=== PATIENT | female | born 1960 | race African-American/Black ===

== ENCOUNTER 2023-09-27 10:35 | Emergency (ER) | payer OTHER, SELFPAY ==
[2023-09-27 10:43] VITALS: BP 131/89; PULSE 108; RESP 18; TEMP 36.9; O2SAT 100; BMI 34.2
--- NOTE | 2023-09-27 11:32 | ECG_ITS ---
[facility] Test Date: 2023-09-27 Pat Name: WENDI LUCERO Department: Room: - Gender: Female Children'S Attendant: : 1960 Requested By: OLYA SOOD Order Number: [id number] Reading MD: ARLENE JOHNSON Measurements Intervals [place] Rate: 102 P: 72 PA: 154 QRS: -11 QRSD: 70 T: 100 QT: 318 QTc: 377 Interpretive Statements 1120 Sinus tachycardia 4068 Nonspecific [place] abnormality 9140 abnormal rhythm ECG No previous ECG available for comparison Electronically Signed On 09-28-2023 19:58:11 EST by ARLENE JOHNSON
--- NOTE | 2023-09-27 11:45 | ED_ITS ---
HPI - Psych General Chief Complaint: Psychiatric Symptoms Stated Complaint: MENTAL HEALTH CHECK Time Seen by Provider: 09/27/23 11:00 Source: Reports patient Mode of arrival: walk-in Limitations: Reports no limitations History of Present Illness HPI Narrative: Patient said that she is depressed and wants to end her life. She also said that she has been seeing things. She told me that she was admitted to [facility] psych this summer and then I was doing so good that they stopped my medications . She said that her counselor told her that she no longer needed to be seen by psych. No self injury. She did not tell me a particular plan for suicide. Related Data Home Medications Medication Instructions Recorded Confirmed cholecalciferol (vitamin D3) 50 2,000 unit PO DAILY 09/27/23 09/27/23 mcg (2,000 unit) tablet dulaglutide 3 mg/0.5 mL 3 mg subcut .weekly 09/27/23 09/27/23 subcutaneous pen injector (Trulicity) metformin 500 mg tablet,extended 500 mg PO BID 09/27/23 09/27/23 release 24 hr semaglutide 2 mg/dose (8 mg/3 mL) 2 mg subcut .weekly 09/27/23 09/27/23 subcutaneous pen injector (Ozempic) Allergies Allergy/AdvReac Type Severity Reaction Status Date / Time No Known Drug Allergies Allergy Verified 09/27/23 10:47 [facility] Social History Smoking status: Former smoker Exam Narrative Exam Narrative: Nurses notes and vital signs reviewed and patient is not hypoxic. afebrile General: Well-appearing and in no apparent distress. Skin: Warm, dry, no pallor noted. Head: Normocephalic, atraumatic. Neck: Supple, non-tender. Eye: Pupils are equal, round and EOMI. No scleral icterus. Ears, Nose, Mouth, and Throat: Oral mucosa is moist Cardiovascular: Regular Rate and Rhythm without murmur, gallop or rub. Respiratory: No accessory muscle use or respiratory distress. Lungs are clear to auscultation, no wheezing, rales or rhonchi Musculoskeletal: normal ROM, no calf or popliteal tenderness, no lower extremity edema/swelling GI: Abdomen is soft, non-distended. Normal bowel sounds. No tenderness to palpation. No rebound, guarding, or rigidity noted. Neurological: A&O x4. No cranial nerve dysfunction observed. No truncal ataxia. Moves all extremities. Sensation intact. Psychiatric: Cooperative and interactive. Flat affect. Constitutional Vital Signs, click to edit/add: Last Vital Signs Temp 98.4 F 09/27/23 10:43 Pulse 85 09/27/23 14:49 Resp 18 09/27/23 14:49 BP 137/72 09/27/23 14:49 Pulse Ox 99 09/27/23 14:49 O2 Del Method Room Air 09/27/23 10:43 Course Vital Signs Vital signs: Vital Signs Temperature 98.4 F 09/27/23 10:43 Pulse Rate 108 H 09/27/23 10:43 Respiratory Rate 18 09/27/23 10:43 Blood Pressure 131/89 09/27/23 10:43 Pulse Oximetry 100 09/27/23 10:43 Oxygen Delivery Method Room Air 09/27/23 10:43 Temperature 98.4 F 09/27/23 10:43 Pulse Rate 85 09/27/23 14:49 Respiratory Rate 18 09/27/23 14:49 Blood Pressure 137/72 09/27/23 14:49 Pulse Oximetry 99 09/27/23 14:49 Oxygen Delivery Method Room Air 09/27/23 10:43 MDM - Psych MDM Narrative Medical decision making narrative: suicide precautions initiated. Blood and urine obtained and sent for testing. EKG obtained. patient was medically cleared. [facility] and [facility] was called to arrange psychiatric follow-up. It was decided the patient would be admitted to [address] Quezada Lab Data Attestation: I reviewed the patient's lab results. Labs: Lab Results 09/27/23 09/27/23 Range/Units 11:49 11:50 WBC 14.2 H (4.0-11.0) 10^3/uL RBC 5.17 (4.20-5.40) 10^6/uL Hgb 14.4 (12.0-16.0) g/dL Hct 44.8 (36.0-48.0) % MCV 86.7 (81.0-99.0) fL MCH 27.9 (26.7-34.0) pg MCHC 32.1 (29.9-35.2) g/dL RDW 14.5 (11.0-15.0) % Plt Count 197 (150-450) 10^3/uL MPV 11.9 (9.5-13.5) fL Neut % (Auto) 77.4 H (43.0-75.0) % Lymph % (Auto) 13.3 L (20.5-60.0) % Edwards % (Auto) 8.1 (1.7-12.0) % Eos % (Auto) 0.5 L (0.9-7.0) % Baso % (Auto) 0.4 (0.2-2.0) % Neut # (Auto) 11.0 H (1.4-6.5) 10^3/uL Lymph # (Auto) 1.9 (1.2-3.8) 10^3/uL Edwards # (Auto) 1.2 H (0.3-0.8) 10^3/uL Eos # (Auto) 0.1 (0.0-0.7) 10^3/uL Baso # (Auto) 0.1 (0.0-0.1) 10^3/uL Abs Immat Gran (auto) 0.04 H (0.00-0.03) 10^3/uL Imm/Tot Granulo (auto) 0.3 (0.0-0.5) % Sodium 145 (136-145) mmol/L Potassium 3.3 L (3.5-5.1) mmol/L Chloride 103 (98-107) mmol/L Carbon Dioxide 24.6 (21.0-32.0) mmol/L Anion Gap 20.7 BUN 36.0 H (7.0-18.0) mg/dL Creatinine 1.22 H (0.55-1.02) mg/dL Est GFR ( Amer) 54 L (>=60) Est GFR (Non-Af Amer) 44 L (>=60) BUN/Creatinine Ratio 29.5 Glucose 204 H (74-106) mg/dL Calcium 9.8 (8.5-10.1) mg/dL Urine Color Yellow (YELLOW) Urine Clarity Clear (CLEAR) Urine pH 6.0 (5.0-9.0) Ur Specific [place] 1.025 (1.005-1.025) Urine Protein 100 A (NEG/TRACE) mg/dL Urine Glucose (UA) Negative (NEGATIVE) mg/dL Urine Ketones >=80 A (NEGATIVE) mg/dL Urine Occult Blood Trace-l (NEGATIVE) Urine Nitrite Negative (NEGATIVE) Urine Bilirubin Large A (NEGATIVE) Urine Urobilinogen 1.0 (0.2-1.0) EU/dL Ur Leukocyte Esterase Negative (NEGATIVE) Urine RBC 0-2 (0-2) #/HPF Urine WBC None seen (NONE SEEN) #/HPF Ur Squamous Epith Cells Few A (NONE/RARE) #/LPF Urine Crystals None seen (None Seen) #/HPF Urine Bacteria Trace A (NONE SEEN) #/HPF Urine Casts None seen (NONE SEEN) #/LPF Urine Mucus None seen (NONE SEEN) Ur Culture Indicated? No Salicylates 3.4 (<=19.9) mg/dL Urine Opiates Screen Negative (NEGATIVE) Ur Buprenorphine Scrn Negative (NEGATIVE) Ur Oxycodone Screen Negative (NEGATIVE) Urine Methadone Screen Negative (NEGATIVE) Acetaminophen <2.0 L (10.0-30.0) ug/mL Ur Barbiturates Screen Negative (NEGATIVE) U Tricyclic Antidepress Negative (NEGATIVE) Ur Phencyclidine Scrn Negative (NEGATIVE) Ur Amphetamines Screen Negative (NEGATIVE) U Methamphetamines Scrn Negative (NEGATIVE) U Benzodiazepines Scrn Negative (NEGATIVE) Urine Cocaine Screen Negative (NEGATIVE) U Cannabinoids Screen Negative (NEGATIVE) Ethanol Quant <3 mg/dL ECG Data Attestation: I personally reviewed and interpreted this ECG as follows: Interpretation: EKG interpretation: Emergency Department physician interpretation. Sinus tachycardia at 102bpm. Normal axis, normal intervals and non-specific T wave changes. No ST segment elevation or depression. Discharge Plan Discharge Chief Complaint: Psychiatric Symptoms Clinical Impression: Acute psychosis, Suicidal ideation, Depression Patient Disposition: [facility] Time of Disposition Decision: 15:00 Discharge Location: [facility]
[2023-09-27] MEDS: ACETAMINOPHEN 500 MG TABLET 1000 MG PO (11:49)
[2023-09-27 12:29] LABS: Basophils Absolute Auto 0.1 10^3/uL (0.0-0.1); Basophils Percent Auto 0.4 % (0.2-2.0); Eosinophils Absolute Auto 0.1 10^3/uL (0.0-0.7); Eosinophils Percent Auto 0.5 % (0.9-7.0); Hematocrit 44.8 % (36.0-48.0); Hemoglobin 14.4 g/dL (12.0-16.0); Immature Granulocytes Abs Auto 0.04 10^3/uL (0.00-0.03); Immature Granulocytes Pct Auto 0.3 % (0.0-0.5); Lymphocytes Absolute Auto 1.9 10^3/uL (1.2-3.8); Lymphocytes Percent Auto 13.3 % (20.5-60.0); Mean Corpuscular HGB Conc 32.1 g/dL (29.9-35.2); Mean Corpuscular Hemoglobin 27.9 pg (26.7-34.0); Mean Corpuscular Volume 86.7 fL (81.0-99.0); Mean Platelet Volume 11.9 fL (9.5-13.5); Monocytes Absolute Auto 1.2 10^3/uL (0.3-0.8); Monocytes Percent Auto 8.1 % (1.7-12.0); Neutrophils Percent Auto 77.4 % (43.0-75.0); Platelet Count 197 10^3/uL (150-450); Red Blood Count 5.17 10^6/uL (4.20-5.40); Red Cell Distribution Width 14.5 % (11.0-15.0); White Blood Count 14.2 10^3/uL (4.0-11.0)
[2023-09-27 12:31] LABS: Bilirubin Urine LARGE (NEGATIVE); Blood Urine TRACE-L (NEGATIVE); Clarity Urine CLEAR (CLEAR); Color Urine YELLOW (YELLOW); Glucose Urine UA NEGATIVE (NEGATIVE); Ketones Urine >=80 mg/dL (NEGATIVE); Leukocyte Esterase Urine NEGATIVE (NEGATIVE); Nitrite Urine NEGATIVE (NEGATIVE); Protein Urine 100 mg/dL (NEG/TRACE); Specific Gravity Urine 1.025 (1.005-1.025)
[2023-09-27 12:39] LABS: Anion Gap 20.7; BUN Creatinine Ratio 29.5; Calcium 9.8 mg/dL (8.5-10.1); Carbon Dioxide 24.6 mmol/L (21.0-32.0); Chloride 103 mmol/L (98-107); Estimated GFR (African America 54 (>=60); Estimated GFR (Non-African Ame 44 (>=60); Ethanol <3 mg/dL; Glucose 204 mg/dL (74-106); Potassium 3.3 mmol/L (3.5-5.1); Salicylate 3.4 mg/dL (<=19.9); Sodium 145 mmol/L (136-145)
[2023-09-27 12:40] LABS: Amphetamine Screen Urine NEGATIVE (NEGATIVE); Barbiturates Screen Urine NEGATIVE (NEGATIVE); Benzodiazepines Screen Urine NEGATIVE (NEGATIVE); Buprenorphine Screen Urine NEGATIVE (NEGATIVE); Cannabinoid Screen Urine NEGATIVE (NEGATIVE); Cocaine Screen Urine NEGATIVE (NEGATIVE); Methadone Screen Urine NEGATIVE (NEGATIVE); Methamphetamines Screen Urine NEGATIVE (NEGATIVE); Opiate Screen Urine NEGATIVE (NEGATIVE); Oxycodone Screen Urine NEGATIVE (NEGATIVE); Phencyclidine Screen Urine NEGATIVE (NEGATIVE); Tricyclic Antidepressant Urine NEGATIVE (NEGATIVE); Urine Microscopic Indicated YES
[2023-09-27 12:41] LABS: Acetaminophen <2.0 ug/mL (10.0-30.0)
[2023-09-27 12:51] LABS: Bacteria Urine TRACE #/HPF (NONE SEEN); Crystals Seen? None Seen #/HPF (None Seen); Mucus Urine NONE SEEN (NONE SEEN); RBC Urine 0-2 #/HPF (0-2); Squamous Epithelial Cell Urine FEW #/LPF (NONE/RARE); WBC Urine NONE SEEN #/HPF (NONE SEEN)
[2023-09-27 12:52] LABS: Cast Seen? NONE SEEN #/LPF (NONE SEEN); Urine Culture Indicated NO
[2023-09-27 13:14] VITALS: BP 138/94; PULSE 84; RESP 18; O2SAT 99
[2023-09-27 14:49] VITALS: BP 137/72; PULSE 85; RESP 18; O2SAT 99
[2023-09-27 16:06] VITALS: BP 153/82; PULSE 85; RESP 18; O2SAT 98
== END 2023-09-27 16:52 ==
PROVIDERS: Emergency Provider Emergency Medicine; PCP Family Medicine
DX: R45.851 Suicidal ideations (principal); F32.A Depression, unspecified; F23 Brief psychotic disorder; Z79.899 Other long term (current) drug therapy; Z87.891 Personal history of nicotine dependence; Z79.84 Long term (current) use of oral hypoglycemic drugs
CPT/HCPCS: 36415; 80048; 80179; 80307; 80320; 80329; 81001; 85025; 93005; 99285

== ENCOUNTER 2024-11-26 23:14 | Emergency (ER) | payer MEDICARE, MEDICAID, SELFPAY ==
[2024-11-26 23:17] VITALS: BP 165/90; PULSE 102; TEMP 37.1; O2SAT 99; BMI 29.3
--- OUTSIDE RECORDS SUMMARY | 2024-11-26 23:19 | XMS_ITS | CCD ---
Author Organization [facility] Informat ion Partnership [facility] Care Team Providers Care Inspector And Tester Name Role Phone DR ISAC SOOD Primary Care Unavailable YVONNE PETIT Admitting Unavailable YVONNE PETIT Attending Unavailable YVONNE PETIT Consulting Unavailable INDIGO, DR ISAC Rosario Admitting Unavailable INDIGO, DR ISAC Rosario Attending Unavailable INDIGO, DR ISAC Rosario Primary Care Unavailable INDIGO, DR ISAC Rosario Consulting Unavailable MD Isac Sood Primary Care Provider MD Avinash Quezada Admit Provider [phone] MD Avinash Quezada Attending Provider [phone] MD Isac Sood Primary Care Provider MD Avinash Quezada Admit Provider MD Avinash Quezada Attending Provider MARIAM Walsh Other Provider Unavailable MARIAM Mccray Other Provider Unavailable MARIAM Paetl Other Provider Unavailable MARIAM Zheng Other Provider Unavailable MARIAM Rosado Other Provider Unavailable MARIAM Crane Other Provider Unavailable Dials, PET HANDLERNathaly Chamorro Other Provider [phone] DO Farideh Silva Other Provider [phone] MD Adolfo Phelps Other Provider DO Guero Beckett Other Provider MD Jay Duran Other Provider MD Jacqueline Benson Other Provider DARSHAN Anton Other Provider MD Blaire Brown Other Provider MD Simba Robins Other Provider MD Dusty Hsu Other Provider MD Dina Rodriguez Other Provider DO Kyle Mancia Other Provider MD Jovan Bill Other Provider MD Jorge Guzman Other Provider AMISH Petersen-C Patti Mckee Other Provider MD Zeferino Ruth Other Provider MD Junior Rosa Other Provider MD Baljit Varela Other Provider MD Boy Garay Other Provider DO Alma Delia Curiel Other Provider DO Stef Armijo Other Provider DO Anthony Walker Other Provider DARSHAN Serrano Other Provider DO Alex Lynch Other Provider MD Panfilo Casillasayemir Chamorro Other Provider DARSHAN Noguera Other Provider DARSHAN Buenrostro Other Provider MD Leon Campo Other Provider MD Prosper Baer Other Provider DO Joni Krishnamurthy Other Provider [phone] DARSHAN Christianson Other Provider DO J Luis Yabrett Other Provider MARIAM Beltran Other Provider Unavailable Kayla Blas Unavailable Rosa Quezadayemi Admitting Unavailable Tsering Walsh Consulting Unavailable Isac Sood Primary Care Unavailable Theo Lott Attending Unavailab Bhavya Kessler Consulting Unavailable Carlota Patel Consulting Unavailable Nancy Zheng Consulting Unavailable Renee Rosado Consulting Unavailable Irene Crane Consulting Unavailable Adalgisa Graves Consulting Unavailable Farideh Silva Consulting Unavailable Adolfo Phelps Consulting Unavailable Guero Beckett Consulting UnavailJay Serrano Consulting Unavailable Jacqueline Benson Consulting Unavailable Filomena Anton Consulting UnavailBlaire Bass Consulting Unavailable Simba Robins Consulting Unavailable Dusty Hsu Consulting Unavailable Dina Rodriguez Consulting Unavailable Kyle Mancia Consulting Unavailable Jovan Bill Consulting Unavailable Jorge Guzman Consulting Unavailable Patti Petersen Consulting Unavailable Zeferino Ruth Consulting Unavailab Junior Irvin Consulting Unavailable Baljit Varela Consulting Unavailable Boy Garay Consulting Unavailable Alma Delia Curiel Consulting Unavailable Stef Armijo Consulting Unavailable MiniAnthony richmond Consulting Unavailable ObCamille thayer Consulting Unavailable Alex Lynch Consulting Unavailable DaromaLeanna clark Consulting Unavailable Ashleigh Noguera Consulting Unavailable Edyta Buenrostro Consulting Unavailable Alahmad Alanancy Consulting Unavailable Prosper Baer Consulting Unavailable Joni Krishnamurthy Consulting Unavailable Alfreda Christianson Consulting Unavailable Raj Dietz Consulting Unavailable Quita Beltran Consulting Unavailable Isac Sood Primary Care Unavailable Theo Lott Admitting Unavailab Theo Maxwell Attending UnavailIsac Lea MD Primary Care Provider Isac Sood MD Unavailable ISAC SOOD Attending Unavailable INDIGO, ISAC Attending Unavailable ISAC SOOD Attending Unavailable ISAC SOOD Attending Unavailable INDIGO, ISAC Attending Unavailable Isac Sood MD Unavailable ISAC SOOD Referring Unavailable ISAC SOOD Primary Care Unavailable ISAC SOOD Referring Unavailable NADSHIREEN, ISAC Primary Care Unavailable NADERER, ISAC Referring Unavailable NADDEJANR, ISAC Primary Care Unavailable NADDEJANR, ISAC Referring Unavailable NADSHIREEN, ISAC Primary Care Unavailable NADSHIREEN, ISAC Referring Unavailable NADDEJANR, ISAC Primary Care Unavailable NADERER, ISAC Referring Unavailable NADERER, ISAC Primary Care Unavailable NADDEJANR, ISAC Referring Unavailable NADDEJANR, ISAC Primary Care Unavailable Angi Louis MA Unavailable Unavailable Isac Sood MD Primary Care Provider ISAC SOOD Referring Unavailable NADDEJANR, ISAC Primary Care Unavailable NADDEJANR, ISAC Referring Unavailable NADERER, ISAC Primary Care Unavailable Medications Current Medications Medication Drug Class(es) Dates Sig (Normalized) Sig (Original) albuterol 0.21 mg/ml inhalation solution (2 sources) beta2-Adrenergic Agonist Start: 04-26-2021 take 3 mL by inhalation every six hours as needed for wheezing albuterol (ACCUNEB) 0.63 mg/3 mL nebulizer solution Indications: [place] Inhale 3 mL (0.63 mg total) by nebulization every 6 (six) hours as needed for wheezing. 75 mL 04/26/2021 Active take 2 puff(s) by in halation every six hours as needed for wheezing albuterol (PROVENTIL HFA;VENTOLIN HFA) 9 0 mcg/actuation inhaler Inhale 2 puffs every 6 (six) hours as needed for wheezing. Active ALPRAZolam 0.5 mg oral tablet (14 sources) Benzodiazepine Start: 03-24-2024 End: 11-24-2024 take 1 tablet by mouth three times daily as needed for anxiety ALPRAZolam (Xanax) 0.5 MG tablet Indications: GEORGIE (generalized anxiety disorder) ([facility]) Take 1 tablet (0.5 mg) by mouth 3 (three) times a day as needed for anxiety for up to 20 days 60 tablet 11/04/2024 11/24/2024 Active Start: 02-15-2023 End: 09-27-2023 take 1 mg by mouth twice daily Alprazolam Discontinued 1 MG PO Twice daily 0 February 14, 2023 11:00pm September 27, 2023 6:15pm Start: 02-10-2023 End: 02-15-2023 take 1 mg by mouth three times daily Alprazolam Discontinued 1 MG PO Three times daily February 09, 2023 11:00pm February 15, 2023 10:37am amLODIPine 10 mg oral tablet (1 source) Dihydropyridine Calcium Channel Edilson Start: 04-27-2021 take 1 tablet by mouth once daily amLODIPine (NORVASC) 10 mg tablet Take 1 tablet (10 mg total) by mouth daily. 30 tablet 04/27/2021 Active Budesonide / formoterol (1 source) Corticosteroid, beta2-Adrenergic Agonist Start: 07-06-2021 take 2 puff(s) by inhalation twice daily budesonide-formoter oL (SYMBICORT) 160-4.5 mcg/actuation inhaler Indications: Chronic bronchitis, unspecified chronic bronchitis type ([facility]) Inhale 2 puffs 2 (two) times a day. 10.2 g 11 07/06/2021 Active cholecalciferol 0.05 mg oral tablet (9 sources) Vitamin D Start: 02-09-2024 take 1 tablet by mouth once daily cholecalciferol (Vitamin D-3) 50 MCG (2000 UT) tablet Indications: Vitamin D deficiency Take 1 tablet (50 mcg) by mouth Daily 90 tablet 3 08/17/2024 Active Start: 02-15-2023 End: 09-27-2023 take 50 ug by mouth once daily Cholecalciferol (Vitamin D3) Discontinued 50 MCG PO Daily 30 February 14, 2023 11:00pm September 27, 2023 6:15pm docusate sodium 100 mg oral capsule (1 source) Start: 10-02-2023 take 100 mg by mouth twice daily Docusate Sodium Active 100 MG PO Twice daily October 02, 2023 12:00am ergocalciferol 1.25 mg oral capsule (8 sources) Provitamin D2 Compound Start: 10-02-2023 take 1 capsule by mouth every week ergocalciferol (Vitamin D2) 1.25 MG (87288 UT) capsule Take 1 capsule by mouth 1 (one) time per week 10/03/2023 Active escitalopram 5 mg oral tablet (10 sources) Serotonin Reuptake Inhibitor Start: 10-02-2023 End: 08-16-2024 take 1 tablet by mouth once daily escitalopram (Lexapro) 5 MG tablet Indications: Mild recurrent major depression (HCC) ([facility]) Take 1 tablet (5 mg) by mouth Daily 30 tablet 5 08/16/2024 Active fluticasone propionate 0.05 mg/actuat metered dose nasal spray (7 sources) Corticosteroid Start: 02-20-2024 take 2 spray(s) nasal route once daily fluticasone (Flonase) 50 MCG/ACT nasal spray Indications: Seasonal allergic rhinitis due to pollen Administer 2 sprays into each nostril Daily Shake gently. Before first use, prime pump. After use, clean tip and replace cap. 16 g 3 02/20/2024 Active 30 actuat fluticasone furoate 0.1 mg/actuat / umeclidinium 0.0625 mg/actuat / vilanterol 0.025 mg/actuat dry powder inhaler (1 source) Anticholinergic, Corticosteroid, beta2-Adrenergic Agonist Start: 06-27-2021 take 1 puff(s) by inhalation once daily fluticasone-umecli din-vilanter (TRELEGY ELLIPTA) 100-62.5-25 mcg blister with device Indications: Chronic bronchitis, unspecified chronic bronchitis type ([facility]) Inhale 1 puff daily. 1 each 11 06/27/2021 Active furosemide 40 mg oral tablet (7 sources) Loop Diuretic Start: 10-13-2023 take 1 tablet by mouth in the morning furosemide (Lasix) 40 MG tablet Indications: Edema of both legs Take 1 tablet (40 mg) by mouth in the morning. 30 tablet 3 10/13/2023 Active 3 ml insulin glargine 100 unt/ml pen injector (18 sources) Insulin Analog Start: 03-19-2024 End: 08-16-2024 insulin glargine (Lantus SoloStar) 100 UNIT/ML pen Indications: Type 2 diabetes mellitus with hyperglycemia, without long-term current use of insulin ([facility]) Inject 60 Units under the skin in the morning. 15 mL 5 08/16/2024 Active Start: 10-02-2023 Insulin Glargi ne (Lantus Solostar U-100 Insulin) 100 unit/mL (3 mL) Insulin Pen Active 20 UNIT SUBCUT Daily October 02, 2023 12:00am Start: 02-10-2023 End: 09-27-2023 Insulin Glargine (Lantus Magalie ostar U-100 Insulin) 100 unit/mL (3 mL) insulin pen Discontinued 50 UNIT SUBCUT Bedtime February 09, 2023 11:00pm September 27, 2023 6:15pm Start: 04-26-2021 End: 10-02-2023 Insulin Glargine (Lantus Magalie ostar U-100 Insulin) 100 unit/mL (3 mL) insulin pen Discontinued 40 UNIT SUBCUT 1 time daily September 30, 2023 12:00am October 02, 2023 12:12pm 40 units every evening 24 hr metFORMIN hydrochloride 500 mg extended release oral tablet (18 sources) Biguanide Start: 10-18-2024 take 2 tablets by mouth every twenty-four hours in the morning metFORMIN XR (Glucophage-XR) 500 MG 24 hr tablet Indications: Type 2 diabetes mellitus with hyperglycemia, with long-term current use of insulin (CMS/HCC) Take 2 tablets (1,000 mg) by mouth in the morning and 2 tablets (1,000 mg) before bedtime. 120 tablet 5 10/18/2024 Active Start: 10-03-2023 End: 10-18-2024 take 2 tablets by mouth in the morning metFORMIN (Glucophage) 500 MG tablet Indications: Type 2 diabetes mellitus with hyperglycemia, without long-term current use of insulin (CMS/HCC) Take 2 tablets (1,000 mg) by mouth in the morning and 2 tablets (1,000 mg) in the evening. Take with meals. 30 tablet 5 08/16/2024 10/18/2024 Discontinued Start: 10-02-2023 take 1000 mg by mout h at breakfast Metformin Active 1000 MG PO With breakfast and supper 60 October 02, 2023 12:00am Start: 09-29-2023 End: 10-02-2023 take 100 mg by mouth at breakfast Metformin Discontinued 100 MG PO With breakfast and supper September 29, 2023 12:00am October 02, 2023 12:12pm Start: 02-10-2023 End: 09-27-2023 take 1000 mg by mouth twice daily at mealtime Metformin Discontinued 1000 MG PO TWICE DAILY WITH MEALS February 09, 2023 11:00pm September 27, 2023 6:15pm take 1 tablet by peggy th every twelve hours metFORMIN HCl 1000 MG 1 tablet with a meal Orally BID Active OLANZapine 2.5 mg oral tablet (8 sources) Atypical Antipsychotic Start: 11-04-2024 take 1 tablet by mouth at bedtime OLANZapine (ZyPREXA) 2.5 MG tablet Indications: Mild recurrent major depression (HCC) (CMS/HCC) Take 1 tablet (2.5 mg) by mouth at bedtime 30 tablet 3 11/04/2024 Active Start: 02-08-2024 End: 11-04-2024 take 1 tablet by mouth at bedtime OLANZapine (ZyPREXA) 2.5 MG tablet Take 1 tablet by mouth at bedtime 02/08/2024 11/04/2024 Discontinued (Reorder) ondansetron 4 mg disintegrating oral tablet (8 sources) Serotonin-3 Receptor Antagonist Start: 10-03-2023 End: 11-04-2024 take 1 tablet by mouth every eight hours as needed ondansetron ODT (Zofran-ODT) 4 MG disintegrating tablet Take 4 mg by mouth every 8 (eight) hours if needed 10/03/2023 11/04/2024 Discontinued (Therapy completed) Start: 10-02-2023 take 4 mg by mouth e very six hours Ondansetron Active 4 MG PO Every 6 hours 30 October 02, 2023 12:00am phentermine hydrochloride 37.5 mg oral tablet (6 sources) Sympathomimetic Amine Anorectic Start: 08-16-2024 End: 11-04-2024 take 35-35.9 tablets by mouth before mealtime phentermine (Adipex-P) 37.5 MG tablet Indications: Class 2 severe obesity due to excess calories with serious comorbidity and body mass index (BMI) of 35.0 to 35.9 in adult (CMS/HCC) Take 1 tablet (37.5 mg) by mouth in the morning. Take before meals. 30 tablet 08/16/2024 11/04/2024 Discontinued (Therapy completed) pregabalin 100 mg oral capsule (1 source) Start: 06-07-2021 pregabalin (LYRICA) 100 mg capsule Indications: Fibromyalgia , Bilateral carpal tunnel syndrome One capsule at 8 PM each night 30 capsule 2 06/07/2021 Active Semaglutide (Ozempic) 2 mg/dose (8 mg/3 mL) pen injector (1 source) Start: 09-30-2023 Semaglutide (Ozempic) 2 mg/dose (8 mg/3 mL) pen injector Active MG SUBCUT September 30, 2023 12:00am Semaglutide, 2 MG/DOSE, (Ozempic, 2 MG/DOSE,) 8 MG/3ML solution pen-injector (7 sources) Start: 08-10-2024 Semaglutide, 2 MG/DOSE, (Ozempic, 2 MG/DOSE,) 8 MG/3ML solution pen-injector Indications: Type 2 diabetes mellitus with diabetic microalbuminuria, without long-term current use of insulin ([facility]) Inject 3 mL under the skin every 7 (seven) days 3 mL 5 08/10/2024 Active 10 actuat tiotropium 0.0025 mg/actuat inhalation spray (1 source) Anticholinergic Start: 07-06-2021 take 2 puff(s) by inhalation once daily tiotropium bromide (SPIRIVA RESPIMAT) 2.5 mcg/actuation mist Inhale 2 puffs daily. 4 g 11 07/06/2021 Active traZODone hydrochloride 100 mg oral tablet (4 sources) Serotonin Reuptake Inhibitor Start: 10-16-2023 take 1 tablet by mouth every twenty-four hours traZODone HCl 100 MG 1 tablet at bedtime Orally Once a day for 30 days Sep, Active Start: 10-02-2023 take 50 mg by mouth once daily at bedtime Trazodone Active 50 MG PO Daily at bedtime October 02, 2023 12:00am Completed/Discontinued Medications Medication Drug Class(es) Dates Sig (Normalized) Sig (Original) Dulaglutide (Trulicity) 3 mg/0.5 mL pen injector (1 source) Start: 09-29-2023 End: 09-30-2023 Dulaglutide (Trulicity) 3 mg/0.5 mL pen injector Discontinued 3 MG SUBCUT every week September 29, 2023 12:00am September 30, 2023 4:30pm 24 hr paliperidone 6 mg extended release oral tablet (4 sources) Atypical Antipsychotic Start: 02-14-2024 End: 08-16-2024 paliperidone (Invega) 6 MG 24 hr tablet 02/14/2024 08/16/2024 Discontinued Start: 12-07-2023 take 6 mg by mouth o nce daily at bedtime Paliperidone Active 6 MG PO Daily at bedtime October 02, 2023 12:00am 24 hr QUEtiapine 50 mg extended release oral tablet (6 sources) Atypical Antipsychotic Start: 10-16-2023 End: 08-16-2024 QUEtiapine XR (SEROquel XR) 50 MG 24 hr tablet 10/16/2023 08/16/2024 Discontinued Start: 10-16-2023 take 1 tablet by peggy th every twenty-four hours QUEtiapine Fumarate ER 50 MG 1 tablet in the evening Orally Once a day for 30 days Sep, Active risperiDONE 2 mg oral tablet (2 sources) Atypical Antipsychotic Start: 02-15-2023 End: 09-27-2023 take 2 mg by mouth at bedtime Risperidone Discontinued 2 MG PO Bedtime February 14, 2023 11:00pm September 27, 2023 6:15pm Semaglutide (2 sources) Start: 02-10-2023 End: 09-27-2023 Semaglutide (Ozempic) 1 mg/dose (4 mg/3 mL) pen injector Discontinued MG SUBCUT February 09, 2023 11:00pm September 27, 2023 6:15pm Start: 02-10-2023 Semaglutide (O zempic) 1 mg/dose (4 mg/3 mL) pen injector Active MG SUBCUT February 10, 2023 12:00am 24 hr venlafaxine 150 mg extended release oral capsule (6 sources) Serotonin and Norepinephrine Reuptake Inhibitor Start: 02-15-2023 End: 09-27-2023 take 75 mg by mouth once daily Venlafaxine Discontinued 75 MG PO Daily February 14, 2023 11:00pm September 27, 2023 6:15pm Start: 02-10-2023 End: 09-27-2023 take 150 mg by mouth once daily Venlafaxine Discontinued 150 MG PO Daily February 15, 2023 10:36am September 27, 2023 6:15pm Problems Active Problems Problem Classification Problem Date Documented Date Episodic/Chronic Anxiety disorders (10 sources) Generalized anxiety disorder; Translations: [Generalized anxiety disorder] Onset: 10-08-2023 10-08-2023 Chronic Cardiac dysrhythmias (1 source) Paroxysmal supraventricular tachycardia; Translations: [Paroxysmal supraventricular tachycardia] Onset: 01-19-2015 05-11-2018 Chronic Chronic obstructive pulmonary disease and bronchiectasis (1 source) Acute exacerbation of chronic obstructive airways disease; Translations: [Chronic obstructive pulmonary disease with (acute) exacerbation] Onset: 04-23-2021 04-23-2021 Chronic Diabetes mellitus with complications (19 sources) Type 2 diabetes mellitus; Translations: [Type 2 diabetes mellitus with other diabetic kidney complication] Onset: 10-08-2023 03-03-2024 Chronic Diabetes mellitus without complication (7 sources) Diabetes mellitus; Translations: [Type 2 diabetes mellitus without complications] Onset: 09-27-2023 09-30-2023 Chronic Disorders of lipid metabolism (1 source) Hyperlipidemia; Translations: [Other hyperlipidemia] Onset: 09-07-2015 05-11-2018 Chronic Essential hypertension (11 sources) Benign essential hypertension; Translations: [Essential (primary) hypertension] Onset: 10-08-2023 10-08-2023 Chronic Gout and other crystal arthropathies (7 sources) Gouty arthropathy; Translations: [Gout, unspecified] Onset: 10-08-2023 10-08-2023 Chronic Miscellaneous mental health disorders (9 sources) Primary insomnia; Translations: [Primary insomnia] Onset: 10-08-2023 10-08-2023 Chronic Mood disorders (10 sources) Recurrent major depressive episodes, mild ; Translations: [Major depressive disorder, recurrent, mild] Onset: 10-08-2023 02-20-2024 Chronic Nutritional deficiencies (12 sources) Vitamin D deficiency; Translations: [Vitamin D deficiency, unspecified] Onset: 08-16-2020 09-30-2023 Chronic Osteoarthritis (1 source) Osteoarthritis of joint of bilateral hands; Translations: [Primary osteoarthritis, right hand] Onset: 01-04-2021 01-04-2021 Chronic Other aftercare (1 source) half-way (current) use of oral hypoglycemic drugs; Translations: [[facility] USE ORAL HYPOGLYCEMIC DX] Onset: 02-11-2023 Episodic Other nervous system disorders (1 source) Other chronic pain; Translations: [Other chronic pain] Onset: 12-01-2023 Chronic Other nutritional; endocrine; and metabolic disorders (1 source) Body mass index 30+ - obesity; Translations: [Obesity, unspecified] Onset: 10-08-2023 10-08-2023 Chronic Other nutritional; endocrine; and metabolic disorders (8 sources) Severe obesity; Translations: [Class 2 severe obesity due to excess calories with serious comorbidity and body mass index (BMI) of 35.0 to 35.9 in adult ([facility])] Onset: 10-08-2023 08-16-2024 Chronic Other nutritional; endocrine; and metabolic disorders (1 source) Obesity, unspecified; Translations: [Obesity, unspecified] Onset: 03-02-2024 Chronic Other screening for suspected conditions (not mental disorders or infectious disease) (13 sources) Patient encounter status; Translations: [Encounter for screening mammogram for malignant neoplasm of breast] Onset: 08-27-2024 08-16-2024 Episodic Other upper respiratory disease (7 sources) Allergic rhinitis due to pollen; Translations: [Allergic rhinitis due to pollen] Onset: 02-20-2024 02-20-2024 Chronic Residual codes; unclassified (3 sources) Insomnia; Translations: [Insomnia, unspecified] Episodic Residual codes; unclassified (1 source) Insomnia, unspecified Episodic Rheumatoid arthritis and related disease (10 sources) Rheumatoid arthritis; Translations: [Rheumatoid arthritis, unspecified] Onset: 10-08-2023 10-08-2023 Chronic Schizophrenia and other psychotic disorders (13 sources) Delusional disorders; Translations: [Psychotic disorder] Onset: 02-10-2023 Chronic Unclassified (1 source) Schizoaffective disorder, unspecified; Translations: [Schizoaffective disorder, unspecified] Onset: 09-27-2023 Past or Other Problems Problem Classification Problem Date Documented Date Episodic/Chronic Immunizations and screening for infectious disease (1 source) Rheumatoid factor positive; Translations: [Other specified abnormal immunological findings in serum] Onset: 08-16-2020 08-16-2020 Episodic Nonspecific chest pain (1 source) Chest pain; Translations: [Chest pain, unspecified] Onset: 09-07-2015 05-11-2018 Episodic Other aftercare (2 sources) 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; Translations: [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 THERAPY] Onset: 02-11-2023 Episodic Other aftercare (7 sources) Long-term current use of drug therapy; Translations: [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] Onset: 02-20-2024 02-20-2024 Episodic Other aftercare (1 source) wallpaper hanger helper (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) 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 of insulin; Translations: [wallpaper hanger helper (current) use of insulin] Onset: 03-02-2024 Episodic Other connective tissue disease (1 source) Fibromyalgia; Translations: [Fibromyalgia] Onset: 01-04-2021 01-04-2021 Episodic Other lower respiratory disease (7 sources) Nodule of lung; Translations: [Solitary pulmonary nodule] Onset: 10-08-2023 10-08-2023 Episodic Other non-traumatic joint disorders (7 sources) Hip pain; Translations: [Pain in right hip] Onset: 11-25-2023 11-25-2023 Episodic Other non-traumatic joint disorders (1 source) Pain in right hip; Translations: [Pain in right hip] Onset: 12-01-2023 Episodic Other non-traumatic joint disorders (1 source) Pain in left hip; Translations: [Pain in left hip] Onset: 12-01-2023 Episodic Other non-traumatic joint disorders (1 source) Pain of left wrist; Translations: [Pain in left wrist] Onset: 08-16-2020 08-16-2020 Episodic Other non-traumatic joint disorders (1 source) 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; Translations: [Pain in unspecified joint] Onset: 08-16-2020 01-04-2021 Episodic Other skin disorders (1 source) Subcutaneous nodule; Translations: [Localized swelling, mass and lump, unspecified] Onset: 01-04-2021 01-04-2021 Episodic Other upper respiratory infections (7 sources) Acute pansinusitis; Translations: [Acute pansinusitis, unspecified] Onset: 11-25-2023 Resolved: 02-20-2024 02-20-2024 Episodic Residual codes; unclassified (10 sources) Bilateral lower limb edema; Translations: [Localized edema] Onset: 10-13-2023 09-30-2023 Episodic Residual codes; unclassified (2 sources) Localized edema; Translations: [Edema] Onset: 09-27-2023 10-02-2023 Episodic Spondylosis; intervertebral disc disorders; other back problems (8 sources) Low back pain co-occurrent with neuralgia of left sciatic nerve; Translations: [Lumbago with sciatica, left side] Onset: 10-08-2023 10-08-2023 Episodic Results Test Name Value Interpretation Reference Range Facility MAMM BX BREAST STEREO GUID I NITIAL LTon 11-10-2024 MAMM BX BREAST STEREO GUID INITIAL LT MAMM BX BREAST STEREO GUID INITIAL LT *ADDENDUM*Addendum issued for newly received pathology results, 11/10/2024 9:57 AM: For the left breast biopsy site there are pathology results of benign breast tissue with fibroadenomatoid fibrosis and stromal calcifications.. See dedicated pathology report for further detail. Results are benign and concordant with imaging findings. Patient may return to annual screening mammography. Procedure performed by Dr. Phan, addendum issued by Dr. Phan. Finalized by Debi Phan MD on 11/10/2024 9:58 AM 100 Normal [facility] MAMM POST BX DIAG UNI LTon 0 11-10-2024 MAMM POST BX DIAG UNI LT MAMM POST BX DIAG UNI LT *ADDENDUM*Addendum issued for newly received pathology results, 11/10/2024 9:57 AM: For the left breast biopsy site there are pathology results of benign breast tissue with fibroadenomatoid fibrosis and stromal calcifications.. See dedicated pathology report for further detail. Results are benign and concordant with imaging findings. Patient may return to annual screening mammography. Procedure performed by Dr. Phan, addendum issued by Dr. Phan. Finalized by Debi Phan MD on 11/10/2024 9:58 AM 100 Normal [facility] Surgical Pathologyon 025 Surgical Pathology Normal [facility] Comment on above: Result Comment: [facility] [address] [place] [address] Surgical Pathology Consultation Patient Name:MARIZOL LUCERO:1960 (Age: 64)Gender:FTaken:11/05/2024Reported:11/09/2024Physician(s):Isac Sood MD ([phone])Copy To:Debi Phan MDAession #:[id number]. Rec. #:[id number]: #[id number] Final Pathologic Diagnosis Left breast, needle biopsy @2:00: Benign breast tissue with focal usual duct hyperplasia, cystic change and fibroadenomatoid periductal fibrosis with stromal calcifications. Negative for atypia and carcinoma. Report Electronically Signed Out gr11/09/2024Anatoly Correia MD Interpretation performed at [employer], [address] [place] [address], License number: [id number]. Clinical History Biopsy procedure: Stereotactic; Target: Calcifications; Laterality: Left breast; Location: 2:00; BI-RAD: 4b; Suspect: R/O DCIS Gross Description Received in formalin labeled NIC, left breast are 8 fibroadipose tissue cores ranging from 1.7-3.4 cm, and a 1.8 x 1.2 x 0.2 cm aggregate of yellow, lobulated soft tissue bits. The cores are submitted entirely in cassette A- B and the aggregated soft tissue is submitted in cassette C. Radiographic images are taken to demonstrate microcalcifications in cassette A and C Time incised: 1438 Time in formalin: 1439 Cold ischemic time: 1 minute Time in formalin before processin hours (3,ns,D18-4695, m6) mxw/11/05/2024GR Specimen(s) Received Left breast Fee Codes(s): 1; 14962 MAMM DIAGNOSTIC UNILAT LT W CADon 09-28-2024 MAMM DIAGNOSTIC UNILAT LT W CAD MAMM DIAGNOSTIC UNILAT LT W CAD MARIZOL LUCERO 1960 [id number] EXAM: MAMM DIAGNOSTIC UNILAT LT W CAD, 09/28/2024 1:43 PM CLINICAL INDICATIONS: Abnormal mammogram, Patient returns for additional imaging of an abnormality visualized on screening mammography. COMPARISON: 08/27/2024 TECHNIQUE: Supplemental views of the left breast were obtained for diagnostic workup. Digital tomosynthesis images were obtained, with creation of synthetic 2D views. Computer aided detection was utilized. FINDINGS: There are scattered areas of fibroglandular density. Magnification views confirm the presence of a cluster of small calcifications in the mid outer aspect of the left breast. These are not well visualized on the lateral view on the current study, however, these are suspicious for malignancy and stereotactic biopsy is recommended for further evaluation. IMPRESSION: A cluster small calcifications in the mid outer aspect of the left breast, suspicious for malignancy. Stereotactic biopsy is recommended for further evaluation. BI-RADS: BI-RADS 4 - Suspicious RECOMMENDATION: Biopsy is recommended. These findings were discussed with the patient at the time of the examination. 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 Most recent mammogram more than 10 years ago, not available. TECHNIQUE: Bilateral digital tomosynthesis MLO and CC views of the breasts were obtained, with creation of synthetic 2D views. Computer aided detection was utilized. FINDINGS: There are scattered areas of fibroglandular density. There are no suspicious masses, no areas of architectural distortion. Small group of calcifications in the left breast at 3:00 at posterior depth. Recommend diagnostic mammographic views. IMPRESSION: Left breast: Small group of calcifications. Recommend diagnostic mammographic views. Right breast: Negative. BI-RADS: BI-RADS 0 - Incomplete. Needs additional imaging evaluation. RECOMMENDATION: Additional imaging required. RISK ASSESSMENT: TC Lifetime risk: 4.4%. The patient's reported personal and family medical history was used calculate their Tyrer-Cuzick lifetime risk of malignancy. Scores less than 20% are not considered high risk per ACR guidelines and patient should continue with the above recommendation. Finalized by Janet Pickering MD on 08/30/2024 1:06 PM 0A b ADDITIONAL I Normal [facility] HGB A1C (GLYCO-HGB)on 2023 Glucose [Mass/Vol] 243 mg/dL Normal [facility] Comment on above: Performed By: #### H A1C ####[facility] ([id number])[address], [address] [place] [address] HbA1c (Bld) [Mass fraction] 10.1 % High 4.4-5.6 [facility] Comment on above: Result Comment: NOTE ADA Guidelines Result HgbA1c Normal : less than 5.7 % Prediabetes : 5.7 % to 6.4 % Diabetes : > 6.4 % Use with caution in patients with abnormal hemoglobin variants as the half-life of red blood cells and in vivo glycation rates are affected. Performed By: #### H A1C ####[facility] ([id number])[address], [address], [place] [address] BASIC METABOLIC PANLon 03-02 Anion gap [Moles/Vol] 10 mmol/L Normal 5-15 [facility] Comment on above: Performed By: #### C BCA, BMP, LIVR, 22246-3, 3016-3, 71187-4, HA1C #### [facility] ([id number]) [address], [address] [place] [address] Calcium [Mass/Vol] 8.9 mg/dL Normal 8.5-10.5 [facility] Comment on above: Performed By: #### C BCA, BMP, LIVR, 18997-3, 3016-3, 84624-8, HA1C #### [facility] ([id number]) [address], [address] [place] [address] Chloride [Moles/Vol] 103 mmol/L Normal 98-109 [facility] Comment on above: Performed By: #### C BCA, BMP, LIVR, 03042-1, 3016-3, 69796-0, HA1C #### [facility] ([id number]) [address], [address] [place] [address] CO2 [Moles/Vol] 28 mmol/L Normal 22-32 [facility] Comment on above: Performed By: #### C BCA, BMP, LIVR, 89855-9, 3016-3, 55384-2, HA1C #### [facility] ([id number]) [address], [address] [place] [address] Creatinine [Mass/Vol] 0.76 mg/dL Normal 0.40-1.00 [facility] Comment on above: Result Comment: METH OD TRACEABLE TO IDMS STANDARD Performed By: #### C BCA, BMP, LIVR, 48893-8, 3016-3, 43360-4, HA1C #### [facility] ([id number]) [address], [address] [place] [address] GFR/1.73 sq M.predicted among non-blacks MDRD (S/P/Bld) [Vol rate/Area] 87 mL/min/{1.73_m2} Normal >59 [facility] Comment on above: Result Comment: Reported eGFR is based on the CKD-EPI 2020 equation that does not use a race coefficient. Performed By: #### C BCA, BMP, LIVR, 31026-0, 3016-3, 13300-3, HA1C #### [facility] ([id number]) [address], [address] [place] [address] Glucose [Mass/Vol] 131 mg/dL High 65-99 [facility] Comment on above: Performed By: #### C BCA, BMP, LIVR, 41476-0, 3016-3, 63954-9, HA1C #### [facility] ([id number]) [address], [address] [place] [address] Potassium [Moles/Vol] 3.8 mmol/L Normal 3.5-5.0 [facility] Comment on above: Performed By: #### C BCA, BMP, LIVR, 67951-4, 3016-3, 03542-3, HA1C #### [facility] ([id number]) [address], [address] [place] [address] Sodium [Moles/Vol] 141 mmol/L Normal 134-146 [facility] Comment on above: Performed By: #### C BCA, BMP, LIVR, 81930-5, 3016-3, 35059-0, HA1C #### [facility] ([id number]) [address], [address] [place] [address] Urea nitrogen [Mass/Vol] 13 mg/dL Normal 5-27 [facility] Comment on above: Performed By: #### C BCA, BMP, LIVR, 96728-4, 3016-3, 32570-2, HA1C #### [facility] ([id number]) [address], [address] [place] [address] CBC AND AUTO DIFFon 03-02-20 24 ABSOLUTE BASOPHIL 0.1 X10E9/L Normal 0.0-0.2 [facility] Comment on above: Performed By: #### C BCA, BMP, LIVR, 78084-6, 3016-3, 16740-1, HA1C #### [facility] ([id number]) [address], [address] [place] [address] ABSOLUTE NEUTROPHIL 4.5 X10E9/L Normal 1.5-6.6 [facility] Comment on above: Performed By: #### C BCA, BMP, LIVR, 47054-4, 3016-3, 48995-7, HA1C #### [facility] ([id number]) [address], [facility] [address] [place] [address] Basophils/100 WBC (Bld) 0.7 % Normal [facility] Comment on above: Performed By: #### C BCA, BMP, LIVR, 66502-1, 3016-3, 23437-7, HA1C #### [facility] ([id number]) [address], [facility] [address] [place] [address] Eosinophils (Bld) [#/Vol] 0.4 10*3/uL Normal 0.0-0.4 [facility] Comment on above: Performed By: #### C BCA, BMP, LIVR, 18064-9, 3016-3, 01455-7, HA1C #### [facility] ([id number]) [address] [address] [place] [address] Eosinophils/100 WBC (Bld) 4.6 % Normal [facility] Comment on above: Performed By: #### C BCA, BMP, LIVR, 61439-9, 3016-3, 44778-7, HA1C #### [facility] ([id number]) [address], [facility] [address] [place] [address] Erythrocyte distribution width (RBC) [Ratio] 14.8 % Normal 11.5-15.0 [facility] Comment on above: Performed By: #### C BCA, BMP, LIVR, 53248-9, 3016-3, 16493-4, HA1C #### [facility] ([id number]) [address], [facility] [address] [place] [address] Hematocrit (Bld) [Volume fraction] 39.4 % Normal 35-47 [facility] Comment on above: Performed By: #### C BCA, BMP, LIVR, 67946-0, 3016-3, 33323-5, HA1C #### [facility] ([id number]) [address], [facility] [address] [place] [address] Hemoglobin (Bld) [Mass/Vol] 13.1 g/dL Normal 11.7-15.5 [facility] Comment on above: Performed By: #### C BCA, BMP, LIVR, 18283-7, 3016-3, 95837-8, HA1C #### [facility] ([id number]) [address] [address] Lymphocytes (Bld) [#/Vol] 2.6 10*3/uL Normal 1.0-3.5 [facility] Comment on above: Performed By: #### C BCA, BMP, LIVR, 78429-2, 3016-3, 83123-7, HA1C #### [facility] ([id number]) [address], [address] [place] [address] Lymphocytes/100 WBC (Bld) 32.8 % Normal [facility] Comment on above: Performed By: #### C BCA, BMP, LIVR, 89328-2, 3016-3, 62150-7, HA1C #### [facility] ([id number]) [address], [facility] [address] [place] [address] MCH (RBC) [Entitic mass] 28.1 pg Normal 27-34 [facility] Comment on above: Performed By: #### C BCA, BMP, LIVR, 25313-5, 3016-3, 23798-1, HA1C #### [facility] ([id number]) [address] [address] [place] [address] MCHC (RBC) [Mass/Vol] 33.2 g/dL Normal 32-36 [facility] Comment on above: Performed By: #### C BCA, BMP, LIVR, 82610-9, 3016-3, 03718-0, HA1C #### [facility] ([id number]) [address] [address] MCV (RBC) [Entitic vol] 85 fL Normal 80-100 [facility] Comment on above: Performed By: #### C BCA, BMP, LIVR, 03407-5, 3016-3, 43227-0, HA1C #### [facility] ([id number]) [address] [address] [place] [address] Monocytes (Bld) [#/Vol] 0.5 10*3/uL Normal 0-0.9 [facility] Comment on above: Performed By: #### C BCA, BMP, LIVR, 99273-0, 3016-3, 58215-5, HA1C #### [facility] ([id number]) [address], [address] [place] [address] Monocytes/100 WBC (Bld) 5.8 % Normal [facility] Comment on above: Performed By: #### C BCA, BMP, LIVR, 97343-7, 3016-3, 50907-4, HA1C #### [facility] ([id number]) [address], [address] [place] [address] Neutrophils/100 WBC (Bld) 56.1 % Normal [facility] Comment on above: Performed By: #### C BCA, BMP, LIVR, 05868-0, 3016-3, 18637-7, HA1C #### [facility] ([id number]) [address], [address] [place] [address] Platelet mean volume (Bld) [Entitic vol] 9.4 fL Normal 7-12 [facility] Comment on above: Performed By: #### C BCA, BMP, LIVR, 62223-4, 3016-3, 68103-3, HA1C #### [facility] ([id number]) [address], [address] [place] [address] Platelets (Bld) [#/Vol] 246 10*3/uL Normal 150-450 [facility] Comment on above: Performed By: #### C BCA, BMP, LIVR, 75646-3, 3016-3, 83395-2, HA1C #### [facility] ([id number]) [address], [address] [place] [address] RBC COUNT 4.66 X10E12/L Normal 3.80-5.20 [facility] Comment on above: Performed By: #### C BCA, BMP, LIVR, 98562-8, 3016-3, 17275-8, HA1C #### [facility] ([id number]) [address], [address] [place] [address] WBC (Bld) [#/Vol] 8.0 10*3/uL Normal 4.0-11.0 [facility] Comment on above: Performed By: #### C BCA, BMP, LIVR, 47254-3, 3016-3, 74157-5, HA1C #### [facility] ([id number]) [address] [facility] [address] [place] [address] HGB A1C (GLYCO-HGB)on 2023 Glucose [Mass/Vol] 146 mg/dL Normal [facility] Comment on above: Performed By: #### C BCA, BMP, LIVR, 42650-3, 3016-3, 29212-2, HA1C #### [facility] ([id number]) [address] [facility] [address] [place] [address] HbA1c (Bld) [Mass fraction] 6.7 % High 4.4-5.6 [facility] Comment on above: Result Comment: NOTE ADA Guidelines Result HgbA1c Normal : less than 5.7 % Prediabetes : 5.7 % to 6.4 % Diabetes : > 6.4 % Use with caution in patients with abnormal hemoglobin variants as the half-life of red blood cells and in vivo glycation rates are affected. Performed By: #### C BCA, BMP, LIVR, 97590-1, 3016-3, 02327-8, HA1C #### [facility] ([id number]) [address] [facility] [place] [address] LIVER PANELon 03-02-2024 Albumin [Mass/Vol] 4.1 g/dL Normal 3.2-5.3 [facility] Comment on above: Performed By: #### C BCA, BMP, LIVR, 61478-0, 3016-3, 16962-0, HA1C #### [facility] ([id number]) [address] [facility] [address] [place] [address] ALP [Catalytic activity/Vol] 75 U/L Normal 39-130 [facility] Comment on above: Performed By: #### C BCA, BMP, LIVR, 78055-2, 3016-3, 37803-9, HA1C #### [facility] ([id number]) [address], [address] [place] [address] ALT [Catalytic activity/Vol] 10 U/L Normal 0-31 [facility] Comment on above: Performed By: #### C BCA, BMP, LIVR, 19986-5, 3016-3, 05777-6, HA1C #### [facility] ([id number]) [address], [address] [place] [address] AST [Catalytic activity/Vol] 13 U/L Normal 0-41 [facility] Comment on above: Performed By: #### C BCA, BMP, LIVR, 85669-7, 3016-3, 57000-9, HA1C #### [facility] ([id number]) [address], [address] [place] [address] Bilirubin [Mass/Vol] 0.3 mg/dL Normal 0.3-1.2 [facility] Comment on above: Performed By: #### C BCA, BMP, LIVR, 14042-9, 3016-3, 70916-7, HA1C #### [facility] ([id number]) [address], [address] [place] [address] Bilirubin.direct [Mass/Vol] 0.1 mg/dL Normal 0.0-0.4 [facility] Comment on above: Performed By: #### C BCA, BMP, LIVR, 35133-8, 3016-3, 69666-9, HA1C #### [facility] ([id number]) [address], [address] [place] [address] Protein [Mass/Vol] 7.5 g/dL Normal 6.0-8.0 [facility] Comment on above: Performed By: #### C BCA, BMP, LIVR, 49007-4, 3016-3, 66027-5, HA1C #### [facility] ([id number]) [address], [address] [place] [address] Lipid 1996 panelon 4 Cholesterol [Mass/Vol] 192 mg/dL Normal 150-200 [facility] Comment on above: Performed By: #### Clarissa BCA, BMP, LIVR, 79146-8, 3016-3, 88042-5, HA1C #### [facility] ([id number]) [address], [address] [place] [address] Cholesterol in HDL [Mass/Vol] 56 mg/dL Normal >39 [facility] Comment on above: Result Comment: HDL <40 mg/dL - High Risk HDL > or = 40mg/dL- Desirable HDL >60 mg/dL - Negative Risk Performed By: #### C BCA, BMP, LIVR, 76032-1, 3016-3, 46478-8, HA1C #### [facility] ([id number]) [address] [place] [address] Cholesterol in LDL [Mass/Vol] 114 mg/dL Normal <130 [facility] Comment on above: Result Comment: LDL <100 mg/dL - Desirable LDL >160 mg/dL - High Risk Performed By: #### C BCA, BMP, LIVR, 35260-3, 3016-3, 93539-4, HA1C #### [facility] ([id number]) [address], [address] [place] [address] Cholesterol in VLDL [Mass/Vol] 22 mg/dL Normal 0-30 [facility] Comment on above: Performed By: #### C BCA, BMP, LIVR, 70184-8, 3016-3, 58765-3, HA1C #### [facility] ([id number]) [address], [address] [place] [address] CHOLESTEROL:HDL 3.4 Normal 1.0-5.0 [facility] Comment on above: Performed By: #### C BCA, BMP, LIVR, 43336-7, 3016-3, 82649-7, HA1C #### [facility] ([id number]) [address], [facility] [address] [place] [address] Triglyceride [Mass/Vol] 109 mg/dL Normal 27-150 [facility] Comment on above: Performed By: #### C BCA, BMP, LIVR, 17138-8, 3016-3, 02952-4, HA1C #### [facility] ([id number]) [address], [address] [place] [address] MICROALBUMIN - ALBUMIN:CREAT ININE URINE RATIOon 03-02-2024 ALB/CREAT RATIO 22.5 mg/g creat Normal 0.0-30.0 [facility] Comment on above: Performed By: #### M ALBU #### [facility] ([id number]) [address] [place] [address] Albumin DL <= 20 mg/L (U) [Mass/Vol] 3.7 mg/dL High 0.0-1.9 [facility] Comment on above: Performed By: #### M ALBU #### [facility] ([id number]) [address], [address] [place] [address] URINE CREAT 164.51 mg/dL Normal [facility] Comment on above: Performed By: #### M ALBU #### [facility] ([id number]) [address], [address] [place] [address] TSH Qnon 03-02-2024 TSH 2.56 uIU/mL Normal 0.49-4.67 [facility] Comment on above: Performed By: #### C SIOBHAN, EFREM, LIVR, 16759-2, 3016-3, 04097-3, HA1C #### [facility] ([id number]) [address], [address] [place] [address] Vitamin D+Metabolites [Mass/ Vol]on 03-02-2024 VITAMIN D 25 HYD TOT 29.1 ng/mL Low 30-100 [facility] Comment on above: Result Comment: Vitamin D status 25 [place] Vitamin D Deficiency <20 ng/mL Insufficiency 20-29 ng/mL Sufficiency 30-100 ng/mL Toxicity >100 ng/mL NOTE: A pediatric reference range has not been established by the rehabilitation therapy aide of this kit. The [employer] recommends a Vitamin D level of = or >20ng/mL in infants and children. Performed By: #### C SIOBHAN, BMP, LIVR, 71722-8, 3016-3, 80869-6, HA #### [facility] ([id number]) [address], [facility] [address] [place] [address] XR HIPS BILAT W OR WO PELVIS 5+ VWSon 12-02-2023 XR HIPS BILAT W OR WO PELVIS 5+ VWS XR HIPS BILAT W OR WO PELVIS 5+ VWS XR HIPS BILAT W OR WO PELVIS 5+ VWS Clinical history:Bilateral hip pain Comparison: None. Findings: Degenerative changes of the lumbar spine. Degenerative changes of the bilateral hips with joint space loss and narrowing osteophyte formation. There is no acute process fracture or dislocation. Degenerative changes of the bilateral sacroiliac joints. Impression: Degenerative changes of both hips without evidence of acute ossific abnormality. Finalized by Kyle Mosqueda MD on 12/02/2023 5:58 AM Normal [facility] XR SPINE LUMBAR 2 OR 3 VWSon 12-02-2023 XR SPINE LUMBAR 2 OR 3 VWS XR SPINE LUMBAR 2 OR 3 VWS XR SPINE LUMBAR 2 OR 3 VWS Clinical history:Chronic bilateral low back pain with left-sided sciatica Comparison: 06/07/2020 Findings: Multilevel degenerative disc disease with disco loss and endplate degenerative changes. There is atherosclerotic changes of the abdominal aorta. There is lower lumbar facet hypertrophy. Impression: Multilevel degenerative disc disease without evidence of acute osseous abnormality. Finalized by Kyle Mosqueda MD on 12/02/2023 5:59 AM Normal [facility] Capillary blood glucose cruz urement by glucometer (mass/volume)Ordered By: Avinash Quezada on 10-02-2023 Glucose [Mass/Vol] 162 mg/dL Normal [facility] Comment on above: Random Glucose Refer ence Range is dependent on time and content of last meal. Glucose of more than 200 mg/dL in a nonstressed, ambulatory subject supports the diagnosis of Diabetes Mellitus. Result Comment: [facility] Glucose Reference Range is dependent on time and content of last meal. Glucose of more than 200 mg/dL in a nonstressed, ambulatory subject supports the diagnosis of Diabetes Mellitus. PERFORMED BY: [place] [address] PATHOLOGIST SOFTWARE ENGINEERING ANALYST FAUSTO CARLISLE M.D. Performed By: #### C MP, CBC #### [address] Glucose Poct Glucometerson 1 12-03-2022 Glucose [Mass/Vol] 86 mg/dL Normal [facility] Comment on above: Result Comment: [place] Glucose Reference Range is dependent on time and content of last meal. Glucose of more than 200 mg/dL in a nonstressed, ambulatory subject supports the diagnosis of Diabetes Mellitus. PERFORMED BY: [place] [address] PATHOLOGIST SOFTWARE ENGINEERING ANALYST FAUSTO CARLISLE M.D. Performed By: #### G LULS #### Point of Care testing , ECG 12 lead ECGon 10-01-2023 ECG 12 lead ECG [facility] [place] [address] [place] [address] Electrocardiograph Report Signed Patient: Marizol Lucero MR#: [id number] : 1960 Acct:[id number] Age/Sex: 63 / F ADM Date: 09/27/23 Loc: Room: [address] [place] [address] Type: ADM IN Attending Dr: Avinash Quezada MD Ordering Provider: Theo Lott MD Date of Service: 10/01/2304/18/840 ECG/ECG 12 lead ECG: qtc monitoring Copies to: Test Reason : Blood Pressure : / mmHG Vent. Rate : 082 BPM Atrial Rate : 082 BPM P-R Int : 162 ms QRS Dur : 066 ms QT Int : 360 ms P-R-T Axes : 070 010 072 degrees QTc Int : 420 ms Sinus rhythm with premature atrial complexes Cannot rule out Anterior infarct , age undetermined Abnormal ECG No previous ECGs available Confirmed by YUNIER CAMARA [facility], JESSE ([id number]) on 10/01/2023 3:34:41 PM Referred By: Electronically Signed By:JESSE FAYE MD [facility] Transcribed By: MUS Signed By Jesse Faye MD, [facility] 10/01/23 1534 Normal [facility] Glucose Poct Glucometerson 1 12-02-2022 Commemt1 Glu2: Cleaned Meter Normal [facility] Comment on above: Result Comment: PERF ORMED BY: [place] [address] PATHOLOGIST SOFTWARE ENGINEERING ANALYST FAUSTO CARLISLE M.D. Performed By: #### C MP, CBC #### [facility] [address] [place] [address] Glucose [Mass/Vol] 156 mg/dL Normal [facility] Comment on above: Result Comment: [facility] [place] Glucose Reference Range is dependent on time and content of last meal. Glucose of more than 200 mg/dL in a nonstressed, ambulatory subject supports the diagnosis of Diabetes Mellitus. Performed By: #### C MP, CBC #### [facility] [address] [place] [address] Glucose [Mass/Vol] 304 mg/dL Normal [facility] Comment on above: Result Comment: [place] om Glucose Reference Range is dependent on time and content of last meal. Glucose of more than 200 mg/dL in a nonstressed, ambulatory subject supports the diagnosis of Diabetes Mellitus. PERFORMED BY: [place] [phone] PATHOLOGIST SOFTWARE ENGINEERING ANALYST FAUSTO CARLISLE M.D. Performed By: #### C MP, CBC #### [address] Glucose [Mass/Vol] 251 mg/dL Normal [facility] Comment on above: Result Comment: [place] Glucose Reference Range is dependent on time and content of last meal. Glucose of more than 200 mg/dL in a nonstressed, ambulatory subject supports the diagnosis of Diabetes Mellitus. PERFORMED BY: [place] [address] PATHOLOGIST SOFTWARE ENGINEERING ANALYST FAUSTO CARLISLE M.D. Performed By: #### C MP, CBC #### [address] Glucose [Mass/Vol] 128 mg/dL Normal [facility] Comment on above: Result Comment: [place] Glucose Reference Range is dependent on time and content of last meal. Glucose of more than 200 mg/dL in a nonstressed, ambulatory subject supports the diagnosis of Diabetes Mellitus. PERFORMED BY: [place] [address] PATHOLOGIST SOFTWARE ENGINEERING ANALYST FAUSTO CARLISLE M.D. Performed By: #### G LULS #### Point of Care testing , No Panel InformationOrdered By: Avinash Quezada on 10-01-2023 Bedside Glucose Comment Glu2: cleaned meter US venous duplex LE BIon US venous duplex LE BI [facility] [place] [address] [place] [address] Ultrasound Report Signed Patient: Marizol Lucero MR#: [id number] : 1960 Acct:[id number] Age/Sex: 63 / F ADM Date: 09/27/23 Loc: Room: [address] [place] [address] Type: ADM IN Attending Dr: Avinash Quezada MD Ordering Provider: Filomena Anton APRN Date of Service: 10/01/23 US/US venous duplex LE BI: edema, pain Copies to: MD Filomena Duarte APRN BILATERAL LOWER EXTREMITY VENOUS DUPLEX INDICATION: Bilateral lower extremity edema, pain and tenderness. PROCEDURE: Color-flow duplex scanning is used to interrogate the deep venous system of the right and left lower extremities. The common femoral vein, femoral vein and popliteal vein show good compressibility with normal proximal and distal augmentation. The calf veins are compressible. US/US venous duplex LE BI IMPRESSION: NO EVIDENCE FOR DEEP VEIN THROMBOSIS OR PROXIMAL SUPERFICIAL THROMBOPHLEBITIS IN THE RIGHT OR LEFT LOWER EXTREMITY. Impression dictated by: Roc Silvestre MD10/01/2023 1:06 PM Dictation Location: [place] [address] Tech: Brigid Plascencia Transcribed By: ADRIAN 10/01/23 1306 Dictated By: Roc Silvestre MD 10/01/23 1306 Signed By: 10/01/23 1306 Normal [facility] Alanine aminotransferase [En zymatic activity/volume] in Serum or PlasmaOrdered By: Theo Lott on 09-30-2023 ALT [Catalytic activity/Vol] 23 U/L Normal 7-52 Comment on above: Performed By: #### C ISELA, CBC #### [address] Albumin [Mass/volume] in Ser um or Plasma by Bromocresol green (BCG) dye binding methoOrdered By: Theo Lott on 09-30-2023 Albumin BCG dye [Mass/Vol] 3.8 g/dL 3.5-5.7 Alkaline phosphatase [Enzyma tic activity/volume] in Serum or PlasmaOrdered By: Theo Lott on 09-30-2023 ALP [Catalytic activity/Vol] 79 U/L Normal 34-104 Comment on above: Performed By: #### C MP, CBC #### [address] Aspartate aminotransferase [ Enzymatic activity/volume] in Serum or PlasmaOrdered By: Theo Lott on 09-30-2023 AST [Catalytic activity/Vol] 16 U/L Normal 13-39 Comment on above: Performed By: #### C MP, CBC #### [address] Automated basophil %Ordered By: Theo Lott on 09-30-2023 Basophils/100 WBC (Bld) 0.5 % Normal . [facility] Comment on above: Performed By: #### C MP, CBC #### [address] Automated basophil countOrde red By: Theo Lott on 09-30-2023 Basophils (Bld) [#/Vol] 0.0 10*3/uL Normal 0.0-0.2 Comment on above: Result Comment: PERF ORMED BY: [place] [address] PATHOLOGIST SOFTWARE ENGINEERING ANALYST FAUSTO CARLISLE M.D. Performed By: #### C MP, CBC #### [address] Automated blood monocyte cou ntOrdered By: Theo Lott on 09-30-2023 Monocytes (Bld) [#/Vol] 0.8 10*3/uL Normal 0.0-0.8 Comment on above: Performed By: #### C MP, CBC #### [address] Automated eosinophil %Ordere d By: Theo Lott on 09-30-2023 Eosinophils/100 WBC (Bld) 3.0 % Normal . Comment on above: Performed By: #### C MP, CBC #### [address] Automated eosinophil countOr dered By: Theo Lott on 09-30-2023 Eosinophils (Bld) [#/Vol] 0.3 10*3/uL Normal 0.0-0.45 Comment on above: Performed By: #### C MP, CBC #### [address] Automated monocyte %Ordered By: Theo Lott on 09-30-2023 Monocytes/100 WBC (Bld) 9.6 % Normal . [facility] Comment on above: Performed By: #### C MP, CBC #### [address] Automated neutrophil %Ordere d By: Theo Lott on 09-30-2023 Neutrophils/100 WBC (Bld) 52.3 % Normal . Comment on above: Performed By: #### C MP, CBC #### [address] Bilirubin.total [Mass/volume ] in Serum or PlasmaOrdered By: Theo Lott on 09-30-2023 Bilirubin [Mass/Vol] 0.3 mg/dL Normal 0.3-1.0 [facility] Comment on above: Performed By: #### C MP, CBC #### [address] Calcium [Mass/volume] in Ser um or PlasmaOrdered By: Theo Lott on 09-30-2023 Calcium [Mass/Vol] 9.2 mg/dL Normal 8.6-10.3 [facility] Comment on above: Performed By: #### C MP, CBC #### [address] Carbon dioxide, total [Moles /volume] in Serum or PlasmaOrdered By: Theo Lott on 09-30-2023 CO2 [Moles/Vol] 33.3 mmol/L High 21.0-31.0 [facility] Comment on above: Performed By: #### C MP, CBC #### [address] Chloride [Moles/volume] in S amish or PlasmaOrdered By: Theo Lott on 09-30-2023 Chloride [Moles/Vol] 97 mmol/L Low 98-107 [facility] Comment on above: Performed By: #### C MP, CBC #### [address] Complete Blood Count Auto Di ffon 09-30-2023 Mean Corpuscular HGB Conc 33.0 g/dL Normal 32.0-35.0 [facility] Comment on above: Performed By: #### C MP, CBC #### [address] NRBC% 0.2 /100{WBC} Normal 0-0.5 [facility] Comment on above: Performed By: #### C MP, CBC #### [address] Comprehensive Metabolic Pane ishaan 09-30-2023 Albumin [Mass/Vol] 3.8 g/dL Normal 3.5-5.7 [facility] Comment on above: Performed By: #### C MP, CBC #### [address] Creatinine Clr Calc Pharmacy 41.27 Normal [facility] Comment on above: Result Comment: PERF ORMED BY: [place] [address] PATHOLOGIST SOFTWARE ENGINEERING ANALYST FAUSTO CARLISLE M.D. Performed By: #### C MP, CBC #### [address] GFR/1.73 sq M.predicted MDRD (S/P/Bld) [Vol rate/Area] mL/min/{1.73_m2} Normal [facility] Comment on above: Performed By: #### C MP, CBC #### [address] Creatinine [Mass/volume] in Serum or PlasmaOrdered By: Theo Lott on 09-30-2023 Creatinine [Mass/Vol] 0.85 mg/dL Normal 0.60-1.20 [facility] Comment on above: Performed By: #### C MP, CBC #### [facility] [address] Erythrocyte distribution wid th [Ratio] by Automated countOrdered By: Theo Lott on 09-30-2023 Erythrocyte distribution width (RBC) [Ratio] 14.3 % Normal 11.9-15.3 Comment on above: Performed By: #### C MP, CBC #### [address] Erythrocytes [#/volume] in B lood by Automated countOrdered By: Theo Lott on 09-30-2023 RBC (Bld) [#/Vol] 4.53 10*6/uL Normal 3.60-5.00 [facility] Comment on above: Performed By: #### C MP, CBC #### [address] Glucose Poct Glucometerson 1 12-01-2022 Commemt1 Glu2: Cleaned Meter Normal [facility] Comment on above: Result Comment: PERF ORMED BY: [place] [address] PATHOLOGIST SOFTWARE ENGINEERING ANALYST FAUSTO CARLISLE M.D. Performed By: #### G LULS #### Point of Care testing , Glucose [Mass/Vol] 275 mg/dL Normal [facility] Comment on above: Result Comment: [place] Glucose Reference Range is dependent on time and content of last meal. Glucose of more than 200 mg/dL in a nonstressed, ambulatory subject supports the diagnosis of Diabetes Mellitus. Performed By: #### G LULS #### Point of Care testing , Glucose [Mass/Vol] 366 mg/dL Normal [facility] Comment on above: Result Comment: [place] Glucose Reference Range is dependent on time and content of last meal. Glucose of more than 200 mg/dL in a nonstressed, ambulatory subject supports the diagnosis of Diabetes Mellitus. PERFORMED BY: [address] [place] [id number] PATHOLOGIST SOFTWARE ENGINEERING ANALYST FAUSTO CARLISLE M.D. Performed By: #### G LULS #### Point of Care testing , Commemt1 Glu2: Cleaned Meter Normal [facility] Comment on above: Result Comment: PERF ORMED BY: [address] [place] [id number] PATHOLOGIST SOFTWARE ENGINEERING ANALYST FAUSTO CARLISLE M.D. Performed By: #### G LULS #### Point of Care testing , Glucose [Mass/Vol] 159 mg/dL Normal [facility] Comment on above: Result Comment: [place] Glucose Reference Range is dependent on time and content of last meal. Glucose of more than 200 mg/dL in a nonstressed, ambulatory subject supports the diagnosis of Diabetes Mellitus. Performed By: #### G LULS #### Point of Care testing , Glucose [Mass/Vol] 233 mg/dL Normal [facility] Comment on above: Result Comment: [place] Glucose Reference Range is dependent on time and content of last meal. Glucose of more than 200 mg/dL in a nonstressed, ambulatory subject supports the diagnosis of Diabetes Mellitus. PERFORMED BY: [address] [place] [id number] PATHOLOGIST SOFTWARE ENGINEERING ANALYST FAUSTO CARLISLE M.D. Performed By: #### G LULS #### Point of Care testing , Glucose [Mass/volume] in Ser um or PlasmaOrdered By: Theo Lott on 09-30-2023 Glucose [Mass/Vol] 199 mg/dL High 70-100 [facility] Comment on above: ADA recommended refe rence rangeRandom Glucose Reference Range is dependent on time and content of last meal. Glucose of more than 200 mg/dL in a nonstressed, ambulatory subject supports the diagnosis of Diabetes Mellitus. Result Comment: [place] Glucose Reference Range is dependent on time and content of last meal. Glucose of more than 200 mg/dL in a nonstressed, ambulatory subject supports the diagnosis of Diabetes Mellitus. ADA recommended reference range Performed By: #### C MP, CBC #### [address] Hematocrit [Volume Fraction] of Blood by Automated countOrdered By: Theo Lott on 09-30-2023 Hematocrit (Bld) [Volume fraction] 38.4 % Normal 34.0-46.4 Comment on above: Performed By: #### C MP, CBC #### [address] Hemoglobin [Mass/volume] in BloodOrdered By: Theo Lott on 09-30-2023 Hemoglobin (Bld) [Mass/Vol] 12.7 g/dL Normal 11.8-15.4 Comment on above: Performed By: #### C MP, CBC #### [address] Leukocytes [#/volume] correc danial for nucleated erythrocytes in Blood by Automated counOrdered By: Theo Lott on 09-30-2023 WBC corrected for nucl RBC Auto (Bld) [#/Vol] 8.6 10*3/uL 3.8-11.6 Leukocytes [#/volume] in Blo od by Automated countOrdered By: Theo Lott on 09-30-2023 WBC (Bld) [#/Vol] 8.6 10*3/uL Normal 3.8-11.6 [facility] Comment on above: Performed By: #### C MP, CBC #### [place] [address] [place] Lymphocytes [#/volume] in Bl ood by Automated countOrdered By: Theo Lott on 09-30-2023 Lymphocytes (Bld) [#/Vol] 3.0 10*3/uL Normal 1.00-4.8 Comment on above: Performed By: #### C MP, CBC #### [place] [address] [place] Lymphocytes/100 leukocytes i n Blood by Automated countOrdered By: Theo Lott on 09-30-2023 Lymphocytes/100 WBC (Bld) 34.6 % Normal . Comment on above: Performed By: #### C MP, CBC #### [address] MCH [Entitic mass] by Automa danial countOrdered By: Theo Lott on 09-30-2023 MCH (RBC) [Entitic mass] 28.0 pg Normal 24.7-34.3 Comment on above: Performed By: #### C MP, CBC #### [facility] [address] [place] [address] MCHC Auto (RBC) [Mass/Vol]Or dered By: Theo Lott on 09-30-2023 MCHC (RBC) [Mass/Vol] 33.0 g/dL 32.0-35.0 [facility] MCV [Entitic volume] by Auto mated countOrdered By: Theo Lott on 09-30-2023 MCV (RBC) [Entitic vol] 84.8 fL Normal 80-100 [facility] Comment on above: Performed By: #### C MP, CBC #### [address] Neutrophils [#/volume] in Bl ood by Automated countOrdered By: Theo Lott on 09-30-2023 Neutrophils (Bld) [#/Vol] 4.5 10*3/uL Normal 1.8-7.7 Comment on above: Performed By: #### C MP, CBC #### [facility] [address] [place] [address] No Panel InformationOrdered By: Theo Lott on 09-30-2023 Estimated GFR (CKD-EPI) > 60.0 mL/Min Pharmacy Creatinine Clearance (Chem 41.27 Nucleated erythrocytes [Pres ence] in Blood by Automated countOrdered By: Theo Lott on 09-30-2023 Nucleated RBC Auto Ql (Bld) 0.2 /100{WBC} 0-0.5 Platelet mean volume [Entiti c volume] in Blood by Automated countOrdered By: Theo Lott on 09-30-2023 Platelet mean volume (Bld) [Entitic vol] 10.0 fL Normal 6.3-10.7 Comment on above: Performed By: #### C MP, CBC #### [address] Platelets [#/volume] in Bloo d by Automated countOrdered By: Theo Lott on 09-30-2023 Platelets (Bld) [#/Vol] 136 10*3/uL Low 150-450 Comment on above: Performed By: #### C MP, CBC #### [address] Potassium [Moles/volume] in Serum or PlasmaOrdered By: Theo Lott on 09-30-2023 Potassium [Moles/Vol] 4.2 mmol/L Normal 3.5-5.1 [facility] Comment on above: Performed By: #### C MP, CBC #### [address] Protein [Mass/volume] in Ser um or PlasmaOrdered By: Theo Lott on 09-30-2023 Protein [Mass/Vol] 6.7 g/dL Normal 6.4-8.9 [facility] Comment on above: Performed By: #### C MP, CBC #### [address] Serum globulin measurement b y calculation (mass/volume)Ordered By: Theo Lott on 09-30-2023 Globulin (S) [Mass/Vol] 2.9 g/dL Normal [facility] Comment on above: Performed By: #### C MP, CBC #### [address] Serum or plasma albumin/glob ulin mass ratioOrdered By: Theo Lott on 09-30-2023 Albumin/Globulin [Mass ratio] 1.3 {ratio} Normal Comment on above: Performed By: #### C MP, CBC #### [facility] [address] [place] [address] Serum or plasma anion gap de terminationOrdered By: Theo Lott on 09-30-2023 Anion gap [Moles/Vol] 10.9 mmol/L Normal 6.0-15.0 [facility] Comment on above: Performed By: #### C MP, CBC #### [address] Sodium [Moles/volume] in Ser um or PlasmaOrdered By: Theo Lott on 09-30-2023 Sodium [Moles/Vol] 137 mmol/L Normal 136-145 [facility] Comment on above: Performed By: #### C MP, CBC #### [address] Urea nitrogen [Mass/volume] in Serum or PlasmaOrdered By: Theo Lott on 09-30-2023 Urea nitrogen [Mass/Vol] 7 mg/dL Normal 7-25 Comment on above: Performed By: #### C MP, CBC #### [facility] [address] [place] [address] Glucose Poct Glucometerson 1 11-30-2022 Glucose [Mass/Vol] 381 mg/dL Normal [facility] Comment on above: Result Comment: [facility] [place] Glucose Reference Range is dependent on time and content of last meal. Glucose of more than 200 mg/dL in a nonstressed, ambulatory subject supports the diagnosis of Diabetes Mellitus. PERFORMED BY: [place] [address] PATHOLOGIST SOFTWARE ENGINEERING ANALYST FAUSTO CARLISLE M.D. Performed By: #### G FCO #### Point of Care testing , A1C with Estimated Average G oanh 09-28-2023 Glucose [Mass/Vol] 166 mg/dL Normal [facility] Comment on above: Result Comment: PERF ORMED BY: [place] [address] PATHOLOGIST SOFTWARE ENGINEERING ANALYST FAUSTO CARLISLE M.D. Performed By: #### A 1C WT eA #### [facility] [address] [place] [address] [place] Cholesterol [Mass/volume] in Serum or PlasmaOrdered By: Avinash Quezada on 09-28-2023 Cholesterol [Mass/Vol] 164 mg/dL Normal 140-200 [facility] Comment on above: Chol less than 200 m g/dl low riskChol 201-239 mg/dl borderline riskChol 240 mg/dl and greater high risk Result Comment: Chol less than 200 mg/dl low risk Chol 201-239 mg/dl borderline risk Chol 240 mg/dl and greater high risk Performed By: #### C MP, CBC #### [facility] [address] Cholesterol in LDL Calc [Mas s/Vol]Ordered By: Avinash Quezada on 09-28-2023 Cholesterol in LDL [Mass/Vol] 108 mg/dL 0-100 Comment on above: LDL ATP III CLASSIFI CATIONLDL less than 100 mg/dL OptimalLDL 100-129 mg/dL Near or above optimalLDL 130-159 mg/dL Borderline highLDL 160-189 mg/dL HighLDL greater than 189 mg/dL Very high Cholesterol in VLDL Calc [Ma ss/Vol]Ordered By: Avinash Quezada on 09-28-2023 Cholesterol in VLDL [Mass/Vol] 20 mg/dL Glucose mean value [Mass/vol ume] in Blood Estimated from glycated hemoglobinOrdered By: Avinash Quezada on 09-28-2023 Average glucose Estimated from glycated hemoglobin (Bld) [Mass/Vol] 166 mg/dL Hemoglobin A1c percentageOrd ered By: Avinash Quezada on 09-28-2023 HbA1c (Bld) [Mass fraction] 7.4 % High 4.3-5.6 Comment on above: Increased risk for d iabetes: 5.7 - 6.4diabetes: >6.4glycemic control for adults with diabetes: <7.0 Result Comment: Incr eased risk for diabetes: 5.7 - 6.4 diabetes: >6.4 glycemic control for adults with diabetes: <7.0 Performed By: #### A 1C [facility] Ronan #### [address] Lipid Panelon 09-28-2023 LDL Cholesterol,Calculated 108 mg/dL High 0-100 [facility] Comment on above: Result Comment: LDL ATP III CLASSIFICATION LDL less than 100 mg/dL Optimal LDL 100-129 mg/dL Near or above optimal LDL 130-159 mg/dL Borderline high LDL 160-189 mg/dL High LDL greater than 189 mg/dL Very high Performed By: #### C MP, CBC #### [address] Triglyceride w/Reflex 103 mg/dL Normal 0-149 [facility] Comment on above: Result Comment: TRIG ATP III CLASSIFICATION TRIG less than 150 mg/dL Normal TRIG 150-199 mg/dL Borderline high TRIG 200-500 mg/dL High TRIG greater than 500 mg/dL Very high Standard traceable to the Center for Disease Conrtrol and Prevention (CDC) test method. Performed By: #### C MP, CBC #### [address] VLDL CHOLESTEROL 20 mg/dL Normal [facility] Comment on above: Performed By: #### C MP, CBC #### [address] Serum or plasma high density lipoprotein (HDL) cholesterol measurementOrdered By: Avinash Quezada on 09-28-2023 Cholesterol in HDL [Mass/Vol] 35 mg/dL Normal 23-92 Comment on above: HDL CHOL ATP-III CLA SSIFICATION Cardiovascular RiskHDL > or equal to 60 mg/dL LOWHDL < 40 mg/dL HIGH Result Comment: HDL CHOL ATP-III CLASSIFICATION Cardiovascular Risk HDL > or equal to 60 mg/dL LOW HDL < 40 mg/dL HIGH Performed By: #### C MP, CBC #### [address] Serum or plasma total choles terol/high density lipoprotein (HDL) cholesterol mass ratOrdered By: Avinash Quezada on 09-28-2023 Cholesterol.total/Tosin sterol in HDL [Mass ratio] 4.7 {ratio} Normal <5.0 Comment on above: Performed By: #### C MP, CBC #### [address] Thyroid Stim Hormone w/Rflxo n 09-28-2023 Thyroid Stim Hormone w/Rflx 4.16 u[iU]/mL Normal 0.45-5.33 [facility] Comment on above: Performed By: #### C MP, CBC #### [address] Thyrotropin [Units/volume] i n Serum or PlasmaOrdered By: Avinash Quezada on 09-28-2023 TSH Qn 4.16 m[IU]/L 0.45-5.33 Triglyceride [Mass/volume] i n Serum or PlasmaOrdered By: Avinash Quezada on 09-28-2023 Triglyceride [Mass/Vol] 103 mg/dL 0-149 [facility] Comment on above: TRIG ATP III CLASSIF ICATIONTRIG less than 150 mg/dL NormalTRIG 150-199 mg/dL Borderline highTRIG 200-500 mg/dL High TRIG greater than 500 mg/dL Very highStandard traceable to the Center for Disease Conrtrol and Prevention (CDC) test method. Vitamin D 25 Hydroxy Totalon 09-28-2023 Vitamin D 25 Hydroxy Total 27.3 ng/mL Low 30-100 [facility] Comment on above: Result Comment: CEM MIN D STATUS 25(OH)VITAMIN D RANGE (ng/mL) Deficient <20 Insufficient 20 to <30 Sufficient 30 to 100 Reference: Dwight MF,Neelam FIORE, Danny WHITEHEAD, et al. Evaluation,treatment, and prevention of vitamin D deficiency; an Endocrine Society clinical practice guideline. JCEM. 2010; 96(7):1911-30. PERFORMED BY: [place] [address] PATHOLOGIST SOFTWARE ENGINEERING ANALYST FAUSTO CARLISLE M.D. Performed By: #### C MP, CBC #### [facility] [address] Vitamin D+Metabolites [Mass/ volume] in Serum or PlasmaOrdered By: Avinash Quezada on 09-28-2023 Vitamin D+Metabolites [Mass/Vol] 27.3 ng/mL 30-100 Comment on above: VITAMIN D STATUS 25( [place])VITAMIN D RANGE (ng/mL) Deficient <20 Insufficient 20 to <30Sufficient 30 to 100Reference: Dwight MF,Neelam NC, Danny WHITEHEAD, et al. Evaluation,treatment, and prevention of vitamin D deficiency; an Endocrine Society clinical practice guideline. JCEM. 2010; 96(7):1911-30. Glucose Glucometer (BldC) [M ass/Vol]Ordered By: Avinash Quezada on 02-14-2023 Glucose [Mass/Vol] 143 mg/dL [facility] Comment on above: Random Glucose Refer ence Range is dependent on time and content of last meal. Glucose of more than 200 mg/dL in a nonstressed, ambulatory subject supports the diagnosis of Diabetes Mellitus. No Panel InformationOrdered By: Avinash Quezada on 02-13-2023 Bedside Glucose Comment Glu2: cleaned meter Calcium [Mass/volume] in Ser um or PlasmaOrdered By: Avinash Quezada on 02-11-2023 Calcium [Mass/Vol] 9.0 mg/dL 8.6-10.3 [facility] Carbon dioxide, total [Moles /volume] in Serum or PlasmaOrdered By: Avinash Quezada on 02-11-2023 CO2 [Moles/Vol] 24.4 mmol/L 21.0-31.0 [facility] Chloride [Moles/volume] in S amish or PlasmaOrdered By: Avinash Quezada on 02-11-2023 Chloride [Moles/Vol] 106 mmol/L 98-107 [facility] Cholesterol [Mass/volume] in Serum or PlasmaOrdered By: Avinash Quezada on 02-11-2023 Cholesterol [Mass/Vol] 220 mg/dL 140-200 [facility] Comment on above: Chol less than 200 m g/dl low riskChol 201-239 mg/dl borderline riskChol 240 mg/dl and greater high risk Cholesterol in LDL Calc [Mas s/Vol]Ordered By: Avinash Quezada on 02-11-2023 Cholesterol in LDL [Mass/Vol] 162 mg/dL 0-100 Comment on above: LDL ATP III CLASSIFI CATIONLDL less than 100 mg/dL OptimalLDL 100-129 mg/dL Near or above optimalLDL 130-159 mg/dL Borderline highLDL 160-189 mg/dL HighLDL greater than 189 mg/dL Very high Cholesterol in VLDL Calc [Ma ss/Vol]Ordered By: Avinash Quezada on 02-11-2023 Cholesterol in VLDL [Mass/Vol] 15 mg/dL Creatinine [Mass/volume] in Serum or PlasmaOrdered By: Avinash Quezada on 02-11-2023 Creatinine [Mass/Vol] 1.02 mg/dL 0.60-1.20 [facility] Glucose [Mass/volume] in Ser um or PlasmaOrdered By: Avinash Quezada on 02-11-2023 Glucose [Mass/Vol] 136 mg/dL 70-100 [facility] Comment on above: ADA recommended refe rence rangeRandom Glucose Reference Range is dependent on time and content of last meal. Glucose of more than 200 mg/dL in a nonstressed, ambulatory subject supports the diagnosis of Diabetes Mellitus. No Panel InformationOrdered By: Avinash Quezada on 02-11-2023 Estimated GFR (CKD-EPI) > 60.0 mL/Min Pharmacy Creatinine Clearance (Chem 53.27 Potassium [Moles/volume] in Serum or PlasmaOrdered By: Avinash Quezada on 02-11-2023 Potassium [Moles/Vol] 3.5 mmol/L 3.5-5.1 [facility] Serum or plasma anion gap de terminationOrdered By: Avinash Quezada on 02-11-2023 Anion gap [Moles/Vol] 14.1 mmol/L 6.0-15.0 [facility] Serum or plasma high density lipoprotein (HDL) cholesterol measurementOrdered By: Avinash Quezada on 02-11-2023 Cholesterol in HDL [Mass/Vol] 43 mg/dL 35-85 Comment on above: HDL CHOL ATP-III CLA SSIFICATION Cardiovascular RiskHDL > or equal to 60 mg/dL LOWHDL < 40 mg/dL HIGH Serum or plasma total choles terol/high density lipoprotein (HDL) cholesterol mass ratOrdered By: Avinash Quezada on 02-11-2023 Cholesterol.total/Tosin sterol in HDL [Mass ratio] 5.1 {ratio} <5.0 Sodium [Moles/volume] in Ser um or PlasmaOrdered By: Avinash Quezada on 02-11-2023 Sodium [Moles/Vol] 141 mmol/L 136-145 [facility] Thyrotropin [Units/volume] i n Serum or PlasmaOrdered By: Avinash Quezada on 02-11-2023 TSH Qn 1.40 m[IU]/L 0.45-5.33 Triglyceride [Mass/volume] i n Serum or PlasmaOrdered By: Avinash Quezada on 02-11-2023 Triglyceride [Mass/Vol] 76 mg/dL 0-149 [facility] Comment on above: TRIG ATP III CLASSIF ICATIONTRIG less than 150 mg/dL NormalTRIG 150-199 mg/dL Borderline highTRIG 200-500 mg/dL High TRIG greater than 500 mg/dL Very highStandard traceable to the Center for Disease Conrtrol and Prevention (CDC) test method. Urea nitrogen [Mass/volume] in Serum or PlasmaOrdered By: Avinash Quezada on 02-11-2023 Urea nitrogen [Mass/Vol] 12 mg/dL 7-25 Vitamin D+Metabolites [Mass/ volume] in Serum or PlasmaOrdered By: Avinash Quezada on 02-11-2023 Vitamin D+Metabolites [Mass/Vol] 24.0 ng/mL 30-100 Comment on above: VITAMIN D STATUS 25( OH)VITAMIN D RANGE (ng/mL) Deficient <20 Insufficient 20 to <30Sufficient 30 to 100Reference: Dwight CAMPOS,Neelam FIORE, Danny WHITEHEAD, et al. Evaluation,treatment, and prevention of vitamin D deficiency; an Endocrine Society clinical practice guideline. JCEM. 2010; 96(7):1911-30. CBC AUTO DIFFon 09-04-2022 BASO # 0.1 103/ul Normal 0.0-0.1 [facility] Comment on above: Performed By: #### C BC #### [facility] [address] [address] [address] Ricky Flores Basophils/100 WBC (Bld) 0.7 % Normal 0.2-2.0 [facility] Comment on above: Performed By: #### C BC #### [facility] [address] [address] [address] Ricky Flores EO # 0.3 103/ul Normal 0.0-0.7 [facility] Comment on above: Performed By: #### C BC #### [facility] [address] [address] [address] Ricky Flores Eosinophils/100 WBC (Bld) 3.7 % Normal 0.9-7.0 [facility] Comment on above: Performed By: #### C BC #### [facility] [address] [address] [address] Ricky Flores Erythrocyte distribution width (RBC) [Ratio] 15.1 % Critically high 11.0-15.0 [facility] Comment on above: Performed By: #### C BC #### [facility] [address] [address] [address] Ricky Flores Hematocrit (Bld) [Volume fraction] 41.5 % Normal 36.0-48.0 [facility] Comment on above: Performed By: #### C BC #### [facility] [address] [address] [address] Ricky Flores Hemoglobin (Bld) [Mass/Vol] 13.1 g/dL Normal 12.0-16.0 [facility] Comment on above: Performed By: #### C BC #### [facility] [address] [address] [address] Ricky Flores IG # 0.03 10e3/ul Normal 0.00-0.03 [facility] Comment on above: Performed By: #### C BC #### [facility] [address] [place] [address] Dr. Ricky Flores IG % 0.3 % Normal 0.0-0.5 [facility] Comment on above: Performed By: #### C BC #### [facility] [address] [place] [address] Dr. Ricky Flores LYMPH # 3.1 103/ul Normal 1.2-3.8 [facility] Comment on above: Performed By: #### C BC #### [facility] [address] [place] [address] Dr. Ricky Flores Lymphocytes/100 WBC (Bld) 34.3 % Normal 20.5-60.0 [facility] Comment on above: Performed By: #### C BC #### [facility] [address] [place] [address] Dr. Ricky Flores MANUAL DIFF REQ NO Normal [facility] Comment on above: Performed By: #### C BC #### [facility] [address] [place] [address] Dr. Ricky Flores MCH (RBC) [Entitic mass] 27.2 pg Normal 26.7-34.0 [facility] Comment on above: Performed By: #### C BC #### [facility] [address] [place] [address] Dr. Ricky Flores MCHC (RBC) [Mass/Vol] 31.6 g/dL Normal 29.9-35.2 [facility] Comment on above: Performed By: #### C BC #### [facility] [address] [place] [address] Dr. Ricky Flores MCV (RBC) [Entitic vol] 86.3 fL Normal 81.0-99.0 [facility] Comment on above: Performed By: #### C BC #### [facility] [address] [place] [address] Dr. Ricky Flores MONO # 0.5 103/ul Normal 0.3-0.8 [facility] Comment on above: Performed By: #### C BC #### [facility] [address] [address] [address] Ricky Flores Monocytes/100 WBC (Bld) 5.9 % Normal 1.7-12.0 [facility] Comment on above: Performed By: #### C BC #### [facility] [address] [address] [address] Ricky Flores NEUT # 5.0 103/ul Normal 1.4-6.5 [facility] Comment on above: Performed By: #### C BC #### [facility] [address] [place] [address] Dr. Ricky Flores Neutrophils/100 WBC (Bld) 55.1 % Normal 43.0-75.0 [facility] Comment on above: Performed By: #### C BC #### [facility] [address] [place] [address] Dr. Ricky Flores Platelet mean volume (Bld) [Entitic vol] 11.2 fL Normal 9.5-13.5 [facility] Comment on above: Performed By: #### C BC #### [facility] [address] [place] [address] Dr. Ricky Flores PLT 298 103/ul Normal 150-450 [facility] Comment on above: Performed By: #### C BC #### [facility] [address] [place] [address] Dr. Ricky Flores RBC 4.81 106/ul Normal 4.20-5.40 [facility] Comment on above: Performed By: #### C BC #### [facility] [address] [place] [address] Dr. Ricky Flores WBC 9.1 103/ul Normal 4.0-11.0 [facility] Comment on above: Performed By: #### C BC #### [facility] [address] [place] [address] Dr. Ricky Flores GLYCOHEMOGLOBIN A1Con 2021 ADA RECOMMENDATION SEE BELOW Normal [facility] Comment on above: Result Comment: ADA RECOMMENDED LIMIT 4.0 - 6.0 ADA THERAPEUTIC TARGET < 7.0 ACTION SUGGESTED > 7.0 Performed By: #### A 1C #### [facility] [address] [address] [address] Ricky Flores Glucose [Mass/Vol] 177 mg/dL Normal [facility] Comment on above: Performed By: #### A 1C #### [facility] [address] [address] [address] Ricky Flores HbA1c (Bld) [Mass fraction] 7.8 % Critically high 4.5-6.2 [facility] Comment on above: Performed By: #### A 1C #### [facility] [address] [place] [address] Dr. Ricky Florse LIPID PROFILEon 09-04-2022 CHOL-HDL RATIO NORM SEE BELOW Normal [facility] Comment on above: Result Comment: 3.3 - 4.4 LOW RISK 4.4 - 7.1 AVERAGE RISK 7.1 - 11.0 MODERATE RISK >11.0 HIGH RISK Performed By: #### B MP, LIPID, TSH, LIVER #### [facility] [address] [place] [address] Dr. Ricky Flores Cholesterol [Mass/Vol] 219 mg/dL Critically high <=200 [facility] Comment on above: Performed By: #### B MP, LIPID, TSH, LIVER #### [facility] [address] [place] [address] Dr. Ricky Flores Cholesterol in HDL [Mass/Vol] 69 mg/dL Critically high 40-60 [facility] Comment on above: Performed By: #### B MP, LIPID, TSH, LIVER #### [facility] [address] [place] [address] Dr. Ricky Flores Cholesterol in LDL [Mass/Vol] 125.2 mg/dL Normal [facility] Comment on above: Performed By: #### B MP, LIPID, TSH, LIVER #### [facility] [address] [place] [address] Dr. Ricky Flores Cholesterol.total/Tosin sterol in HDL [Mass ratio] 3.2 {ratio} Normal [facility] Comment on above: Performed By: #### B MP, LIPID, TSH, LIVER #### [facility] [address] [address] [address] Ricky Flores HDL NORMAL > or = 60 mg/dl - LO W CARDIOVASCULAR RISK <40 mg/dl - HIGH CARDIOVASCULAR RISK Normal [facility] Comment on above: Performed By: #### B MP, LIPID, TSH, LIVER #### [facility] [address] [address] [address] Ricky Flores LDL CALC NORMAL SEE BELOW Normal [facility] Comment on above: Result Comment: <100 mg/dl OPTIMAL 100 - 129 mg/dl NEAR OR ABOVE OPTIMAL 130 - 159 mg/dl BORDERLINE HIGH 160 - 189 mg/dl HIGH >190 mg/dl VERY HIGH Performed By: #### B MP, LIPID, TSH, LIVER #### [facility] [address] [address] [address] Ricky Flores Triglyceride [Mass/Vol] 124 mg/dL Normal <=150 [facility] Comment on above: Performed By: #### B MP, LIPID, TSH, LIVER #### [facility] [address] [address] [address] Ricky Flores VLDL CALC 24.8 mg/dL Normal [facility] Comment on above: Performed By: #### B MP, LIPID, TSH, LIVER #### [facility] [address] [address] [address] Ricky Flores LIVER PROFILEon 09-04-2022 Albumin [Mass/Vol] 3.8 g/dL Normal 3.4-5.0 [facility] Comment on above: Performed By: #### B MP, LIPID, TSH, LIVER #### [facility] [address] [address] [address] Ricky Flores Albumin/Globulin [Mass ratio] 0.8 {ratio} Normal [facility] Comment on above: Performed By: #### B MP, LIPID, TSH, LIVER #### [facility] [address] [place] [address] Dr. Ricky Flores ALP [Catalytic activity/Vol] 99 U/L Normal 46-116 [facility] Comment on above: Performed By: #### B MP, LIPID, TSH, LIVER #### [facility] [address] [address] [address] Ricky Flores ALT [Catalytic activity/Vol] 27 U/L Normal 14-59 [facility] Comment on above: Performed By: #### B MP, LIPID, TSH, LIVER #### [facility] [address] [address] [address] Ricky Flores AST [Catalytic activity/Vol] 15 U/L Normal 15-37 [facility] Comment on above: Performed By: #### B MP, LIPID, TSH, LIVER #### [facility] [address] [place] [address] Dr. Ricky Flores BILI, CONJUGATED 0.1 mg/dL Normal 0.0-0.2 [facility] Comment on above: Performed By: #### B MP, LIPID, TSH, LIVER #### [facility] [address] [place] [address] Dr. Ricky Flores Bilirubin [Mass/Vol] 0.3 mg/dL Normal 0.2-1.0 [facility] Comment on above: Performed By: #### B MP, LIPID, TSH, LIVER #### [facility] [address] [place] [address] Dr. Ricky Flores Globulin (S) [Mass/Vol] 4.5 g/dL Normal [facility] Comment on above: Performed By: #### B MP, LIPID, TSH, LIVER #### [facility] [address] [place] [address] Dr. Ricky Flores Protein [Mass/Vol] 8.3 g/dL Critically high 6.4-8.2 [facility] Comment on above: Performed By: #### B MP, LIPID, TSH, LIVER #### [facility] [address] [place] [address] Dr. Ricky Flores PROF CHEM 8 (BAS METB)on Anion gap [Moles/Vol] 8.2 mmol/L Normal [facility] Comment on above: Performed By: #### B MP, LIPID, TSH, LIVER #### [facility] [address] [place] [address] Dr. Ricky Flores Calcium [Mass/Vol] 9.2 mg/dL Normal 8.5-10.1 [facility] Comment on above: Performed By: #### B MP, LIPID, TSH, LIVER #### [facility] [address] [place] [address] Dr. Ricky Flores Chloride [Moles/Vol] 101 mmol/L Normal 98-107 [facility] Comment on above: Performed By: #### B MP, LIPID, TSH, LIVER #### [facility] [address] [place] [address] Dr. Ricky Flores CO2 [Moles/Vol] 32.7 mmol/L Critically high 21.0-32.0 [facility] Comment on above: Performed By: #### B MP, LIPID, TSH, LIVER #### [facility] [address] [place] [address] Dr. Ricky Flores Creatinine [Mass/Vol] 0.68 mg/dL Normal 0.55-1.02 [facility] Comment on above: Performed By: #### B MP, LIPID, TSH, LIVER #### [facility] [address] [place] [address] Dr. Ricky Flores EGFR-AF SALVADOREAN >60 Normal >=60 [facility] Comment on above: Performed By: #### B MP, LIPID, TSH, LIVER #### [facility] [address] [place] [address] Dr. Ricky Flores EGFR-NON AF SALVADOREAN >60 Normal >=60 [facility] Comment on above: Performed By: #### B MP, LIPID, TSH, LIVER #### [facility] [address] [place] [address] Dr. Ricky Flores Glucose [Mass/Vol] 147 mg/dL Critically high 74-106 [facility] Comment on above: Performed By: #### B MP, LIPID, TSH, LIVER #### [facility] [address] [place] [address] Dr. Ricky Flores Potassium [Moles/Vol] 3.9 mmol/L Normal 3.5-5.1 [facility] Comment on above: Performed By: #### B MP, LIPID, TSH, LIVER #### [facility] [address] [place] [address] Dr. Ricky Flores Sodium [Moles/Vol] 138 mmol/L Normal 136-145 [facility] Comment on above: Performed By: #### B MP, LIPID, TSH, LIVER #### [facility] [address] [place] [address] Dr. Ricky Flores Urea nitrogen [Mass/Vol] 20.0 mg/dL Critically high 7.0-18.0 [facility] Comment on above: Performed By: #### B MP, LIPID, TSH, LIVER #### [facility] [address] [place] [address] Dr. Ricky Flores Urea nitrogen/Creatinine [Mass ratio] 29.4 mg/mg Normal [facility] Comment on above: Performed By: #### B MP, LIPID, TSH, LIVER #### [facility] [address] [place] [address] Dr. Ricky Flores TSHon 09-04-2022 TSH 1.437 uIU/mL Normal 0.358-3.740 [facility] Comment on above: Performed By: #### B MP, LIPID, TSH, LIVER #### [facility] [address] [place] [address] Dr. Ricky Flores VITAMIN D 25 OHon 09-04-2022 VIT D 25-OH 29.7 ng/mL Normal [facility] Comment on above: Performed By: #### V ITAD #### [facility] [address] [place] [address] Dr. Ricky Flores VIT D RANGES SEE BELOW Normal [facility] Comment on above: Result Comment: <20 ng/mL Vit D deficient 20 - <30 ng/mL Vit D insufficient 30 - 100 ng/mL Vit D sufficient >100 ng/mL Potential Toxicity Performed By: #### V ITAD #### [facility] [address] [place] [address] Dr. Ricky Flores Vital Signs Date Time Vital Sign Value Performing Clinician Facility 08-16-2024 14:07-0400 Body height 152.4 cm Isac Sood MD Work Phone: [facility] 08-16-2024 14:07-0400 Body mass index (BMI) [Ratio] 35.94 kg/m2 Isac Sood MD Work Phone: [facility] 08-16-2024 14:07-0400 Body temperature 97.11 [degF] Isac Sood MD Work Phone: [facility] 08-16-2024 14:07-0400 Body weight 83.46 kg Isac Sood MD Work Phone: [facility] 08-16-2024 14:07-0400 Diastolic blood pressure 58 mm[Hg] Isac Sood MD Work Phone: [facility] 08-16-2024 14:07-0400 Heart rate 96 /min Isac Sood MD Work Phone: [facility] 08-16-2024 14:07-0400 Respiratory rate 20 /min Isac Sood MD Work Phone: [facility] 08-16-2024 14:07-0400 SaO2% (BldA) [Mass fraction] 98 % Isac Sood MD Work Phone: [facility] 08-16-2024 14:07-0400 Systolic blood pressure 122 mm[Hg] Isac Sood MD Work Phone: [facility] 10-16-2023 10:00-0500 Body height 152.4 cm Kayla Blas Other [employer] Other 10-16-2023 10:00-0500 Body mass index (BMI) [Ratio] 37.1 kg/m2 Kayla Blas Other [employer] Other 10-16-2023 10:00-0500 Body weight 86.18 kg Kayla Blas Other [employer] Other 10-16-2023 10:00-0500 Diastolic blood pressure 86 mm[Hg] Kaylanancy Blas Other [employer] Other 10-16-2023 10:00-0500 Respiratory rate 18 /min Kayla Blas Other [employer] Other 10-16-2023 10:00-0500 SaO2% (BldA) [Mass fraction] 97 % Kaylanancy Blas Other [employer] Other 10-16-2023 10:00-0500 Systolic blood pressure 148 mm[Hg] Kaylanancy Blas Other [employer] Other 10-02-2023 07:30-0500 Body temperature 97.8 [degF] MD Isac Sood Work Phone: 10-02-2023 07:30-0500 Diastolic blood pressure 69 mm[Hg] MD Isac Sood Work Phone: 10-02-2023 07:30-0500 Heart rate 97 /min MD Isac Sood Work Phone: 10-02-2023 07:30-0500 Respiratory rate 18 /min MD Isac Sood Work Phone: 10-02-2023 07:30-0500 SaO2% (BldA) [Mass fraction] 100 % MD Isac Sood Work Phone: 10-02-2023 07:30-0500 Systolic blood pressure 144 mm[Hg] MD Isac Sood Work Phone: 09-29-2023 14:35-0500 Body height 152.4 cm MD Isac Sood Work Phone: 09-29-2023 09:00-0500 Body weight 39.1 kg MD Isac Sood Work Phone: 02-15-2023 07:30-0400 Body temperature 98.2 [degF] MD Isac Sood Work Phone: 02-15-2023 07:30-0400 Diastolic blood pressure 72 mm[Hg] MD Isac Sood Work Phone: 02-15-2023 07:30-0400 Heart rate 76 /min MD Isac Sood Work Phone: 02-15-2023 07:30-0400 Respiratory rate 16 /min MD Isac Sood Work Phone: 02-15-2023 07:30-0400 SaO2% (BldA) [Mass fraction] 100 % MD Isac Sood Work Phone: 02-15-2023 07:30-0400 Systolic blood pressure 140 mm[Hg] MD Isac Sood Work Phone: 02-13-2023 15:08-0400 Body height 152.4 cm MD Isac Sood Work Phone: 02-10-2023 22:00-0400 Body weight 81.19 kg MD Isac Sood Work Phone: Encounters Encounter Date Encounter Type Care Provider Facility Start: 11-08-2024 End: 11-08-2024 Telephone encounter Chika Morganer - Mammography Start: 11-05-2024 End: 11-05-2024 [facility] Start: 11-04-2024 End: 11-04-2024 ambulatory Angi Louis [facility][NOTE 3] Start: 10-18-2024 End: 10-18-2024 Refill Isac Sood MD Work Phone: [facility] Comment on above: Type 2 diabetes shruthi itus with hyperglycemia, without long-term current use of insulin (CMS/HCC); Type 2 diabetes mellitus with hyperglycemia, with long-term current use of insulin (CMS/HCC) Start: 09-28-2024 End: 09-28-2024 Orders Only Isac Sood MD Work Phone: [facility] Comment on above: Abnormal mammogram o f left breast (Primary Dx) Start: 08-30-2024 End: 08-30-2024 Orders Only Isac Sood MD Work Phone: [facility] Comment on above: Abnormal mammogram o f left breast (Primary Dx) Start: 08-27-2024 End: 08-27-2024 ambulatory [facility] Start: 08-23-2024 End: 08-23-2024 ambulatory [facility] Start: 08-16-2024 End: 08-16-2024 Bamboo flowsheet Isac Sood MD Work Phone: [facility] Start: 08-16-2024 End: 08-16-2024 Bamboo flowsheet Isac Sood MD Work Phone: [facility] Start: 08-16-2024 End: 08-16-2024 Office outpatient visit 25 minutes Isac Sood MD Work Phone: [facility] Comment on above: Type 2 diabetes shruthi itus with hyperglycemia, without long-term current use of insulin (CMS/HCC) (Primary Dx); Essential hypertension, benign (CMS/HCC); Mild recurrent major depression (HCC) (CMS/HCC); GEORGIE (generalized anxiety disorder) (CMS/HCC); Primary insomnia; Breast cancer screening by mammogram; Colon cancer screening; Class 2 severe obesity due to excess calories with serious comorbidity and body mass index (BMI) of 35.0 to 35.9 in adult (CMS/HCC); Edema of both legs; Rheumatoid arthritis, involving unspecified site, unspecified whether rheumatoid factor present (CMS/HCC) Start: 08-16-2024 End: 08-16-2024 ambulatory ISAC KEATINGERER Not Available Start: 03-24-2024 ambulatory Isac Keatingerer Facility:[facility] Start: 03-02-2024 End: 03-02-2024 ambulatory ISAC KEATINGERER [facility] Start: 02-20-2024 End: 02-20-2024 ambulatory ISAC KEATINGERER Not Available Start: 12-01-2023 End: 12-01-2023 ambulatory ISAC KEATINGERER [facility] Start: 12-01-2023 End: 12-02-2023 ambulatory ISAC KEATINGERER [facility] Start: 11-25-2023 End: 11-25-2023 ambulatory ISAC KEATINGERER Not Available Start: 11-12-2023 End: 11-12-2023 ambulatory Kayla Blas Other [employer] Other Start: 11-12-2023 Telephone encounter Kayla Blas [facility] Audit Intern Start: 10-30-2023 End: 10-30-2023 ambulatory ISAC KEATINGERER Not Available Start: 10-16-2023 End: 10-16-2023 ambulatory Kayla Blas Other [employer] Other Start: 10-16-2023 Office outpatient ne w 45 minutes Kayla Blas [facility] Start: 10-16-2023 Telephone encounter Kayla Blas [facility] Start: 10-08-2023 End: 10-08-2023 ambulatory ISAC AUGUSTINER Not Available Start: 09-27-2023 End: 10-02-2023 Evaluation and management of inpatient MD Isac Sood Work Phone: [facility] Work Phone: Start: 02-10-2023 End: 02-15-2023 Evaluation and management of inpatient MD Isac Sood Work Phone: [facility] Work Phone: Start: 02-10-2023 End: 02-10-[address] ISAC SOOD Facility:[facility] Start: 09-09-2022 Encounter for genera l adult medical examination without abnormal findings DR ISAC SOOD [facility] Start: 09-04-2022 End: 09-05-[address] ISAC SOOD Facility:[facility]1 Start: 09-04-2022 End: 09-05-2022 Encounter for general adult medical examination without abnormal findings DR ISAC SOOD Facility:[facility]1 Procedures Date Procedure Procedure Detail Performing Clinician Start: 09-28-2024 Mammography Isac jones MD Work Phone: Start: 08-30-2024 Mammography Isac jones MD Work Phone: Start: 03-02-2024 Microalbumin [Mass/v olume] in Urine by Test strip Chika Palomino RN Start: 10-01-2023 Duplex scan of lower limb veins MD Isac Sood Work Phone: Start: 02-11-2023 CT of head without contrast MD Isac Sood Work Phone: Plan of Treatment Date Care Activity Detail Author Start: 08-30-2027 Screening for malign ant neoplasm of colon [facility] Start: 11-05-2025 Adult BMI Screening Adult BMI Screen [facility] Start: 09-28-2025 Screening for malign ant neoplasm of breast Mammogram [facility] Start: 08-30-2025 Screening for malign ant neoplasm of breast Mammogram [facility] Start: 08-16-2025 Medicare Annual Well ness (AWV) Medicare Annual Wellness (AWV) [facility] Start: 03-02-2025 Urine screening for protein [facility] Start: 02-21-2025 Hemoglobin A1c measurement Diabetes: Hemoglobin A1C [facility] Start: 11-02-2024 End: 11-02-2024 Patient encounter procedure 11/02/2024 2:15 PM EST Office Visit [facility] [address] [place] [id number] Isac Sood MD [address] [place] [id number] [facility] Start: 09-30-2024 End: 09-30-2024 Patient encounter procedure 09/30/2024 1:45 PM EST Office Visit [facility] [address] [place] [address] Isac Sood MD [address] [place] [id number] [facility] Start: 09-28-2024 End: 11-29-2025 US Guidance for localization of Breast - left Left US-guided breast localization and biopsy Imaging Routine Abnormal mammogram of left breast Expected: 09/28/2024, Expires: 11/29/2025 [facility] Work Phone: Comment on above: Expected: 09/28/2024 , Expires: 11/29/2025 Start: 09-02-2024 Hemoglobin A1c measurement Diabetes: Hemoglobin A1C [facility] Start: 08-30-2024 End: 10-30-2025 DBT Breast - left diagnostic Left diagnostic mammogram with tomosynthesis Imaging Routine Abnormal mammogram of left breast Expected: 08/30/2024, Expires: 10/30/2025 [facility] Work Phone: Comment on above: Expected: 08/30/2024 , Expires: 10/30/2025 Start: 08-30-2024 End: 10-30-2025 US Breast - left limited Left breast US limited Imaging Routine Abnormal mammogram of left breast Expected: 08/30/2024, Expires: 10/30/2025 [facility] Comment on above: Expected: 08/30/2024 , Expires: 10/30/2025 Start: 08-16-2024 End: 08-16-2025 Hemoglobin A1c/Hemoglobin.total in Blood Hemoglobin A1c Lab Routine Type 2 diabetes mellitus with hyperglycemia, without long-term current use of insulin ([facility]) Expected: 08/16/2024 (Approximate), Expires: 08/16/2025 [employer] Work Phone: Comment on above: Expected: 08/16/2024 (Approximate), Expires: 08/16/2025 Start: 08-16-2024 End: 10-16-2025 MG Breast - bilateral Screening Bilateral screening mammogram Imaging Routine Breast cancer screening by mammogram Expected: 08/16/2024, Expires: 10/16/2025 [facility] Comment on above: Expected: 08/16/2024 , Expires: 10/16/2025 Start: 08-16-2024 End: 08-16-2025 Noninvasive colorectal cancer DNA and occult blood screening [Presence] in Stool Cologuard colon cancer screening Lab Routine Colon cancer screening Expected: 08/16/2024 (Approximate), Expires: 08/16/2025 [facility] Comment on above: Expected: 08/16/2024 (Approximate), Expires: 08/16/2025 Start: 08-16-2024 End: 08-16-2024 Patient encounter procedure 08/16/2024 2:00 PM EDT Office Visit [facility] [address] [place] [address] Isac Sood MD [address] [place] [address] Arrived [facility] Comment on above: Arrived Start: 06-27-2024 COVID-19 Vaccine ( season) COVID-19 Vaccine ( season) [facility] Start: 06-27-2024 Influenza vaccination N [facility] Start: 06-02-2024 Hemoglobin A1c measurement Diabetes: Hemoglobin A1C [facility] Start: 2024 Fall Risk Screening Fall Risk Screen ing [facility] Start: 10-02-2023 Start: 09-30-2023 Referral to clinical meat counter clerk Start: 09-27-2023 Hospital admission [facility] Start: 02-15-2023 Start: 02-10-2023 Hospital admission [facility] Start: 2009 Administration of varicella zoster vaccine Zoster (Shingles) Vaccine (1 of 2) [facility] Start: 1999 Screening for malign ant neoplasm of breast Mammogram [facility] Start: 1989 Screening for malign ant neoplasm of cervix [facility] Start: 1980 Screening for malign ant neoplasm of cervix Pap Smear [facility] Start: 1978 DTaP,Tdap and Td Vaccines (1 - Tdap) DTaP,Tdap and Td Vaccines (1 - Tdap) [facility] Start: 1977 Adult BMI Follow Up Plan Adult BMI Follow Up Plan [facility] Start: 1977 Diabetic foot examination Diabetic Foot Exam [facility] Start: 1971 Depression Screening Depression Scre ening [facility] Start: 1971 Tobacco Screening Tobacco Screening [facility] Start: 1969 Glaucoma screening Diabetes: R etinopathy Screening [facility] Start: 1965 Pneumococcal Vaccine : 65+ Years (1 of 2 - PCV) Pneumococcal Vaccine: 65+ Years (1 of 2 - PCV) [facility] Start: 1959 Glaucoma screening Diabetic Op hthalmology Exam [facility] Start: 1959 Medicare Annual Well ness (AWV) Medicare Annual Wellness (AWV) [facility] Start: 1959 Screening for malign ant neoplasm of colon [facility] Patient Education [facility] Work Phone: Patient referral [facility] Work Phone: Immunizations Immunization Date Immunization Notes Care Provider Neftali espinal 03-06-2021 COVID-19 Vaccine Pfizer - Documentation Purposes Only Kayla Blas Other [employer] Other 02-09-2021 COVID-19 Vaccine Pfizer - Documentation Purposes Only Kayla Blas Other [employer] Other NEGATED: Highlighted row has not occurred!10-16-2023 Flu Shot - Documentation Purposes Only Kayla Blas Other [employer] Other Payers Date Payer Category Payer Medicare HMO [employer] MEDICARE [id number] 2024 Medicare [id number] 2024 Medicare (Managed Care) [facility] [id number] 2024 Unknown [id number] 2024 Medicaid [id number] 2024 Medicare MEDICARE [id number] 2023 Private Health Insurance [employer] [id number] 2023 Self-pay 1960 Unknown [id number] 1959 Unknown [id number] 1959 Unknown [id number] 2.16.840.1.027247.3.579.2. 593 1959 Unknown [id number] 2.16.840.1.167073.3.579.2. 593 1959 Unknown [id number] 2.16.840.1.605510.3.579.2. 1259 1959 Unknown [id number] 2.16.840.1.651612.3.579.2. 1259 1959 Unknown [id number] 2.16.840.1.741743.3.579.2. 125 1959 Unknown [id number] 2.16.840.1.229605.3.579.2. 9 1959 Unknown [id number] 2.16.840.1.440390.3.579.2. 1259 1959 Unknown [id number] 2.16.840.1.126256.3.579.2. 1286 1959 Unknown [id number] 2.16.840.1.399121.3.579.2. 128 1959 Unknown [id number] 2.16.840.1.429105.3.579.2. 128 1959 Unknown [id number] 2.16.840.1.618590.3.579.2. 1286 1959 Unknown [id number] 2.16.840.1.341681.3.579.2. 1286 1959 Unknown [id number] 2.16.840.1.933060.3.579.2. 1286 1959 Unknown [id number] 2.16.840.1.708279.3.579.2. 1286 1959 Unknown [id number] 2.16.840.1.791305.3.579.2. 1286 1959 Unknown [id number] 2.16.840.1.852038.3.579.2. 1286 Unknown [id number] 2.16.840.1.290471.3.579.2. 531 Unknown [id number] 2.16.840.1.735155.3.579.2. 531 Social History Date Type Detail Facility Start: 02-11-2023 Tobacco smoking status [facility] Never smoked tobacco (finding) Start: 1960 Sex Assigned At Female Start: 07-09-2022 End: 09-30-2023 Tobacco smoking status [facility] Ex-smoker (finding) Start: 11-08-2020 End: 02-20-2024 Sex Assigned At [employer] Other Start: 07-08-1978 End: 07-08-2022 History of tobacco use Current smoker [facility] Start: 07-08-1978 End: 07-08-2022 History of tobacco use Cigarette Smoker [facility] Start: 11-08-2020 End: 11-14-2023 Cigarettes smoked current (pack per day) - Reported 1 [facility] Start: 07-09-2022 End: 11-14-2023 Tobacco use and exposure Smokeless tobacco non-user [facility] Start: 02-20-2024 End: 08-16-2024 Alcoholic beverage intake Lifetime non-drinker (finding) [facility] Start: 1960 Sex assigned at Not on file [facility] How often do you nee d to have someone help you when you read instructions, pamphlets, or other written material from your doctor or pharmacy [SILS] Never [facility] Within the last year , have you been afraid of your partner or ex-partner? No [facility] Are you now , , , , never or living with a partner? [facility] How often to you hav e a drink containing alcohol? Never [facility] Do you feel stress - tense, restless, nervous, or anxious, or unable to sleep at night because your mind is troubled all the time - these days [OSQ] Rather much [facility] (I/We) worried wheth er (my/our) food would run out before (I/we) got money to buy more. Never true [facility] At any time in the past 12 months, were you homeless or living in half-way [including now]? Yes [facility] Start: 11-05-2024 Alcoholic beverage intake Ex-drinker (finding) [employer] Start: 04-23-2020 Alcohol Comment [facility]CCASS[employer] [employer] Start: 06-01-2015 Sex Female (finding) [employer] [facility] Medical Equipment Procedure Code Equipment Code Equipment Origin al Text Equipment Identifier Dates Inject 1 each un millie the skin if needed Start: 06-09-2023 Goals Date Patient Goal Desired Activity /State Personal health goal Comment on above: Formatting of this n ote might be different from the original. Evaluation of progress towards goal: breathing much better since admission Functional Status Date Assessment Result Facility 10-02-2023 Functional status Patient at Baseline [facility] Work Phone: 09-27-2023 Functional status Disability Sta tus Patient Not at Baseline [facility] Work Phone: 02-15-2023 Functional status Patient at Baseline [facility] Work Phone: Mental Status Date Assessment Result Facility 10-02-2023 Cognitive function Cognitive Sta tus Patient at Baseline [facility] Work Phone: 02-15-2023 Cognitive function Cognitive Sta tus Patient at Baseline [facility] Work Phone: Clinical Notes 02-11-2023 to 11-08-2024 Telephone Encounter - Chika Palomino RN - 11/08/2024 1:44 PM ESTTelephone Encounter - Chika Palomino RN - 11/08/2024 1:44 PM ESTSlacie Louis MA - 11/04/2024 10:44 AM EST Note Date & Type Note Facility 11-08-2024 Miscellaneous Notes Formattin g of this note might be different from the original. Call placed to patient to check status following recent breast biopsy. Patient reports no problems. She was encouraged to contact the Breast Center if she develops any new problems at biopsy site. Voices understanding. [facility] this [facility]-08-2024 Telephone encount er Note Call placed to patient to check status following recent breast biopsy. Patient reports no problems. She was encouraged to contact the Breast Center if she develops any new problems at biopsy site. [facility] understanding. [facility] History of Presen t illness Narrative Internal Sales Engineer contacted pt for possible CCM enrollment. Pt agrees to enroll. Social Drivers update for pt. She is living with her daughter until she is able to get a place of her own. Pt has been homeless in the past twelve months, she was staying at a half-way in [place]. She said she is thinking about going to stay at the one in [place] as there is more assistance available there ti help place her in housing. But right now her car is broke down so she isn't able to. Internal Sales Engineer informed pt to call [employer] as they have a program available to help with car repairs and to see if she would qualify. She was appreciative of that as she wasn't aware that was available. She is shceduled for a breast biopsy tmro in [place]. Her las Mammogram came back abnormal. Pt asked about the biopsy process as she is understandably nervous about th procedure tmro. Education and reassurance given to pt and she was appreciative of that. She did ask for a refill of her Xanax. Request sent to PCP. She does have issues with sleep. She recently ran out of her Olanzapine so I will send in a request to Dr Sood for a refill for her. She has a lot of stressors in her life right now and her brain won't shut off at night. Will mail patient education to her to possibly help with sleeping habits. Pt also has DMII she is back on insulin. She takes multiple meds to control BS. Recently put back on these as her last A!C was 10.1 Encouraged pt to check BS's daily and to call should she need any medication refills. Will mail out nutrition information to patient. Ccm enrollment complete and meds reconciled with patient. Bere could you review care plan and sign off please?TIA documented in this encounter [facility] 08-16-2024 History of Presen t illness Narrative Associated Problem(s): Rheumatoid arthritis (CMS/HCC) Follow with specialists. Associated Problem(s): Type 2 diabetes mellitus with hyperglycemia, without long-term current use of insulin (CMS/HCC) BS elevated and need to resume lantus and metformin. Continue ozempic. Check A1C. Stick to ADA diet and limit carbs. Associated Problem(s): Primary insomnia Sleeping well with medication and continue. Associated Problem(s): Mild recurrent major depression (HCC) (CMS/HCC) Symptoms controlled with medication and continue. Associated Problem(s): GEORGIE (generalized anxiety disorder) ([facility]) Symptoms controlled with medication and continue. Use xanax PRN. Associated Problem(s): Essential hypertension, benign ([facility]) BP normal and monitor PRN. Discussed DASH diet. Associated Problem(s): Edema of both legs Mild swelling and use lasix PRN. Elevate legs PRN. Associated Problem(s): Class 2 severe obesity due to excess calories with serious comorbidity and body mass index (BMI) of 35.0 to 35.9 in adult ([facility]) Patient overweight and difficult time losing weight. Discussed proper diet and regular aerobic exercise. Recommend Weight Watchers and need to limit calories and smaller portions. Need to increase activity and regular aerobic exercise several days a week for 30 minutes at a time. Interested in adipex and warned of potential cardiac side effects. Script written for first month and will need to recheck weight in 1 month. OARRS reviewed. Continue medications as prescribed. Images from the original note were not included. Subjective Patient ID: Marizol Lucero is a 64 y.o. female who presents for Follow-up (6 m) and Arthritis. Follow up DM, HTN, edema, depression, anxiety, and insomnia. BS elevated over past few weeks and 300-400. Out of lantus and metformin for several weeks. Tries to eat well and stick to ADA diet. Denies signs of elevated BS such as polyuria, polyphagia or polydipsia. Due for A1C. Taking ozempic. Not checking BP away from the office and BP normal today. No longer on medication but took in the past. Edema controlled with medication. Mild swelling at end of day and if on feet a lot. Edema improved in am and with elevation. Mood stable with medication and no longer following with psychiatry. Not as down or sad and feels happier. Able to interact better with others. Anxiety stable. Not as stressed out or overwhelmed. Not as nervous or worry as much. Not as leavitt or irritable. Out of xanax but helped. Sleeping well with medication. Able to fall asleep and stay asleep. Wakes up rested in am. Wants to get back on adipex for weight loss. Arthritis Pertinent negatives include no diarrhea or dysuria. Review of Systems Respiratory: Negative for cough, shortness of breath and wheezing. Cardiovascular: Negative for chest pain and palpitations. Gastrointestinal: Negative for abdominal pain, diarrhea, nausea and vomiting. Genitourinary: Negative for dysuria. Musculoskeletal: Positive for arthritis. Objective Physical Exam Constitutional: General: She is not in acute distress. Appearance: Normal appearance. HENT: Head: Normocephalic. Right Ear: Tympanic membrane normal. Left Ear: Tympanic membrane normal. Eyes: Extraocular Movements: Extraocular movements intact. Pupils: Pupils are equal, round, and reactive to light. Cardiovascular: Rate and Rhythm: Normal rate and regular rhythm. Heart sounds: No murmur heard. No friction rub. No gallop. Pulmonary: Effort: Pulmonary effort is normal. Breath sounds: Normal breath sounds. No wheezing, rhonchi or rales. Abdominal: General: Bowel sounds are normal. There is no distension. Palpations: Abdomen is soft. Tenderness: There is no abdominal tenderness. There is no guarding or rebound. Musculoskeletal: Cervical back: Neck supple. Right lower leg: No edema. Left lower leg: No edema. Neurological: Mental Status: She is alert. Assessment/Plan Problem List Items Addressed This Visit Essential hypertension, benign (CMS/HCC) BP normal and monitor PRN. Discussed DASH diet. GEORGIE (generalized anxiety disorder) (CMS/HCC) Symptoms controlled with medication and continue. Use xanax PRN. Relevant Medications ALPRAZolam (Xanax) 0.5 MG tablet Mild recurrent major depression (HCC) (CMS/HCC) Symptoms controlled with medication and continue. Relevant Medications escitalopram (Lexapro) 5 MG tablet Class 2 severe obesity due to excess calories with serious comorbidity and body mass index (BMI) of 35.0 to 35.9 in adult ([facility]) Patient overweight and difficult time losing weight. Discussed proper diet and regular aerobic exercise. Recommend Weight Watchers and need to limit calories and smaller portions. Need to increase activity and regular aerobic exercise several days a week for 30 minutes at a time. Interested in adipex and warned of potential cardiac side effects. Script written for first month and will need to recheck weight in 1 month. OARRS reviewed. Continue medications as prescribed. Relevant Medications phentermine (Adipex-P) 37.5 MG tablet Primary insomnia Sleeping well with medication and continue. Edema of both legs Mild swelling and use lasix PRN. Elevate legs PRN. Type 2 diabetes mellitus with hyperglycemia, without long-term current use of insulin ([facility]) - Primary BS elevated and need to resume lantus and metformin. Continue ozempic. Check A1C. Stick to ADA diet and limit carbs. Relevant Medications metFORMIN (Glucophage) 500 MG tablet insulin glargine (Lantus SoloStar) 100 UNIT/ML pen Other Relevant Orders Hemoglobin A1c Other Visit Diagnoses Breast cancer screening by mammogram Relevant Orders Bilateral screening mammogram Colon cancer screening Relevant Orders Cologuard colon cancer screening documented in this encounter [facility] 10-16-2023 Evaluation note Encounter Date Diagnosis Assessment Notes Sep, Type 2 diabetes mellitus (ICD-10 - E11.9) Recent sugars well controlled on current dose of metformin and lantus, patient did not bring meds with her today but is recommended to bring at next visit Sep, Insomnia (ICD-10 - G47.00) Discussed can continue trazodone and can trial seroquel at bedtime. Sep, Schizoaffective disorder (ICD-10 - F25.9) Referral to psychiatry locally. She denies any self harming thoughts or active hallucinations at this point. She is very focused on fear of bed bugs in her apartment buidling affecting her comfort and sleep at this point. We will f/u in 6 weeks for recheck [employer] Other 12-07-2023 Hospital Discharge instructions Additional Instructions Important Contact Information You can call Inpatient Behavioral Health at [phone] any time day or night if you have emergent questions or question regarding discharge instructions. If at any time you are feeling an increase in your psychiatric symptoms, call your physician or behavioral healthcare provider. If any time you have thoughts of harming yourself or others contact one of the following: Call 8 (available 19/05) Crisis Text Line (available 19/05) text 4HOPE to [phone] [facility] Hope Line (available 8 a.m. Midnight) call [phone] ([phone]) [facility] Work Phone: 1(191) 352-331412-06-2023 Progress note Author Theo shaw October 01, 2023 12:04pm Note Date/Time October 01, 2023 1 2:04pm [facility] [address] [place] [address] Psychiatry Progress Note Signed Patient: Marizol Lucero MR#: [id number] : 1960 Acct:[id number] Age/Sex: 63 / F Adm Date: 3 Loc: Room: [address] [place] [address] Type : ADM IN Attending Dr: Avinash Quezada MD Copies to: ~ Date of Service: 10/01/2023 Subjective Subjective Narrative: Patient states she is feeling fine today. She reports poor sleep due to noise outside of her room. She also sleeps with the lights on and staff kept turning the lights off. She states her mood is neutral and denies auditory or visual hallucinations along with suicidal or homicidal ideation. Patient was personally seen by me on the day of the encounter. I reviewed the history and performed the montes de oca elements of the assessment. I formulated the planof care and confirmed this with the medical student as noted below Patient said her hallucinations are decreasing. She feels she is eating okay. She reports her mind races at night and would like to start an antidepressant. She also feels the medication is working effectively but is causing her dry mouth. Yesterday, hospital team came in for leg swelling consult. Patient attempted to have ultrasound performed but was unable to due to leg pain. This has been rescheduled for today. Mental Status Exam: Appearance: grossly normal Mental Status: mental status grossly normal Mood: dysthymic mood Affect: dysphoric affect Speech and Movement: speech and movement normal and speech clear Attitude: cooperative Thought Process: normal Thought Content: Denies auditory and visual hallucinations, paranoid thoughts, no homicidality, no suicidality Insight: fair Judgment: fair Exam Physical Exam Vital Signs: Temp Pulse Resp BP Pulse Ox O2 Del Method 98.4 F 89 18 105/58 L 94 L Room Air 10/01/23 07:30 10/01/23 07:30 10/01/23 07:30 10/01/23 07:30 10/01/23 07:30 10/01/23 07:30 Objective Labs Labs: Abnormal Labs 09/28/23 09/30/23 09/30/23 05:30 10:19 10:19 Plt Count 136 L Chloride 97 L Carbon Dioxide 33.3 H Glucose 199 H Hemoglobin A1c 7.4 H Assessment/Plan Assessment/Plan (1) Schizoaffective disorder: Code(s): F25.9 - Schizoaffective disorder, unspecified Status: Acute Plan Presenting due to sabianism preoccupation, delusions and paranoid thoughts Continue Invega to 3 mg PO BID Supplement with Vitamin D due to low vitamin D Start Lexapro 5 mg nightly for anxiety and trazodone 50 mg nightly Obtain EKG to monitor for QTc prolongation Hospitalist consult for bilateral lower limb heaviness and warm feeling Continue to monitor mental status Encourage group participation and medication compliance Risk benefits alternatives explained Documented By: Theo Lott MD 3 [id number] Signed By: <Electronically signed by Theo Lott MD> 10/01/23 5367 [facility] Work Phone: 1([phone]) 280-758212-06-2023 Consult note Author Dusty Hsu October 01, 2023 8:25am Note Date/Time September 30, 2023 1 :57pm [facility] [address] [place] [address] Hospitalist Consult Note Signed Patient: Marizol Lucero MR#: [id number] : 1960 Acct:[id number] Age/Sex: 63 / F Adm Date: 3 Loc: Room: [address] [place] [address] Type: ADM IN Attending Dr: Avinash Quezada MD Copies to: MD Filomena Duarte APRN Marc Naderer, MD Mazhar Rahman, MD~ HPI DATE OF CONSULTATION: 09/30/23 REQUESTING PROVIDER: Avinash Quezada Consult Narrative Reason for Consult: Lower extremity edema and warmth bilaterally HPI: This is a 63-year-old male past medical history significant for diabetes and schizoaffective disorder. She initially presented to outside emergency department with mental health complaints. She was transferred to the inpatient psychiatric unit here at [facility] for further management and care. Hospitalistteam has now been consulted for management of lower extremity edema and warmth. Patient seen and examined. She is ambulatory on unit. She becomes tearful and reports grief with recent loss of her grandson. She complains about her legs feeling warm being swollen but only has trace to 1+ edema and no warmth noted onexam but does have left posterior calf tenderness with palpation. She reports edema since fasting for 3 weeks. Denies chest pain or palpitations. No cough, dyspnea, or pain with inspiration. No abdominal pain or indigestion, constipation or diarrhea, nausea or vomiting. No dysuria or retention. No headache or dizziness. No fevers or chills. Review of Systems Review of Systems All other systems reviewed & are negative unless noted below or in HPI [facility] Medical History (Updated 09/30/23 @ 21:39 by Filomena Anton APRN) COPD (chronic obstructive pulmonary disease) Diabetes Poor historian Surgical History H/O cardiac radiofrequency ablation Family History Other Poor historian Social History Smoking Status: Former smoker Substance Use Type: None Meds Medications and Allergies Allergies No Known Allergies Allergy (Verified 02/10/23 21:59) Home Medications metformin 500 mg tablet,extended release 24 hr 100 mg PO BID.WITH.BFAST.SUPPE 09/29/23 [History Confirmed 09/29/23] insulin glargine 100 unit/mL (3 mL) subcutaneous pen (Lantus Solostar U-100 Insulin) 40 unit subcut 1XD 09/30/23 [History Confirmed 09/30/23] semaglutide 2 mg/dose (8 mg/3 mL) subcutaneous pen injector (Ozempic) mg subcut 09/30/23 [History] Active Medications: Active Medications Generic Name Dose Route Start Last Admin Trade Name Freq PRN Reason Stop Dose Admin Acetaminophen 500 mg 09/27/23 17:48 09/30/23 08:10 Acetaminophen 500 Mg Tablet PO 09/26/24 17:47 500 mg Q6H PRN Administration Fever or Pain Al Hydrox/Mg Hydrox/Simethicone 30 ml 09/27/23 17:48 Mag Hydrox/Al Hydrox/Simeth 30 Ml Udc PO 09/26/24 17:47 Q6H PRN Indigestion Benztropine Mesylate 0.5 mg 09/27/23 17:48 Benztropine 2 Mg/2 Ml Ampul IM 09/26/24 17:47 Q6H PRN Dystonia Benztropine Mesylate 0.5 mg 09/27/23 17:48 Benztropine 0.5 Mg Tablet PO 09/26/24 17:47 Q6H PRN Dystonia Docusate Sodium 100 mg 09/30/23 06:56 Docusate 100 Mg Capsule PO 09/29/24 06:55 BID PRN Constipation Ergocalciferol 1,250 mcg 09/29/23 07:00 09/29/23 08:06 Ergocalciferol 1,250 Mcg (50,000 Units) Capsule PO 09/28/24 06:59 1,250 mcg Q7D BRIANA Administration Hydroxyzine Pamoate 50 mg 09/27/23 17:48 09/28/23 20:17 Hydroxyzine Pamoate 50 Mg Capsule PO 09/26/24 17:47 50 mg Q6H PRN Administration Anxiety Ibuprofen 400 mg 09/27/23 17:48 09/30/23 03:01 Ibuprofen 400 Mg Tablet PO 09/26/24 17:47 400 mg Q6H PRN Administration Pain Magnesium Hydroxide 30 ml 09/27/23 17:48 09/29/23 08:06 Magnesium Hydroxide Susp 30 Ml Udc PO 09/26/24 17:47 30 ml Q6H PRN Administration Constipation Metformin HCl 1,000 mg 09/29/23 17:00 09/30/23 08:08 Metformin 500 Mg Tablet PO 09/28/24 16:59 1,000 mg BID.WITH.BFAST.SUPPE BRIANA Administration Non-Formulary Medication 3 mg 10/04/23 09:00 Dulaglutide [Trulicity] SUBCUT 10/03/24 08:59 QWEEK BRIANA Olanzapine 5 mg 09/27/23 17:48 Olanzapine 10 Mg Vial *Nf* IM 09/26/24 17:47 Q6H PRN Agitation Olanzapine 5 mg 09/27/23 17:48 09/29/23 22:07 Olanzapine 5 Mg Tablet PO 09/26/24 17:47 5 mg Q6H PRN Administration Agitation Ondansetron HCl 4 mg 09/28/23 13:10 09/28/23 13:26 Ondansetron Odt 4 Mg Tab.Rapdis PO 09/27/24 13:09 4 mg Q6HR PRN Administration Nausea And Vomiting Paliperidone 3 mg 09/29/23 09:00 09/30/23 08:08 Paliperidone 24hr Er 3 Mg Tab.Er.24 PO 09/28/24 08:59 3 mg BID BRIANA Administration Sterile Water 2.1 ml 09/27/23 17:48 Water For Injection,Sterile 10 Ml Vial INJECTION 09/26/24 17:47 PRN PRN To dilute OLANZapine (ZyPREXA) Trazodone HCl 50 mg 09/27/23 17:48 09/29/23 21:09 Trazodone 50 Mg Tablet PO 09/26/24 17:47 50 mg QHS PRN Administration Insomnia Exam Physical Exam Vital Signs: Temp Pulse Resp BP Pulse Ox O2 Del Method 97.7 F 99 H 18 113/74 99 Room Air 09/30/23 07:30 09/30/23 07:30 09/30/23 07:30 09/30/23 07:30 09/30/23 07:30 09/30/23 09:00 Narrative: CONST- alert, ambulatory, no acute distress HEAD- normocephalic and atraumatic EENT- sclera nonicteric and conjunctiva nonerythemic, moist oral mucosa, pharynx clear NECK- supple, no cervical lymphadenopathy CARDIAC- RRR no abnormal heart tones PULM- diminished without wheeze or rhonchi, RA, no accessory muscle use or cough noted ABD- S/NT, NABS EXTREM-trace?1+ edema BLE, calves left posterior mildly tender with palpation SKIN- W/D, good turgor brown, no erythema MS- MAEx4 spontaneously with equal strength NEURO- A&Ox3, speech clear and tongue midline, equal facial symmetry PSYCH-mood and behavior appropriate Results Lab Results Labs: Laboratory Results - last 72 hr 09/30/23 10:19: PHA Creatinine Clear 41.27, Sodium 137, Potassium 4.2, Chloride 97 L, Carbon Dioxide 33.3 H, Anion Gap 10.9, BUN 7, Creatinine 0.85, Est GFR (CKD-EPI) > 60.0, Glucose 199 H, Calcium 9.2, Total Bilirubin 0.3, AST 16, ALT 23, Alkaline Phosphatase 79, Total Protein 6.7, Albumin 3.8, Globulin 2.9, Albumin/Globulin Ratio 1.3 09/30/23 10:19: Corrected WBC 8.6, Uncorrected WBC Count 8.6, RBC 4.53, Hgb 12.7, Hct 38.4, MCV 84.8, MCH 28.0, MCHC 33.0, RDW 14.3, Plt Count 136 L, MPV 10.0, Neut % (Auto) 52.3, Lymph % (Auto) 34.6, Hanson % (Auto) 9.6, Eos % (Auto) 3.0, Baso % (Auto) 0.5, Nucleat RBC Rel Count 0.2, Neut # (Auto) 4.5, Lymph # (Auto) 3.0, Hanson # (Auto) 0.8, Eos # (Auto) 0.3, Baso # (Auto) 0.0 09/30/23 05:47: POC Glucose 159, POC Glucose Comment Glu2: cleaned meter 09/30/23 03:00: POC Glucose 233 09/29/23 15:30: POC Glucose 381 09/28/23 05:30: Triglycerides 103, Cholesterol 164, LDL Cholesterol, Calc 108 H, VLDL Cholesterol 20, HDL Cholesterol 35, Cholesterol/HDL Ratio 4.7, 25-OH Vitamin D Total 27.3 L, TSH 3rd Generation 4.16 Assessment & Plan Assessment/Plan (1) Bilateral lower extremity edema: (2) Diabetes: (3) Vitamin D deficiency: Plan Lower extremity edema -Venous Doppler bilateral lower extremities pending -Could be nutritional with recent fasting -1x dose dose furosemide Vitamin D deficiency -ergocalciferol Chronic conditions 1. Diabetes-A1c pending, glargine, SSI coverage and fingerstick, hold Ozempic Schizoaffective disorder -Further POC per inpatient psychiatric team for psychoactive medication management/adjustment and psychotherapy Documented By: Filomena Anton APRN 03/18 1600 Signed By: <Electronically signed by DARSHAN Anton> 09/30/23 2140 <Electronically signed by Dusty Hsu MD> 10/01/23 0825 [facility] Work Phone: [phone] 218-108912-05-2023 Progress note Author Theo shaw September 30, 2023 6:57am Note Date/Time September 30, 2023 6 :56am [facility] [address] [place] [address] Psychiatry Progress Note Signed Patient: Marizol Lucero MR#: [id number] : 1960 Acct:[id number] Age/Sex: 63 / F Adm Date: 3 Loc: Room: [address] [place] [address] Type : ADM IN Attending Dr: Avinash Quezada MD Copies to: ~ Date of Service: 09/30/2023 Subjective Subjective Narrative: Patient states that her hallucinations are decreasing. She reports bilateral lower limb swelling and warm feeling. She requested to see the medical team. Shenoted that Invega is heloing with hallucinations. She tolerated increasing Invega with no side effects. Mental Status Exam: Appearance: grossly normal Mental Status: mental status grossly normal Mood: dysthymic mood Affect: dysphoric affect Speech and Movement: speech and movement normal and speech clear Attitude: cooperative Thought Process: normal Thought Content: Reported reduction of auditory and visual hallucinations, paranoid thoughts, no homicidality, no suicidality Insight: fair Judgment: fair Exam Physical Exam Vital Signs: Temp Pulse Resp BP Pulse Ox O2 Del Method 97.6 F 91 H 18 130/81 99 Room Air 09/29/23 22:00 09/29/23 22:00 09/29/23 22:00 09/29/23 22:00 09/29/23 22:00 09/29/23 22:00 Assessment/Plan Assessment/Plan (1) Schizoaffective disorder: Code(s): F25.9 - Schizoaffective disorder, unspecified Status: Acute Plan Presenting due to sabianism preoccupation, delusions and paranoid thoughts Continue Invega to 3 mg PO BID Supplement with Vitamin D due to low vitamin D Hospitalist consult for bilateral lower limb heaviness and warm feeling Continue to monitor mental status Encourage group participation and medication compliance Risk benefits alternatives explained Documented By: Theo Lott MD 3 [id number] Signed By: <Electronically signed by Theo Lott MD> 09/30/23 0657 [facility] Work Phone: 1([phone]) 455-868612-04-2023 Progress note Author Theo shaw September 29, 2023 8:40am Note Date/Time September 29, 2023 8 :20am [facility] [address] [place] [address] Psychiatry Progress Note Signed Patient: Marizol Lucero MR#: [id number] : 1960 Acct:[id number] Age/Sex: 63 / F Adm Date: 3 Loc: Room: [address] [place] [address] Type : ADM IN Attending Dr: Avinash Quezada MD Copies to: ~ Date of Service: 09/29/2023 Subjective Subjective Narrative: Patient states she is doing better since yesterday. She continues to have auditory and visual hallucinations, but these are improving. She denies suicidal or homicidal ideation. Patient was personally seen by me on the day of the encounter. I reviewed the history and performed the [place] elements of the assessment. I formulated the planof care and confirmed this with the resident as noted below Patient said her racing thoughts are improving. She said her grandson recently . She tolerated oral Invega 3 mg PO HS and we discussed titrating it up. She was able to sleep 3 to 4 hours last night. She states her legs feel sore from being in bed. She is also anxious and preoccupied with her niece who is into muslim and put a spell on the patient. She denied any side effects with current medication. Mental Status Exam: Appearance: grossly normal Mental Status: mental status grossly normal Mood: dysthymic mood Affect: dysphoric affect Speech and Movement: speech and movement normal and speech clear Attitude: cooperative Thought Process: normal Thought Content: Reported auditory and visual hallucinations, paranoid thoughts,no homicidality, no suicidality Insight: fair Judgment: fair Exam Physical Exam Vital Signs: Temp Pulse Resp BP Pulse Ox O2 Del Method 97.4 F L 85 16 114/73 98 Room Air 09/29/23 07:58 09/29/23 07:58 09/29/23 07:58 09/29/23 07:58 09/29/23 07:58 09/29/23 07:58 Assessment/Plan Assessment/Plan (1) Schizoaffective disorder: Code(s): F25.9 - Schizoaffective disorder, unspecified Status: Acute Plan Presenting due to sabianism preoccupation, delusions and paranoid thoughts Increase Invega to 3 mg PO BID Supplement with Vitamin D due to low vitamin D Continue to monitor mental status Encourage group participation and medication compliance Risk benefits alternatives explained Documented By: Camilo Pinto MD, RES 09/29/23 0816 Signed By: <Electronically signed by RES Camilo Pinto> 09/29/23 0820 <Electronically signed by Theo Lott MD> 09/29/23 0840 [facility] Work Phone: [phone] 128-149912-03-2023 History and physical note Author Avinash Quezada September 28, 2023 10:54am Note Date/Time September 28, 2023 1 0:54am [facility] [address] [place] [address] Psychiatry H&P Signed Patient: Marizol Lucero MR#: [id number] : 1960 Acct:[id number] Age/Sex: 63 / F Adm Date: 3 Loc: Room: [address] [place] [address] Type: ADM IN Attending Dr: Avinash Quezada MD Copies to: MD Isac Duarte MD~ Date of Service: 09/28/2023 HPI History of Present Illness History of present illness: Ms. Lucero is a 63 year old female who presented due to concern for sabianism preoccupation. She also had some paranoid thoughts. Upon assessment, patient reported that she stopped taking her medications over the summer. She reported that the doctors told her that she did not need it anymore and she did not like how it made her feel. She stated that it made her drool. She reported that her grandson and things have been worsening. She stated that she has been fasting and praying. She has been laying in bed naked with the air conditioner. She reported that her niece gave her a funny look. She reported that she felt that also triggered her. Shecould not spend time around the knees and at 1 point avoided her sister because she saw the niece's truck at her sister's house. She reported that she occasionally hears auditory hallucinations of whispers. She also reported visual loose [place] of spirits and demons. Past psych history: Depression and psychosis Past hospitalizations: Past psychiatric hospitalization in January 2023 Past suicide attempts: Denies Family psych history: Unknown Previous medications: Risperdal and Effexor Alcohol and drug use: Denied any significant issues Living: Alone Employment: Retired Review of symptoms: Constitutional: Denies chills and Denies fever(s) Eyes: Denies change in vision ENT: Denies abnormal hearing Cardiovascular: Denies chest pain Respiratory: Denies chest congestion and Denies cough Gastrointestinal: Denies change in bowel habits Genitourinary: Denies dysuria Musculoskeletal: Denies atrophy and Denies myalgias Integumentary/Breasts: Denies dry skin Neurologic: Denies abnormal gait and Denies abnormal movements Psychiatric: Reports paranoid delusions and hallucinations Physical exam: Const: cooperative Nutritional Appearance: Overweight Orientation: alert, awake and oriented x3 HEENT: Head normal to inspection, hearing grossly normal bilaterally, external nose normal, face symmetric Eyes: appearance normal, both eyes and all related structures, sclerae normal Neck: normal visual inspection and full ROM Resp: normal respiratory effort, able to speak in complete sentences and symmetric chest movement Cardio: regular rate GI: normal to inspection and non-distended : deferred Skin: no rashes or lesions noted Neuro: CNI: Normal olfaction CNI: normal olfaction CNII: Visual de souza intact, CNIII,IV,: EOM intact, no nystagmus. Pupils equal, round, reactive to light and accommodation, CNV: Sensation intact to light touch, CNVII: Raises eyebrows, smile/frown, puff out cheeks symmetrically, CNVIII: Hearing intact bilaterally, CNIX,X: Voice normal, soft palate elevation normal, symmetrical, CNXI: Shoulder shrug strong, equal bilaterally, CNXII: Tongue protrusion midline, movement symmetrical. Extrem: normal to inspection and full ROM Mental Status Exam: Appearance: grossly normal Mental Status: mental status grossly normal Mood: dysthymic mood Affect: dysphoric affect Speech and Movement: speech and movement normal and speech clear Attitude: cooperative Thought Process: normal Thought Content: Reported auditory and visual hallucinations, paranoid thoughts,no homicidality, no suicidality Insight: fair Judgment: fair [facility] Medical History (Updated 09/28/23 @ 10:53 by Avinash Quezada MD) COPD (chronic obstructive pulmonary disease) Diabetes Poor historian Surgical History H/O cardiac radiofrequency ablation Family History Other Poor historian Social History Smoking Status: Former smoker Substance Use Type: None Meds Medications and Allergies Allergies No Known Allergies Allergy (Verified 02/10/23 21:59) Exam Physical Exam Vital Signs: Temp Pulse Resp BP Pulse Ox O2 Del Method 97.8 F 92 H 18 138/86 98 Room Air 09/28/23 07:30 09/28/23 07:30 09/28/23 07:30 09/28/23 07:30 09/28/23 07:30 09/28/23 07:30 Assessment/Plan (1) Schizoaffective disorder: Code(s): F25.9 - Schizoaffective disorder, unspecified Status: Acute Plan Presenting due to sabianism preoccupation, delusions and paranoid thoughts Will start Invega 3 mg at bedtime Continue to monitor mental status Encourage group participation and medication compliance Risk benefits alternatives explained Documented By: Avinash Quezada MD 09/28/23 1049 Signed By: <Electronically signed by Avinash Quezada MD> 09/28/23 1054 [facility] Work Phone: 1([phone]) 507-761004-22-2023 Discharge summary Author Avinash Quezada February 15, 2023 11:39am Note Date/Time February 15, 2023 11: 40am [facility] [address] [place] [address] Discharge Summary Signed Patient: Marizol Lucero MR#: [id number] : 1960 Acct:[id number] Age/Sex: 62 / F Adm Date: 3 Loc: 1S Room: 8Z6710-[address]: Avinash Quezada MD Copies to: MD Isac Duarte MD~ Providers Date of Discharge: 02/15/23 Discharging Provider: Avinash Quezada Primary Care Provider: Isac Sood Discharge Diagnosis (1) Unspecified psychosis: Final Diagnosis Final Discharge Diagnosis: Unspecified psychosis Summary Hospital Course Hospital course: According to admission note: Ms. Lucero is a 62 year old female who presented due to concern for hallucinations.? According to outside hospital she has been thinking about her family breaking into her house and talking to herself in the [place]. Upon assessment, patient reported that she came into the hospital because her daughter wanted her to come in.? She reported that her niece has been messing with her.? She thinks that her niece is causing her to do things to her phone.? She reported that she throughout the phone because of this.? She reported that she feels that her knees has been working on her mind in silence. ? She made statements stating that she was the chosen 1 and she is supposed to be fasting and praying and doing the work of the Lord.? Thought process was slightly disorganized and she was tangential and made statements that are difficult to follow.? She reported that the person that brought her to the hospital was the devil. ? She stated that that person was talking to staff and also contributed her to coming into the hospital.? She made statements about the numerical analysis group manager telling her that she could press charges on her niece as she had attempted to do so in the past but stopped. Past psych history: Reported prior treatment for depression at [facility] in [place] Past hospitalizations: Denies Past suicide attempts: Denies Family psych history: Unknown Previous medications: Cannot recall Alcohol and drug use: Denied any significant issues Living: Alone, but was staying with daughter who she stated that she would likely go back to Employment: Retired Patient was started on Risperdal to help manage her psychotic symptoms. Her symptoms gradually improved during her hospitalization. She did report some depression and anxiety issues so her dose of Effexor was increased as well during her hospitalization. Her dose of Xanax was slightly decreased to twice a daywhich she used intermittently during her hospitalization. As her symptoms improved she started to have decreased paranoid thoughts and was seen more oftenin the common area. Her hallucinations gradually improved but still reported having some infrequent shadows. On the day of discharge she reported that she is feeling better. She was scared that things would return when she went home but felt comfortable with following up with outpatient services. Her symptoms were overall mild and mainly only complained of some minor visual hallucinationsof shadows which she stated were not bothering her. Her daughter was contacted and discussed about medications and follow-up. Both are in agreement that patient would stay with daughter for short-term before moving back to her own apartment. Daughter was hoping that mom would eventually need to stay with her long-term. Condition Condition at Discharge: Stable Status at Discharge Cognitive/behavioral status at discharge: Mental Status Exam: Appearance: grossly normal Mental Status: mental status grossly normal Mood: Euthymic mood Affect: Normal affect Speech and Movement: speech and movement normal and speech clear Attitude: cooperative Thought Process: normal Thought Content: Denied auditory hallucinations but reported some visual hallucinations of shadows, no homicidality and no suicidality Insight: Good Judgment: Good Functional status at discharge: independent ambulation Overall status at discharge: patient is progressing back to baseline Time Spent with Patient Time spent providing/coordinating discharge services (# min): 30 Diagnostic Studies Completed and Pending Studies Labs on day of discharge: 02/14/23 21:10: POC Glucose 143 Exam Physical Exam Vital Signs: Temp Pulse Resp BP Pulse Ox O2 Del Method 98.2 F 76 16 140/72 100 Room Air 02/15/23 07:30 02/15/23 07:30 02/15/23 07:30 02/15/23 07:30 02/15/23 07:30 02/15/23 07:30 Discharge Plan Discharge Plan Patient Disposition: Home Activity: No Activity Restriction Diet: Regular Additional Instructions: right 5th toe- clean feet with theraworx protect, apply silvasorb gel, then bandaid cut in half *use antifungal on toes to prevent future openings between and under toes- ex:Tinactin antifungal spray, Lotrimin Antifungal spray, Equate antifungal powder spray Prescriptions: New venlafaxine 75 mg Capsule,Extended Release 24hr 75 mg PO DAILY 30 Days Qty: 30 0RF alprazolam 0.5 mg Tablet 1 mg PO BID PRN (Reason: Anxiety) Qty: 0 0RF cholecalciferol (vitamin D3) 50 mcg (2,000 unit) capsule 50 mcg PO DAILY 30 Days Qty: 30 0RF risperidone 2 mg Tablet 2 mg PO HS 30 Days Qty: 30 0RF Continued Ozempic 1 mg/dose (4 mg/3 mL) pen injector SUBCUT Patient Comments: INJECT 1 DOSE SUBCUTANEOUSLY ONCE A WEEK metformin 500 mg tablet extended release 24 hr 1,000 mg PO BIDWM Patient Comments: TAKE 2 TABLETS BY MOUTH TWICE DAILY insulin glargine [Lantus Solostar U-100 Insulin] 100 unit/mL (3 mL) insulin pen 50 unit SUBCUT HS Patient Comments: INJECT 50 UNITS SUBCUTANEOUSLY EVERY DAY AT BEDTIME venlafaxine 150 mg capsule,extended release 24hr 150 mg PO DAILY 30 Days Qty: 30 0RF Discontinued alprazolam 1 mg tablet 1 mg PO TID PRN (Reason: Anxiety) Patient Comments: TAKE 1 TABLET BY MOUTH THREE TIMES DAILY NEEDED Follow Up: [facility] [Outside] ( advertising project manager: (Insert date/time here) Therapy:? (insert date/time here) Intake: (Insert date/time here) Please bring a copy of your photo ID, insurance card, and proof of household income.? Psychiatry: (Insert date/time here) Group: (Insert date/time here ) ) [facility] Hotline [Outside] Isac Sood MD [Primary Care Provider] - (Please call for any medical needs.) Documented By: Avinash Quezada MD 02/15/231136 Signed By: <Electronically signed by Avinash Quezada MD> 02/15/23 1139 [facility] Work Phone: 1(796) 443-173604-21-2023 Progress note Author Avinash Quezada February 14, 2023 10:32am Note Date/Time February 14, 2023 10: 32am [facility] [address] [place] [address] [place], [place] [id number] Psychiatry Progress Note Signed Patient: Marizol Lucero MR#: [id number] : 1960 Acct:[id number] Age/Sex: 62 / F Adm Date: 3 Loc: 1S Room: [address] [place] [address] Type : ADM IN Attending Dr: Avinash Quezada MD Copies to: ~ Date of Service: 02/14/2023 Subjective Subjective Narrative: Ms. Lucero reported that she feels some muscle pain. She has taken some ibuprofen for this. She reported that her hallucinations have improved. She reported that she does feel a little bit depressed but denied any suicidal thoughts. She reported that she is unsure why she is feeling depressed. Mental Status Exam: Appearance: grossly normal Mental Status: mental status grossly normal Mood: Normal mood Affect: Improving affect Speech and Movement: speech and movement normal and speech clear Attitude: cooperative Thought Process: Improved Thought Content: Improving hallucinations, no homicidality, no suicidality. Delusional and paranoid thoughts are improving Insight: Improving Judgment: Improving Exam Physical Exam Vital Signs: Temp Pulse Resp BP Pulse Ox O2 Del Method 98.2 F 86 16 132/76 98 Room Air 02/13/23 20:15 02/13/23 20:15 02/13/23 20:15 02/13/23 20:15 02/13/23 20:15 02/13/23 20:15 Assessment/Plan Assessment/Plan (1) Unspecified psychosis: Code(s): F29 - Unspecified psychosis not due to a substance or known physiological condition Status: Acute Plan Patient's hallucinations are improving. Continues to deny any paranoia. Does report some muscle aches which may be due to Risperdal, will monitor We will need to rule out bipolar disorder and neurocognitive disorder Continue Risperdal 2 mg at bedtime Continue Xanax but decrease dose to 1 mg twice a day as needed, Increase Effexor 225 mg daily Continue to monitor mental status Encourage group participation and medication compliance Risk benefits alternatives explained Documented By: Avinash Quezada MD 02/14/23 1031 Signed By: <Electronically signed by Avinash Quezada MD> 02/14/23 1032 [facility] Work Phone: 1(506) 107-999304-20-2023 Progress note Author Avinash Quezada February 13, 2023 11:47am Note Date/Time February 13, 2023 11: 47am [facility] [address] [place] [address] Psychiatry Progress Note Signed Patient: Marizol Lucero MR#: [id number] : 1960 Acct:[id number] Age/Sex: 62 / F Adm Date: 3 Loc: Room: [address] [place] [address] Type : ADM IN Attending Dr: Avinash Quezada MD Copies to: ~ Date of Service: 02/13/2023 Subjective Subjective Narrative: Ms. Lucero reported that she is feeling better. She reported that she still experiencing some hallucinations. She reported that she slept better overnight and did not report any side effects like she did yesterday. She does not reportany other paranoid thoughts and has been socializing better with peers. Mental Status Exam: Appearance: grossly normal Mental Status: mental status grossly normal Mood: Normal mood Affect: Improving affect Speech and Movement: speech and movement normal and speech clear Attitude: cooperative Thought Process: Improved Thought Content: Reported hallucinations, no homicidality, no suicidality. Delusional and paranoid thoughts are improving Insight: Improving Judgment: Improving Exam Physical Exam Vital Signs: Temp Pulse Resp BP Pulse Ox O2 Del Method 98.1 F 99 H 18 145/75 H 97 Room Air 02/13/23 07:30 02/13/23 07:30 02/13/23 07:30 02/13/23 07:30 02/13/23 07:30 02/13/23 07:30 Assessment/Plan Assessment/Plan (1) Unspecified psychosis: Code(s): F29 - Unspecified psychosis not due to a substance or known physiological condition Status: Acute Plan Patient's paranoia has been improving. Still having some ongoing hallucinations We will need to rule out bipolar disorder and neurocognitive disorder We will try to obtain collateral from daughter Increase Risperdal 2 mg at bedtime Continue Xanax but decrease dose to 1 mg twice a day as needed, continue [id number] mg daily Continue to monitor mental status Encourage group participation and medication compliance Risk benefits alternatives explained Documented By: Avinash Quezada MD 02/13/231144 Signed By: <Electronically signed by Avinash Quezada MD> 02/13/23 4070 [facility] Work Phone: 1(277) 202-963304-19-2023 Progress note Author Avinash Quezada February 12, 2023 11:24am Note Date/Time February 12, 2023 11: 23am [facility] [address] [place] [address] Psychiatry Progress Note Signed Patient: Marizol Lucero MR#: [id number] : 1960 Acct:[id number] Age/Sex: 62 / F Adm Date: 3 Loc: Room: [address] [place] [address] Type : ADM IN Attending Dr: Avinash Quezada MD Copies to: ~ Date of Service: 02/12/2023 Subjective Subjective Narrative: Ms. Lucero reported that she does not feel comfortable here. She believes that people are talking about her. She still complains of auditory hallucinations ofpeople talking and visual hallucinations of Juan Carlos. She stated that she felt dizzy this morning which she attributed to the medication. She did report taking trazodone. Mental Status Exam: Appearance: grossly normal Mental Status: mental status grossly normal Mood: Normal mood Affect: Constricted affect Speech and Movement: speech and movement normal and speech clear Attitude: cooperative, but guarded Thought Process: Improved Thought Content: Reported hallucinations, no homicidality, no suicidality. Delusional and paranoid thoughts Insight: Poor Judgment: Poor Exam Physical Exam Vital Signs: Temp Pulse Resp BP Pulse Ox O2 Del Method 98.2 F 81 16 122/66 100 Room Air 02/11/23 19:55 02/12/23 07:30 02/12/23 07:30 02/12/23 07:30 02/12/23 07:30 02/12/23 07:30 Assessment/Plan Assessment/Plan (1) Unspecified psychosis: Code(s): F29 - Unspecified psychosis not due to a substance or known physiological condition Status: Acute Plan Patient still reporting hallucinations and paranoid thoughts. We will need to rule out bipolar disorder and neurocognitive disorder We will try to obtain collateral from daughter Continue Risperdal 1 mg at bedtime Continue Xanax but decrease dose to 1 mg twice a day as needed, continue [id number] mg daily Continue to monitor mental status Encourage group participation and medication compliance Risk benefits alternatives explained Documented By: Avinash Quezada MD 02/12/23 1122 Signed By: <Electronically signed by Avinash Quezada MD> 02/12/23 1124 [facility] Work Phone: 1(744) 707-681304-18-2023 History and physical note Author Avinash Quezada February 11, 2023 1:03pm Note Date/Time February 11, 2023 1:0 2pm [facility] [address] [place] [address] Psychiatry H&P Signed Patient: Marizol Lucero MR#: [id number] : 1960 Acct:[id number] Age/Sex: 62 / F Adm Date: 3 Loc: Room: [address] [place] [address] Type: ADM IN Attending Dr: Avinash Quezada MD Copies to: MD Isac Duarte MD~ Date of Service: 02/11/2023 HPI History of Present Illness History of present illness: Ms. Lucero is a 62 year old female who presented due to concern for hallucinations. According to outside hospital she has been thinking about her family breaking into her house and talking to herself in the ibarra. Upon assessment, patient reported that she came into the hospital because her daughter wanted her to come in. She reported that her niece has been messing with her. She thinks that her niece is causing her to do things to her phone. She reported that she throughout the phone because of this. She reported that she feels that her knees has been working on her mind in silence. She made statements stating that she was the chosen 1 and she is supposed to be fasting and praying and doing the work of the Lord. Thought process was slightly disorganized and she was tangential and made statements that are difficult to follow. She reported that the person that brought her to the hospital was the devil. She stated that that person was talking to staff and also contributed her to coming into the hospital. She made statements about the numerical analysis group manager telling her that she could press charges on her niece as she had attempted to do so in the past but stopped. Past psych history: Reported prior treatment for depression at [facility] in [place] Past hospitalizations: Denies Past suicide attempts: Denies Family psych history: Unknown Previous medications: Cannot recall Alcohol and drug use: Denied any significant issues Living: Alone, but was staying with daughter who she stated that she would likely go back to Employment: Retired Review of symptoms: Constitutional: Denies chills and Denies fever(s) Eyes: Denies change in vision ENT: Denies abnormal hearing Cardiovascular: Denies chest pain Respiratory: Denies chest congestion and Denies cough Gastrointestinal: Denies change in bowel habits Genitourinary: Denies dysuria Musculoskeletal: Denies atrophy and Denies myalgias Integumentary/Breasts: Denies dry skin Neurologic: Denies abnormal gait and Denies abnormal movements Psychiatric: Denies depression and suicidal ideation Physical exam: Const: cooperative Nutritional Appearance: average body habitus Orientation: alert, awake and oriented x3 HEENT: Head normal to inspection, hearing grossly normal bilaterally, external nose normal, face symmetric Eyes: appearance normal, both eyes and all related structures, sclerae normal Neck: normal visual inspection and full ROM Resp: normal respiratory effort, able to speak in complete sentences and symmetric chest movement Cardio: regular rate GI: normal to inspection and non-distended : deferred Skin: no rashes or lesions noted Neuro: CNI: Normal olfaction CNI: normal olfaction CNII: Visual de souza intact, CNIII,IV,: EOM intact, no nystagmus. Pupils equal, round, reactive to light and accommodation, CNV: Sensation intact to light touch, CNVII: Raises eyebrows, smile/frown, puff out cheeks symmetrically, CNVIII: Hearing intact bilaterally, CNIX,X: Voice normal, soft palate elevation normal, symmetrical, CNXI: Shoulder shrug strong, equal bilaterally, CNXII: Tongue protrusion midline, movement symmetrical. Extrem: normal to inspection and full ROM Mental Status Exam: Appearance: grossly normal Mental Status: mental status grossly normal Mood: Normal mood Affect: Constricted affect Speech and Movement: speech and movement normal and speech clear Attitude: cooperative, but guarded Thought Process: Tangential Thought Content: Denied hallucinations, no homicidality, no suicidality. Delusional and paranoid Insight: Poor Judgment: Poor PMFSH Vaccinated for COVID-19?: No Medical History (Updated 02/11/23 @ 13:01 by Avinash Quezada MD) COPD (chronic obstructive pulmonary disease) Diabetes Poor historian Surgical History (Updated 02/10/23 @ 22:07 by Wiley Arevalo RN) H/O cardiac radiofrequency ablation Family History (Updated 02/10/23 @ 22:54 by Wiley Arevalo RN) Other Poor historian Social History Smoking Status: Never smoker Substance Use Type: None Meds Medications and Allergies Allergies No Known Allergies Allergy (Verified 02/10/23 21:59) Home Medications alprazolam 1 mg tablet 1 mg PO TID PRN Anxiety 02/10/23 [History Confirmed 02/10/23] insulin glargine 100 unit/mL (3 mL) subcutaneous pen (Lantus Solostar U-100 Insulin) 50 unit subcut HS 02/10/23 [History Confirmed 02/10/23] metformin 500 mg tablet,extended release 24 hr 1,000 mg PO BIDWM 02/10/23 [History Confirmed 02/10/23] semaglutide 1 mg/dose (4 mg/3 mL) subcutaneous pen injector (Ozempic) mg subcut 02/10/23 [History] venlafaxine 150 mg capsule,extended release 24 hr 150 mg PO DAILY 02/10/23 [History Confirmed 02/10/23] Exam Physical Exam Vital Signs: Temp Pulse Resp BP Pulse Ox O2 Del Method 99.3 F H 89 17 146/63 H 98 Room Air 02/11/23 07:30 02/11/23 07:30 02/11/23 07:30 02/11/23 07:30 02/11/23 07:30 02/11/23 09:00 Results Labs 02/11/23 05:41 Psychiatry Labs: 02/11/23 05:41 Sodium 141 Potassium 3.5 Chloride 106 Carbon Dioxide 24.4 Anion Gap 14.1 BUN 12 Creatinine 1.02 Calcium 9.0 Assessment/Plan (1) Unspecified psychosis: Code(s): F29 - Unspecified psychosis not due to a substance or known physiological condition Status: Acute Plan Patient presenting due to concern for psychosis. Patient reported some paranoidand delusional thoughts We will need to rule out bipolar disorder and neurocognitive disorder We will try to obtain collateral from daughter We will start Risperdal 1 mg at bedtime Continue Xanax but decrease dose to 1 mg twice a day as needed, continue [id number] mg daily Continue to monitor mental status Encourage group participation and medication compliance Risk benefits alternatives explained Documented By: Avinash Quezada MD 02/11/23 1257 Signed By: <Electronically signed by Avinash Quezada MD> 02/11/23 1303 [facility] Work Phone: Evaluation note* Diagnosis Onset Date Resolution Status Unspecified psychosis acute [facility] Work Phone: Evaluation note* Diagnosis Onset Date Resolution Status Bilateral lower extremity edema acute Diabetes acute Schizoaffective disorder acu te Vitamin D deficiency acute [facility] Work Phone: Evaluation noteNo [email or web address] Other Evaluation note* Diagnosis Moderate recurrent major depression (CMS/HCC)- Primary Major depressive disorder, recurrent episode, moderate GEORGIE (generalized anxiety disorder) (CMS/HCC) Generalized anxiety disorder Type 2 diabetes mellitus with hyperglycemia, with long-term current use of insulin (CMS/HCC)- Primary Essential hypertension, benign (CMS/HCC) Essential hypertension, benign Edema of both legs Edema Moderate recurrent major depression (CMS/HCC) Major depressive disorder, recurrent episode, moderate GEORGIE (generalized anxiety disorder) (CMS/HCC) Generalized anxiety disorder Primary insomnia Persistent disorder of initiating or maintaining sleep Chronic bilateral low back pain with left-sided sciatica- Primary Bilateral hip pain Pain in joint, pelvic region and thigh Acute non-recurrent pansinusitis Type 2 diabetes mellitus with hyperglycemia, with long-term current use of insulin (CMS/HCC)- Primary Essential hypertension, benign (CMS/HCC) Essential hypertension, benign Edema of both legs Edema Mild recurrent major depression (HCC) (CMS/HCC) Major depressive disorder, recurrent episode, mild GEORGIE (generalized anxiety disorder) (CMS/HCC) Generalized anxiety disorder Primary insomnia Persistent disorder of initiating or maintaining sleep Seasonal allergic rhinitis due to pollen Encounter for long-term current use of medication Obesity (BMI 30-39.9) Vitamin D deficiency Type 2 diabetes mellitus with hyperglycemia, without long-term current use of insulin (CMS/HCC)- Primary Essential hypertension, benign (CMS/HCC) Essential hypertension, benign Mild recurrent major depression (HCC) (CMS/HCC) Major depressive disorder, recurrent episode, mild GEORGIE (generalized anxiety disorder) (CMS/HCC) Generalized anxiety disorder Primary insomnia Persistent disorder of initiating or maintaining sleep Breast cancer screening by mammogram Colon cancer screening Special screening for malignant neoplasms, colon Class 2 severe obesity due to excess calories with serious comorbidity and body mass index (BMI) of 35.0 to 35.9 in adult ([facility]/HCC) Edema of both legs Edema Rheumatoid arthritis, involving unspecified site, unspecified whether rheumatoid factor present ([facility]/HCC) documented in this encounter [facility] HealthcareEvaluation note* Diagnosis Moderate recurrent major depression (CMS/HCC)- Primary Major depressive disorder, recurrent episode, moderate GEORGIE (generalized anxiety disorder) ([facility]/HCC) Generalized anxiety disorder Type 2 diabetes mellitus with hyperglycemia, with long-term current use of insulin ([facility])- Primary Essential hypertension, benign (CMS/HCC) Essential hypertension, benign Edema of both legs Edema Moderate recurrent major depression (CMS/HCC) Major depressive disorder, recurrent episode, moderate GEORGIE (generalized anxiety disorder) ([facility]/HCC) Generalized anxiety disorder Primary insomnia Persistent disorder of initiating or maintaining sleep Chronic bilateral low back pain with left-sided sciatica- Primary Bilateral hip pain Pain in joint, pelvic region and thigh Acute non-recurrent pansinusitis Type 2 diabetes mellitus with hyperglycemia, with long-term current use of insulin ([facility])- Primary Essential hypertension, benign ([facility]/HCC) Essential hypertension, benign Edema of both legs Edema Mild recurrent major depression (HCC) ([facility]/HCC) Major depressive disorder, recurrent episode, mild GEORGIE (generalized anxiety disorder) ([facility]) Generalized anxiety disorder Primary insomnia Persistent disorder of initiating or maintaining sleep Seasonal allergic rhinitis due to pollen Encounter for long-term current use of medication Obesity (BMI 30-39.9) Vitamin D deficiency Type 2 diabetes mellitus with hyperglycemia, without long-term current use of insulin ([facility])- Primary Essential hypertension, benign ([facility]/HCC) Essential hypertension, benign Mild recurrent major depression (HCC) ([facility]/HCC) Major depressive disorder, recurrent episode, mild GEORGIE (generalized anxiety disorder) ([facility]) Generalized anxiety disorder Primary insomnia Persistent disorder of initiating or maintaining sleep Breast cancer screening by mammogram Colon cancer screening Special screening for malignant neoplasms, colon Class 2 severe obesity due to excess calories with serious comorbidity and body mass index (BMI) of 35.0 to 35.9 in adult ([facility]) Edema of both legs Edema Rheumatoid arthritis, involving unspecified site, unspecified whether rheumatoid factor present ([facility]) Abnormal mammogram of left breast- Primary documented in this encounter [facility] HealthcareEvaluation note* Diagnosis Moderate recurrent major depression (CMS/HCC)- Primary Major depressive disorder, recurrent episode, moderate GEORGIE (generalized anxiety disorder) (CMS/HCC) Generalized anxiety disorder Type 2 diabetes mellitus with hyperglycemia, with long-term current use of insulin ([facility]/HCC)- Primary Essential hypertension, benign (CMS/HCC) Essential hypertension, benign Edema of both legs Edema Moderate recurrent major depression (CMS/HCC) Major depressive disorder, recurrent episode, moderate GEORGIE (generalized anxiety disorder) (CMS/HCC) Generalized anxiety disorder Primary insomnia Persistent disorder of initiating or maintaining sleep Chronic bilateral low back pain with left-sided sciatica- Primary Bilateral hip pain Pain in joint, pelvic region and thigh Acute non-recurrent pansinusitis Type 2 diabetes mellitus with hyperglycemia, with long-term current use of insulin ([facility]/HCC)- Primary Essential hypertension, benign (CMS/HCC) Essential hypertension, benign Edema of both legs Edema Mild recurrent major depression (HCC) ([facility]/HCC) Major depressive disorder, recurrent episode, mild GEORGIE (generalized anxiety disorder) ([facility]/HCC) Generalized anxiety disorder Primary insomnia Persistent disorder of initiating or maintaining sleep Seasonal allergic rhinitis due to pollen Encounter for long-term current use of medication Obesity (BMI 30-39.9) Vitamin D deficiency Type 2 diabetes mellitus with hyperglycemia, without long-term current use of insulin ([facility]/HCC)- Primary Essential hypertension, benign (CMS/HCC) Essential hypertension, benign Mild recurrent major depression (HCC) ([facility]/HCC) Major depressive disorder, recurrent episode, mild GEORGIE (generalized anxiety disorder) ([facility]/HCC) Generalized anxiety disorder Primary insomnia Persistent disorder of initiating or maintaining sleep Breast cancer screening by mammogram Colon cancer screening Special screening for malignant neoplasms, colon Class 2 severe obesity due to excess calories with serious comorbidity and body mass index (BMI) of 35.0 to 35.9 in adult (CMS/HCC) Edema of both legs Edema Rheumatoid arthritis, involving unspecified site, unspecified whether rheumatoid factor present ([facility]/HCC) Abnormal mammogram of left breast- Primary documented in this encounter [facility] HealthcareEvaluation note* Diagnosis Moderate recurrent major depression (CMS/HCC)- Primary Major depressive disorder, recurrent episode, moderate GEORGIE (generalized anxiety disorder) ([facility]/HCC) Generalized anxiety disorder Type 2 diabetes mellitus with hyperglycemia, with long-term current use of insulin ([facility]/HCC)- Primary Essential hypertension, benign (CMS/HCC) Essential hypertension, benign Edema of both legs Edema Moderate recurrent major depression (CMS/HCC) Major depressive disorder, recurrent episode, moderate GEORGIE (generalized anxiety disorder) (CMS/HCC) Generalized anxiety disorder Primary insomnia Persistent disorder of initiating or maintaining sleep Chronic bilateral low back pain with left-sided sciatica- Primary Bilateral hip pain Pain in joint, pelvic region and thigh Acute non-recurrent pansinusitis Type 2 diabetes mellitus with hyperglycemia, with long-term current use of insulin (CMS/HCC)- Primary Essential hypertension, benign (CMS/HCC) Essential hypertension, benign Edema of both legs Edema Mild recurrent major depression (HCC) (CMS/HCC) Major depressive disorder, recurrent episode, mild GEORGIE (generalized anxiety disorder) (CMS/HCC) Generalized anxiety disorder Primary insomnia Persistent disorder of initiating or maintaining sleep Seasonal allergic rhinitis due to pollen Encounter for long-term current use of medication Obesity (BMI 30-39.9) Vitamin D deficiency Type 2 diabetes mellitus with hyperglycemia, without long-term current use of insulin ([facility]/HCC)- Primary Essential hypertension, benign (CMS/HCC) Essential hypertension, benign Mild recurrent major depression (HCC) ([facility]/HCC) Major depressive disorder, recurrent episode, mild GEORGIE (generalized anxiety disorder) ([facility]) Generalized anxiety disorder Primary insomnia Persistent disorder of initiating or maintaining sleep Breast cancer screening by mammogram Colon cancer screening Special screening for malignant neoplasms, colon Class 2 severe obesity due to excess calories with serious comorbidity and body mass index (BMI) of 35.0 to 35.9 in adult ([facility]) Edema of both legs Edema Rheumatoid arthritis, involving unspecified site, unspecified whether rheumatoid factor present ([facility]) Type 2 diabetes mellitus with hyperglycemia, without long-term current use of insulin ([facility]) Type 2 diabetes mellitus with hyperglycemia, with long-term current use of insulin ([facility]) documented in this encounter [facility] HealthcareEvaluation note* Diagnosis Moderate recurrent major depression (CMS/HCC)- Primary Major depressive disorder, recurrent episode, moderate GEORGIE (generalized anxiety disorder) ([facility]) Generalized anxiety disorder Type 2 diabetes mellitus with hyperglycemia, with long-term current use of insulin ([facility]/HCC)- Primary Essential hypertension, benign (CMS/HCC) Essential hypertension, benign Edema of both legs Edema Moderate recurrent major depression (CMS/HCC) Major depressive disorder, recurrent episode, moderate GEORGIE (generalized anxiety disorder) ([facility]/H[facility]) Generalized anxiety disorder Primary insomnia Persistent disorder of initiating or maintaining sleep Chronic bilateral low back pain with left-sided sciatica- Primary Bilateral hip pain Pain in joint, pelvic region and thigh Acute non-recurrent pansinusitis Type 2 diabetes mellitus with hyperglycemia, with long-term current use of insulin (CMS/HCC)- Primary Essential hypertension, benign (CMS/HCC) Essential hypertension, benign Edema of both legs Edema Mild recurrent major depression (HCC) (CMS/HCC) Major depressive disorder, recurrent episode, mild GEORGIE (generalized anxiety disorder) (CMS/HCC) Generalized anxiety disorder Primary insomnia Persistent disorder of initiating or maintaining sleep Seasonal allergic rhinitis due to pollen Encounter for long-term current use of medication Obesity (BMI 30-39.9) Vitamin D deficiency Type 2 diabetes mellitus with hyperglycemia, without long-term current use of insulin (CMS/HCC)- Primary Essential hypertension, benign (CMS/HCC) Essential hypertension, benign Mild recurrent major depression (HCC) (CMS/HCC) Major depressive disorder, recurrent episode, mild GEORGIE (generalized anxiety disorder) (CMS/HCC) Generalized anxiety disorder Primary insomnia Persistent disorder of initiating or maintaining sleep Breast cancer screening by mammogram Colon cancer screening Special screening for malignant neoplasms, colon Class 2 severe obesity due to excess calories with serious comorbidity and body mass index (BMI) of 35.0 to 35.9 in adult (CMS/HCC) Edema of both legs Edema Rheumatoid arthritis, involving unspecified site, unspecified whether rheumatoid factor present (CMS/HCC) Type 2 diabetes mellitus with diabetic microalbuminuria, without long-term current use of insulin (CMS/HCC)- Primary Essential hypertension, benign (CMS/HCC) Essential hypertension, benign GEORGIE (generalized anxiety disorder) (CMS/HCC) Generalized anxiety disorder Mild recurrent major depression (HCC) ([facility]/HCC) Major depressive disorder, recurrent episode, mild documented in this encounter [facility] HealthcareHistory general Narrative - Reported* Type Description Date Medical History type 2 diabetes Medical History anxiety Medical History depression Medical History schizophrenia Surgical History tubal ligation Surgical History cholecystectomy Surgical History appendectomy Hospitalization History see above Hospitalization History mental health multiple t [facility] Other Hospital Discharge instructions Additional Instructions right 5th toe- clean feet with theraworx protect, apply silvasorb gel, then bandaid cut in half *use antifungal on toes to prevent future openings between and under toes- ex:Tinactin antifungal spray, Lotrimin Antifungal spray, Equate antifungal powder spray Regular Diet No [facility]: InstructionsNot on filedocumented in this encounter [facility] Summary Purpose Family History No Family History Records Found Relationship Condition Age at Onset Recorded Date/T sonali Not Specified Poor historian Unknown Advance Directives No Advanced Directives Records Found Advance Directive Response Recorded Date/ Time Advance Directives No February 10, 2 023 9:23pm Advance Directive Response Recorded Date/ Time Advance Directives No February 10 023 8:23pm Date Activated Date Inactivated Comments 04/24/2021 8:51 AM 04/26/2021 3:59 PM Chief Complaint and Reason for Visit Chief Complaint Acute Psychosis Reason for Visit Unspecified psychosi s Chief Complaint Unspecified psychosi s Reason for Visit Bilateral lower extr emity edema Diabetes Schizoaffective disorder Vitamin D deficiency Reason for Referral Reason schizoaffective diso rder, anxiety, depression Diagnosis 1 Schizoaffective diso rder (F25.9) Referral Organization [facility] Family Medicin e Reinaldo Referring Provider First Name Kayla Referring Provider Last Name Roopa Referring Provider Specialty Family [facility] cine Referred Organization [facility] [place] Referred Address [address] [place],[address] Referred Provider Specialty Psychiatry Referral Priority Routine Additional Source Comments INFORMATION SOURCE (unrecogn ized section and content) DATE CREATED AUTHOR 02/11/2023 [facility] DATE CREATED AUTHOR AUTHOR'S ORGANIZ ATION 05/13/2024 [facility] DATE CREATED AUTHOR AUTHOR'S ORGANIZ ATION 08/18/2024 [facility] EPIC DATE CREATED AUTHOR AUTHOR'S ORGANIZ ATION 09/30/2024 [facility] DATE CREATED AUTHOR AUTHOR'S ORGANIZ ATION 11/10/2024 [facility] Care Teams (unrecognized sec tion and content) Team Status: Active Member Role Status Dates Isac Sood MD Primary Care Provider Active Team Status: Inactive Member Role Status Dates Isac Sood MD Primary Care Provider Active Avinash Quezada MD Admit Provider, Attending Provider Active Team Status: Inactive Member Role Status Dates Isac Sood MD Primary Care Provider Active Avinash Quezada MD Admit Provider, Attending Provider Active Tsering Walsh RN Other Provider Active Bhavya Mccray RN Other Provider Active Carlota Patel , MARIAM Other Provider Active Nancy Zheng , MARIAM Other Provider Active Renee Rosado , MARIAM Other Provider Active Irene Crane , MARIAM Other Provider Active Adalgisa Graves , PET HANDLER Other Provider Active Farideh Silva , DO Other Provider Active Adolfo Phelps MD Other Provider Active Guero Beckett , DO Other Provider Active Jay Duran MD Other Provider Active Jacqueline Benson MD Other Provider Active Filomena Anton , PET HANDLER Other Provider Active Blaire Brown MD Other Provider Active Simba Robins MD Other Provider Active Dusty Hsu MD Other Provider Active Dina Rodriguez MD Other Provider Active Kyle Mancia , DO Other Provider Active Jovan Bill MD Other Provider Active Jorge Guzman MD Other Provider Active Patti Petersen , ENTEROSTOMAL NURSE-C Other Provider Active Zeferino Ruth MD Other Provider Active Junior Rosa MD Other Provider Active Baljit Varela MD Other Provider Active Boy Garay MD Other Provider Active Alma Delia Curiel , DO Other Provider Active Stef Armijo , DO Other Provider Active Anthony Walker , DO Other Provider Active Camille Serrano , PET HANDLER Other Provider Active Alex Lynch , DO Other Provider Active Leanna Casillas MD Other Provider Active Ashleigh Nougera , PET HANDLER Other Provider Active Edyta Buenrostro , PET HANDLER Other Provider Active Leon Campo MD Other Provider Active Prosper Baer MD Other Provider Active Joni Krishnamurthy , DO Other Provider Active Alfreda Christianson , PET HANDLER Other Provider Active Raj Dietz , DO Other Provider Active Quita Beltran RN Other Provider Active Inspector And Tester Relationship Specialty Start Date End Date Isac Sood MD [address] [place] [address] PCP - General Family Medicine 11/25/23 Isac Sood MD [address] [place] [address] PCP - Devoted 06/27/24 Inspector And Tester Relationship Specialty Start Date End Date Isac Sood MD [address] [place] [id number] PCP - General Family Medicine 11/25/23 Isac Sood MD [address] [place] [phone] PCP - Devoted 06/27/24 Inspector And Tester Relationship Specialty Start Date End Date Isac Sood MD [address] [place] [phone] PCP - General Family Medicine 11/25/23 Isac Sood MD [address] [place] [address] PCP - Devoted 06/27/24 Inspector And Tester Relationship Specialty Start Date End Date Isac Sood MD [address] [place] [phone] PCP - General Family Medicine 11/25/23 Isac Sood MD [address] [place] [phone] PCP - Devoted 06/27/24 10/26/24 Inspector And Tester Relationship Specialty Start Date End Date Isac Sood MD [address] [place] [phone] PCP - General Family Medicine 11/25/23 Isac Sood MD [address] [place] [address] PCP - Devoted 06/27/24 10/26/24 Inspector And Tester Relationship Specialty Start Date End Date Isac Sood MD [address] [place] [phone] PCP - General Family Medicine 11/25/23 Angi Louis MA Family Medicine 10/26/24 Inspector And Tester Relationship Specialty Start Date End Date Isac Sood MD PCP - General Family Medicine 09/19/22 REASON FOR VISIT (unrecogniz ed section and content) Reason Comments Follow-up 6 m Arthritis Reason Onset Date Comments Med Refill 10/18/2024 FOR RECORDS PERTAINING TO PATIENTS WHO ARE OR HAVE BEEN ENROLLED IN A CHEMICAL DEPENDENCY/SUBSTANCEABUSE PROGRAM, SOME INFORMATION MAY BE OMITTED. This clinical summary was aggregated from multiple sources. Caution should be exercised in using it in the provision of clinical care. This summary normalizes information from multiple sources, and as a consequence, information in this document may materially change the coding, format and clinical context of patient data. In addition, data may be omitted in some cases. CLINICAL DECISIONS SHOULD BE BASED ON THE PRIMARY CLINICAL RECORDS. [facility]. provides no warranty or guarantee of the accuracy or completeness of information in this document.
--- NOTE | 2024-11-26 23:28 | CT_ITS ---
The [address] [address] Patient Name: WENDI LUCERO MRN: [id number] date: 1960 Sex: F Assigned Patient Location: ER Current Patient Location: ER Accession/Order Number: [id number] Exam Date: 11/26/2024 12:43 Report Date: 11/27/2024 14:34 At the request of: YVONNE PETIT Procedure: CT head/brain wo con EXAM: CT head/brain wo con HISTORY: Unusual behavior COMPARISON: None. TECHNIQUE: Axial noncontrast CT imaging of the head was performed with coronal and sagittal reformats. This CT exam was performed using one or more of the following dose reduction techniques: Automated exposure control, adjustment of the MA and/or kV according to patient size, or use of iterative reconstruction technique. FINDINGS: Calvarium/skull base: No evidence of acute fracture or destructive lesion. Paranasal sinuses: No air fluid levels. Mild paranasal sinus mucosal thickening. Brain: No acute intracranial hemorrhage. No acute large vascular territory infarct. No mass lesion or mass effect. No hydrocephalus. CT/CT head/brain wo con IMPRESSION: No acute intracranial process. Electronically authenticated by: REDDY MARSH Date: 11/27/2024 14:34
--- NOTE | 2024-11-26 23:28 | ECG_ITS ---
The [facility] Test Date: 2024-11-26 Pat Name: WENDI LUCERO Department: Room: - Gender: Female Sap Specialist: : 1960 Requested By: OLYA SOOD Order Number: [id number] Reading MD: ARLENE JOHNSON Measurements Intervals [place] Rate: 111 P: 47 RI: 150 QRS: -32 QRSD: 68 T: 99 QT: 318 QTc: 383 Interpretive Statements 1120 Sinus tachycardia 4068 Nonspecific [place] abnormality 7200 Abnormal left axis deviation 9140 abnormal rhythm ECG Compared to ECG 09/27/2023 10:59:11 Left-axis deviation now present Electronically Signed On 11-28-2024 7:37:11 EST by ARLENE JOHNSON
--- NOTE | 2024-11-26 23:28 | XR_ITS ---
The [address] [address] Patient Name: WENDI LUCERO MRN: [id number] date: 1960 Sex: F Assigned Patient Location: ER Current Patient Location: ED.MAIN Accession/Order Number: [id number] Exam Date: 11/26/2024 01:00 Report Date: 11/27/2024 03:55 At the request of: YVONNE PETIT Procedure: XR chest 1V EXAM: XR chest 1V HISTORY: Weakness COMPARISON: Chest radiograph dated 12/11/2015. TECHNIQUE: One view of the chest was obtained. FINDINGS: The cardiac silhouette is normal in size. There is interstitial prominence. There is no significant pneumothorax or pleural effusion. No acute osseous abnormality is seen. XR/XR chest 1V IMPRESSION: 1. Interstitial prominence which could represent edema and/or bronchitis. Electronically authenticated by: Andrew PEÑA Date: 11/27/2024 03:55
--- NOTE | 2024-11-26 23:29 | ED_ITS ---
HPI HPI - General Adult General Chief complaint: Recheck/Abnormal Lab/Rx Stated complaint: unknown Time Seen by Provider: 11/26/24 23:17 Source: patient Mode of arrival: ambulance History of Present Illness HPI narrative: 64-year-old female presents to the emergency department to be evaluated for mental health issues. She is not giving us much history at all. The initial history is obtained from the paramedics who report that the daughter called because the daughter was concerned about her mental health and wanted her to be evaluated. The paramedics told me that the patient had been in her room for an extended period of time and really was not getting out of bed much. She apparently was growling at them when they arrived. EHR indicates a history of acute psychosis and she was hospitalized in psychiatric facility at that time. Related Data Home Medications ?Medication ?Instructions ?Recorded ?Confirmed cholecalciferol (vitamin D3) 50 2,000 unit PO DAILY 09/27/23 11/26/24 mcg (2,000 unit) tablet dulaglutide 3 mg/0.5 mL 3 mg subcut .weekly 09/27/23 11/26/24 subcutaneous pen injector (Trulicity) metformin 500 mg tablet,extended 500 mg PO BID 09/27/23 11/26/24 release 24 hr semaglutide 2 mg/dose (8 mg/3 mL) 2 mg subcut .weekly 09/27/23 11/26/24 subcutaneous pen injector (Ozempic) alprazolam 0.5 mg tablet 0.5 mg PO TID PRN anxiety 11/26/24 11/26/24 escitalopram oxalate 5 mg tablet 5 mg PO DAILY 11/26/24 11/26/24 insulin glargine 100 unit/mL (3 unit subcut 11/26/24 mL) subcutaneous pen (Lantus Solostar U-100 Insulin) insulin glargine-yfgn 100 unit/mL 60 unit subcut QAM 11/26/24 11/26/24 (3 mL) subcutaneous pen (Semglee (insulin glargine-yfgn) Pen) olanzapine 2.5 mg tablet 2.5 mg PO QPM 11/26/24 11/26/24 Allergies Allergy/AdvReac Type Severity Reaction Status Date / Time No Known Drug Allergies Allergy Verified 11/26/24 23:16 Opioid HPI Opioid Management Most Recent Opioid Data: Ur Phencyclidine Scrn Negative (NEGATIVE) 11/27/24 00:30 02/0 11/20 Review of Systems ROS Narrative A ten point review of systems is negative except as noted above. PFSH PFSH Social History Smoking status: Former smoker Little interest or pleasure in doing things: not at all Feeling down, depressed, or hopeless: not at all Exam Narrative Exam Narrative: Nurses note and vital signs reviewed and patient is not hypoxic. General: The patient appears well and in no apparent distress. Patient moans from time to time but tells me that nothing hurts. Skin: Warm, dry, no pallor noted. There is no rash noted. Head: Normocephalic, atraumatic Eye: Normal conjunctiva, no drainage, EOMI. PERRL Ears, Nose, Mouth, and Throat: oral mucosa is moist. Nares patent. Cardiovascular: Regular Rate and Rhythm Respiratory: Patient is in no distress, no accessory muscle use, lungs are clear to auscultation, no wheezing, rales or rhonchi Back: non-tender GI: Normal bowel sounds, no tenderness to palpation, no masses appreciated. No rebound, guarding, or rigidity noted. Musculoskeletal: The patient has no evidence of calf tenderness, no pitting edema, symmetrical pulses noted bilaterally Neurological: Awake and alert and oriented x 4, moves all 4 extremities well Psychiatric: Reluctant to answer some questions Constitutional Vital Signs, click to edit/add: Last Vital Signs Temp 98.8 F 11/26/24 23:17 Pulse 102 H 11/26/24 23:17 Resp 20 11/26/24 23:17 BP 165/90 H 11/26/24 23:17 Pulse Ox 99 11/26/24 23:17 O2 Del Method Room Air 11/26/24 23:17 Course Vital Signs Vital signs: Vital Signs Temperature 98.8 F 11/26/24 23:17 Pulse Rate 102 H 11/26/24 23:17 Respiratory Rate 20 11/26/24 23:17 Blood Pressure 165/90 H 11/26/24 23:17 Pulse Oximetry 99 11/26/24 23:17 Oxygen Delivery Method Room Air 11/26/24 23:17 Temperature 98.8 F 11/26/24 23:17 Pulse Rate 102 H 11/26/24 23:17 Respiratory Rate 11/26/24 23:17 Blood Pressure 165/90 H 11/26/24 23:17 Pulse Oximetry 99 11/26/24 23:17 Oxygen Delivery Method Room Air 11/26/24 23:17 Medical Decision Making MDM Narrative Medical decision making narrative: No family is present with whom I can discuss the case. The patient happened to be positive for COVID-19. She does not seem to have any symptoms of it. Her main issue is psychiatric disorder and she has schizoaffective disorder. Mental health services are involved and they are working on placement for her. The patient is medically cleared. Differential Diagnosis Differential Diagnosis: COVID, influenza, psychiatric disorder Lab Data Lab results reviewed: Yes I reviewed the patient's lab results Labs: Lab Results 11/26/24 11/26/24 11/27/24 Range/Units 23:53 23:55 00:30 WBC 10.0 (4.0-11.0) 10^3/uL RBC 5.02 (4.20-5.40) 10^6/uL Hgb 14.0 (12.0-16.0) g/dL Hct 42.7 (36.0-48.0) % MCV 85.1 (81.0-99.0) fL MCH 27.9 (26.7-34.0) pg MCHC 32.8 (29.9-35.2) g/dL RDW 13.4 (11.0-15.0) % Plt Count 270 (150-450) 10^3/uL MPV 10.1 (9.5-13.5) fL Neut % (Auto) 74.3 (43.0-75.0) % Lymph % (Auto) 15.6 L (20.5-60.0) % [place] % (Auto) 8.6 (1.7-12.0) % Eos % (Auto) 0.9 (0.9-7.0) % Baso % (Auto) 0.4 (0.2-2.0) % Neut # (Auto) 7.5 H (1.4-6.5) 10^3/uL Lymph # (Auto) 1.6 (1.2-3.8) 10^3/uL [place] # (Auto) 0.9 H (0.3-0.8) 10^3/uL Eos # (Auto) 0.1 (0.0-0.7) 10^3/uL Baso # (Auto) 0.0 (0.0-0.1) 10^3/uL Abs Immat Gran (auto) 0.02 (0.00-0.03) 10^3/uL Imm/Tot Granulo (auto) 0.2 (0.0-0.5) % Sodium 142 (136-145) mmol/L Potassium 3.3 L (3.5-5.1) mmol/L Chloride 103 (98-107) mmol/L Carbon Dioxide 25.1 (21.0-32.0) mmol/L Anion Gap 17.2 BUN 22.0 H (7.0-18.0) mg/dL Creatinine 1.15 H (0.55-1.02) mg/dL Est GFR ( Amer) 57 L (>=60 mL/min/1.73m^2) Est GFR (Non-Af Amer) 47 L (>=60 mL/min/1.73m^2) BUN/Creatinine Ratio 19.1 Glucose 94 (74-106) mg/dL Calcium 9.5 (8.5-10.1) mg/dL Troponin I High Sens 9.3 (4.0-51.3) pg/mL Urine Color Yellow (YELLOW) Urine Clarity Cloudy A (CLEAR) Urine pH 6.0 (5.0-9.0) Ur Specific [place] >=1.030 A (1.005-1.025) Urine Protein 30 A (NEG/TRACE) mg/dL Urine Glucose (UA) Negative (NEGATIVE) mg/dL Urine Ketones >=80 A (NEGATIVE) mg/dL Urine Occult Blood Negative (NEGATIVE) Urine Nitrite Negative (NEGATIVE) Urine Bilirubin Moderate A (NEGATIVE) Urine Urobilinogen 1.0 (0.2-1.0) EU/dL Ur Leukocyte Esterase Negative (NEGATIVE) Urine RBC 0-2 (0-2) #/HPF Urine WBC 0-2 A (NONE SEEN) #/HPF Ur Squamous Epith Cells Many A (NONE/RARE) #/LPF Urine Crystals None seen (None Seen) #/HPF Urine Bacteria Trace A (NONE SEEN) #/HPF Urine Casts Seen A (NONE SEEN) #/LPF Hyaline Casts Few Urine Mucus Small A (NONE SEEN) Salicylates 6.1 (<=19.9) mg/dL Urine Opiates Screen Negative (NEGATIVE) Ur Buprenorphine Scrn Negative (NEGATIVE) Ur Oxycodone Screen Negative (NEGATIVE) Urine Methadone Screen Negative (NEGATIVE) Acetaminophen <2.0 L (10.0-30.0) ug/mL Ur Barbiturates Screen Negative (NEGATIVE) U Tricyclic Antidepress Negative (NEGATIVE) Ur Phencyclidine Scrn Negative (NEGATIVE) Ur Amphetamines Screen Negative (NEGATIVE) U Methamphetamines Scrn Negative (NEGATIVE) U Benzodiazepines Scrn Negative (NEGATIVE) Urine Cocaine Screen Negative (NEGATIVE) U Cannabinoids Screen Negative (NEGATIVE) Ethanol Quant <3 mg/dL Influenza Type A Ag Negative Influenza Type B Ag Negative SARS-CoV-2 Ag (CV2AG) Positive A (NEGATIVE) ECG Data Attestation: I personally reviewed and interpreted this ECG as follows: (EKG on my interpretation shows sinus rhythm with a rate of 111.) Discharge Plan Discharge Patient Disposition: Still a Patient
[2024-11-27 00:03] LABS: Basophils Percent Auto 0.4 % (0.2-2.0); Eosinophils Absolute Auto 0.1 10^3/uL (0.0-0.7); Eosinophils Percent Auto 0.9 % (0.9-7.0); Hematocrit 42.7 % (36.0-48.0); Immature Granulocytes Abs Auto 0.02 10^3/uL (0.00-0.03); Immature Granulocytes Pct Auto 0.2 % (0.0-0.5); Lymphocytes Absolute Auto 1.6 10^3/uL (1.2-3.8); Lymphocytes Percent Auto 15.6 % (20.5-60.0); Mean Corpuscular HGB Conc 32.8 g/dL (29.9-35.2); Mean Corpuscular Hemoglobin 27.9 pg (26.7-34.0); Mean Corpuscular Volume 85.1 fL (81.0-99.0); Mean Platelet Volume 10.1 fL (9.5-13.5); Monocytes Absolute Auto 0.9 10^3/uL (0.3-0.8); Monocytes Percent Auto 8.6 % (1.7-12.0); Neutrophils Absolute Auto 7.5 10^3/uL (1.4-6.5); Neutrophils Percent Auto 74.3 % (43.0-75.0); Platelet Count 270 10^3/uL (150-450); Red Blood Count 5.02 10^6/uL (4.20-5.40); Red Cell Distribution Width 13.4 % (11.0-15.0)
--- NOTE | 2024-11-27 00:06 | PC.NURSE ---
Patient speaks with intake at [facility], per intake Zuleyma will be assigned and will be contacting patient's family and will be following out.
[2024-11-27 00:12] LABS: Internal Control Within Normal Limits; SARS-CoV-2 Ag POSITIVE (NEGATIVE)
[2024-11-27 00:14] LABS: Influenza Virus A Antigen Negative; Influenza Virus B Antigen Negative; Internal Control Within Normal Limits
[2024-11-27 00:20] LABS: Salicylate 6.1 mg/dL (<=19.9)
[2024-11-27 00:26] LABS: Anion Gap 17.2; BUN Creatinine Ratio 19.1; Calcium 9.5 mg/dL (8.5-10.1); Carbon Dioxide 25.1 mmol/L (21.0-32.0); Chloride 103 mmol/L (98-107); Estimated GFR (African America 57 (>=60 mL/min/1.73m^2); Estimated GFR (Non-African Ame 47 (>=60 mL/min/1.73m^2); Glucose 94 mg/dL (74-106); Potassium 3.3 mmol/L (3.5-5.1); Sodium 142 mmol/L (136-145); Troponin I High Sensitivity 9.3 pg/mL (4.0-51.3)
--- NOTE | 2024-11-27 00:33 | PC.NURSE ---
Patient speaking with counselor Zuleyma via video chat at this time.
[2024-11-27 00:40] LABS: Bilirubin Urine MODERATE (NEGATIVE); Blood Urine NEGATIVE (NEGATIVE); Clarity Urine CLOUDY (CLEAR); Color Urine YELLOW (YELLOW); Glucose Urine UA NEGATIVE (NEGATIVE); Ketones Urine >=80 mg/dL (NEGATIVE); Leukocyte Esterase Urine NEGATIVE (NEGATIVE); Nitrite Urine NEGATIVE (NEGATIVE); Protein Urine 30 mg/dL (NEG/TRACE); Specific Gravity Urine >=1.030 (1.005-1.025)
[2024-11-27 00:44] LABS: Acetaminophen <2.0 ug/mL (10.0-30.0); Ethanol <3 mg/dL
[2024-11-27 00:55] LABS: Amphetamine Screen Urine NEGATIVE (NEGATIVE); Barbiturates Screen Urine NEGATIVE (NEGATIVE); Benzodiazepines Screen Urine NEGATIVE (NEGATIVE); Buprenorphine Screen Urine NEGATIVE (NEGATIVE); Cannabinoid Screen Urine NEGATIVE (NEGATIVE); Cocaine Screen Urine NEGATIVE (NEGATIVE); Methadone Screen Urine NEGATIVE (NEGATIVE); Methamphetamines Screen Urine NEGATIVE (NEGATIVE); Opiate Screen Urine NEGATIVE (NEGATIVE); Oxycodone Screen Urine NEGATIVE (NEGATIVE); Phencyclidine Screen Urine NEGATIVE (NEGATIVE); Tricyclic Antidepressant Urine NEGATIVE (NEGATIVE)
[2024-11-27 01:01] LABS: Bacteria Urine TRACE #/HPF (NONE SEEN); Crystals Seen? None Seen #/HPF (None Seen); Mucus Urine SMALL (NONE SEEN); RBC Urine 0-2 #/HPF (0-2); Squamous Epithelial Cell Urine MANY #/LPF (NONE/RARE); WBC Urine 0-2 #/HPF (NONE SEEN)
[2024-11-27 01:02] LABS: Cast Seen? SEEN #/LPF (NONE SEEN); Hyaline Casts Urine FEW
--- NOTE | 2024-11-27 21:48 | XR_ITS ---
The [address] [address] Patient Name: WENDI LUCERO MRN: [id number] date: 1960 Sex: F Assigned Patient Location: ER Current Patient Location: ER Accession/Order Number: [id number] Exam Date: 11/27/2024 22:30 Report Date: 11/28/2024 00:39 At the request of: GISSELLE ROBERSON Procedure: XR chest 1V EXAM: XR chest 1V HISTORY: covid COMPARISON: Chest radiograph dated 11/26/2024. TECHNIQUE: One view of the chest. FINDINGS: The cardiac silhouette is normal in size. There is mild suspected right basilar atelectasis. There is no significant pneumothorax or pleural effusion. No acute osseous abnormality is seen. XR/XR chest 1V IMPRESSION: 1. Mild suspected right basilar atelectasis with otherwise clear lungs. Electronically authenticated by: Andrew PEÑA Date: 11/28/2024 00:39
[2024-11-27 22:08] LABS: Basophils Absolute Auto 0.1 10^3/uL (0.0-0.1); Basophils Percent Auto 0.6 % (0.2-2.0); Eosinophils Absolute Auto 0.3 10^3/uL (0.0-0.7); Eosinophils Percent Auto 3.4 % (0.9-7.0); Hematocrit 37.1 % (36.0-48.0); Hemoglobin 12.4 g/dL (12.0-16.0); Immature Granulocytes Abs Auto 0.02 10^3/uL (0.00-0.03); Immature Granulocytes Pct Auto 0.2 % (0.0-0.5); Lymphocytes Absolute Auto 3.3 10^3/uL (1.2-3.8); Lymphocytes Percent Auto 36.7 % (20.5-60.0); Mean Corpuscular HGB Conc 33.4 g/dL (29.9-35.2); Mean Corpuscular Hemoglobin 28.5 pg (26.7-34.0); Mean Corpuscular Volume 85.3 fL (81.0-99.0); Mean Platelet Volume 10.3 fL (9.5-13.5); Monocytes Absolute Auto 1.3 10^3/uL (0.3-0.8); Monocytes Percent Auto 14.1 % (1.7-12.0); Neutrophils Absolute Auto 4.1 10^3/uL (1.4-6.5); Platelet Count 220 10^3/uL (150-450); Red Blood Count 4.35 10^6/uL (4.20-5.40); Red Cell Distribution Width 13.3 % (11.0-15.0); White Blood Count 9.1 10^3/uL (4.0-11.0)
[2024-11-27 22:20] LABS: Alanine Aminotransferase 59 U/L (14-59); Albumin Globulin Ratio 0.9; Albumin Level 3.4 g/dL (3.4-5.0); Alkaline Phosphatase 86 U/L (46-116); Anion Gap 13.2; Aspartate Amino Transferase 41 U/L (15-37); BUN Creatinine Ratio 17.6; Bilirubin Total 0.4 mg/dL (0.2-1.0); Calcium 8.8 mg/dL (8.5-10.1); Carbon Dioxide 27.8 mmol/L (21.0-32.0); Chloride 102 mmol/L (98-107); Estimated GFR (African America >60 (>=60 mL/min/1.73m^2); Estimated GFR (Non-African Ame 54 (>=60 mL/min/1.73m^2); Globulin 3.9 g/dL; Glucose 95 mg/dL (74-106); Sodium 140 mmol/L (136-145); Total Protein 7.3 g/dL (6.4-8.2)
[2024-11-27] MEDS: POTASSIUM CHLORIDE 10 MEQ ER TABLET 40 MEQ PO (22:59)
[2024-11-27] MEDS: ESCITALOPRAM 10 MG TABLET 5 MG PO (22:59)
[2024-11-27] MEDS: OLANZapine 5 MG TABLET 2.5 MG PO (22:59)
[2024-11-27] MEDS: ALPRAZOLAM 0.5 MG TABLET PO (23:00)
[2024-11-27 23:33] VITALS: BP 138/75
[2024-11-27 23:55] VITALS: PULSE 81; O2SAT 99
[2024-11-28 08:32] LABS: Glucometer 102 mg/dL (74-106)
[2024-11-28] MEDS: METFORMIN HCL 500 MG TABLET PO (08:55)
[2024-11-28] MEDS: OLANZapine 5 MG TABLET 2.5 MG PO (08:56)
[2024-11-28] MEDS: ESCITALOPRAM 10 MG TABLET 5 MG PO (08:56)
== END 2024-11-28 11:42 ==
PROVIDERS: Emergency Medicine; Emergency Provider Emergency Medicine; PCP Family Medicine
DX: F25.9 Schizoaffective disorder, unspecified (principal); U07.1 COVID-19; Z87.891 Personal history of nicotine dependence; Z79.899 Other long term (current) drug therapy
CPT/HCPCS: 36415; 70450; 71045; 80048; 80053; 80179; 80307; 80320; 80329; 81001; 82948; 84484; 85025; 87804; 87811; 93005; 99285

== ENCOUNTER 2025-09-26 07:51 | Emergency (ER) | payer MEDICARE, MEDICAID, SELFPAY ==
[2025-09-26 07:53] VITALS: BP 147/72; PULSE 74; TEMP 36.8; O2SAT 99; BMI 38.5
--- NOTE | 2025-09-26 07:59 | ECG_ITS ---
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
--- NOTE | 2025-09-26 07:59 | XR_ITS ---
The [address] [address] Patient Name: WENDI LUCERO MRN: [id number] date: 1960 Sex: F Assigned Patient Location: ER Current Patient Location: .MAIN Accession/Order Number: [id number] Exam Date: 09/26/2025 08:35 Report Date: 09/26/2025 09:14 At the request of: IDALIA CASE MD Procedure: XR knee LT 3V CLINICAL DATA: Patient tripped and fell. Pain at the left hip and knee. LEFT HIP WITH AP PELVIS - 3 views COMPARISON: None available AP view of the pelvis as well as AP and frog-lateral views of the left hip were obtained. No fracture or dislocation is identified. The hip joint spaces are maintained and there is no prominent hypertrophy. There are small enthesophytes at the iliac crests, greater trochanters and ischial tuberosities. The SI joints are intact and show mild sclerosis. There is also some degenerative change at the lower imaged lumbar spine. No soft tissue abnormalities are present. XR/XR knee LT 3V IMPRESSION: NO ACUTE BONY INJURY. LEFT KNEE - 3 views COMPARISON: None AP, lateral and internal oblique views were obtained. There is no acute fracture or dislocation. There is no disproportionate joint space narrowing or hypertrophy. There is no knee effusion or focal soft tissue swelling. IMPRESSION: NO ACUTE BONY INJURY. Impression dictated by: Lashanda Osei M.D. 09/26/2025 9:14 AM Dictation Location: [place] [address] Electronically authenticated by: [id number] Y Date: 09/26/2025 09:14
--- NOTE | 2025-09-26 07:59 | XR_ITS ---
The [address] [address] Patient Name: WENDI LUCERO MRN: [id number] date: 1960 Sex: F Assigned Patient Location: ER Current Patient Location: .MAIN Accession/Order Number: [id number] Exam Date: 09/26/2025 08:35 Report Date: 09/26/2025 09:14 At the request of: IDALIA CASE MD Procedure: XR knee LT 3V CLINICAL DATA: Patient tripped and fell. Pain at the left hip and knee. LEFT HIP WITH AP PELVIS - 3 views COMPARISON: None available AP view of the pelvis as well as AP and frog-lateral views of the left hip were obtained. No fracture or dislocation is identified. The hip joint spaces are maintained and there is no prominent hypertrophy. There are small enthesophytes at the iliac crests, greater trochanters and ischial tuberosities. The SI joints are intact and show mild sclerosis. There is also some degenerative change at the lower imaged lumbar spine. No soft tissue abnormalities are present. XR/XR hip LT 2V w/ pelvis IMPRESSION: NO ACUTE BONY INJURY. LEFT KNEE - 3 views COMPARISON: None AP, lateral and internal oblique views were obtained. There is no acute fracture or dislocation. There is no disproportionate joint space narrowing or hypertrophy. There is no knee effusion or focal soft tissue swelling. IMPRESSION: NO ACUTE BONY INJURY. Impression dictated by: Lashanda Osei M.D. 09/26/2025 9:14 AM Dictation Location: [place] [address] Electronically authenticated by: [id number] Y Date: 09/26/2025 09:14
--- NOTE | 2025-09-26 08:08 | ED.GENADUL1 ---
HPI HPI - General Adult General Chief complaint: Fall Stated complaint: FALL HEAD PAIN Time Seen by Provider: 09/26/25 07:53 Source: patient Mode of arrival: ambulance Limitations: physical limitation History of Present Illness HPI narrative: The patient is a 65-year-old female presenting to the ER after she tripped and fell because she was trying to get out of the bed and apparently the carpet was lumpy. The patient initially fell and hit her head with the floor but then stood up , and while feeling dizzy she fell again. The patient is complaining of some headache mostly the left side of the head also complaining of left thumb pain and left knee pain and left hip pain No neck pain and the patient deny numbness tingling or any other concerns The patient mentioned that she had no complaint until this happened this morning Related Data Home Medications ?Medication ?Instructions ?Recorded ?Confirmed cholecalciferol (vitamin D3) 50 2,000 unit PO DAILY 09/27/23 11/26/24 mcg (2,000 unit) tablet dulaglutide 3 mg/0.5 mL 3 mg subcut .weekly 09/27/23 11/26/24 subcutaneous pen injector (Trulicity) metformin 500 mg tablet,extended 500 mg PO BID 09/27/23 11/26/24 release 24 hr semaglutide 2 mg/dose (8 mg/3 mL) 2 mg subcut .weekly 09/27/23 11/26/24 subcutaneous pen injector (Ozempic) alprazolam 0.5 mg tablet 0.5 mg PO TID PRN anxiety 11/26/24 11/26/24 escitalopram oxalate 5 mg tablet 5 mg PO DAILY 11/26/24 11/26/24 insulin glargine 100 unit/mL (3 unit subcut 11/26/24 mL) subcutaneous pen (Lantus Solostar U-100 Insulin) insulin glargine-yfgn 100 unit/mL 60 unit subcut QAM 11/26/24 11/26/24 (3 mL) subcutaneous pen (Semglee (insulin glargine-yfgn) Pen) olanzapine 2.5 mg tablet 2.5 mg PO QPM 11/26/24 11/26/24 Previous Rx's ?Medication ?Instructions ?Recorded potassium chloride 15 mEq 15 meq PO DAILY #3 tabs 09/26/25 tablet,extended release Allergies Allergy/AdvReac Type Severity Reaction Status Date / Time No Known Drug Allergies Allergy Verified 09/26/25 07:53 Opioid HPI Opioid Management Most Recent Opioid Data: Last Pain Scale 8 Today, 08:10 Last MAR Pain Assessment Today, 08:10 Ur Phencyclidine Scrn, (NEGATIVE) Negative 11/27/24, 00:30 Review of Systems ROS Status of ROS 10 or more systems reviewed and unremarkable except as noted in history and below PFSH PFSH Social History Smoking status: Former smoker Little interest or pleasure in doing things: not at all Feeling down, depressed, or hopeless: not at all Exam Narrative Exam Narrative: Nurses notes and vital signs reviewed and patient is not hypoxic. General: Well-appearing and in no apparent distress. Skin: Warm, dry, no pallor noted. No rash. Head: Normocephalic, atraumatic. Neck: Supple, non-tender. Eye: Pupils are equal, round and EOMI. No scleral icterus. Ears, Nose, Mouth, and Throat: TM are clear, no nasal mucosal hypertrophy. Oral mucosa is moist, no posterior oropharynx erythema, uvula is mid-line Cardiovascular: Regular Rate and Rhythm without murmur, gallop or rub. Respiratory: No accessory muscle use or respiratory distress. Lungs are clear to auscultation, no wheezing, rales or rhonchi Chest wall; no tenderness Back: No midline thoracic or lumbar vertebral tenderness. No CVA tenderness Musculoskeletal: normal ROM, no calf or popliteal tenderness, patient mentioned some tenderness on the lateral aspect of the left knee but there is no ecchymosis or any significant swelling the patient have full range of movement. Patient also was complaining of left thumb pain but there is mild swelling mostly at the distal interphalangeal joint but there is still full range of movement GI: Abdomen is soft, non-distended. Normal bowel sounds. No masses appreciated. No tenderness to palpation. No rebound, guarding, or rigidity noted. Neurological: A&O x4. No cranial nerve dysfunction observed. Constitutional Vital Signs, click to edit/add: Last Vital Signs Temp 98.3 F 09/26/25 07:53 Pulse 74 09/26/25 07:53 Resp 18 09/26/25 07:53 BP 147/72 H 09/26/25 07:53 Pulse Ox 99 09/26/25 07:53 O2 Del Method Room Air 09/26/25 07:53 Course Vital Signs Vital signs: Vital Signs Temperature 98.3 F 09/26/25 07:53 Pulse Rate 74 09/26/25 07:53 Respiratory Rate 18 09/26/25 07:53 Blood Pressure 147/72 H 09/26/25 07:53 Pulse Oximetry 99 09/26/25 07:53 Oxygen Delivery Method Room Air 09/26/25 07:53 Temperature 98.3 F 09/26/25 07:53 Pulse Rate 74 09/26/25 07:53 Respiratory Rate 18 09/26/25 07:53 Blood Pressure 147/72 H 09/26/25 07:53 Pulse Oximetry 99 09/26/25 07:53 Oxygen Delivery Method Room Air 09/26/25 07:53 Medical Decision Making MDM Narrative Medical decision making narrative: The patient EKG showing sinus rhythm with a heart rate of [address] elevation some nonspecific changes was supraventricular premature complexes CBC and chemistry showed that the patient potassium was 2.8 with no hypokalemic changes on the EKG The patient was provided with p.o. potassium in the ER--- provided with 3 days of p.o. potassium to go home with CT of the head as well as CT of the cervical spine x-ray of the hip and x-ray of the knee shows no acute pathology The patient did not have any thumb pain by the time she got to the x-ray and that why it was not done The patient to continue supportive care at home and come back to the ER in case of new symptoms or any concerns including the patient was provided with head trauma instruction when discharged The patient to follow-up with the primary care within 2 to 3 days and to come back to the ER in case of any worsening of the current symptoms or any new symptoms or concerns Lab Data Labs: Lab Results 09/26/25 Range/Units 08:17 WBC 8.1 (4.0-11.0) 10^3/uL RBC 4.73 (4.20-5.40) 10^6/uL Hgb 13.3 (12.0-16.0) g/dL Hct 39.7 (36.0-48.0) % MCV 83.9 (81.0-99.0) fL MCH 28.1 (26.7-34.0) pg MCHC 33.5 (29.9-35.2) g/dL RDW 13.5 (11.0-15.0) % Plt Count 230 (150-450) 10^3/uL MPV 10.5 (9.5-13.5) fL Neut % (Auto) 69.9 (43.0-75.0) % Lymph % (Auto) 22.0 (20.5-60.0) % [place] % (Auto) 6.3 (1.7-12.0) % Eos % (Auto) 1.0 (0.9-7.0) % Baso % (Auto) 0.6 (0.2-2.0) % Neut # (Auto) 5.6 (1.4-6.5) 10^3/uL Lymph # (Auto) 1.8 (1.2-3.8) 10^3/uL [place] # (Auto) 0.5 (0.3-0.8) 10^3/uL Eos # (Auto) 0.1 (0.0-0.7) 10^3/uL Baso # (Auto) 0.1 (0.0-0.1) 10^3/uL Abs Immat Gran (auto) 0.02 (0.00-0.03) 10^3/uL Imm/Tot Granulo (auto) 0.2 (0.0-0.5) % Sodium 141 (136-145) mmol/L Potassium 2.8 L* (3.5-5.1) mmol/L Chloride 102 (98-107) mmol/L Carbon Dioxide 28.1 (21.0-32.0) mmol/L Anion Gap 13.7 BUN 18.0 (7.0-18.0) mg/dL Creatinine 0.94 (0.55-1.02) mg/dL Est GFR ( Amer) >60 (>=60 mL/min/1.73m^2) Est GFR (Non-Af Amer) 60 (>=60 mL/min/1.73m^2) BUN/Creatinine Ratio 19.1 Glucose 151 H (74-106) mg/dL Calcium 8.7 (8.5-10.1) mg/dL Total Bilirubin 0.7 (0.2-1.0) mg/dL AST 17 (15-37) U/L ALT 25 (14-59) U/L Alkaline Phosphatase 70 (46-116) U/L Troponin I High Sens 10.9 (4.0-51.3) pg/mL Total Protein 7.8 (6.4-8.2) g/dL Albumin 3.8 (3.4-5.0) g/dL Globulin 4.0 g/dL Albumin/Globulin Ratio 0.9 Discharge Plan Discharge Chief Complaint: Fall Clinical Impression: Fall, Acute head trauma, Acute hypokalemia, Contusion of hip, Contusion of knee Patient Disposition: Home, Self-Care Time of Disposition Decision: 09:22 Condition: Good Prescriptions / Home Meds: New potassium chloride 15 mEq tablet extended release 15 meq PO DAILY Qty: 3 0RF No Action metformin 500 mg tablet extended release 24 hr 500 mg PO BID Ozempic 2 mg/dose (8 mg/3 mL) pen injector 2 mg SUBCUT .weekly Trulicity 3 mg/0.5 mL pen injector 3 mg SUBCUT .weekly cholecalciferol (vitamin D3) 50 mcg (2,000 unit) tablet 2,000 unit PO DAILY alprazolam 0.5 mg tablet 0.5 mg PO TID PRN (Reason: anxiety) escitalopram oxalate 5 mg tablet 5 mg PO DAILY insulin glargine-yfgn [Semglee(insulin glarg-yfgn)Pen] 100 unit/mL (3 mL) insulin pen 60 unit SUBCUT QAM insulin glargine [Lantus Solostar U-100 Insulin] 100 unit/mL (3 mL) insulin pen SUBCUT olanzapine 2.5 mg tablet 2.5 mg PO QPM Print Language: [place] Citizen Instructions: Hypokalemia (ED), Head Injury (DC), Fall Prevention (ED) Additional Instructions: Please make sure you follow-up with your primary care for further evaluation for potassium The patient to follow-up with the primary care within 2 to 3 days and to come back to the ER in case of any worsening of the current symptoms or any new symptoms or concerns Referrals: Isac Gamble MD [Primary Care Provider, Family Practice] - 1 week
[2025-09-26] MEDS: ACETAMINOPHEN 325 MG TABLET 650 MG PO (08:10)
[2025-09-26 08:23] LABS: Hematocrit 39.7 % (36.0-48.0); Hemoglobin 13.3 g/dL (12.0-16.0); Immature Granulocytes Abs Auto 0.02 10^3/uL (0.00-0.03); Immature Granulocytes Pct Auto 0.2 % (0.0-0.5); Lymphocytes Absolute Auto 1.8 10^3/uL (1.2-3.8); Mean Corpuscular HGB Conc 33.5 g/dL (29.9-35.2); Mean Corpuscular Hemoglobin 28.1 pg (26.7-34.0); Mean Corpuscular Volume 83.9 fL (81.0-99.0); Platelet Count 230 10^3/uL (150-450); Red Blood Count 4.73 10^6/uL (4.20-5.40); White Blood Count 8.1 10^3/uL (4.0-11.0)
--- NOTE | 2025-09-26 08:35 | CT_ITS ---
The [address] [address] Patient Name: WENDI LUCERO MRN: [id number] date: 1960 Sex: F Assigned Patient Location: ER Current Patient Location: .[facility] Accession/Order Number: [id number] Exam Date: 09/26/2025 08:28 Report Date: 09/26/2025 09:09 At the request of: IDALIA CASE MD Procedure: CT cervical spine wo con CLINICAL DATA: Patient tripped and fell over rug hitting the front of the head. Dizziness and lightheadedness. CT BRAIN WITHOUT CONTRAST: COMPARISON: 11/27/2024 TECHNIQUE: Contiguous axial unenhanced images were obtained through the brain. This CT exam was performed using one or more following dose reduction techniques: Automated exposure control, adjustment of the mA and/or kV according to patient size, or use of iterative reconstruction technique. FINDINGS: The ventricles are within normal limits for size and position. There is minor white matter hypodensity that may be minimal microvascular disease given the presence of subtle carotid siphon plaque. There are no additional areas of abnormal attenuation. There is no hemorrhage, mass effect or extra-axial collections. The calvarium is intact. There is minor maxillary, ethmoid and sphenoid mucosal thickening. The mastoid air cells are clear. CT/CT cervical spine wo con IMPRESSION: NO ACUTE INTRACRANIAL TRAUMA. CT CERVICAL SPINE WITHOUT CONTRAST WITH 3D RECONSTRUCTIONS: COMPARISON: None TECHNIQUE: Spiral axial unenhanced images were obtained through the cervical spine. Sagittal, coronal and 3D volume-rendered reconstructions were also reviewed. This CT exam was performed using one or more following dose reduction techniques: Automated exposure control, adjustment of the mA and/or kV according to patient size, or use of iterative reconstruction technique. FINDINGS: Alignment is maintained in the sagittal plane. No fractures are identified. The disc spaces are uniform. Minor endplate spurring is present. The atlantoaxial relationship is maintained and there is additional degenerative change at the odontoid and adjacent anterior C1 arch. No prevertebral soft tissue swelling is seen. Carotid artery plaque is noted. The upper imaged lungs show no contributory abnormalities. IMPRESSION: NO ACUTE BONY INJURY. Impression dictated by: Lashanda Osei M.D. 09/26/2025 9:09 AM Dictation Location: [place] [address] Electronically authenticated by: [id number] Y Date: 09/26/2025 09:09
--- NOTE | 2025-09-26 08:35 | CT_ITS ---
The [address] [address] Patient Name: WENDI LUCERO MRN: [id number] date: 1960 Sex: F Assigned Patient Location: ER Current Patient Location: .[facility] Accession/Order Number: [id number] Exam Date: 09/26/2025 08:28 Report Date: 09/26/2025 09:09 At the request of: IDALIA CASE MD Procedure: CT cervical spine wo con CLINICAL DATA: Patient tripped and fell over rug hitting the front of the head. Dizziness and lightheadedness. CT BRAIN WITHOUT CONTRAST: COMPARISON: 11/27/2024 TECHNIQUE: Contiguous axial unenhanced images were obtained through the brain. This CT exam was performed using one or more following dose reduction techniques: Automated exposure control, adjustment of the mA and/or kV according to patient size, or use of iterative reconstruction technique. FINDINGS: The ventricles are within normal limits for size and position. There is minor white matter hypodensity that may be minimal microvascular disease given the presence of subtle carotid siphon plaque. There are no additional areas of abnormal attenuation. There is no hemorrhage, mass effect or extra-axial collections. The calvarium is intact. There is minor maxillary, ethmoid and sphenoid mucosal thickening. The mastoid air cells are clear. CT/CT head/brain wo con IMPRESSION: NO ACUTE INTRACRANIAL TRAUMA. CT CERVICAL SPINE WITHOUT CONTRAST WITH 3D RECONSTRUCTIONS: COMPARISON: None TECHNIQUE: Spiral axial unenhanced images were obtained through the cervical spine. Sagittal, coronal and 3D volume-rendered reconstructions were also reviewed. This CT exam was performed using one or more following dose reduction techniques: Automated exposure control, adjustment of the mA and/or kV according to patient size, or use of iterative reconstruction technique. FINDINGS: Alignment is maintained in the sagittal plane. No fractures are identified. The disc spaces are uniform. Minor endplate spurring is present. The atlantoaxial relationship is maintained and there is additional degenerative change at the odontoid and adjacent anterior C1 arch. No prevertebral soft tissue swelling is seen. Carotid artery plaque is noted. The upper imaged lungs show no contributory abnormalities. IMPRESSION: NO ACUTE BONY INJURY. Impression dictated by: Lashanda Osei M.D. 09/26/2025 9:09 AM Dictation Location: [place] [address] Electronically authenticated by: [id number] Y Date: 09/26/2025 09:09
[2025-09-26 08:40] LABS: Alanine Aminotransferase 25 U/L (14-59); Albumin Globulin Ratio 0.9; Albumin Level 3.8 g/dL (3.4-5.0); Alkaline Phosphatase 70 U/L (46-116); Anion Gap 13.7; Aspartate Amino Transferase 17 U/L (15-37); Blood Urea Nitrogen 18.0 mg/dL (7.0-18.0); Calcium 8.7 mg/dL (8.5-10.1); Carbon Dioxide 28.1 mmol/L (21.0-32.0); Chloride 102 mmol/L (98-107); Estimated GFR (African America >60 (>=60 mL/min/1.73m^2); Estimated GFR (Non-African Ame 60 (>=60 mL/min/1.73m^2); Globulin 4.0 g/dL; Glucose 151 mg/dL (74-106); Sodium 141 mmol/L (136-145); Total Protein 7.8 g/dL (6.4-8.2)
[2025-09-26 08:49] LABS: Potassium 2.8 mmol/L (3.5-5.1)
--- OUTSIDE RECORDS SUMMARY | 2025-09-26 09:07 | XMS_ITS | Clinical Summary ---
Author Organization [facility] Healthcare Address [address] [place] [address] Care Team Providers Care Community Engagement Specialist Name Role Phone Isac Gamble MD Primary Care Provider [phone] Isac Gamble MD Unavailable Allergies No known active allergies Medications MedicationSigDispense QuantityRefillsLast FilledStart DateEnd DateStatus pen needle, diabetic 31G X 8 MM misc Inject 1 each under the skin if [id number] cholecalciferol (Vitamin D-3) 50 MCG (2000 UT) tablet Indications:Vitamin D deficiencyTake 1 tablet (50 mcg) by mouth Daily 90 tablet 4Active escitalopram (Lexapro) 10 MG tablet TAKE 1 TABLET BY MOUTH ONCE DAILY AT BEDTIME FOR 30 DAYS5Active ALPRAZolam (Xanax) 0.5 MG tablet Indications:GEORGIE (generalized anxiety disorder)Take 1 tablet (0.5 mg) by mouth 3 (three) times a day as needed for anxiety for up to 20 days 60 tablet 5Active ARIPiprazole (Abilify) 10 MG tablet Indications:Schizoaffective disorder, depressive type (HCC)Take 1 tablet (10 mg) by mouth Daily 30 tablet 5Active metFORMIN XR (Glucophage-XR) 500 MG 24 hr tablet Indications:Type 2 diabetes mellitus with hyperglycemia, with long-term current use of insulin (HCC)TAKE 2 TABLETS BY MOUTH TWICE DAILY (MORNING AND BEDTIME) 120 tablet 5Active Mounjaro 5 MG/0.5ML solution auto-injector Indications:Type 2 diabetes mellitus with hyperglycemia, without long-term current use of insulin ([facility])INJECT 5 MG SUBCUTANEOUSLY ONCE A WEEK 4 mL 5Active furosemide (Lasix) 40 MG tablet Indications:Edema of both legsTake 1 tablet by mouth once daily 30 tablet 5Active Lantus SoloStar 100 UNIT/ML pen Indications:Type 2 diabetes mellitus with hyperglycemia, without long-term current use of insulin ([facility])INJECT 60 UNITS SUBCUTANEOUSLY IN THE MORNING 15 mL 505Active Active Problems ProblemNoted DateDiagnosed DateFormer fxncff6505/19/2025 Assessment & Plan (05/19/2025 9:40 AM EDT): Quit smoking in 2020 but prior 1 PPD for 30 years. Discussed screening options and interested in LDCT chest. Order faxed to hospital to schedule. Schizoaffective fwzqccog45/19/2025 Assessment & Plan (05/19/2025 9:41 AM EDT): Symptoms slightly better but still present and increase abilify. Assessment & Plan (03/14/2025 11:11 AM EDT): Side effects from zyprexa and stopped. C/o worsening depression and add abilify. Assessment & Plan (12/15/2024 11:13 AM EST): Symptoms controlled with medication and continue. Continue counseling Abnormal mammogram of left ployeu4508/30/2024Type 2 diabetes mellitus with hyperglycemia, without long-term current use of jbhwwpu2808/16/2024 Assessment & Plan (05/19/2025 9:41 AM EDT): Reports BS elevated and due for A1C. Stop ozempic and try mounjaro. Assessment & Plan (03/14/2025 11:11 AM EDT): Reports BS controlled and monitor PRN. Stick to ADA diet and limit carbs. Assessment & Plan (08/16/2024 3:34 PM EDT): BS elevated and need to resume lantus and metformin. Continue ozempic. Check A1C. Stick to ADA dietand limit carbs. Encounter for long-term current use of qrabpuvhsb84/26/2024Seasonal allergic rhinitis due to qnxzec4002/20/2024 Assessment & Plan (02/20/2024 12:12 PM EDT): Increased symptoms and evidence of allergies on exam. Start flonase. Bilateral hip pain11/25/2023 Assessment & Plan (11/25/2023 2:04 PM EST): C/o pain in hips but likely related to back. Check x-ray. Start prednisone. If no improvement will need PT. Edema of both legs10/13/2023 Assessment & Plan (05/19/2025 9:40 AM EDT): Mild swelling and use lasix PRN. Elevate legs PRN. Assessment & Plan (03/14/2025 11:10 AM EDT): Mild swelling and use lasix PRN. Elevate legs PRN. Assessment & Plan (08/16/2024 3:33 PM EDT): Mild swelling and use lasix PRN. Elevate legs PRN. Assessment & Plan (02/20/2024 12:10 PM EDT): Mild swelling and use lasix PRN. Elevate legs PRN. Assessment & Plan (10/30/2023 1:29 PM EST): Mild swelling and use lasix PRN. Elevate legs PRN. Essential hypertension, tlziqc2710/08/2023 Assessment & Plan (05/19/2025 9:40 AM EDT): BP slightly elevated but previously controlled and monitor PRN. Discussed DASH diet. Assessment & Plan (03/14/2025 11:11 AM EDT): BP controlled and monitor PRN. Discussed DASH diet. Assessment & Plan (12/15/2024 11:12 AM EST): BP controlled and monitor PRN. Discussed DASH diet. Assessment & Plan (08/16/2024 3:33 PM EDT): BP normal and monitor PRN. Discussed DASH diet. Assessment & Plan (02/20/2024 12:10 PM EDT): BP elevated and not on medication. Need to monitor PRN. Discussed DASH diet. Assessment & Plan (10/30/2023 1:29 PM EST): BP controlled and monitor PRN. Bilateral low back pain with left-sided poyvlfae18/13/2023 Assessment & Plan (11/25/2023 2:04 PM EST): C/o pain in hips but likely related to back. Check x-ray. Start prednisone. If no improvement will need PT. GEORGIE (generalized anxiety disorder)10/08/2023 Assessment & Plan (05/19/2025 9:41 AM EDT): Symptoms slightly better but still present and increase abilify. Use xanax PRN. Assessment & Plan (03/14/2025 11:12 AM EDT): Side effects from zyprexa and stopped. C/o worsening depression and add abilify. Use xanax PRN. Assessment & Plan (12/15/2024 11:12 AM EST): Symptoms controlled with medication and continue. Use xanax PRN. Assessment & Plan (08/16/2024 3:34 PM EDT): Symptoms controlled with medication and continue. Use xanax PRN. Assessment & Plan (02/20/2024 12:11 PM EDT): Symptoms controlled with medication and continue. Follow up with psychiatry as scheduled. Assessment & Plan (10/30/2023 1:30 PM EST): Continues to have severe symptoms and follow up with psychiatry to adjust medication. Use xanax PRN. Assessment & Plan (10/08/2023 12:17 PM EST): Continued symptoms and medication adjusted last week. Continue medication and monitor. Resume xanaxand use PRN. Continue counseling. Gout, cdzcdenwyxa87/13/2023Lung qggpkq9310/08/2023Mild recurrent major depression 10/08/2023 Assessment & Plan (08/16/2024 3:34 PM EDT): Symptoms controlled with medication and continue. Assessment & Plan (02/20/2024 12:11 PM EDT): Symptoms controlled with medication and continue. Follow up with psychiatry as scheduled. Assessment & Plan (10/30/2023 1:30 PM EST): Continues to have severe symptoms and follow up with psychiatry to adjust medication. Assessment & Plan (10/08/2023 12:16 PM EST): Continued symptoms and medication adjusted last week. Continue medication and monitor. Continue counseling. Class 2 severe obesity due to excess calories with serious comorbidity and body mass index (BMI) of37.0 to 37.9 in adult10/08/2023 Assessment & Plan (05/19/2025 9:40 AM EDT): Weight loss indicated. Assessment & Plan (03/14/2025 11:10 AM EDT): Weight loss indicated. Assessment & Plan (12/15/2024 11:14 AM EST): Weight loss indicated. Assessment & Plan (08/16/2024 3:33 PM EDT): Patient overweight and difficult time losing weight. [...] month. OARRS reviewed. Continue medications as prescribed. Type 2 diabetes mellitus with diabetic microalbuminuria, without long-term current use of bdlxbqs0410/08/2023 Assessment & Plan (12/15/2024 11:13 AM EST): Reports BS controlled and due for labs. Stick to ADA diet and limit carbs. Assessment & Plan (02/20/2024 12:12 PM EDT): Reports BS controlled and due for labs. Stick to ADA diet and limit carbs. Assessment & Plan (10/30/2023 1:31 PM EST): Reports BS controlled and last A1C 7.2. Stick to ADA diet and limit carbs. Vitamin D /13/2023Rheumatoid vviwuxsud03/13/2023 Assessment & Plan (12/15/2024 11:15 AM EST): Follow with specialists. Assessment & Plan (08/16/2024 3:35 PM EDT): Follow with specialists. Primary /13/2023 Assessment & Plan (08/16/2024 3:34 PM EDT): Sleeping well with medication and continue. Assessment & Plan (02/20/2024 12:11 PM EDT): Sleeping well with medication and continue. Assessment & Plan (10/30/2023 1:30 PM EST): Not sleeping well and follow up with psychiatry. Assessment & Plan (10/08/2023 12:17 PM EST): Not sleeping well and try increasing trazodone to 100 mg. Call office if not effective. Resolved Problems ProblemNoted DateDiagnosed DateResolved DateAcute non-recurrent pansinusitis Assessment & Plan (11/25/2023 2:04 PM EST): Take antibiotics BID for 10 days. Use prednisone for inflammation. Use sudafed or other decongestants as needed. Use Robitussin or Robitussin-DM for cough. Can use afrin for congestion but no longer than 3 days. Can use Mucinex to bring up phlegm. Use Motrin or Tylenol as needed for fever, aches, or pains. Increase fluid intake and rest. Should improve over next 5-7 days and if no better or worsecall for re-evaluation. Family History Medical HistoryRelationNameCommentsDiabetesMotherRelationNameStatusComments FatherDeceasedMotherDeceased Social History Tobacco UseTypesPacks/DayYears UsedDateSmoking Tobacco: [id number] - mokeless Tobacco: Never Tobacco Cessation:Counseling Given: Not Answered Alcohol UseStandard Drinks/WeekCommentsNever0 (1 standard drink = 0.6 oz pure alcohol)B1300 Health LiteracyAnswerDate RecordedHow often do you need to have someone help you when you read instructions, pamphlets, or other written material from your doctor or pharmacy?Never11/04/2024Humiliation, Afraid, Rape, and Kick questionnaireAnswerDate RecordedWithin the last year, have you been afraid of your partner or ex-partner?No11/04/2024Within the last year, have you been humiliated or emotionally abused in other ways by your partner or ex-partner?No11/04/2024Within the last year, have you been kicked, hit, slapped, or otherwise physically hurt by your partner or ex-partner?No11/04/2024Within the last year, have you been raped or forced to have any kind of sexual activity by your partner or ex-partner?No11/04/2024Social Connection and Isolation Panel AnswerDate RecordedIn a typical week, how many times do you talk on the phone with family, friends, or neighbors?More than three times a week11/04/2024How often do you get together with friends or relatives?More than three times a week 11/04/2024How often do you attend muslim or orthodox services?More than 4 times per year11/04/2024Do you belong to any clubs or organizations such as muslim groups, unions, fraternal or athletic groups, or school groups?No11/04/2024How often do you attend meetings of the clubs or organizations you belong to?Never 11/04/2024re you , , , , never , or living with a partner?Ztkpybhe86/09/2025UDIT-CAnswerDate RecordedQ1: How often do you have a drink containing alcohol?Never11/04/2024Q2: How many drinks containing alcohol do you have on a typical day when you are drinking?Patient does not drink11/04/2024Q3: How often do you have six or more drinks on one occasion?Never11/04/2024Overall Financial Resource Strain (CARDIA)AnswerDate RecordedHow hard is it for you to pay for the very basics like food, housing, medical care, and heating?Not hard at all11/04/2024[facility] [place] [facility] - Occupational Stress QuestionnaireAnswerDate RecordedDo you feel stress - tense, restless, nervous, or anxious, or unable to sleep at night because yourmind is troubled all the time - these days?Rather much11/04/2024 Exercise Vital SignAnswerDate RecordedOn average, how many days per week do you engage in moderate to strenuous exercise (like a brisk walk)?0 days11/04/2024On average, how many minutes do you engage in exercise at this level?0 min 11/04/2024Hunger Vital SignAnswerDate RecordedWithin the past 12 months, you worried that your food would run out before you got the money to buymore.Never true11/04/2024Within the past 12 months, the food you bought just didn't last and you didn't have money to get more.Never true11/04/2024PRAPARE - TransportationAnswerDate RecordedIn the past 12 months, has lack of transportation kept you from medical appointments or from getting medications? Yes11/04/2024In the past 12 months, has lack of transportation kept you from meetings, work, or from getting things needed for daily living?No11/04/2024 Housing Stability Vital SignAnswerDate RecordedIn the last 12 months, was there a time when you were not able to pay the mortgage or rent on time?No11/04/2024In the past 12 months, how many times have you moved where you were living?0 11/04/2024t any time in the past 12 months, were you homeless or living in a chcf (including now)?Yes11/04/2024CommentsUnknownSex and Gender InformationValueDate RecordedSex Assigned at BirthNot on fileLegal SexFemale 01/08/2023 11:21 PM EDTGender IdentityNot on fileSexual OrientationNot on file Last Filed Vital Signs Vital SignReadingTime TakenCommentsBlood Osyzecon799/7207 9:12 AM EDT Uxmqm743905/19/2025 9:12 AM SGKPkkwiwsvnws47.2 ??C (97.1 ??F)05/19/2025 9:12 AM EDTRespiratory Smbu176905/19/2025 9:12 AM EDTOxygen Cschqxaanx23%05/19/2025 9:12 AM EDTInhaled Oxygen Concentration--Qohgxx90.6 kg (191 lb)05/19/2025 9:12 AM EDT Dcuhzh986.4 cm (5')05/19/2025 9:12 AM EDTBody Mass Index37.307 9:12 AM EDT Plan of Treatment Health MaintenanceDue DateLast DoneCommentsCT Pmwmqlathvqt1959Colonoscopy 1960FIT1959FOBT1960 7879Jedjxpjtsxusr1959Diabetes: Retinopathy Wrrdakxqf86/04/1969Pneumococcal Vaccine: 65+ Years (1 of 2 - PCV) 1978COVID-19 Vaccine (3 - 2024- season)/08/2021, 02/09/2021 Influenza Vaccine (#1)2025Medicare Annual Wellness (AWV)08/16/2025 08/16/2024 (Patient Refused)Cyukpzyli90/07/2025, 09/28/2024, 09/28/2024, Additional history existsDiabetes: Hemoglobin A1C02/01/2026 05/30/2025, 05/30/2025, 12/24/2024, Additional history existsLung Cancer Screening Shared Decision Coeyku6705/19/2026Postponed from 1959 (Other Medical Reasons)Diabetes: Urine Protein Cezgoeijc26, 05/30/2025, 05/30/2025, Additional history existsColorectal Cancer Screening 08/30/2027FIT-DNA Procedures Procedure NamePriorityDate/TimeAssociated DiagnosisCommentsMICROALBUMIN / CREATININE URINE HIBQNHqkbhbn89/04/2025 11:07 AM EDT HEMOGLOBIN O3BEztxctn07/04/2025 11:07 AM EDT BI MAMMOGRAM DIAGNOSTIC TOMOSYNTHESIS LEFT09/28/2024 2:30 PM EST LAB COLOGUARD?? COLON CANCER VNRPHSWmmuvdm15/04/2024 9:18 AM EST Colon cancer screening from Last 3 Months or Most Recently Relevant to Health Maintenance Results * (ABNORMAL) Microalbumin / creatinine urine ratio (05/30/2025 11:07 AM EDT) ComponentValueRef RangeTest MethodAnalysis TimePerformed AtPathologist SignatureURINE CREATININE, YHQ995.99mg/dLPROMEDICAMALB/CREAT RATIO29.50.0 - 30.0 mg/gPROMEDICAMICROALBUMIN, URINE4.1(H)0.0 - 1.9 mg/dLPROMEDICAComment: ?? PERFORMED AT [facility] [address],[place] [address] Specimen (Source)Anatomical Location / LateralityCollection Method / Volume Collection TimeReceived Time05/30/2025 11:07 AM EDT05/30/2025 1:29 PM EDT Narrative Authorizing ProviderResult TypeResult StatusMarc Mavis QUIROGA URINE ORDERABLES Final ResultPerforming OrganizationAddressCity/State/ZIP CodePhone Number [place] * (ABNORMAL) Hemoglobin A1c (05/30/2025 11:07 AM EDT)ComponentValueRef RangeTest MethodAnalysis TimePerformed AtPathologist SignatureHEMOGLOBIN A1C6.6(H)4.4 - 5.6 %PROMEDICAComment: ?ADA Guidelines ?Result ?HgbA1c ? Normal : ? less than 5.7 % ? Prediabetes : ?5.7 % ??to 6.4 % Diabetes : > 6.4 % ??Use with caution in patients with abnormal hemoglobin variants as ??the half-life of red blood cells and in vivo glycation rates are ??affected. AVERAGE HGFXUOV278ty/dLPROMEDICAComment: ?? PERFORMED AT [facility] [address],[place] [address] Specimen (Source)Anatomical Location / LateralityCollection Method / Volume Collection TimeReceived Time05/30/2025 11:07 AM EDT05/30/2025 1:29 PM EDT Narrative Authorizing ProviderResult TypeResult StatusIsac QUIROGA BLOOD ORDERABLES Final ResultPerforming OrganizationAddressCity/State/ZIP CodePhone Number [facility] * Left diagnostic mammogram with tomosynthesis (09/28/2024 2:30 PM EST) Anatomical RegionLateralityModalityBreastLeftMammographySpecimen (Source) Anatomical Location / LateralityCollection Method / VolumeCollection Time Received Time09/28/2024 2:30 PM EST Narrative 09/28/2024 2:29 PM EST THIS EXAM WAS PERFORMED AT [facility] WENDI LUCERO ??1960 [id number] EXAM: MAMM DIAGNOSTIC UNILAT LT W CAD, [...] There are scattered areas of fibroglandular density. ?? Magnification views confirm the presence of a cluster of small calcifications in the mid outer aspect of the left breast. ??These are not well visualized on the lateral view on the current study, however, these are suspicious for malignancy and stereotactic biopsy is recommended for further evaluation. IMPRESSION: A cluster small calcifications in the mid outer aspect of the left breast, suspicious for malignancy. ??Stereotactic biopsy is recommended for further evaluation. BI-RADS: BI-RADS 4 - Suspicious RECOMMENDATION: ??Biopsy is recommended. These findings were discussed with the patient at the time of the examination. Finalized by Robert Bustamante MD on 09/28/2024 2:29 PM 4 b BIOPSY FDA Accredited Performing Facility: [facility] - [facility]ography[facility] [facility] [address] [facility] [address] Procedure Note Radiology, Radiologist, - 09/28/2024 THIS EXAM WAS PERFORMED AT [facility] 1960 [id number] EXAM: MAMM DIAGNOSTIC UNILAT LT W CAD, 09/28/2024 1:43 PM CLINICAL INDICATIONS: Abnormal mammogram, Patient returns for additionalimaging of an abnormality visualized on screening mammography. COMPARISON: 08/27/2024 TECHNIQUE: Supplemental views of the left breast were obtained for diagnostic workup. Digital tomosynthesis images were obtained, with creation of synthetic 2Dviews. Computer aided detection was utilized. FINDINGS: There are scattered areas of fibroglandular density. Magnification views confirm the presence of a cluster of smallcalcifications in the mid outer aspect of the left breast. These are notwell visualized on the lateral view on the current study, however, theseare suspicious for malignancy and stereotactic biopsy is recommended forfurther evaluation. IMPRESSION: A cluster small calcifications in the mid outer aspect of the left breast, suspicious for malignancy. Stereotactic biopsy is recommended for further evaluation. BI-RADS: BI-RADS 4 - Suspicious RECOMMENDATION: Biopsy is recommended. These findings were discussed with the patient at the time of theexamination. Finalized by Robert Bustamante MD on 09/28/2024 2:29 PM 4 b BIOPSY FDA Accredited Performing Facility: [facility] [address] [facility] [address] Authorizing ProviderResult TypeResult StatusMarc Nadann MDIMG BI PROCEDURES Final Result * Cologuard?? colon cancer screening (08/30/2024 9:18 AM EST)ComponentValueRef RangeTest MethodAnalysis TimePerformed AtPathologist SignatureNONINV COLON CA DNA+OCC BLD SCRN STL-JFLHybpkhxaHthshwro34/13/2024 6:26 PM [employer] (CLIA #:[id number])Comment: NEGATIVE TEST RESULT. A negative Cologuard result indicates a low likelihood that a colorectal cancer (CRC) or advanced adenoma (adenomatous polyps with more advanced pre-malignant features) ??is present. The chance that a person with a negative Cologuard test has a colorectal cancer is less than 1in 1500 (negative predictive value >99.9%) or has an advanced adenoma is less than 5.3% (negative predictive value 94.7%). These data are based on a prospective cross-sectional study of 10,000individuals at average risk for colorectal cancer who were screened with both Cologuard and colonoscopy. (Gamal Wong al, N Engl J Med 2014;370(14):8347-4046) The normal value (reference range) for this assay is negative. COLOGUARD RE-SCREENING RECOMMENDATION: Periodic colorectal cancer screening is an important part ofpreventive healthcare for asymptomatic individuals at average risk for colorectal cancer. ??Following a negative Cologuard result, the [place] [employer] and U.S. Multi-Society Task Force screening guidelines recommend a Cologuard re-screening interval of 3 years. References: [place] [employer] Guideline for Colorectal Cancer Screening: https://www.cancer.or g/cancer/nmhud-pugxiu-eelqcj/eydgxyjzr-eynsxugbd-dfdxwwa/acs-recommendations.htm carl; Shay DK, Shanti CR, Pilar MckeeK, Colorectal Cancer Screening: Recommendations for Physicians and Patients from the U.S. Multi-Society Task Force on Colorectal Cancer Screening , Am J Gastroenterology 2017; 112:9274-8075. TEST DESCRIPTION: Composite algorithmic analysis of stool DNA-biomarkers with hemoglobin immunoassay. ?? Quantitative values of individual biomarkers are not reportable and are not associated with individual biomarker result reference ranges. Cologuard is intended for colorectal cancer screening ofadults of either sex, 45 years or older, who are at average-risk for colorectal cancer (CRC). Cologuard has been approved for use by the U.S. FDA. The performance of Cologuard was established in a cross sectional study of average-risk adults aged 50-84. Cologuard performance in patients ages 45 to 49 years was estimated by sub-group analysis of near-age groups. Colonoscopies performed for a positive result may find as the most clinically significant lesion: colorectal cancer [4.0%], advanced adenoma (including sessile serrated polyps greater than or equal to 1cm diameter) [20%] or non- advanced adenoma [31%]; or no colorectal neoplasia [45%]. These estimates are derived from a prospective cross-sectional screening study of 10,000 individuals at average risk for colorectal cancer who were screened with both Cologuard and colonoscopy. (Gamal Wong al, N Engl J Med 2014;370(14):0748-4954.) Cologuard may produce a false negative or false positive result (no colorectal cancer or precancerous polyp present at colonoscopy follow up). A negative Cologuard test result does not guarantee the absence of CRC or advanced adenoma (pre-cancer). The current Cologuard screening interval is every 3 years. ([place] [employer] and U.S. Multi-Society Task Force). Cologuard performance data in a 10,000 patient pivotal study using colonoscopy as the reference method can be accessed at the following location: www.Smartdate/results. Additional description of the Cologuard test process, warnings and precautions can be found at www.Gear4music.comrd.com. Specimen (Source)Anatomical Location / LateralityCollection Method / Volume Collection TimeReceived TimeStool specimen (specimen)08/30/2024 9:18 AM EST 09/01/2024 12:14 PM EST Narrative Authorizing ProviderResult TypeResult StatusIsac QUIROGA MOLECULAR DIAGNOSTICS ORDERABLESFinal ResultPerforming OrganizationAddressCity/State/ZIP CodePhone Number .[facility] (CLIA #:[id number]) [address] [place] [address], [facility] (CLIA #:[id number]) [address] [place] [address] from Last 3 Months or Most Recently Relevant to Health Maintenance Insurance Care Teams Team MemberRelationshipSpecialtyStart DateEnd Date Isac Gamble MD PCP - [facility]11/25/23 Isac Gamble MD [address] [place] [address] PCP - [facility]04/26/25
--- OUTSIDE RECORDS SUMMARY | 2025-09-26 09:21 | XMS_ITS | CCD ---
Author Organization [facility] Care Team Providers Care [employer] Repairer Name Role Phone DR ISAC SOOD Primary Care Unavailable YVONNE PETIT Admitting Unavailable YVONNE PETIT Attending Unavailable YVONNE PETIT Consulting Unavailable INDIGO, DR ISAC Rosario Admitting Unavailable INDIGO, DR ISAC Rosario Attending Unavailable INDIGO, DR ISAC Rosario Primary Care Unavailable INDIGO, DR ISAC Rosario Consulting Unavailable MD Isac Sood Primary Care Provider MD Avinash Quezada Admit Provider MD Avinash Quezada Attending Provider MD Isac Sood Primary Care Provider MD Avinash Quezada Admit Provider MD Avinash Quezada Attending Provider [phone] MARIAM Walsh Other Provider Unavailable MARIAM Mccray Other Provider Unavailable MARIAM Patel Other Provider Unavailable MARIAM Zheng Other Provider Unavailable MARIAM Rosado Other Provider Unavailable MARIAM Crane Other Provider Unavailable Efrains, DARSHAN Chamorro Other Provider DO Farideh Silva Other Provider [phone] MD Adolfo Phelps Other Provider DO [...] Alex Lynch Other Provider MD Panfilo Casillasayemir M Other Provider DARSHAN Noguera Other Provider DARSHAN Buenrostro Other Provider MD Leon Campo Other Provider MD Prosper Baer Other Provider DO Joni Krishnamurthy Other Provider DARSHAN Christianson Other Provider DO Raj Dietz Other Provider Ruby, MARIAM Devlin Other Provider Unavailable Kayla Blas Unavailable Isac Sood MD Primary Care Provider [phone] Isac Sood MD Unavailable Isac Sood MD Unavailable Angi Louis MA Unavailable Unavailable Isac Sood MD Primary Care Provider INDIGO, ISAC Referring Unavailable NADERER, ISAC Primary Care Unavailable NADERER, ISAC Referring Unavailable NADERER, ISAC Primary Care Unavailable Isac Sood MD Primary Care Provider [phone] Theo Lott MD Attending Provider Theo Lott MD Admit Provider Angi Louis MA Unavailable INDIGO, ISAC Attending Unavailable NADERER, ISAC Attending Unavailable NADERER, ISAC Attending Unavailable NADERER, ISAC Attending Unavailable NADERER, ISAC Referring Unavailable NADERER, ISAC Primary Care Unavailable NADEREDiana, ISAC Referring Unavailable NADERER, IASC Primary Care Unavailable NADEREDiana, ISAC Referring Unavailable NADERER, ISAC Primary Care Unavailable NADERER, ISAC Referring Unavailable NADERER, ISAC Primary Care Unavailable NADERER, ISAC Referring Unavailable NADERER, ISAC Primary Care Unavailable Theo Lott Admitting Unavailab Avinash Holguin Attending Unavailable Naderer, Isac Primary Care Unavailable Naderer, Isac Primary Care Unavailable Theo Lott Attending Unavailab Theo Maxwell Admitting Unavailab Isac Gamino MD Unavailable Isac Sood MD Primary Care Provider Isac Sood MD Attending Provider [phone] Medications Current Medications MedicationDrug Class(es)DatesSig (Normalized)Sig (Original)albuterol 0.21 mg/ml inhalation solution (2 sources)beta2-Adrenergic AgonistStart: 41-36-2516nfrt 3 mL by inhalation every six hours as needed for wheezingalbuterol (ACCUNEB) 0.63 mg/3 mL nebulizer solution Indications: COPD exacerbation ([facility]) Inhale3 mL (0.63 mg total) by nebulization every 6 (six) hours as needed for wheezing. 75 mL 04/26/2021 Active take 2 puff(s) by inhalation every six hours as needed for wheezingalbuterol (PROVENTIL HFA;VENTOLIN HFA) 90 mcg/actuation inhaler Inhale 2 puffs every 6 (six) hours as needed for wheezing. ActiveALPRAZolam 0.5 mg oral tablet (20 sources)BenzodiazepineStart: 07-01-2025 End: 63-09-7626fkso 1 tablet by mouth three times daily as needed for anxiety Alprazolam (Xanax) 0.5 mg tablet Active 0.5 MG PO Three times daily as needed for anxiety 90 25 11August 25, 2025 9:14am Generalized anxiety disorder Generalized anxiety disorder Complies with drug therapyStart: 05-09-2025 End: 99-74-1188eegd 1 tablet by mouth three times daily as needed for anxiety ALPRAZolam (Xanax) 0.5 MG tablet Indications: GEORGIE (generalized anxiety disorder) Take 1 tablet (0.5mg) by mouth 3 (three) times a day as needed for anxiety for up to 20 days 60 tablet 05/09/2025 ActiveStart: 03-24-2024 End: 15-95-8372qcmc 1 tablet by mouth three times daily as needed for anxiety ALPRAZolam (Xanax) 0.5 MG tablet Indications: GEORGIE (generalized anxiety disorder) ([facility]) Take 1 tablet (0.5 mg) by mouth 3 (three) times a day as needed for anxiety for up to 20 days 60 tablet 03/31/2025 04/20/2025 ActiveStart: 02-15-2023 End: 13-50-9125ncob 2 tablets by mouth twice daily as needed for anxiety Alprazolam 0.5 mg Tablet Discontinued 1 MG PO Twice daily as needed for Anxiety 0 0 February 15, 2023 12:00am September 27, 2023 7:15pmStart: 02-15-2023 End: 71-20-1120fphc 1 mg by mouth twice dailyAlprazolam Discontinued 1 MG PO Twice daily February 14, 2023 11:00pm September 27, 2023 6:15pmStart: 02-10-2023 End: 74-66-9619ftlo 1 tablet by mouth three times daily as needed for anxiety Alprazolam 1 mg tablet Discontinued 1 MG PO Three times daily as needed for Anxiety February 10, 2023 12:00am February 15, 2023 11:37amamLODIPine 10 mg oral tablet (1 source)Dihydropyridine Calcium Channel BlockerStart: 90-34-6162eqkc 1 tablet by mouth once dailyamLODIPine (NORVASC) 10 mg tablet Take 1 tablet (10 mg total) by mouth daily. 30 tablet 04/27/2021 ActiveARIPiprazole 15 mg oral tablet (12 sources)Atypical AntipsychoticStart: 42-86-8036zwvr 1 tablet by mouth once dailyAripiprazole 15 mg tablet Active 15 MG PO Daily 30 August 25, 2025 9:07am Complies with drug therapyStart: 08-23-2025 End: 32-21-7526qcev 1 tablet by mouth once dailyAripiprazole 10 mg tablet Discontinued 10 MG PO Daily August 23, 2025 12:00am August 2559:07am Start: 67-91-5052lhdh 1 tablet by mouth once dailyARIPiprazole (Abilify) 10 MG tablet Indications: Schizoaffective disorder, depressive type (HCC) Take 1 tablet (10 mg) by mouth Daily 30 tablet 3 05/19/2025 ActiveStart: 03-14-2025 End: 72-41-7171cywf 1 tablet by mouth once dailyARIPiprazole (Abilify) 5 MG tablet Indications: Schizoaffective disorder, depressive type (HCC) Take 1 tablet (5 mg) by mouth Daily 30 tablet 2 03/14/2025 05/19/2025 Discontinued Budesonide / formoterol (1 source)Corticosteroid, beta2-Adrenergic AgonistStart: 15-14-6848ugzk 2 puff(s) by inhalation twice dailybudesonide-formoteroL (SYMBICORT) 160-4.5 mcg/actuation inhaler Indications: Chronic bronchitis, unspecified chronic bronchitis type (CMS-HCC) Inhale 2 puffs 2 (two) times a day. 10.2 g 11 07/06/2021ctivecefdinir 300 mg oral capsule (1 source)Cephalosporin AntibacterialStart: 03-22-2025 End: 19-64-1143xedb 1 capsule by mouth in the morningcefdinir (Omnicef) 300 MG capsule Indications: Acute non-recurrent pansinusitis Take 1 capsule (300mg) by mouth in the morning and 1 capsule (300 mg) before bedtime. Do all this for 10 days. 20 capsule 03/22/2025 04/01/2025 Activecholecalciferol 0.05 mg oral tablet (20 sources)Vitamin DStart: 68-74-1195yowl 1 tablet by mouth once daily Cholecalciferol (Vitamin D3) 50 mcg (2,000 unit) tablet Active 50 MCG PO Daily August 23, 2025 12:00am Complies with drug therapyStart: 43-59-6819dfmv 1 tablet by mouth once dailycholecalciferol (Vitamin D-3) 50 MCG (2000 UT) tablet Indications: Vitamin D deficiency Take 1 tablet (50 mcg) by mouth Daily 90 tablet 3 08/17/2024 ActiveStart: 02-15-2023 End: 88-67-2009sges 1 capsule by mouth once dailyCholecalciferol (Vitamin D3) 50 mcg (2,000 unit) capsule Discontinued 50 MCG PO Daily 30 30 0 2022 12:00am September 27, 2023 7:15pmescitalopram 10 mg oral tablet (20 sources)Serotonin Reuptake InhibitorStart: 72-52-5763kdvv 1 tablet by mouth once daily at bedtimeescitalopram (Lexapro) 10 MG tablet TAKE 1 TABLET BY MOUTH ONCE DAILY AT BEDTIME FOR 30 DAYS 12/04/2024 ActiveStart: 10-02-2023 End: 00-77-3306wqsq 1 tablet by mouth once daily at bedtimeEscitalopram Oxalate 5 mg Tablet Discontinued 5 MG PO Daily at bedtime 15 2 October 02, 2023 1: 00am December 03, 2024 11:18amfluticasone propionate 0.05 mg/actuat metered dose nasal spray (10 sources)CorticosteroidStart: 02-20-2024 End: 52-04-7759fete 2 spray(s) nasal route once dailyfluticasone (Flonase) 50 MCG/ACT nasal spray Indications: Seasonal allergic rhinitis due to pollen A dminister 2 sprays into each nostril Daily Shake gently. Before first use, prime pump. After use, clean tip and replace cap. 16 g 3 02/20/2024 12/15/2024 Muuhtpnzvkuq51 actuat fluticasone furoate 0.1 mg/actuat / umeclidinium 0.0625 mg/actuat / vilanterol 0.025 mg/actuat dry powder inhaler (1 source)Anticholinergic, Corticosteroid, beta2-Adrenergic AgonistStart: 58-64-6993fvyq 1 puff(s) by inhalation once mkskvzyphmcnmllh-sojvkvfyj-menvnoyf (TRELEGY ELLIPTA) 100-62.5-25 mcg blister with device Indications: Chronic bronchitis, unspecified chronic bronchitis type (CMS-HCC) Inhale 1 puff daily. 1 each 11 06/27/2021 Activefurosemide 40 mg oral tablet (20 sources)Loop DiureticStart: 17-09-4861pzui 1 tablet by mouth once daily Furosemide 40 mg tablet Active 40 MG PO Daily August 23, 2025 12:00am Complies with drug therapyStart: 84-01-4411ycmr 1 tablet by mouth once daily furosemide (Lasix) 40 MG tablet Indications: Edema of both legs Take 1 tablet by mouth once daily 30 tablet 06/21/2025 ActiveStart: 65-10-4156kkiy 1 tablet by mouth once dailyfurosemide (Lasix) 40 MG tablet Indications: Edema of both legs Take 1 tablet by mouth once daily 30 tablet 05/23/2025 ActiveStart: 04-25-2025 take 1 tablet by mouth once dailyfurosemide (Lasix) 40 MG tablet Indications: Edema of both legs Take 1 tablet by mouth once daily 30 tablet 04/25/2025 Active Start: 10-13-2023 End: 61-79-8371sjcs 1 tablet by mouth once dailyfurosemide (Lasix) 40 MG tablet Indications: Edema of both legs Take 1 tablet (40 mg) by mouth Daily 30 tablet 3 12/24/2024 Active3 ml insulin glargine 100 unt/ml pen injector (20 sources)Insulin AnalogStart: 48-03-6732Wdflpqv Glargine (Lantus Solostar U- 100 Insulin) 100 unit/mL (3 mL) insulin pen Active 60 UNIT SUBCUT Every morning August 23, 2025 12:00am Complies with drug therapyStart: 98-22-1187Gxjvem SoloStar 100 UNIT/ML pen Indications: Type 2 diabetes mellitus with hyperglycemia, without long-term current use of insulin ([facility]) INJECT 60 UNITS SUBCUTANEOUSLY IN THE MORNING 15 mL 5 06/26/2025 ActiveStart: 03-19-2024 End: 08-33-9796mezjcsl glargine (Lantus SoloStar) 100 UNIT/ML pen Indications: Type 2 diabetes mellitus with hyperglycemia, without long-term current use of insulin ([facility]) Inject 60 Units under the skin in the morning. 15 mL 5 08/16/2024 06/26/2025 DiscontinuedStart: 10-02-2023 End: 43-22-4907Xzkldrn Glargine (Lantus Solostar U-100 Insulin) 100 unit/mL (3 mL) Insulin Pen Discontinued 20 UNIT SUBCUT Daily 15 0 October 02, 2023 1:00am August 23, 2025 2:39pmStart: 02-10-2023 End: 08-34-0690Kyqckba Glargine (Lantus Solostar U-100 Insulin) 100 unit/mL (3 mL) insulin pen Discontinued 50 UNIT SUBCUT Bedtime February 10, 2023 12:00am September 27, 2023 7:15pmStart: 04-26-2021 End: 79-21-6501Nqockra Glargine (Lantus Solostar U-100 Insulin) 100 unit/mL (3 mL) insulin pen Discontinued 40 UNIT SUBCUT 1 time daily September 30, 2023 1:00am October 02, 2023 1:12pm 40 units every eveningMounjaro 5 MG/0.5ML solution auto-injector (1 source)Start: 89-63-8898eygnhi 5 mg by subcutaneous injection every week Mounjaro 5 MG/0.5ML solution auto-injector Indications: Type 2 diabetes mellitus with hyperglycemia, without long-term current use of insulin ([facility]) INJECT 5 MG SUBCUTANEOUSLY ONCE A WEEK 4 mL 06/20/2025 ActiveOLANZapine 10 mg oral tablet (20 sources)Atypical AntipsychoticStart: 12-03-2024 End: 98-09-2691kdzg 1 tablet by mouth once daily in the eveningOLANZapine (ZyPREXA) 10 MG tablet TAKE 1 TABLET BY MOUTH ONCE DAILY AT 7 PM (1900) 12/04/2024 03/14/2025 DiscontinuedStart: 11-28-2024 End: 66-61-9356dbmd 1 tablet by mouth at bedtimeOlanzapine 2.5 mg tablet Discontinued 2.5 MG PO Bedtime November 28, 2024 1:00am December 03, 2024 11:18amStart: 25-97-6136fqhq 1 tablet by mouth at bedtimeOLANZapine (ZyPREXA) 2.5 MG tablet Indications: Mild recurrent major depression (HCC) (CMS/HCC) Take 1 tablet (2.5 mg) by mouth at bedtime 30 tablet 3 11/04/2024 ActiveStart: 02-08-2024 End: 38-51-0753tfyf 1 tablet by mouth at bedtimeOLANZapine (ZyPREXA) 2.5 MG tablet Take 1 tablet by mouth at bedtime 02/08/2024 11/04/2024 Discontinued (Reorder)ondansetron 4 mg disintegrating oral tablet (10 sources)Serotonin-3 Receptor AntagonistStart: 10-03-2023 End: 24-43-5561qhxd 1 tablet by mouth every eight hours as neededondansetron ODT (Zofran-ODT) 4 MG disintegrating tablet Take 4 mg by mouth every 8 (eight) hours ifneeded 10/03/2023 11/04/2024 Discontinued (Therapy completed)Start: 10-02-2023 End: 60-83-8059vmgu 1 tablet by mouth every six hours as needed for nausea and vomitingOndansetron 4 mg Tablet,Disintegrating Discontinued 4 MG PO Every 6 hours as needed for Nausea And Vomiting 30 15 0 October 02, 2023 1:00am November 28, 2024 2:20pmphentermine hydrochloride 37.5 mg oral tablet (6 sources)Sympathomimetic Amine AnorecticStart: 08-16-2024 End: 74-39-5256cfeq 35-35.9 tablets by mouth before mealtimephentermine (Adipex- P) 37.5 MG tablet Indications: Class 2 severe obesity due to excess calories wit h serious comorbidity and body mass index (BMI) of 35.0 to 35.9 in adult (CMS/HCC) Take 1 tablet (37.5 mg) by mouth in the morning. Take before meals. 30 tablet 08/16/2024 11/04/2024 Discontinued (Therapy completed)pregabalin 100 mg oral capsule (1 source)Start: 51-91-5243qjeyekbvqq (LYRICA) 100 mg capsule Indications: Fibromyalgia , Bilateral carpal tunnel syndrome Onecapsule at 8 PM each night 30 capsule 2 06/07/2021 ActiveSemaglutide (Ozempic) 2 mg/dose (8 mg/3 mL) pen injector (2 sources)Start: 81-48-5694mysqwk 2 mg by subcutaneous injection every week Semaglutide (Ozempic) 2 mg/dose (8 mg/3 mL) pen injector Active 2 MG SUBCUT .weekly September 30, 2023 12:00amStart: 20-90-6587Wyvuhfetrod (Ozempic) 2 mg/dose (8 mg/3 mL) pen injector Active MG SUBCUT September 30, 2023 12:00am Semaglutide, 2 MG/DOSE, (Ozempic, 2 MG/DOSE,) 8 MG/3ML solution pen-injector (20 sources)Start: 08-10-2024 End: 47-30-9886Wpivodcnzbg, 2 MG/DOSE, (Ozempic, 2 MG/DOSE,) 8 MG/3ML solution pen-injector Indications: Type 2 diabetes mellitus with diabetic microalbuminuria, without long-term current use of insulin (HCC) Inject 3 mL under the skin every 7 (seven) days 3 mL 5 08/10/2024 05/19/2025 Discontinued Start: 92-66-6088Nicnxqabval, 2 MG/DOSE, (Ozempic, 2 MG/DOSE,) 8 MG/3ML solution pen-injector Indications: Type 2 diabetes mellitus with diabetic microalbuminuria, without long-term current use of insulin (HCC) Inject 3 mL under the skin every 7 (seven) days 3 mL 5 08/10/2024 ActiveStart: 08-10-2024 Semaglutide, 2 MG/DOSE, (Ozempic, 2 MG/DOSE,) 8 MG/3ML solution pen-injector Indications: Type 2 diabetes mellitus with diabetic microalbuminuria, without long-term current use of insulin (CMS/HCC) Inject 3 mL under the skin every 7 (seven) days 3 mL 5 08/10/2024 Activetelmisartan 20 mg oral tablet (1 source)Angiotensin 2 Receptor BlockerStart: 11-70-8088tdvl 1 tablet by mouth once dailyTelmisartan 20 mg tablet Active 20 MG PO Daily 30 August 25, 2025 12:00am Complies with drug ajhfdnc54 actuat tiotropium 0.0025 mg/actuat inhalation spray (1 source)AnticholinergicStart: 18-67-8808dmhn 2 puff(s) by inhalation once dailytiotropium bromide (SPIRIVA RESPIMAT) 2.5 mcg/actuation mist Inhale 2 puffs daily. 4 g 11 07/06/2021 ActiveTirzepatide (1 source)Start: 39-01-1185Fqapnjqlmov 7.5 mg/0.5 mL pen injector Active 7.5 MG SUBCUT every week 2 August 25, 2025 9:06am Complies with drug therapy Tirzepatide (Mounjaro) 5 MG/0.5ML solution auto-injector (3 sources)Start: 96-67-9953wxobus 5 mg by subcutaneous injection every week Tirzepatide (Mounjaro) 5 MG/0.5ML solution auto-injector Indications: Type 2 diabetes mellitus withhyperglycemia, without long-term current use of insulin (HCC) Inject 5 mg under the skin 1 (one) time per week 2 mL 05/19/2025 Active traZODone hydrochloride 100 mg oral tablet (6 sources)Serotonin Reuptake InhibitorStart: 83-20-0136yrnl 1 tablet by mouth every twenty-four hourstraZODone HCl 100 MG 1 tablet at bedtime Orally Once a day for 30 days Sep, ActiveStart: 10-02-2023 End: 00-91-8770siej 1 tablet by mouth once daily at bedtimeTrazodone 50 mg Tablet Discontinued 50 MG PO Daily at bedtime 15 10 11October 02, 2023 1:00am November 28, 2024 2:21pm Completed/Discontinued Medications MedicationDrug Class(es)DatesSig (Normalized)Sig (Original)docusate sodium 100 mg oral capsule (3 sources)Start: 10-02-2023 End: 02-24-8228tngx 1 capsule by mouth twice daily as needed for constipation Docusate Sodium 100 mg Capsule Discontinued 100 MG PO Twice daily as needed for Constipation 30 15 October 02, 2023 1:00am November 28, 2024 2:20pm Dulaglutide (1 source)GLP-1 Receptor AgonistStart: 09-29-2023 End: 61-52-8464Hkgjkurqcic (Trulicity) 3 mg/0.5 mL pen injector Discontinued 3 MG SUBCUT every week September 29, 2023 1:00am September 30, 2023 5:30pm Dulaglutide (Trulicity) 3 mg/0.5 mL pen injector (2 sources)Start: 09-29-2023 End: 77-74-2103Vabzvkdlzho (Trulicity) 3 mg/0.5 mL pen injector Discontinued 3 MG SUBCUT every week September 29, 2023 12:00am September 30, 2023 4:30pm ergocalciferol 1.25 mg oral capsule (13 sources)Provitamin D2 CompoundStart: 10-02-2023 End: 13-23-9355gwil 1 capsule by mouth every weekErgocalciferol (Vitamin D2) 1,250 mcg (50,000 unit) Capsule Discontinued 1250 MCG PO Q7D 5 30 0 October 02, 2023 1:00am November 28, 2024 2:20pm24 hr metFORMIN hydrochloride 500 mg extended release oral tablet (20 sources)BiguanideStart: 07-04-2025 End: 84-57-9985sgme 1 tablet by mouth twice dailyMetformin 500 mg tablet extended release 24 hr Discontinued 500 MG PO Twice daily 60 5 July 04, 2025 12:00am August 23, 2025 2:40pmStart: 85-90-7898aobk 2 tablets by mouth twice daily at bedtimemetFORMIN XR (Glucophage-XR) 500 MG 24 hr tablet Indications: Type 2 diabetes mellitus with hyperglycemia, with long-term current use of insulin (HCC) TAKE 2 TABLETS BY MOUTH TWICE DAILY (MORNING ANDBEDTIME) 120 tablet 05/23/2025 ActiveStart: 36-26-3344kooq 2 tablets by mouth every twenty-four hours in the morningmetFORMIN XR (Glucophage-XR) 500 MG 24 hr tablet Indications: Type 2 diabetes mellitus with hyperglycemia, with long-term current use of insulin (HCC) Take 2 tablets (1,000 mg) by mouth in the morning and 2 tablets (1,000 mg) before bedtime. 120 tablet 5 10/18/2024 ActiveStart: 10-02-2023 End: 21-97-0323ucar 2 tablets by mouth at breakfastMetformin 500 mg Tablet Discontinued 1000 MG PO With breakfast and supper 60 15 October 02, 2023 1:00am November 28, 2024 2:25pmStart: 31-69-1676eggt 1000 mg by mouth at breakfastMetformin Active 1000 MG PO With breakfast and supper 60 15 October 02, 2023 12:00amStart: 09-29-2023 End: 05-65-1422qhvv 5 tablets by mouth every twenty-four hours at breakfast Metformin 500 mg tablet extended release 24 hr Discontinued 100 MG PO With breakfast and supper September 29, 2023 1:00am October 02, 2023 1:12pmStart: 09-29-2023 End: 55-69-1677acgd 100 mg by mouth at breakfastMetformin Discontinued 100 MG PO With breakfast and supper September 29, 2023 12:00am September 12:12pm Start: 02-10-2023 End: 98-12-1928Ztzoprvxz 500 mg tablet extended release 24 hr Discontinued 1000 MG PO TWICE DAILY WITH MEALS 2022 12:00am September 27, 2023 7:15pm Start: 02-10-2023 End: 92-39-8261oung 1000 mg by mouth twice daily at mealtimeMetformin Discontinued 1000 MG PO TWICE DAILY WITH MEALS February 09, 2023 11:00pm September 27, 2023 6:15pmtake 1 tablet by mouth every twelve hoursmetFORMIN HCl 1000 MG 1 tablet with a meal Orally BID Activenicotine 2 mg chewing gum (2 sources)Cholinergic Nicotinic AgonistStart: 12-03-2024 End: 08-84-4311Hzlfdngv (Polacrilex) 2 mg Gum Discontinued 2 MG BUCCAL Q2H as needed for Nicotine Cravings December 03, 2024 1:00am August 23, 2025 2:39pm24 hr paliperidone 6 mg extended release oral tablet (6 sources)Atypical AntipsychoticStart: 02-14-2024 End: 16-30-3638ylmqezqqxjtn (Invega) 6 MG 24 hr tablet 02/14/2024 08/16/2024 DiscontinuedStart: 10-02-2023 End: 17-86-8084fmqc 1 tablet by mouth once daily at bedtimePaliperidone 6 mg Tablet Extended Release 24 Hr Discontinued 6 MG PO Daily at bedtime 15 15 2 October 02, 2023 1:00am November 28, 2024 2:20pm24 hr QUEtiapine 50 mg extended release oral tablet (6 sources)Atypical AntipsychoticStart: 10-16-2023 End: 37-25-8731XDNrbtwnos XR (SEROquel XR) 50 MG 24 hr tablet 10/16/2023 08/16/2024 DiscontinuedStart: 71-84-9129iwun 1 tablet by mouth every twenty-four hoursQUEtiapine Fumarate ER 50 MG 1 tablet in the evening Orally Once a day for 30 days Sep, ActiverisperiDONE 2 mg oral tablet (4 sources)Atypical AntipsychoticStart: 02-15-2023 End: 09-09-1439miiu 1 tablet by mouth at bedtimeRisperidone 2 mg Tablet Discontinued 2 MG PO Bedtime 30 30 0 February 15, 2023 12:00am September 7:15pmSemaglutide (4 sources)Start: 02-10-2023 End: 22-74-3520Jgcywrtlodr (Ozempic) 1 mg/dose (4 mg/3 mL) pen injector Discontinued MG SUBCUT February 10, 2023 12:00am September 27, 2023 7:15pmStart: 02-10-2023 End: 04-06-0840Pcipzszkwhu (Ozempic) 1 mg/dose (4 mg/3 mL) pen injector Discontinued MG SUBCUT February 09, 2023 11:00pm September 27, 2023 6:15pmStart: 54-09-4852Vmqphmawkxu (Ozempic) 1 mg/dose (4 mg/3 mL) pen injector Active MG SUBCUT February 10, 2023 12:00amSemaglutide (1 source)Start: 09-30-2023 End: 95-04-1871sxkzeo 2 mg by subcutaneous injection every weekSemaglutide (Ozempic) 2 mg/dose (8 mg/3 mL) pen injector Discontinued 2 MG SUBCUT .weekly September 30, 2023 1:00am August 23, 2025 2:40pmTirzepatide (1 source)Start: 08-23-2025 End: 35-56-9277Qtzzvbysagj (Mounjaro) 5 mg/0.5 mL pen injector Discontinued 5 MG SUBCUT every week August 23, 2025 12:00am August 25, 2025 9:06am24 hr venlafaxine 150 mg extended release oral capsule (12 sources)Serotonin and Norepinephrine Reuptake InhibitorStart: 02-15-2023 End: 95-90-9818pksy 1 capsule by mouth once dailyVenlafaxine 75 mg Capsule,Extended Release 24hr Discontinued 75 MG PO Daily 30 30 0 February 15, 2023 12:00am September 27, 2023 7:15pmStart: 02-10-2023 End: 63-66-6131gykz 1 capsule by mouth once dailyVenlafaxine 150 mg capsule,extended release 24hr Discontinued 150 MG PO Daily 30 30 0 February 15, 2023 11:36am September 27, 2023 7:15pm Problems Active Problems Problem ClassificationProblemDateDocumented DateEpisodic/ChronicAnxiety disorders (20 sources)Generalized anxiety disorder; Translations: [Generalized anxiety disorder]Onset: 241602-61-7247UchleylBtneyja dysrhythmias (1 source)Paroxysmal supraventricular tachycardia; Translations: [Paroxysmal supraventricular tachycardia]Onset: 808810-01-0850ZlwpxsfGffkkyu obstructive pulmonary disease and bronchiectasis (1 source)Acute exacerbation of chronic obstructive airways disease; Translations: [Chronic obstructive pulmonary disease with (acute) exacerbation] Onset: 598863-34-8611ZziejpaUpjnopgn mellitus with complications (20 sources)Type 2 diabetes mellitus; Translations: [Type 2 diabetes mellitus with other diabetic kidney complication]Onset: 876670-53-4400Gfhtkpk Diabetes mellitus without complication (8 sources)Diabetes mellitus; Translations: [Type 2 diabetes mellitus without complications]93-68-9563AwrtlceKblfxxwfi of lipid metabolism (1 source)Hyperlipidemia; Translations: [Other hyperlipidemia]Onset: 09-07-2015 24-01-6770BelnuajQcpkydsxo hypertension (20 sources)Benign essential hypertension; Translations: [Essential (primary) hypertension]Onset: 251625-99-7784EldqatpGobq and other crystal arthropathies (20 sources)Gouty arthropathy; Translations: [Gout, unspecified]Onset: 237084-36-3979BaqesjbNrjiebjbafbtd mental health disorders (20 sources)Primary insomnia; Translations: [Primary insomnia]Onset: 10-08-2023 79-01-0920XauqopmEesr disorders (20 sources)Recurrent major depressive episodes, mild ; Translations: [Major depressive disorder, recurrent, mild]Onset: hronic Nutritional deficiencies (20 sources)Vitamin D deficiency; Translations: [Vitamin D deficiency, unspecified]Onset: 070499-22-6480FdeorznGbgpaehotjqgof (1 source)Osteoarthritis of joint of bilateral hands; Translations: [Primary osteoarthritis, right hand]Onset: 404605-79-0618WfwellwEzkve aftercare (2 sources)Other long-term (current) drug therapy; Translations: [OTH NURSING HOME 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 THERAPY]Onset: 34-21-3156FlkphoemIguwu aftercare (1 source)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; Translations: [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 DX]Onset: 71-83-2103NglciukiWpdyk lower respiratory disease (20 sources)Nodule of lung; Translations: [Solitary pulmonary nodule]Onset: 820107-94-3741GsjwpqpvAwjzq non-traumatic joint disorders (20 sources)Hip pain; Translations: [Pain in right hip]Onset: 11-25-2023 78-92-5289EngzmtbzKgvie nutritional; endocrine; and metabolic disorders (1 source)Body mass index 30+ - obesity; Translations: [Obesity, unspecified] Onset: 053126-64-9980SksvassAndyx nutritional; endocrine; and metabolic disorders (20 sources)Severe obesity; Translations: [Class 2 severe obesity due to excess calories with serious comorbidity and body mass index (BMI) of 35.0 to 35.9 in adult ([facility])]Onset: 709176-91-5650TcnlvzrNnyow nutritional; endocrine; and metabolic disorders (1 source)Morbid (severe) obesity due to excess calories; Translations: [Morbid (severe) obesity due to excess calories]Onset: 65-88-3533ZqsklxsSjita nutritional; endocrine; and metabolic disorders (1 source)Body mass index (BMI) 37.0-37.9, adult; Translations: [Body mass index (BMI) 37.0-37.9, adult]Onset: 45-85-3115DzpzsnlNvith screening for suspected conditions (not mental disorders or infectious disease) (20 sources)Patient encounter status; Translations: [Encounter for screening mammogram for malignant neoplasm of breast]Onset: 584108-59-2048Blfinatn Other upper respiratory disease (20 sources)Allergic rhinitis due to pollen; Translations: [Allergic rhinitis due to pollen]Onset: 194901-04-1206TqpwkmeGtfuuhuq codes; unclassified (20 sources)Bilateral lower limb edema; Translations: [Localized edema]Onset: 075153-70-2433OgcirixoKduelpok codes; unclassified (1 source)Localized edema; Translations: [Edema]40-25-3398KkpolztbRqsnumwa codes; unclassified (3 sources)Insomnia; Translations: [Insomnia, unspecified]EpisodicResidual codes; unclassified (1 source)Insomnia, unspecifiedEpisodicRheumatoid arthritis and related disease (20 sources)Rheumatoid arthritis; Translations: [Rheumatoid arthritis, unspecified]Onset: 165841-35-3055WhjsohkOyolimpumfvas and other psychotic disorders (20 sources)Delusional disorders; Translations: [Psychotic disorder]Onset: 76-39-6713FsfdafhKrtblowbv and history of mental health and substance abuse codes (9 sources)Ex-smoker; Translations: [Personal history of nicotine dependence] Onset: 493295-25-8296ZrbthhqtNdvgdpubyhn; intervertebral disc disorders; other back problems (20 sources)Low back pain co-occurrent with neuralgia of left sciatic nerve; Translations: [Lumbago with sciatica, left side]Onset: EpisodicUnclassified (1 source)Obesity, class 2; Translations: [Obesity, class 2]Onset: 05-30-2025 Past or Other Problems Problem ClassificationProblemDateDocumented DateEpisodic/ChronicGenitourinary symptoms and ill-defined conditions (1 source)Proteinuria, unspecified; Translations: [Proteinuria, unspecified] Onset: 56-25-7378LbymusznIvtbipjnvrtfn and screening for infectious disease (1 source)Rheumatoid factor positive; Translations: [Other specified abnormal immunological findings in serum]Onset: 817997-52-7303WunvspasLkwmcrikffn chest pain (1 source)Chest pain; Translations: [Chest pain, unspecified]Onset: 09-07-2015 94-30-8320KyrdcdmfAkcku aftercare (20 sources)Long-term current use of drug therapy; Translations: [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]Onset: 412350-15-8716PbzocnsaVlcyd connective tissue disease (1 source)Fibromyalgia; Translations: [Fibromyalgia]Onset: 567144-79-7147 EpisodicOther non-traumatic joint disorders (1 source)Pain of left wrist; Translations: [Pain in left wrist]Onset: 173578-28-6189YjdzztnwUiqze non-traumatic joint disorders (1 source)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; Translations: [Pain in unspecified joint]Onset: 787965-21-0992Ybjefebm Other skin disorders (1 source)Subcutaneous nodule; Translations: [Localized swelling, mass and lump, unspecified]Onset: 748823-00-8922UjwantefIgqmg upper respiratory infections (20 sources)Acute pansinusitis; Translations: [Acute pansinusitis, unspecified] Onset: 11-25-2023 Resolved: 396395-73-6955Wvgnzurg Results Test NameValueInterpretationReference RangeFacilityBASIC METABOLIC PANELon 94-20-0307Acnrp gap [Moles/Vol]11 mmol/LNormal5-15[facility] Comment on above:Performed By: #### BMP #### [facility] (TT) [address] [place] [address] VIRCalcium [Mass/Vol]9.2 mg/dLNormal8.5-10.5ProMedica Miller Children'S HospitalComment on above:Performed By: #### BMP #### [facility] ([facility]) [address] [place] [address] VIRChloride [Moles/Vol]104 mmol/BWadlwh37-345DdlGcpjfqBaylor Scott & White [facility] Center Fort WorthComment on above:Performed By: #### BMP #### [facility] ([facility]) [address] [place] [address] VIRCO2 [Moles/Vol]27 mmol/RXjdfsa82-62OldGgrzpf [facility] HospitalComment on above:Performed By: #### BMP #### [facility] ([facility]) [address] [place] [address] VIRCreatinine [Mass/Vol]0.75 mg/dLNormal0.40-1.00Premier HealthComment on above:Result Comment: METHOD TRACEABLE TO IDMS STANDARDPerformed By: #### BMP #### [facility] ([facility]) [address] [place] [address] VIRGFR/1.73 sq M.predicted among non-blacks MDRD (S/P/Bld) [Vol rate/Area]88 mL/min/{1.73_m2}Normal>=60Premier HealthComment on above:Result Comment: Reported eGFR is based on the CKD-EPI 2020 equation that does not use a race coefficient.Performed By: #### BMP #### [facility] ([facility]) [address] [place] [address] VIRGlucose [Mass/Vol]193 mg/tYLnyg76-58MajMilvddBaylor Scott & White [facility] Saints [facility] Center Fort WorthComment on above:Performed By: #### BMP #### [facility] ([facility]) [address] [place] [address] VIRPotassium [Moles/Vol]4.2 mmol/LNormal3.5-5.0Premier HealthComment on above:Performed By: #### BMP #### [facility] ([facility]) [address] [place] [address] VIRSodium [Moles/Vol]142 mmol/MSzeyoa312-287IhzOryano [facility]ont HospitalComment on above:Performed By: #### BMP #### [facility] ([facility]) [address] [place] [address] VIRUrea nitrogen [Mass/Vol]13 mg/dLNormal5-27ProBaylor Scott & White All Saints Medical Center Fort WorthComment on above:Performed By: #### BMP #### [facility] ([facility]) [address] [place] [address] VIRCBC W Auto Differential panel (Bld)on [id number] BASOPHIL0.1 10*3/uL0.0 - 0.2 10*3/uLNOMS HealthcareBasophils/100 WBC (Bld)0.7 % NOM HealthcareDIFFERENTIAL TYPEAUTOMATED DIFFERENTIALNONH HealthcareComment on above: PERFORMED AT [place] [address],[place] [address] Eosinophils (Bld) [#/Vol]0.3 10*3/uL0.0 - 0.4 10*3/uLNOMS Healthcare Eosinophils/100 WBC (Bld)3.3 %NOM HealthcareErythrocyte distribution width (RBC) [Ratio]15.4 %High11.5 - 15 %NOMS HealthcareHematocrit (Bld) [Volume fraction]37.7 %35 - 47 %NOM HealthcareHemoglobin (Bld) [Mass/Vol]12.4 g/dL11.7 - 15.5 g/dLNONH HealthcareInterpretation and review of laboratory results AbnormalNOMS HealthcareLymphocytes (Bld) [#/Vol]2.3 10*3/uL1.0 - 3.5 10*3/uLNOMS HealthcareLymphocytes/100 WBC (Bld)27.3 %NOMHarry S. Truman Memorial Veterans' HospitalMCH (RBC) [Entitic mass]28.2 pg27 - 34 pgNONH HealthcareMCHC (RBC) [Mass/Vol]32.8 g/dL32 - 36 g/dL NOMHarry S. Truman Memorial Veterans' HospitalMCV (RBC) [Entitic vol]86 fL80 - 100 fLNONH HealthcareMonocytes (Bld) [#/Vol]0.4 10*3/uL0.0 - 0.9 10*3/uLNOMS HealthcareMonocytes/100 WBC (Bld) 4.6 %NOMS HealthcareNeutrophils (Bld) [#/Vol]5.5 10*3/uL1.5 - 6.6 10*3/uLNOMS HealthcareNeutrophils/100 WBC (Bld)64.1 %NOMS HealthcarePlatelet mean volume (Bld) [Entitic vol]9.5 fL7 - 12 fLNONH HealthcarePlatelets (Bld) [#/Vol]224 10*3/uLNOMS HealthcareRBC (Bld) [#/Vol]4.39 10*6/uLMOUNTAIN VIEW HOSPITAL HealthcareWBC corrected for nucl RBC Auto (Bld) [#/Vol]8.6NOJefferson Memorial Hospital HealthcareCBC WITH AUTO DIFFERENTIALon 79-54-3569MRSLIFESO ABSOLUTE COUNT (10*3/UL) BY AUTOMATED COUNT 0.1 10*3/uLNormal0.0-0.2PMercy Health St. Elizabeth Youngstown HospitalComment on above:Performed By: #### CBCA #### [facility] ([facility]) [address] [place] [address] VIRBASOPHILS RELATIVE PERCENT BY AUTOMATED COUNT0.7 %Normal Premier HealthComascension river [facility] hospital on above:Performed By: #### CBCA #### [facility] ([facility]) [address] [place] [address] VIRCELLAVISION DIFFERENTIAL TYPEAUTOMATED DIFFERENTIALNormal Premier HealthComment on above:Performed By: #### CBCA #### [facility] ([facility]) [address] [place] [address] VIREosinophils (Bld) [#/Vol]0.3 10*3/uLNormal0.0-0.4Premier HealthComascension river district hospital on above:Performed By: #### CBCA #### [facility] ([facility]) [address] [place] [address] VIREOSINOPHILS RELATIVE PERCENT BY AUTOMATED COUNT3.3 %Normal Premier HealthComment on above:Performed By: #### CBCA #### [facility] ([facility]) [address] [place] [address] VIRErythrocyte distribution width (RBC) [Ratio]15.4 %High 11.5-15Premier HealthComment on above:Performed By: #### CBCA #### [facility] ([facility]) [address] [place] [address] VIRHematocrit (Bld) [Volume fraction]37.7 %Glvlhh13-64BtvZiupnuBaylor Scott & White All Saints Medical Center Fort WorthComment on above:Performed By: #### CBCA #### [facility] ([facility]) [address] [place] [address] VIRHemoglobin (Bld) [Mass/Vol]12.4 g/zTGvieod93.7-15.5PMercy Health St. Elizabeth Young[facility] HospitalComment on above:Performed By: #### CBCA #### [facility] ([facility]) [address] [place] [address] VIRLYMPHOCYTES ABSOLUTE COUNT (10*3/UL) BY AUTOMATED COUNT2.3 10*3/uLNormal1.0-3.5PMercy Health St. Elizabeth Young[facility] HospitalComment on above:Performed By: #### CBCA #### [facility] ([facility]) [address] [place] [address] VIRLYMPHOCYTES RELATIVE PERCENT BY AUTOMATED COUNT27.3 %Normal Premier HealthComment on above:Performed By: #### CBCA #### [facility] ([facility]) [address] [place] [address] VIRMCH (RBC) [Entitic mass]28.2 bzLwthei73-16WbzMakpbjPremier HealthComment on above:Performed By: #### CBCA #### [facility] ([facility]) [address] [place] [address] VIRMCHC (RBC) [Mass/Vol]32.8 g/kMEebdht73-21BpkIakptjPremier HealthComment on above:Performed By: #### CBCA #### [facility] ([facility]) [address] [place] [address] VIRMCV (RBC) [Entitic vol]86 mWIcdisk52-794PxgRkdgfd [facility]ont HospitalComment on above:Performed By: #### CBCA #### [facility] ([facility]) [address] [place] [address] VIRMONOCYTES ABSOLUTE COUNT (10*3/UL) BY AUTOMATED COUNT0.4 10*3/uLNormal0.0-0.9Prem[facility] HealthComascension river district hospital on above:Performed By: #### CBCA #### [facility] ([facility]) [address] [place] [address] VIRMONOCYTES RELATIVE PERCENT BY AUTOMATED COUNT4.6 %Normal Premier HealthComment on above:Performed By: #### CBCA #### [facility] ([facility]) [address] [place] [address] VIRNEUTROPHILS ABSOLUTE COUNT BY AUTOMATED COUNT5.5 10*3/uL Normal1.5-6.6Premier HealthComascension river district hospital on above:Performed By: #### CBCA #### [facility] ([facility]) [address] [place] [address] VIRNEUTROPHILS RELATIVE PERCENT BY AUTOMATED COUNT64.1 %Normal Premier HealthComment on above:Performed By: #### CBCA #### [facility] ([facility]) [address] [place] [address] VIRPlatelet mean volume (Bld) [Entitic vol]9.5 fLNormal7-12 Premier HealthComment on above:Performed By: #### CBCA #### [facility] ([facility]) [address] [place] [address] VIRPlatelets (Bld) [#/Vol]224 10*3/mUGpdiyy137-139BxtNealny [facility]ont HospitalComment on above:Performed By: #### CBCA #### [facility] ([facility]) [address] [place] [address] VIRRBC COUNT4.39 X10E12/LNormal3.8-5.2ProMedica Miller Children'S HospitalComment on above:Performed By: #### CBCA #### [facility] ([facility]) [address] [place] [address] VIRWBC (Bld) [#/Vol]8.6 10*3/uLNormal4-11Premier HealthComment on above:Performed By: #### CBCA #### [facility] ([facility]) [address] [place] [address] VIRHEMOGLOBIN A1Con 64-56-2210Fcjdyrq [Mass/Vol]143 mg/dLNoal Premier HealthComment on above:Performed By: #### HA1C #### [facility] ([facility]) [address] [place] [address] RMUBzC5t (Bld) [Mass fraction]6.6 %High4.4-5.6Premier HealthComment on above:Result Comment: ADA Guidelines Result HgbA1c Normal : less than 5.7 % Prediabetes : 5.7 % to 6.4 % Diabetes : > 6.4 % Use with caution in patients with abnormal hemoglobin variants as the half-life of red blood cells and in vivo glycation rates are affected.Performed By: #### HA1C #### [facility] ([facility]) [address] [place] [address] VIRLIPID PROFILEon 86-21-2433Nkeliofwgbv [Mass/Vol]175 mg/dL Csxuho672-373WftEoeuchBaylor Scott & White All Saints [facility] Center Fort WorthComment on above:Performed By: #### LIPR #### [facility] ([facility]) [address] [place] [address] VIRCholesterol in HDL [Mass/Vol]46 mg/dLNormal>39ProBaylor Scott & White All Saints Medical Center Fort WorthComment on above:Result Comment: HDL <40 mg/dL - High Risk HDL > or = 40mg/dL- Desirable HDL >60 mg/dL - Negative RiskPerformed By: #### LIPR #### [facility] ([facility]) [address] [place] [address] VIRCholesterol in LDL [Mass/Vol]102 mg/dLNormal<130ProBaylor Scott & White All Saints Medical Center Fort WorthComment on above:Result Comment: LDL <100 mg/dL - Desirable LDL >160 mg/dL - High RiskPerformed By: #### LIPR #### [facility] ([facility]) [address] [place] [address] VIRCHOLESTEROL:HDL3.1Gsnhak3.0-5.0[facility] Comment on above:Performed By: #### LIPR #### [facility] ([facility]) [address] [place] [address] VIRTriglyceride [Mass/Vol]135 mg/jYBciofw37-689MqbLyybdm [facility]ont HospitalComment on above:Performed By: #### LIPR #### [facility] ([facility]) [address] [place] [address] VIRVERY LOW ELQBIVJVWCD61 mg/dLNormal0-30ProBaylor Scott & White All Saints [facility] Center Fort WorthComment on above:Performed By: #### LIPR #### [facility] ([facility]) [address] [place] [address] VIRLIVER PANELon 20-37-1939Etpfngo [Mass/Vol]4.1 g/dLNormal 3.2-5.3PMercy Health St. Elizabeth [facility] HospitalComment on above:Performed By: #### LIVR ####[facility] ([facility])[address], [place] [address] VIRALP [Catalytic activity/Vol]66 U/TWaabpo33-411QypIcnjbtBaylor Scott & White [facility] Fort WorthComment on above:Performed By: #### LIVR ####[facility] ([facility])[address], [place] [address] VIRALT [Catalytic activity/Vol]7 U/LNormal<=31PMercy Health St. Elizabeth Youngstown HospitalComment on above:Performed By: #### LIVR ####[facility] ([facility])[address], [place] [address] VIRAST [Catalytic activity/Vol]11 U/LNormal<=41ProBaylor Scott & White All Saints [facility] Center Fort WorthComment on above:Performed By: #### LIVR ####[facility] ([facility])[address], [place] [address] VIRBilirubin [Mass/Vol]0.3 mg/dLNormal0.3-1.2PMercy Health St. Elizabeth Young[facility] HospitalComment on above: Performed By: #### LIVR ####[facility] ([facility])[address], [place] [address] VIRBilirubin.indirect [Mass/Vol]0.1 mg/dLNormal <=0.4Premier HealthComment on above:Performed By: #### LIVR ####[facility] ([facility])[address], [place] [address] VIRProtein [Mass/Vol]7.3 g/dLNormal6.0-8.0[facility] Comment on above:Performed By: #### LIVR ####[facility] ([facility])[address], [place] [address] VIRMICROALBUMIN / CREATININE URINE RATIOon 83-40-5462Sozkjah DL <= 20 mg/L (U) [Mass/Vol]4.1 mg/dLHigh0.0-1.9 ProMSan Diego County Psychiatric HospitalComment on above:Performed By: #### MALBU #### [facility] ([facility]) [address] [place] [address] VIRMALB/CREAT RATIO29.5 mg/gNormal0.0-30.0Premier HealthComment on above:Performed By: #### SANTO #### [facility] ([facility]) [address] [place] [address] VIRURINE CREATININE,CVU516.99 mg/dLNormalProBaylor Scott & White [facility] Fort WorthComment on above:Performed By: #### SANTO #### [facility] ([facility]) [address] [place] [address] VIRTSH WITH REFLEXon 27-72-2593DTU3.09 uIU/mLNormal0.49-4.67 Premier HealthComment on above:Performed By: #### TSHR #### [facility] ([facility]) [address] [place] [address] VIRHGB A1C (GLYCO-HGB)on 77-01-9111Cmpufqe [Mass/Vol]157 mg/dL NormalPremier HealthComment on above:Performed By: #### AKOSUA #### [facility] ([id number]) [address] [place], [place] [address]WdF3u (Bld) [Mass fraction]7.1 %High4.4-5.6Premier HealthComment on above:Result Comment: NOTE ADA Guidelines Result HgbA1c Normal : less than 5.7 % Prediabetes : 5.7 % to 6.4 % Diabetes : > 6.4 % Use with caution in patients with abnormal hemoglobin variants as the half-life of red blood cells and in vivo glycation rates are affected.Performed By: #### HA1C #### [facility] ([id number]) [address] [place], [place] [address]NdO4e (Bld) [Mass fraction]on 44-66-2434Avibvrc glucose Estimated from glycated hemoglobin (Bld) [Mass/Vol]157 mg/dLSaint John's Breech Regional Medical Center Comment on above:PERFORMED AT [facility] [address],[place], [place] [address]Xtriwexfkoeybb and review of laboratory resultsAbnoMercyhealth Mercy HospitalHemoglobin A1con 50-81-5537NyU6p (Bld) [Mass fraction] 7.1 %High4.4 - 5.6 %[facility] Medical CenterComment on above:NOTE ADA Guidelines Result HgbA1c Normal : less than 5.7 % Prediabetes : 5.7 % to 6.4 % Diabetes : > 6.4 % Use with caution in patients with abnormal hemoglobin variants as the half-life of red blood cells and in vivo glycation rates are affected. Glucose Glucometer (BldC) [Mass/Vol]Ordered By: Theo Lott on 78-87-5889Dxoohkf [Mass/Vol]Capillary blood glucose measurement by glucometer (mass/volume)[facility] Memorial HospitalComment on above:Random Glucose Reference Range is dependent on time and content of last meal. Glucose of more than 200 mg/dL in a nonstressed, ambulatory subject supports the diagnosis of Diabetes Mellitus.Glucose Poct Glucometerson 73-95-6515Ntbmlgq4Zrk4: Cleaned MeterNoAmerican Healthcare Systems Physician GroupComment on above:Result Comment: PERFORMED BY: [facility] [address] [facility] [place] [address] PATHOLOGIST SECOND TIME WORKER STEVIE FONSECA M.D.Performed By: #### GLULS #### Point of Care testing ,Glucose [Mass/Vol]78 mg/dLCleveland Clinic Indian River Hospital Physician GroupComment on above: Result Comment: Random Glucose Reference Range is dependent on time and content of last meal. Glucose of more than 200 mg/dL in a nonstressed, ambulatory subject supports the diagnosis of Diabetes Mellitus.Performed By: #### GLULS #### Point of Care testing ,No Panel InformationOrdered By: Theo Lott on 74-45-4044Ztavstz Glucose CommentGlu2: cleaned [facility] Clinic FoundationGlucose Poct Glucometerson 63-38-9948Dqmkver [Mass/Vol]83 mg/dLCleveland Clinic Indian River Hospital Physician GroupComment on above:Result Comment: Random Glucose Reference Range is dependent on time and content of last meal. Glucose of more than 200 mg/dL in a nonstressed, ambulatory subject supports the diagnosis of Diabetes Mellitus. PERFORMED BY: [place] [id number] PATHOLOGIST SECOND TIME WORKER STEVIE FONSECA M.D.Performed By: #### GLULS #### Point of Care testing ,Glucose Poct Glucometerson 32-76-3391Sdckruo2Wmh3: Cleaned MeterCleveland Clinic Indian River Hospital Physician GroupComment on above:Result Comment: PERFORMED BY: [place] [id number] PATHOLOGIST SECOND TIME WORKER STEVIE FONSECA M.D.Performed By: #### GLULS #### Point of Care testing ,Glucose [Mass/Vol]78 mg/dLCleveland Clinic Indian River Hospital Physician GroupComment on above: Result Comment: Random Glucose Reference Range is dependent on time and content of last meal. Glucose of more than 200 mg/dL in a nonstressed, ambulatory subject supports the diagnosis of Diabetes Mellitus.Performed By: #### GLULS #### Point of Care testing ,Glucose Poct Glucometerson 69-53-9156Fdfqyaj7Hwx8: Cleaned MeterCleveland Clinic Indian River Hospital Physician GroupComment on above:Result Comment: PERFORMED BY: [address] [address] PATHOLOGIST SECOND TIME WORKER STEVIE FONSECA M.D.Performed By: #### GLULS #### Point of Care testing ,Glucose [Mass/Vol]104 mg/dLCleveland Clinic Indian River Hospital Physician GroupComment on above: Result Comment: Random Glucose Reference Range is dependent on time and content of last meal. Glucose of more than 200 mg/dL in a nonstressed, ambulatory subject supports the diagnosis of Diabetes Mellitus.Performed By: #### GLULS #### Point of Care testing ,Cholesterol [Mass/volume] in Serum or PlasmaOrdered By: Theo Lott on 39-47-6864Tkunwnwjeqv [Mass/Vol]Cholesterol [Mass/volume] in Serum or Plasma 140-200F[facility] HospitalComment on above:Chol less than 200 mg/dl low riskChol 201-239 mg/dl borderline riskChol 240 mg/dl and greater high riskCholesterol in HDL [Mass/volume] in Serum or PlasmaOrdered By: Theo Lott on 25-91-6976Oxgcmszsuwh in HDL [Mass/Vol]Serum or plasma high density lipoprotein (HDL) cholesterol qyuegvsgykq92-79NqmwuquljFayette County Memorial Hospital Comment on above:HDL CHOL ATP-III CLASSIFICATION Cardiovascular RiskHDL > or equal to 60 mg/dL LOWHDL < 40 mg/dL HIGHCholesterol in LDL Calc [Mass/Vol] Ordered By: Theo Lott on 20-15-8474Hvxygrpxhus in LDL [Mass/Vol] Cholesterol in LDL [Mass/volume] in Serum or Plasma by calculation0-100F[facility] HospitalComment on above:LDL ATP III CLASSIFICATIONLDL less than 100 mg/dL OptimalLDL 100-129 mg/dL Near or above igtibrkHLM263-225 mg/dL Borderline highLDL 160-189 mg/dL HighLDL greater than 189 mg/dL Very high Cholesterol in VLDL Calc [Mass/Vol]Ordered By: Theo Lott on 66-13-6489Rtbcgfauudo in VLDL [Mass/Vol]Cholesterol in VLDL [Mass/volume] in Serum or Plasma by calculationFayette County Memorial HospitalGlucose Poct Glucometerson 46-82-8999Yckjwqe [Mass/Vol]119 mg/dLNormCape Canaveral Hospital Physician GroupComment on above:Result Comment: Random Glucose Reference Range is dependent on time and content of last meal. Glucose of more than 200 mg/dL in a nonstressed, ambulatory subject supports the diagnosis of Diabetes Mellitus. PERFORMED BY: [place] [address] [place] [address] PATHOLOGIST SECOND TIME WORKER STEVIE FONSECA M.D.Performed By: #### GLULS #### Point of Care testing ,Lipid Panelon 36-31-2439Lefibbdrgrk [Mass/Vol]149 mg/tLGuemkb920-782Dda [facility] Physician GroupComment on above:Result Comment: Chol less than 200 mg/dl low risk Chol 201-239 mg/dl borderline risk Chol 240 mg/dl and greater high riskPerformed By: #### TSH3 wRFLX, LIPID, [id number] #### [facility] [address] [place] [address] USACholesterol in HDL [Mass/Vol]38 mg/mEIbaimn72-98Ewq [facility] Physician GroupComment on above:Result Comment: HDL CHOL ATP-III CLASSIFICATION Cardiovascular Risk HDL > or equal to 60 mg/dL LOW HDL < 40 mg/dL HIGHPerformed By: #### TSH3 wRFLX, LIPID, [id number] #### [facility] [address] [place] [address] USACholesterol.total/Cholesterol in HDL [Mass ratio]3.9 {ratio}Normal<5.0The [facility] Physician GroupComment on above:Performed By: #### TSH3 wRFLX, LIPID, [id number] #### [facility] [address] [place] [address] USALDL Cholesterol,Knlursmtjt65 mg/dLNormal0-100The [facility] Physician GroupComment on above:Result Comment: LDL ATP III CLASSIFICATION LDL less than 100 mg/dL Optimal LDL 100-129 mg/dL Near or above optimal LDL 130-159 mg/dL Borderline high LDL 160-189 mg/dL High LDL greater than 189 mg/dL Very highPerformed By: #### TSH3 wRFLX, LIPID, [id number] #### [facility] [address] [place] [address] USATriglyceride w/Irpcld17 mg/dLNormal0-149The [facility] Physician GroupComment on above:Result Comment: TRIG ATP III CLASSIFICATION TRIG less than 150 mg/dL Normal TRIG 150-199 mg/dL Borderline high TRIG 200-500 mg/dL High TRIG greater than 500 mg/dL Very high Standard traceable to the Center for Disease Conrtrol and Prevention (CDC) test method.Performed By: #### TSH3 wRFLX, LIPID, [id number] #### [facility] [address] [place] [address] USAVLDL AVZBLNOSNUL56 mg/dLNormalThCassia Regional Medical Center Physician [facility] CenterComment on above:Performed By: #### TSH3 wRFLX, LIPID, [id number] #### [facility] [address] [place] [address] USASerum or plasma total cholesterol/high density lipoprotein (HDL) cholesterol mass ratOrdered By: Theo Lott on 11-29-2024 Cholesterol.total/Cholesterol in HDL [Mass ratio]Serum or plasma total cholesterol/high density lipoprotein (HDL) cholesterol mass rat<5.0F[facility] HospitalThyroid Stim Hormone w/Rflxon 23-48-1525Zadecsg Stim Hormone w/Rflx2.53 u[iU]/mLNormal0.45-5.33The [facility] Physician [facility] CenterComment on above:Performed By: #### TSH3 wRFLX, LIPID, [id number] #### [facility] [address] [place] [address] USAThyrotropin [Units/volume] in Serum or PlasmaOrdered By: Theo Lott on 10-70-9269YPC QnThyrotropin [Units/volume] in Serum or Plasma0.45-5.33F[facility] HospitalTriglyceride [Mass/volume] in Serum or PlasmaOrdered By: Theo Lott on 71-55-5302Bwgopepnyuqg [Mass/Vol]Triglyceride [Mass/volume] in Serum or Plasma0-149F[facility] HospitalComment on above:TRIG ATP III CLASSIFICATIONTRIG less than 150 mg/dL NormalTRIG 150-199 mg/dL Borderline highTRIG 200-500 mg/dL High TRIG greater than 500 mg/dL Very highStandard traceable to the Center for Disease Co nrtrol and Prevention (CDC) test method.Vitamin D 25 Hydroxy Totalon 11-29-2024 Vitamin D 25 Hydroxy Total21.1 ng/kQHew89-159Ukp [facility] Physician Group Comment on above:Result Comment: VITAMIN D STATUS 25(OH)VITAMIN D RANGE (ng/mL) Deficient <20 Insufficient 20 to <30 Sufficient 30 to 100 Reference: Neelam Villagran, Danny WHITEHEAD, et al. Evaluation,treatment, and prevention of vitamin D deficiency; an Endocrine Society clinical practice guideline. JCEM. 2010; 96(7):1911-30. PERFORMED BY: [facility] [address] [place] [address] PATHOLOGIST SECOND TIME WORKER STEVIE FONSECA M.D.Performed By: #### TSH3 wRFLX, LIPID, [id number] #### [facility] [address] [place] [address] [facility] HOSPITALVitamin D+Metabolites [Mass/volume] in Serum or Plasma Ordered By: Theo Lott on 45-97-7512Qymgsqq D+Metabolites [Mass/Vol] Vitamin D+Metabolites [Mass/volume] in Serum or JrppykSlb40-123PqzqweglhFayette County Memorial HospitalComment on above:VITAMIN D STATUS 25(OH)VITAMIN D RANGE (ng/mL) Deficient <20 Insufficient 20 to <02Kkboozmdqs44 to 100Reference: Dwight CAMPOS,Neelam FIORE, aDnny WHITEHEAD, et al. Evaluation,treatment, and prevention of vitamin D deficiency; an Endocrine Society clinical practice guideline. JCEM. 2010; 96(7):1911-30.MAMM BX BREAST STEREO GUID INITIAL LTon 11-10-2024 MAMM BX BREAST STEREO GUID INITIAL LTMAMM BX BREAST STEREO GUID INITIAL LT *ADDENDUM*Addendum [...] Debi Phan MD on 11/10/2024 9:58 AM 100NormalProMedica Henry County HospitalMAMM POST BX DIAG UNI LTon 30-18-1492IZJX POST BX DIAG UNI LTMAMM POST BX DIAG UNI LT *ADDENDUM*Addendum issued [...] Debi Phan MD on 11/10/2024 9:[address] [place], [place] [address]urgical Pathologyon 18-03-5500Jxuojjgf PathologyUniversity Hospitals Geneva Medical CenterComment on above:Result Comment: [facility] [address] [place] [address] Surgical Pathology Consultation Patient Name:MARIZOL LUCERO:1960 (Age: 64)Gender:FTaken:11/05/2024Reported:11/09/2024Physician(s):Isac Sood MD ([phone])Copy To:Debi Phan [facility] Critical Care Hospitalession #:[id number]. Rec. #:[id number]: #[id number] Final Pathologic Diagnosis Left breast, needle biopsy @2:00: Benign breast tissue with focal usual duct hyperplasia, cystic change and fibroadenomatoid periductal fibrosis with stromal calcifications. Negative for atypia and carcinoma. Report Electronically Signed Out gr11/09/2024Anatoly Correia MD Interpretation performed at [facility], [address] [place] [address], License number: [id number]. Clinical History Biopsy procedure: Stereotactic; Target: Calcifications; Laterality: Left breast; Location: 2:00; BI-RAD: 4b; Suspect: R/O DCIS Gross Description Received in formalin labeled NIC left breast are 8 fibroadipose tissue cores [...] minute Time in formalin before processin hours (3,ns,Z53-6366, m6) MW mxw/11/05/2024GR Specimen(s) Received Left breast Fee Codes(s): 1; 53727FDNN DIAGNOSTIC UNILAT LT W CADon 00-64-7067QEQQ DIAGNOSTIC UNILAT LT W CADMAMM DIAGNOSTIC UNILAT LT W CAD MARIZOL LUCERO 1960 [id number] EXAM: MAMM DIAGNOSTIC UNILAT LT W CAD, [...] MD on 09/28/2024 2:29 PM 4 b BIOPSYNormalProMedica Miller Children'S HospitalMAMM SCREENING BILATERAL W CADon 05-11-4411BYHR SCREENING BILATERAL W CADMAMM SCREENING BILATERAL W CAD MARIZOL LUCERO 1960 [id number] EXAM: MAMM SCREENING BILATERAL W CAD, 08/27/2024 11:03 AM CLINICAL INDICATIONS: Screening, Encounter for screening mammogram for malignant neoplasm of breast COMPARISON: No prior studies currently available for comparison. Most recent mammogram more than 10years ago, not available. TECHNIQUE: Bilateral digital tomosynthesis [...] on 08/30/2024 1:06 PM 0A b ADDITIONAL [facility] HospitalHGB A1C (GLYCO-HGB)on 08-23-2024 Glucose [Mass/Vol]243 mg/dLNoCleveland Clinic Avon HospitalComment on above: Performed By: #### HA1C #### [facility] ([id number]) [address], [address] [place], [place] [address]VtT7o (Bld) [Mass fraction]10.1 %High4.4-5.6ProBaylor Scott & White All Saints Medical Center Fort WorthComment on above:Result Comment: NOTE ADA Guidelines Result HgbA1c Normal : less than 5.7 % Prediabetes : 5.7 % to 6.4 % Diabetes : > 6.4 % Use with caution in patients with abnormal hemoglobin variants as the half-life of red blood cells and in vivo glycation rates are affected.Performed By: #### HA1C #### [facility] ([id number]) [address], [address] [place], [place] [address]Dmjlboy Glucometer (BldC) [Mass/Vol]Ordered By: Avinash Quezada on 44-05-6798Luvdmzl [Mass/Vol]162 mg/dLFayette County Memorial HospitalComment on above:Random Glucose Reference Range is dependent on time and content of last meal. Glucose of more than 200 mg/dL in a nonstressed, ambulatory subject supports the diagnosis of Diabetes Mellitus.No Panel InformationOrdered By: Avinash Quezada on 02-38-5385Oyrtomu Glucose CommentGlu2: cleaned meterFayette County Memorial HospitalAlanine aminotransferase [Enzymatic activity/volume] in Serum or PlasmaOrdered By: Theo Lott on 78-88-7487KSV [Catalytic activity/Vol]23 U/L7-52F[facility] HospitalAlbumin [Mass/volume] in Serum or Plasma by Bromocresol green (BCG) dye binding methoOrdered By: Theo Lott on 46-08-9521Hmifsvn BCG dye [Mass/Vol]3.8 g/dL3.5-5.7 [facility] HospitalAlkaline phosphatase [Enzymatic activity/volume] in Serum or PlasmaOrdered By: Theo Lott on 01-89-5739HJN [Catalytic activity/Vol]79 U/U79-139FavftnmpkFayette County Memorial HospitalAspartate aminotransferase [Enzymatic activity/volume] in Serum or Plasma Ordered By: Theo Lott on 99-24-5487AOI [Catalytic activity/Vol]16 U/V87-57PjptoxdvzFayette County Memorial HospitalBasophils Auto (Bld) [#/Vol]Ordered By: Theo Lott on 58-52-4760Dbilkhxjb (Bld) [#/Vol]0.0 10*3/uL0.0-0.2 [facility] HospitalBasophils/100 WBC Auto (Bld)Ordered By: Theo Lott on 21-74-2562Foczhjqwx/100 WBC (Bld)0.5 %.[facility] HospitalBilirubin.total [Mass/volume] in Serum or PlasmaOrdered By: Theo Lott on 77-91-8398Febldpkih [Mass/Vol]0.3 mg/dL0.3-1.0 [facility] HospitalCalcium [Mass/volume] in Serum or PlasmaOrdered By: Theo Lott on 43-74-7969Oakmdcv [Mass/Vol]9.2 mg/dL8.6-10.3 [facility] HospitalCarbon dioxide, total [Moles/volume] in Serum or PlasmaOrdered By: Theo Lott on 68-66-8472RA8 [Moles/Vol]33.3 mmol/L21.0-31.0[facility] HospitalChloride [Moles/volume] in Serum or PlasmaOrdered By: Theo Lott on 12-11-3465Fkatmdjf [Moles/Vol]97 mmol/Q45-736CxuzxprgqFayette County Memorial HospitalCreatinine [Mass/volume] in Serum or PlasmaOrdered By: Theo Lott on 23-74-1763Ousadmqekn [Mass/Vol] 0.85 mg/dL0.60-1.20[facility] HospitalEosinophils Auto (Bld) [#/Vol]Ordered By: Theo Lott on 98-26-5325Zpahzmvrvbb (Bld) [#/Vol] 0.3 10*3/uL0.0-0.45F[facility] Memorial HospitalEosinophils/100 WBC Auto (Bld)Ordered By: Theo Lott on 47-93-3205Pzgrhjmqexx/100 WBC (Bld)3.0 %.[facility] HospitalErythrocyte distribution width Auto (RBC) [Ratio]Ordered By: Theo Lott on 01-10-1520Rfxzetuakjp distribution width (RBC) [Ratio]14.3 %11.9-15.3FRegency Hospital Cleveland EastGlobulin Calc (S) [Mass/Vol]Ordered By: Theo Lott on 63-70-2003Jzdhfpdb (S) [Mass/Vol]2.9 g/dLFayette County Memorial HospitalGlucose [Mass/volume] in Serum or PlasmaOrdered By: Theo Lott on 74-89-4252Gykdqzz [Mass/Vol] 199 mg/hZ97-872PtaauecscFayette County Memorial HospitalComment on above:ADA recommended reference rangeRandom Glucose Reference Range is dependent on time and content of last meal. Glucose of more than 200 mg/dL in a nonstressed, ambulatory subject supports the diagnosisof Diabetes Mellitus.Hematocrit Auto (Bld) [Volume fraction]Ordered By: Theo Lott on 19-65-9231Sunyxrfuvr (Bld) [Volume fraction]38.4 %34.0-46.4FRegency Hospital Cleveland EastHemoglobin [Mass/volume] in BloodOrdered By: Theo Lott on 50-30-0075Maqvhjhdrk (Bld) [Mass/Vol]12.7 g/dL11.8-15.4FRegency Hospital Cleveland EastLeukocytes [#/volume] corrected for nucleated erythrocytes in Blood by Automated coun Ordered By: Theo Lott on 38-76-5060YRD corrected for nucl RBC Auto (Bld) [#/Vol]8.6 10*3/uL3.8-11.6FRegency Hospital Cleveland EastLymphocytes Auto (Bld) [#/Vol]Ordered By: Theo Lott on 34-83-3243Rgejhlesmnf (Bld) [#/Vol]3.0 10*3/uL1.00-4.8F[facility] Memorial HospitalLymphocytes/100 WBC Auto (Bld)Ordered By: Theo Lott on 82-33-2389Nprkaiyxbpk/100 WBC (Bld)34.6 %.[facility] SystemH Auto (RBC) [Entitic mass] Ordered By: Theo Lott on 06-77-4295WIO (RBC) [Entitic mass]28.0 pg 24.7-34.3FRegency Hospital Cleveland EastMCHC Auto (RBC) [Mass/Vol]Ordered By: Theo Lott on 56-20-9351SZZN (RBC) [Mass/Vol]33.0 g/dL32.0-35.0 [facility] HospitalMCV Auto (RBC) [Entitic vol]Ordered By: Theo Lott on 76-22-6658AJA (RBC) [Entitic vol]84.8 uW47-669HjsnqgcthFayette County Memorial HospitalMonocytes Auto (Bld) [#/Vol]Ordered By: Theo Lott on 47-07-3215Rszvomdgg (Bld) [#/Vol]0.8 10*3/uL0.0-0.8[facility] HospitalMonocytes/100 WBC Auto (Bld)Ordered By: Theo Lott on 72-77-4102Hpyzegdik/100 WBC (Bld)9.6 %.[facility] Memorial HospitalNeutrophils Auto (Bld) [#/Vol]Ordered By: Theo Lott on 04-27-6037Dgyaswbmsby (Bld) [#/Vol]4.5 10*3/uL1.8-7.7FRegency Hospital Cleveland EastNeutrophils/100 WBC Auto (Bld)Ordered By: Theo Lott on 87-92-1659Sjmrcfvmdfa/100 WBC (Bld)52.3 %.[facility] HospitalNo Panel InformationOrdered By: Theo Lott on 57-97-1423Bxeekefly GFR (CKD-EPI)> 60.0 mL/MinFayette County Memorial HospitalPharmacy Creatinine Clearance (Chem41.27F[facility] Memorial HospitalNucleated erythrocytes [Presence] in Blood by Automated countOrdered By: Theo Lott on 62-77-4315Spulrtrwd RBC Auto Ql (Bld)0.2 /100{WBC}0-0.5FRegency Hospital Cleveland EastPlatelet mean volume Auto (Bld) [Entitic vol]Ordered By: Theo Lott on 78-38-9570Ctwpmqsh mean volume (Bld) [Entitic vol]10.0 fL6.3-10.7FRegency Hospital Cleveland EastPlatelets Auto (Bld) [#/Vol]Ordered By: Theo Lott on 50-98-3597Lrqpjjyds (Bld) [#/Vol]136 10*3/fY676-291 [facility] CenterPotassium [Moles/volume] in Serum or Plasma Ordered By: Theo Lott on 56-51-1152Vkcvkejtc [Moles/Vol]4.2 mmol/L 3.5-5.1FRegency Hospital Cleveland EastProtein [Mass/volume] in Serum or Plasma Ordered By: Theo Lott on 72-76-8573Bgjeluq [Mass/Vol]6.7 g/dL6.4-8.9 [facility] HospitalRBC Auto (Bld) [#/Vol]Ordered By: Theo Lott on 75-85-5288PCA (Bld) [#/Vol]4.53 10*6/uL3.60-5.00[facility] Osteopathic Hospitalerum or plasma albumin/globulin mass ratioOrdered By: Theo Lott on 32-27-1754Yqesszf/Globulin [Mass ratio]1.3 {ratio}[facility] Osteopathic Hospitalerum or plasma anion gap determinationOrdered By: Theo Lott on 44-22-4089Wgtel gap [Moles/Vol]10.9 mmol/L6.0-15.0 [facility] Hospitalodium [Moles/volume] in Serum or PlasmaOrdered By: Theo Lott on 72-44-1045Ospvtb [Moles/Vol]137 mmol/T118-109 [facility] HospitalUrea nitrogen [Mass/volume] in Serum or Plasma Ordered By: Theo Lott on 20-23-7432Ecbw nitrogen [Mass/Vol]7 mg/dL 7-25F[facility] HospitalWBC Auto (Bld) [#/Vol]Ordered By: Theo Lott on 06-05-9451XCF (Bld) [#/Vol]8.6 10*3/uL3.8-11.6FRegency Hospital Cleveland EastCholesterol [Mass/volume] in Serum or PlasmaOrdered By: Avinash Quezada on 74-53-8595Xxfekvdbvgf [Mass/Vol]164 mg/zB778-838SrwilwmhsFayette County Memorial HospitalComment on above:Chol less than 200 mg/dl low riskChol 201-239 mg/dl borderline riskChol 240 mg/dl and greater high riskCholesterol in LDL Calc [Mass/Vol]Ordered By: Avinash Quezada on 58-04-6381Gfyblslqvhc in LDL [Mass/Vol]108 mg/dL0-100[facility] HospitalComment on above:LDL ATP III CLASSIFICATIONLDL less than 100 mg/dL OptimalLDL 100-129 mg/dL Near or above gaxtpucTOL868-643 mg/dL Borderline highLDL 160-189 mg/dL HighLDL greater than 189 mg/dL Very highCholesterol in VLDL Calc [Mass/Vol]Ordered By: Avinash Quezada on 58-91-5830Fvoooauyrpg in VLDL [Mass/Vol]20 mg/dLFayette County Memorial HospitalGlucose mean value [Mass/volume] in Blood Estimated from glycated hemoglobinOrdered By: Avinash Quezada on 93-85-1943Epmvjgx glucose Estimated from glycated hemoglobin (Bld) [Mass/Vol]166 mg/dLFayette County Memorial Hospital Hemoglobin A1c percentageOrdered By: Avinash Quezada on 83-71-8085PkK3c (Bld) [Mass fraction]7.4 %4.3-5.6FRegency Hospital Cleveland EastComment on above: Increased risk for diabetes: 5.7 - 6.4diabetes: >6.4glycemic control for adults with diabetes: <7.0Serum or plasma high density lipoprotein (HDL) cholesterol measurementOrdered By: Avinash Quezada on 62-29-2428Eidtpswfiol in HDL [Mass/Vol] 35 mg/tO29-85BtizxhqfaFayette County Memorial HospitalComment on above:HDL CHOL ATP-III CLASSIFICATION Cardiovascular RiskHDL > or equal to 60 mg/dL LOWHDL < 40 mg/dL HIGHSerum or plasma total cholesterol/high density lipoprotein (HDL) cholesterol mass ratOrdered By: Avinash Quezada on 95-03-6576Gqzlimainlp.total/Cholesterol in HDL [Mass ratio]4.7 {ratio}<5.0[facility] HospitalThyrotropin [Units/volume] in Serum or PlasmaOrdered By: Avinash Quezada on 29-25-3563BPW Qn 4.16 m[IU]/L0.45-5.33[facility] HospitalTriglyceride [Mass/volume] in Serum or PlasmaOrdered By: Avinash Quezada on 8857Ogyqcjsboqtb [Mass/Vol]103 mg/dL0-149F[facility] HospitalComment on above:TRIG ATP III CLASSIFICATIONTRIG less than 150 mg/dL NormalTRIG 150-199 mg/dL Borderline highTRIG 200-500 mg/dL High TRIG greater than 500 mg/dL Very highStandard traceable to the Center for Disease Conrtrol and Prevention (CDC) test method.Vitamin D+Metabolites [Mass/volume] in Serum or PlasmaOrdered By: Avinash Quezada on 56-70-0862Ianelin D+Metabolites [Mass/Vol]27.3 ng/uY29-864 [facility] HospitalComment on above:VITAMIN D STATUS 25(OH)VITAMIN D RANGE (ng/mL) Deficient <20 Insufficient 20 to <00Cquyhfmszq15 to 100Reference: Dwight MF,Neelam FIORE, Danny WHITEHEAD, et al. Evaluation,treatment, and prevention of vitamin D deficiency; an Endocrine Society clinical practice guideline. JCEM. 2010; 96(7):1911-30.Glucose Glucometer (BldC) [Mass/Vol]Ordered By: Avinash Quezada on 23-31-4787Moceihm [Mass/Vol]143 mg/dLFayette County Memorial HospitalComment on above:Random Glucose Reference Range is dependent on time and content of last meal. Glucose of more than 200 mg/dL in a nonstressed, ambulatory subject supports the diagnosis of Diabetes Mellitus.No Panel InformationOrdered By: Avinash Quezada on 16-84-5824Mwfsbuy Glucose CommentGlu2: cleaned meterFayette County Memorial HospitalCalcium [Mass/volume] in Serum or PlasmaOrdered By: Avinash Quezada on 66-29-1849Hjmlyrx [Mass/Vol]9.0 mg/dL8.6-10.3FRegency Hospital Cleveland East Carbon dioxide, total [Moles/volume] in Serum or PlasmaOrdered By: Avinash Quezada on 55-41-3563VF2 [Moles/Vol]24.4 mmol/L21.0-31.0[facility] HospitalChloride [Moles/volume] in Serum or PlasmaOrdered By: Avinash Quezada on 17-54-5287Qdczdljh [Moles/Vol]106 mmol/C77-944GjbtamdjgFayette County Memorial HospitalCholesterol [Mass/volume] in Serum or PlasmaOrdered By: Avinash Quezada on 51-46-9533Dsqnbmljuib [Mass/Vol]220 mg/xN939-981BdohqkzacFayette County Memorial HospitalComment on above:Chol less than 200 mg/dl low riskChol 201-239 mg/dl borderline riskChol 240 mg/dl and greater high riskCholesterol in LDL Calc [Mass/Vol]Ordered By: Avinash Quezada on 09-97-8826Kxsxikbzfep in LDL [Mass/Vol] 162 mg/dL0-100[facility] HospitalComment on above:LDL ATP III CLASSIFICATIONLDL less than 100 mg/dL OptimalLDL 100-129 mg/dL Near or above wltjptyVIT119-644 mg/dL Borderline highLDL 160-189 mg/dL HighLDL greater than 189 mg/dL Very highCholesterol in VLDL Calc [Mass/Vol]Ordered By: Avinash Quezada on 82-70-0508Pivnfmkehaj in VLDL [Mass/Vol]15 mg/dLFayette County Memorial HospitalCreatinine [Mass/volume] in Serum or PlasmaOrdered By: Avinash Quezada on 47-58-1506Otkbcfkeuk [Mass/Vol]1.02 mg/dL0.60-1.20[facility] HospitalGlucose [Mass/volume] in Serum or PlasmaOrdered By: Avinash Quezada on 90-92-9931Xswsymb [Mass/Vol]136 mg/sN56-777RtclhkigdFayette County Memorial Hospital Comment on above:ADA recommended reference rangeRandom Glucose Reference Range is dependent on time and content of last meal. Glucose of more than 200 mg/dL in a nonstressed, ambulatory subject supports the diagnosisof Diabetes Mellitus.No Panel InformationOrdered By: Avinash Quezada on 00-15-8543Lxqzxxzbo GFR (CKD-EPI)> 60.0 mL/MinFayette County Memorial HospitalPharmacy Creatinine Clearance (Chem53.27[facility] HospitalPotassium [Moles/volume] in Serum or PlasmaOrdered By: Avinash Quezada on 12-95-1893Knkwythvt [Moles/Vol]3.5 mmol/L3.5-5.1FChildren's Hospital of Columbuserum or plasma anion gap determinationOrdered By: Avinash Quezada on 68-59-4449Zkfty gap [Moles/Vol]14.1 mmol/L6.0-15.0[facility]opathic Hospitalerum or plasma high density lipoprotein (HDL) cholesterol measurementOrdered By: Avinash Quezada on 27-15-5749Jigfsinueea in HDL [Mass/Vol]43 mg/eZ71-11ZycicyhsaFayette County Memorial HospitalComment on above:HDL CHOL ATP-III CLASSIFICATION Cardiovascular RiskHDL > or equal to 60 mg/dL LOWHDL < 40 mg/dL HIGHSerum or plasma total cholesterol/high density lipoprotein (HDL) cholesterol mass ratOrdered By: Avinash Quezada on 73-98-0406Hxawpzrpeaj.total/Cholesterol in HDL [Mass ratio]5.1 {ratio}<5.0[facility] Osteopathic Hospitalodium [Moles/volume] in Serum or PlasmaOrdered By: Avinash Quezada on 43-87-2159Pxxidi [Moles/Vol]141 mmol/L 136-145[facility] HospitalThyrotropin [Units/volume] in Serum or PlasmaOrdered By: Avinash Quezada on 45-55-6840OVX Qn1.40 m[IU]/L0.45-5.33 [facility] HospitalTriglyceride [Mass/volume] in Serum or Plasma Ordered By: Avinash Quezada on 21-39-6746Fwretlhieeqm [Mass/Vol]76 mg/dL0-149 [facility] HospitalComment on above:TRIG ATP III CLASSIFICATIONTRIG less than 150 mg/dL NormalTRIG 150-199 mg/dL Borderline highTRIG 200-500 mg/dL High TRIG greater than 500 mg/dL Very highStandard traceable to the Center for Disease Conrtrol and Prevention (CDC) test method. Urea nitrogen [Mass/volume] in Serum or PlasmaOrdered By: Avinash Quezada on 35-52-8005Nhbs nitrogen [Mass/Vol]12 mg/dL7-25[facility] Vitamin D+Metabolites [Mass/volume] in Serum or PlasmaOrdered By: Avinash Quezada on 82-49-9912Dlrmywr D+Metabolites [Mass/Vol]24.0 ng/fR90-366VcletnlrqFayette County Memorial HospitalComment on above:VITAMIN D STATUS 25(OH)VITAMIN D RANGE (ng/mL) Deficient <20 Insufficient 20 to <48Nhmrenddee82 to 100Reference: Dwight MF,Neelam NC, Danny WHITEHEAD, et al. Evaluation,treatment, and prevention of vitamin D deficiency; an Endocrine Society clinical practice guideline. JCEM. 2010; 96(7):1911-30.CBC AUTO DIFFon 66-44-0851EQVJ #0.1 103/ulNormal0.0-0.[address] [facility]Comment on above:Performed By: #### CBC #### [facility] [address] [address] [address] Ricky FloresBasophils/100 WBC (Bld)0.7 %Normal0.2-2.0[facility] Comment on above:Performed By: #### CBC #### [facility] [address] [address] [address] Ricky Christy #0.3 103/ulNormal0.0-0.7The [facility] HospitalComment on above: Performed By: #### CBC #### [facility] [address] [address] [address] Ricky Shineosinophils/100 WBC (Bld)3.7 %Normal0.9-7.0[facility] Comment on above:Performed By: #### CBC #### [facility] [address] [address] [address] Ricky Shinerythrocyte distribution width (RBC) [Ratio]15.1 %Critically high 11.0-15.0The [facility] HospitalComment on above:Performed By: #### CBC #### [facility] [address] [address] [address] Ricky FloresHematocrit (Bld) [Volume fraction]41.5 %Ydahlb14.0-48.0The [facility] HospitalComment on above:Performed By: #### CBC #### [facility] [address] [place] [address] Dr. Ricky FloresHemoglobin (Bld) [Mass/Vol]13.1 g/rOKibnqe09.0-16.0The [facility] Hospitalment on above:Performed By: #### CBC #### [facility] [address] [place] [address] Dr. Ricky Scott #0.03 10e3/ulNormal0.00-0.03The [facility] HospitalComment on above:Performed By: #### CBC #### [facility] [address] [place] [address] Dr. Ricky Scott %0.3 %Normal0.0-0.5The [facility] on above: Performed By: #### CBC #### [facility] [address] [place] [address] Dr. Ricky Bowman #3.1 103/ulNormal1.2-3.8The [facility] [address] HospitalComment on above:Performed By: #### CBC #### [facility] [address] [place] [address] Dr. Ricky Websterhocytes/100 WBC (Bld)34.3 %Wsmabq71.5-60.0[facility] HospitalComascension [facility] hospital on above:Performed By: #### CBC #### [facility] [address] [place] [address] Dr. Ricky PisanoUAL DIFF REQNONormalThe Wilson Street HospitalComment on above: Performed By: #### CBC #### [facility] [address] [place] [address] Dr. Ricky Warren (RBC) [Entitic mass]27.2 awHwpham04.7-34.0The [facility] [address] HospitalComment on above:Performed By: #### CBC #### [facility] [address] [place] [address] Dr. Ricky Warren (RBC) [Mass/Vol]31.6 g/mRTcudmo83.9-35.2The [facility] [address] HospitalComment on above:Performed By: #### CBC #### [facility] [address] [address] [address] Ricky WarrenV (RBC) [Entitic vol]86.3 cYSzvnhu25.0-99.0The [facility] [address] HospitalComment on above:Performed By: #### CBC #### [facility] [address] [place] [address] Dr. Ricky Lauren #0.5 103/ulNormal0.3-0.8The [facility] HospitalComment on above:Performed By: #### CBC #### [facility] [address] [place] [address] Dr. Ricky Herndonocytes/100 WBC (Bld)5.9 %Normal1.7-12.0The [facility] [place] on above:Performed By: #### CBC #### [facility] [address] [place] [address] Dr. Ricky PandaUT #5.0 103/ulNormal1.4-6.5The [facility] [address] HospitalComment on above:Performed By: #### CBC #### [facility] [address] [place] [address] Dr. Ricky Pandautrophils/100 WBC (Bld)55.1 %Pemhyb09.0-75.0The [facility] Hospitalment on above:Performed By: #### CBC #### [facility] [address] [place] [address] Dr. Ricky Perezlet mean volume (Bld) [Entitic vol]11.2 fLNormal9.5-13.5The [facility] Hospitalment on above:Performed By: #### CBC #### [facility] [address] [place] [address] Dr. Ricky FloresPLT298 103/jzPqnfgi233-086Mlu [facility] [address] HospitalComment on above: Performed By: #### CBC #### [facility] [address] [place] [address] Dr. Ricky FloresRBC4.81 106/ulNormal4.20-5.40The [facility] HospitalComment on above:Performed By: #### CBC #### [facility] [address] [address] [address] Ricky FloresWBC9.1 103/ulNormal4.0-11.0The [facility] on above: Performed By: #### CBC #### [facility] [address] [address] [address] Ricky FloresGLYCOHEMOGLOBIN A1Con 60-96-9557FLZ RECOMMENDATIONSEE BELOWOur Lady Of Mercy Hospital - AndersonComascension river district hospital on above:Result Comment: ADA RECOMMENDED LIMIT 4.0 - 6.0 ADA THERAPEUTIC TARGET < 7.0 ACTION SUGGESTED > 7.0Performed By: #### A1C #### [facility] [address] [place] [address] Dr. Ricky FloresGlucose [Mass/Vol]177 mg/dLNoMcCullough-Hyde Memorial HospitalComascension river district hospital on above:Performed By: #### A1C #### [facility] [address] [place] [address] Dr. Ricky FloresHbA1c (Bld) [Mass fraction]7.8 %Critically high4.5-6.2The [facility] on above:Performed By: #### A1C #### [facility] [address] [place] [address] Dr. Ricky FloresLIPID PROFILEon 65-76-1364DDWV-HDL RATIO NORMSEE [facility] HospitalComasc[facility] hospital on above:Result Comment: 3.3 - 4.4 LOW RISK 4.4 - 7.1 AVERAGE RISK 7.1 - 11.0 MODERATE RISK >11.0 HIGH RISKPerformed By: #### BMP, LIPID, TSH, LIVER #### [facility] [address] [place] [address] Dr. Ricky FloresCholesterol [Mass/Vol]219 mg/dLCritically high<=200[facility] on above:Performed By: #### BMP, LIPID, TSH, LIVER #### [facility] [address] [place] [address] Dr. Ricky FloresCholesterol in HDL [Mass/Vol]69 mg/dLCritically ujyc58-08Ivw [facility] HospitalComment on above:Performed By: #### BMP, LIPID, TSH, LIVER #### [facility] [address] [address] [address] Ricky Julesesterol in LDL [Mass/Vol]125.2 mg/dLNoMcCullough-Hyde Memorial HospitalComment on above:Performed By: #### BMP, LIPID, TSH, LIVER #### [facility] [address] [place] [address] Dr. Ricky Ortega.total/Cholesterol in HDL [Mass ratio]3.2 {ratio} NormalThe Wilson Street HospitalComment on above:Performed By: #### BMP, LIPID, TSH, LIVER #### [facility] [address] [place] [address] Dr. Ricky Angeles NORMAL> or = 60 mg/dl - LOW CARDIOVASCULAR RISK <40 mg/dl - HIGH CARDIOVASCULAR RISKNoMcCullough-Hyde Memorial HospitalComment on above:Performed By: #### BMP, LIPID, TSH, LIVER #### [facility] [address] [place] [address] Dr. Ricky Deal CALC NORMALSEE BELOWNoMcCullough-Hyde Memorial HospitalComment on above:Result Comment: <100 mg/dl OPTIMAL 100 - 129 mg/dl NEAR OR ABOVE OPTIMAL 130 - 159 mg/dl BORDERLINE HIGH 160 - 189 mg/dl HIGH >190 mg/dl VERY HIGH Performed By: #### BMP, LIPID, TSH, LIVER #### [facility] [address] [place] [address] Dr. Ricky FloresTriglyceride [Mass/Vol]124 mg/dLNormal<=150[facility] Comment on above:Performed By: #### BMP, LIPID, TSH, LIVER #### [facility] [address] [place] [address] Dr. Ricky YadavLDL CALC24.8 mg/dLNoMcCullough-Hyde Memorial HospitalComment on above: Performed By: #### BMP, LIPID, TSH, LIVER #### [facility] [address] [place] [address] Dr. Ricky Park PROFILEon 72-46-9333Behouto [Mass/Vol]3.8 g/dLNormal3.4-5.[address] HospitalComment on above:Performed By: #### BMP, LIPID, TSH, LIVER #### [facility] [address] [place] [address] Dr. Ricky FloresAlbumin/Globulin [Mass ratio]0.8 {ratio}NormalThe [facility] Street HospitalComment on above:Performed By: #### BMP, LIPID, TSH, LIVER #### [facility] [address] [place] [address] Dr. Ricky Rivera [Catalytic activity/Vol]99 U/QCwbhni52-067Czm [facility] HospitalComment on above:Performed By: #### BMP, LIPID, TSH, LIVER #### [facility] [address] [place] [address] Dr. Ricky Ball [Catalytic activity/Vol]27 U/KGebqvz46-23Fbu [facility] [address] HospitalComment on above:Performed By: #### BMP, LIPID, TSH, LIVER #### [facility] [address] [place] [address] Dr. Ricky FloresAST [Catalytic activity/Vol]15 U/OYbegfk11-13Tec [facility] Hospitalment on above:Performed By: #### BMP, LIPID, TSH, LIVER #### [facility] [address] [place] [address] Dr. Ricky Pritchett, CONJUGATED0.1 mg/dLNormal0.0-0.2[facility] Comment on above:Performed By: #### BMP, LIPID, TSH, LIVER #### [facility] [address] [place] [address] Dr. Ricky Brushirubin [Mass/Vol]0.3 mg/dLNormal0.2-1.0[facility] Comment on above:Performed By: #### BMP, LIPID, TSH, LIVER #### [facility] [address] [place] [address] Dr. Ricky FloresGlobulin (S) [Mass/Vol]4.5 g/dLNormalThe [facility] [address] HospitalComment on above:Performed By: #### BMP, LIPID, TSH, LIVER #### [facility] [address] [place] [address] Dr. Ricky FloresProtein [Mass/Vol]8.3 g/dLCritically high6.4-8.2The [facility] [address] HospitalComment on above:Performed By: #### BMP, LIPID, TSH, LIVER #### [facility] [address] [place] [address] Dr. Ricky FloresPROF CHEM 8 (BAS METB)on 80-73-2496Izmlk gap [Moles/Vol]8.2 mmol/LNormalThe [facility] Street HospitalComment on above:Performed By: #### BMP, LIPID, TSH, LIVER #### [facility] [address] [place] [address] Dr. Ricky FloresCalcium [Mass/Vol]9.2 mg/dLNormal8.5-10.1The [facility] Comment on above:Performed By: #### BMP, LIPID, TSH, LIVER #### [facility] [address] [place] [address] Dr. Ricky FloresChloride [Moles/Vol]101 mmol/NTjdyrs62-198Lfc [facility] Comment on above:Performed By: #### BMP, LIPID, TSH, LIVER #### [facility] [address] [place] [address] Dr. Ricky FloresCO2 [Moles/Vol]32.7 mmol/LCritically high21.0-32.0The [facility] [address] HospitalComment on above:Performed By: #### BMP, LIPID, TSH, LIVER #### [facility] [address] [place] [address] Dr. Ricky FloresCreatinine [Mass/Vol]0.68 mg/dLNormal0.55-1.02The [facility] HospitalComment on above:Performed By: #### BMP, LIPID, TSH, LIVER #### [facility] [address] [place] [address] Dr. García ChangEGFR-AF SWISS>60Normal>=60The [facility] [address] HospitalComment on above:Performed By: #### BMP, LIPID, TSH, LIVER #### [facility] [address] [address] [address] Ricky ShineGFR-NON AF SWISS>60Normal>=60The [facility] [address] HospitalComment on above:Performed By: #### BMP, LIPID, TSH, LIVER #### [facility] [address] [address] [address] Ricky FloresGlucose [Mass/Vol]147 mg/dLCritically yoth83-479Suk [facility] HospitalComment on above:Performed By: #### BMP, LIPID, TSH, LIVER #### [facility] [address] [place] [address] Dr. Ricky FloresPotassium [Moles/Vol]3.9 mmol/LNormal3.5-5.1The [facility] Comment on above:Performed By: #### BMP, LIPID, TSH, LIVER #### [facility] [address] [place] [address] Dr. Ricky FloresSodium [Moles/Vol]138 mmol/JSchdkd008-903Iga [facility] Comment on above:Performed By: #### BMP, LIPID, TSH, LIVER #### [facility] [address] [place] [address] Dr. Ricky FloresUrea nitrogen [Mass/Vol]20.0 mg/dLCritically high7.0-18.0The [facility] [address] HospitalComment on above:Performed By: #### BMP, LIPID, TSH, LIVER #### [facility] [address] [place] [address] Dr. Ricky Martinez nitrogen/Creatinine [Mass ratio]29.4 mg/mgNormalThe [facility] HospitalComment on above:Performed By: #### BMP, LIPID, TSH, LIVER #### [facility] [address] [place] [address] Dr. Ricky Epstein 96-21-5253SVO7.437 uIU/mLNormal0.358-3.740The [facility] [address] HospitalComment on above:Performed By: #### BMP, LIPID, TSH, LIVER #### [facility] [address] [place] [address] Dr. Ricky [address] OHon 91-10-7970WGP D 25-OH29.7 ng/mLNKindred Hospital DaytonComment on above:Performed By: #### VITAD #### [facility] [address] [place] [address] Dr. Ricky ForemanT D [facility] HOSPITALSEE [facility] HospitalComment on above: Result Comment: <20 ng/mL Vit D deficient 20 - <30 ng/mL Vit D insufficient 30 - 100 ng/mL Vit D sufficient >100 ng/mL Potential ToxicityPerformed By: #### VITAD #### [facility] [address] [place] [address] Dr. Ricky Flores Vital Signs Date TimeVital SignValuePerforming IzleailzgDajajuui92-74-8151 08:57-0400Body jdveqe978.4 cmIsac Sood MD Work Phone: [phone] [place], [place] [address]24[address]10-30-2025 08:57-0400 Body mass index (BMI) [Ratio]37.5 kg/m2Isac Sood MD Work Phone: 1(224)[address]10-30-2025 08:57-0400 Body ugnjdsfccgd71.4 [degF]Isac Sood MD Work Phone: 1(343)[address]10-30-2025 08:57-0400 Body .08 kgIsac Sood MD Work Phone: 1(099)[address]10-30-2025 08:57-0400 Diastolic blood nqvaknjg74 mm[Hg]Isac Sood MD Work Phone: [phone])[address]10-30-2025 08:57-0400 Heart rate85 /minIsac Sood MD Work Phone: 1(646)[address]10-30-2025 08:57-0400 Respiratory rate20 /minIsac Sood MD Work Phone: [phone])[address] [place], [place] [address]10-30-2025 08:57-0400 SaO2% (BldA) [Mass fraction]99 %Isac Sood MD Work Phone: [phone])[address]10-30-2025 08:57-0400 Systolic blood osczniyk255 mm[Hg]Isac Sood MD Work Phone: [phone])[address]07-24-2025 09:12-0400 Body cahmvv779.4 cmIsac Sood MD Work Phone: [phone] [place], [place] [address]Dffbpyltdv11-24-1958 09:12-0400Body mass index (BMI) [Ratio]37.3 kg/m2Isac Sood MD Work Phone: [phone])269-[address] [place], [place] [address]Zexbaenjtv29-04-9915 09:12-0400Body temperature 97.11 [degF]Isac Sood MD Work Phone: [facility] CenterKtbyfsqalv06-39-6531 09:12-0400Body mimhgc14.64 kgIsac Sood MD Work Phone: [facility] CenterLpcodiraon88-06-4937 09:12-0400Diastolic blood hrtjtyyz91 mm[Hg]Isac Sood MD Work Phone: [facility] CenterPbcdocticv42-45-5965 09:12-0400Heart rate97 /min Isac Sood MD Work Phone: [facility] CenterUfvfjarcka81-76-1178 09:12-0400Respiratory rate20 /minIsac Sood MD Work Phone: [facility] CenterZedxapybyg39-93-4262 09:12-3292UmP9% (BldA) [Mass fraction]96 %Isac Sood MD Work Phone: [facility] CenterYwnscauatq09-33-0466 09:12-0400Systolic blood cehafbeo785 mm[Hg]Isac Sood MD Work Phone: [facility] CenterZgevjfsjmv79-82-9217 10:47-0400Body taqrfc454.4 cmIsac Sood MD Work Phone: [facility] CenterOlegffgrxo08-66-5483 10:47-0400Body mass index (BMI) [Ratio]36.13 kg/m2Isac Sood MD Work Phone: [facility] CenterFlwqkygwee95-52-8794 10:47-0400Body temperature 97.11 [degF]Isac Sood MD Work Phone: [facility] CenterBcnmrpgvem65-87-0286 10:47-0400Body tumqso56.92 kgIsac Sood MD Work Phone: [facility] CenterMvptygykgj21-26-0532 10:47-0400Diastolic blood zrvjlqeu30 mm[Hg]Isac Sood MD Work Phone: [facility] CenterKtulddikri50-33-6723 10:47-0400Heart rate89 /min Isac Sood MD Work Phone: [facility] CenterNqtxtklvif32-51-9351 10:47-0400Respiratory rate22 /minIsac Sood MD Work Phone: [facility] CenterHokytsyzes42-52-2889 10:47-8681HrB9% (BldA) [Mass fraction]91 %Isac Sood MD Work Phone: [facility] CenterEkrmrrqtdr55-40-5359 10:47-0400Systolic blood dodyyucm384 mm[Hg]Isac Sood MD Work Phone: [facility] CenterRcxcdqhfpo76-29-3068 10:48-0500Body zyxfrp044.4 cmIsac Sood MD Work Phone: [facility] CenterKqcpkmidzb77-33-6714 10:48-0500Body mass index (BMI) [Ratio]36.91 kg/m2Isac Sood MD Work Phone: [facility] CenterLuzznphwam26-65-5231 10:48-0500Body temperature 96.6 [degF]Isac Sood MD Work Phone: [facility] CenterFdhejmaoie11-80-4355 10:48-0500Body .73 kgIsac Sood MD Work Phone: [facility] CenterRnvweejufk28-73-6232 10:48-0500Diastolic blood ljkyojnb33 mm[Hg]Isac Sood MD Work Phone: [facility] CenterFrvuhtemho86-33-0053 10:48-0500Heart rate94 /min Isac Sood MD Work Phone: [phone]-[facility] CenterFfnolslpqb92-29-5461 10:48-0500Respiratory rate18 /minIsac Sood MD Work Phone: [facility] CenterMxbylrmenp95-71-6467 10:48-6757YjU1% (BldA) [Mass fraction]98 %Isac Sood MD Work Phone: [phone]02-19-2025 10:48-0500Systolic blood zfupzgkn849 mm[Hg]Isac Sood MD Work Phone: [phone])[address]02-07-2025 07:30-0500Body temperature 97.8 [degF]Isac Sood MD Work Phone: [phone])[address]02-07-2025 07:30-0500 Diastolic blood biapzufo91 mm[Hg]Isac Sood MD Work Phone: [phone]02-07-2025 07:30-0500 Heart rate81 /minIsac Sood MD Work Phone: [phone]02-07-2025 07:30-0500 Respiratory rate18 /minIsac Sood MD Work Phone: [phone] [place], [place] [address]802-07-2025 07:30-0500 SaO2% (BldA) [Mass fraction]97 %Isac Sood MD Work Phone: [phone]02-07-2025 07:30-0500 Systolic blood ezwqmviv545 mm[Hg]Isac Sood MD Work Phone: 1(007)[address]02-03-2025 14:52-0500 Body khibqf317.4 cmIsac Sood MD Work Phone: 1(629)[address]02-03-2025 09:00-0500 Body ntgocz01.15 kgIsac Sood MD Work Phone: [facility]10-21-2024 14:07-0400 Body daunwm780.4 cmIsac Sood MD Work Phone: [facility] CenterJhdqxxwood48-93-4014 14:07-0400Body mass index (BMI) [Ratio]35.94 kg/m2Isac Sood MD Work Phone: [facility] CenterKweqfispaq14-82-3390 14:07-0400Body temperature 97.11 [degF]Isac Sood MD Work Phone: [facility] CenterUidcvsdtug93-93-4255 14:07-0400Body tffryl52.46 kgIsac Sood MD Work Phone: [facility] CenterYdlewuzvvs83-87-5748 14:07-0400Diastolic blood dzycoapa23 mm[Hg]Isac Sood MD Work Phone: [facility] CenterTdzroncxkp72-27-0685 14:07-0400Heart rate96 /min Isac Sood MD Work Phone: [facility] CenterWvgbsycywi24-60-5732 14:07-0400Respiratory rate20 /minIsac Sood MD Work Phone: [facility] CenterDzzghqzlhy36-95-4979 14:07-8071OhD7% (BldA) [Mass fraction]98 %Isac Sood MD Work Phone: [facility] CenterMxxoolfkik08-04-0403 14:07-0400Systolic blood cyasrpor692 mm[Hg]Isac Sood MD Work Phone: [facility] CenterRbmztyommx12-76-9119 10:00-0500Body lokmpt016.4 cmKayla Blas Other [employer] Other 12-21-2023 10:00-0500Body mass index (BMI) [Ratio]37.1 kg/e3OthmurKayla Blas Other [employer] Other 12-21-2023 10:00-0500Body laqvha52.18 kgGlabida Blas Other [facility] Other 12-21-2023 10:00-0500Diastolic blood msgogqca30 mm[Hg] Kaylamarlene Blas Other [employer] Other 12-21-2023 10:00-0500Respiratory rate18 /minGlabida Blas Other [employer] Other 12-21-2023 10:00-6637KzN5% (BldA) [Mass fraction]97 % Kayla Blas Other [employer] Other 12-21-2023 10:00-0500Systolic blood xtfpcvyy556 mm[Hg] Kayla Blas Other [employer] Other 12-07-2023 07:30-0500Body dyniqcnpzjg77.8 [degF]MD Isac Sood Work Phone: [facility]12-07-2023 07:30-0500 Diastolic blood mdphgafy38 mm[Hg]MD Isac Sood Work Phone: [facility]12-07-2023 07:30-0500 Heart rate97 /minMD Isac Sood Work Phone: [facility]12-07-2023 07:30-0500 Respiratory rate18 /minMD Isac Sood Work Phone: 1([phone])292-[facility]12-07-2023 07:30-0500 SaO2% (BldA) [Mass fraction]100 %MD Isac Sood Work Phone: [phone]12-07-2023 07:30-0500 Systolic blood tevnhkjm940 mm[Hg]MD Isac Sood Work Phone: 1(376)[address]12-04-2023 14:35-0500 Body .4 cmMD Isac Sood Work Phone: 1(590)[address] [place], [place] [address]12-04-2023 09:00-0500 Body .1 kgMD Isac Sood Work Phone: 1(352)[address]04-22-2023 07:30-0400 Body ejzjfidbpcg13.2 [degF]MD Isac Sood Work Phone: 1(480)[address]04-22-2023 07:30-0400 Diastolic blood xsfksiur91 mm[Hg]MD Isac Sood Work Phone: 1(034)[address] [place], [place] [address]204-22-2023 07:30-0400 Heart rate76 /minMD Isac Sood Work Phone: 1(116)[address]04-22-2023 07:30-0400 Respiratory rate16 /minMD Isac Sood Work Phone: [phone])[address]04-22-2023 07:30-0400 SaO2% (BldA) [Mass fraction]100 %MD Isac Sood Work Phone: [phone]04-22-2023 07:30-0400 Systolic blood lrtlckud229 mm[Hg]MD Isac Sood Work Phone: [phone]04-20-2023 15:08-0400 Body tilxty452.4 cmMD Isac Sood Work Phone: 1(635)[address]04-17-2023 22:00-0400 Body biltzc74.19 kgMD Isac Sood Work Phone: [phone] [place] [address] Encounters Encounter DateEncounter TypeCare ProviderFacilityStart: 08-25-2025 End: 52-80-2638uyacwtopwzNxzf Naderer MD Work Phone: -[facility] ClydeStart: 08-25-2025 End: 54-17-7946Wzvctwf encounter procedureIsac Sood MD-[facility] Work Phone: Start: 06-25-2025 End: 61-15-0109WzbeycOlrn Naderer MD Work Phone: noms CWM FMComment on above:Type 2 diabetes mellitus with hyperglycemia, without long-term current use of insulin (HCC)Start: 05-30-2025 End: 64-94-3147Tpjsxntt Result EncounterIsac Sood MD Work Phone: noms External Department UnsolicitedStart: 05-30-2025 End: 04-85-8443Tushhuhe Result EncounterIsac Sood MD Work Phone: noms External Department UnsolicitedStart: 05-30-2025 ambulatoryISAC AUGUSTINEOhioHealth Van Wert Hospitaltart: 05-19-2025 End: 28-67-8627Xsxvtz flowsAlicia Sood MD Work Phone: noms CWM FMStart: 05-19-2025 End: 35-41-6101Uzgpre flowsAlicia Sood MD Work Phone: n[facility] CWM FMStart: 05-19-2025 End: 24-24-6965Yxjeyl outpatient visit 25 minutesIsac Sood MD Work Phone: n[facility] CWM FMComment on above:Type 2 diabetes mellitus with hyperglycemia, without long-term current use of insulin (HCC) (Primary Dx); Essential hypertension, benign ; Schizoaffective disorder, depressive type (HCC); GEORGIE (generalized anxiety disorder) ; Edema of both legs; Class 2 severe obesity due to excess calories with serious comorbidity and body mass index (BMI) of37.0 to 37.9 in adult ([facility]-HCC); Encounter for long-term current use of medication; Former smokerStart: 05-19-2025 End: 41-13-9799kmkayjzbudAAAW NADERERNot AvailableStart: 03-31-2025 End: 23-25-1765RiynwkFlsi Naderer MD Work Phone: NOMS CWM FMComment on above:GEORGIE (generalized anxiety disorder) (CMS/HCC)Start: 03-14-2025 End: 84-60-5692Qciyso Leonard Sood MD Work Phone: [facility] CWM FMStart: 03-14-2025 End: 38-29-7663Hpyjmz Leonard Sood MD Work Phone: [facility] CWM FMStart: 03-14-2025 End: 77-02-0156geeidavwfpOVXC NADERERNot AvailableStart: 03-14-2025 End: 02-51-6135Ahyhli outpatient visit 25 minutesIsac Sood MD Work Phone: NOXW CWM FMComment on above:Type 2 diabetes mellitus with hyperglycemia, without long-term current use of insulin (CMS/HCC) (Primary Dx); Essential hypertension, benign (CMS/HCC); Schizoaffective disorder, depressive type (CMS/HCC); GEORGIE (generalized anxiety disorder) (CMS/HCC); Edema of both legs; Class 2 severe obesity due to excess calories with serious comorbidity and body mass index (BMI) of36.0 to 36.9 in adult (CMS/HCC)Start: 02-22-2025 End: 34-54-5939YcfzjeFbdf Naderer MD Work Phone: N[facility] CWM FMComment on above:GEORGIE (generalized anxiety disorder) (CMS/HCC)Start: 12-24-2024 End: 68-50-6583Bqiucxeq Result EncounterIsac Sood MD Work Phone: noms External Department UnsolicitedStart: 12-24-2024 End: 27-38-9521Wbiunnzh Result EncounterIsac Sood MD Work Phone: noms External Department UnsolicitedStart: 12-24-2024 End: 19-62-7859AbqackArjk Naderer MD Work Phone: noms CWM FMComment on above:GEORGIE (generalized anxiety disorder) (CMS/HCC); Edema of both legsStart: 97-12-5770qwimuywvduWesr NadererFacility:[facility] Hospitaltart: 12-15-2024 End: 54-07-0040Tkmgeg flowsAlicia Sood MD Work Phone: NONY CWM FMStart: 12-15-2024 End: 66-80-3201Ynycln flowsAlicia Sood MD Work Phone: noms CWM FMStart: 12-15-2024 End: 16-51-3596Cyoxmt outpatient visit 25 minutesIsac Sood MD Work Phone: noms CWM FMComment on above:Schizoaffective disorder, depressive type ([facility]/HCC) (Primary Dx); Type 2 diabetes mellitus with diabetic microalbuminuria, without long-term current use of insulin ([facility]); Essential hypertension, benign ([facility]); GEORGIE (generalized anxiety disorder) ([facility]); Class 2 severe obesity due to excess calories with serious comorbidity and body mass index (BMI) of36.0 to 36.9 in adult ([facility]); Rheumatoid arthritis, involving unspecified site, unspecified whether rheumatoid factor present ([facility])Start: 12-15-2024 End: 88-82-2602iklbatlzzwJPNE NADERERNot AvailableStart: 08-05-9675Bpe-patient / Non-visitIsac Sood MD Work Phone: [facility] Work Phone: Start: 11-28-2024 End: 12-91-2645Jgqrdsback and management of inpatientIsac Sood MD Work Phone: [phone] Work Phone: Start: 24-06-6345Pzlqqdsnhw RecurringIsac Sood MD Work Phone: [facility]- CredibleStart: 11-08-2024 End: 87-27-7131Emkvxupqn encounterEliriley Gomez Brodie Irizarry [place] - MammographyStart: 11-05-2024 End: 13-27-2852ekouqlimhzKDKF NADERERProMedica Bernville HospitalStart: 11-04-2024 End: 08-03-9301hmsbnbtytjZievbs Heriberto [facility] HEALTHStart: 10-18-2024 End: 00-04-8525DmusrgJlkg Naderer MD Work Phone: NOM[facility] CWM FMComment on above:Type 2 diabetes mellitus with hyperglycemia, without long-term current use of insulin (CMS/HCC); Type 2 diabetes mellitus with hyperglycemia, with long-term current use of insulin (CMS/HCC)Start: 09-28-2024 End: 88-05-7701Vchtah Aníbal Sood MD Work Phone: NOMS CWM FMComment on above:Abnormal mammogram of left breast (Primary Dx)Start: 08-30-2024 End: 75-69-1136Tuuctw Aníbal Sood MD Work Phone: [facility] CWM FMComment on above:Abnormal mammogram of left breast (Primary Dx)Start: 08-27-2024 End: 72-80-4925rjoqxppuxfQWHX NADERERProMedica St. Mary Medical Centertart: 08-23-2024 End: 33-68-7060lstazhtgflADKL NADERERProMedKaiser Foundation Hospitaltart: 08-16-2024 End: 07-28-9306Zddlqv flowsAlicia Sood MD Work Phone: [facility] CWM FMStart: 08-16-2024 End: 49-60-3715Xrsoch Leonard Sood MD Work Phone: NOM[facility] CWM FMStart: 08-16-2024 End: 60-53-3511Aitikg outpatient visit 25 minutesIsac Sood MD Work Phone: NOMS CWM FMComment on above:Type 2 diabetes mellitus with hyperglycemia, without long-term current use of insulin (CMS/HCC) (Primary Dx); Essential hypertension, benign (CMS/HCC); Mild recurrent major depression (HCC) (CMS/HCC); GEORGIE (generalized anxiety disorder) (CMS/HCC); Primary insomnia; Breast cancer screening by mammogram; Colon cancer screening; Class 2 severe obesity due to excess calories with serious comorbidity and body mass index (BMI) of35.0 to 35.9 in adult (CMS/HCC); Edema of both legs; Rheumatoid arthritis, involving unspecified site, unspecified whether rheumatoid factor present (CMS/HCC)Start: 08-16-2024 End: 68-23-6457sknydagpqyTDUB DAVIDERNot AvailableStart: 11-12-2023 End: 22-60-2385dejgegkvzvWxdech [facility] Other [employer] Other Start: 78-15-4284Wzchibedc encounterGlRegency Hospital Company Referral CoordinatorStart: 10-16-2023 End: 02-18-0908lyikqkxkstRqrcgf [facility] Other [employer] Other Start: 04-16-7289Srvxym outpatient new 45 minutes Kayla BlasDavid Grant USA[facility] Medical CenteruskyStart: 47-86-9243Cnonkwdpp encounter [facility] CenteryStart: 09-27-2023 End: 91-94-0847Odqfiqodwe and management of inpatientMD Isac Sood Work Phone: [facility] Work Phone: Start: 02-10-2023 End: 35-95-2222Wbsctmdypd and management of inpatientMD Isac Sood Work Phone: [facility] Phone: Start: 02-10-2023 End: 26-00-9434wubdlexkdlRR ISAC AUGUSTINERFacility:Q5Axzjh: 73-30-2407Qdvoelfhr for general adult medical examination without abnormal findingsDR ISAC Marlene INDIGO [facility] HospitalStart: 09-04-2022 End: 78-79-0883sdsdpbthmmGB ISAC Marlene DAVIDERFacility:D1Jwijm: 09-04-2022 End: 04-42-6902Rikycoqjk for general adult medical examination without abnormal findingsDR ISAC Rosario NADDEJANRFacility:H1 Procedures DateProcedureProcedure DetailPerforming ClinicianStart: 83-33-0421Xjmrdfsl blood count with white cell differential, automatedIsac Sood MD Work Phone: Start: 55-21-8374Lorfotddbo glycosylated m3vGthqIsac Sood MD Work Phone: Start: 54-88-6832YqkmhlfazxoQurf Naderer MD Work Phone: Start: 89-54-0867JlkxqowhymsKsjs Naderer MD Work Phone: Start: 21-91-3384CqfjbxhijtlAthx Naderer MD Work Phone: Start: 32-53-8009Jyekpznotgth [Mass/volume] in Urine by Test Cy Palomino RNStart: 86-09-2905Lhmxsf scan of lower limb veinsMD Isac Sood Work Phone: Start: 56-27-0965XZ of head without contrastMD Isac Sood Work Phone: Plan of Treatment DateCare ActivityDetailAuthorStart: 99-04-1124Fsmkoqoyt for malignant neoplasm of colonNONH HealthcareStart: 64-86-3800Cojdx screening for proteinDiabetes: Urine Protein ScreeningNONH HealthcareStart: 28-65-3450Udztzlzzl for malignant neoplasm of lungLung Cancer Screening Shared Decision MakingSaint John's B[facility] Comment on above:Postponed from 1959 (Other Medical Reasons)Start: 64-56-1920Swxrfxsvkn A1c measurementDiabetes: Hemoglobin Z5PVFZUSaint John's Breech Regional Medical Center Start: 64-87-1976Iehku BMI ScreeningAdult BMI ScreeningKindred Hospital Lima Start: 99-74-2215Wwteotzey for malignant neoplasm of breastMammogramNONH HealthcareStart: 13-39-0193Qrzzmbivr for malignant neoplasm of breastMammogram [facility] HealthcareStart: 01-70-9819Xtmueehkq for malignant neoplasm of breast MammogramNONH HealthcareStart: 08-25-2025 End: 49-46-0405Ukessfn encounter owlytyuje21/30/2025 9:00 AM EDT Office Visit [facility] [address] [place] [address] Isac Sood MD [address] [place] [address] [facility]OM[facility] CRAFT FMStart: 10-21-2025Medicare Annual Wellness (AWV)Medicare Annual Wellness (AWV)[facility] HealthcareStart: 61-08-0482Vormqectd vaccinationMOUNTAIN VIEW HOSPITAL HealthcareStart: 86-10-5458Unortrvbpg A1c measurementDiabetes: Hemoglobin A1C [facility] HealthcareStart: 05-19-2025 End: 31-98-4419Clild metabolic 1998 panel - Serum or PlasmaBasic metabolic panel Lab Routine Essential hypertension, benign Expected: 05/19/2025 (Approximate), Expires: 05/19/2026[facility] HealthcareComment on above:Expected: 05/19/2025 (Approximate), Expires: 05/19/2026Start: 05-19-2025 End: 39-54-5218SFS W Auto Differential panel - BloodCBC and differential Lab Routine Encounter for long-term current use of medication Expected: 05/19/2025 (Approximate), Expires: 05/19/2026NONH HealthcareComment on above:Expected: 05/19/2025 (Approximate), Expires: 05/19/2026Start: 05-19-2025 End: 37-60-9451XG Chest for screening WO contrastCT lung screening low dose Imaging Routine Former smoker Expected: 05/19/2025, Expires: 05/19/2026NONH HealthcareComment on above:Expected: 05/19/2025, Expires: 05/19/2026Start: 05-19-2025 End: 25-41-5322Jrdweqhboy A1c/Hemoglobin.total in BloodHemoglobin A1c Lab Routine Type 2 diabetes mellitus with hyperglycemia, without long-term current use of insulin (HCC) Expected: 05/19/2025 (Approximate), Expires: 05/19/2026[facility] HealthcareComment on above:Expected: 05/19/2025 (Approximate), Expires: 05/19/2026Start: 05-19-2025 End: 43-28-1047Pkkhitt function 2000 panel - Serum or PlasmaHepatic function panel Lab Routine Encounter for long-term current use of medication Expected: 05/19/2025 (Approximate), Expires: 05/19/2026[facility] HealthcareComment on above: Expected: 05/19/2025 (Approximate), Expires: 05/19/2026Start: 05-19-2025 End: 99-93-0715Ooqil 1996 panel - Serum or PlasmaLipid panel Lab Routine Type 2 diabetes mellitus with hyperglycemia, without long-term current use of insulin (HCC) Expected: 05/19/2025 (Approximate), Expires: 05/19/2026[facility] Healthcare Comment on above:Expected: 05/19/2025 (Approximate), Expires: 05/19/2026Start: 05-19-2025 End: 11-27-1367Jzxyuzjkczzf/Creatinine panel in random UrineMicroalbumin / creatinine, urine ratio Lab Routine Type 2 diabetes mellitus with hyperglycemia, without long-term current use of insulin ([facility]) Expected: 05/19/2025 (Approximate), Expires: 05/19/2026[facility] Work Phone: Comment on above:Expected: 05/19/2025 (Approximate), Expires: 05/19/2026Start: 05-19-2025 End: 05-88-3000GBK W/REFLEX TO FT4TSH W/REFLEX TO FT4 Lab Routine Class 2 severe obesity due to excess calories with serious comorbidity and body mass index (BMI) of 37.0 to 37.9 in adult ([facility]-HCC) Expected: 05/19/2025 (Approximate), Expires: 05/19/2026[facility] HealthcareComment on above:Expected: 05/19/2025 (Approximate), Expires: 05/19/2026Start: 05-19-2025 End: 64-01-0349Hdxtwza encounter procedureNOMS CWM FMComment on above:Arrived Start: 03-14-2025 End: 95-15-7683Uqdfird encounter gswazdhvr09/19/2025 10:30 AM EDT Office Visit [facility] [address] [place] [address] Isac Sood MD [address] [place] [address] [facility] CWM FMStart: 48-35-8540Shviv screening for proteinNOMS Healthcare Start: 18-82-4484Glnxdgpany A1c measurementDiabetes: Hemoglobin Z7FHWVE HealthcareStart: 12-15-2024 End: 79-15-3853Vvgewomasj A1c/Hemoglobin.total in BloodHemoglobin A1c Lab Routine Type 2 diabetes mellitus with diabetic microalbuminuria, without long-term current use of insulin ([facility]) Expected: 12/15/2024 (Approximate), Expires: 12/15/2025[facility] Work Phone: Comment on above:Expected: 12/15/2024 (Approximate), Expires: 12/15/2025Start: 12-15-2024 End: 25-14-8213Mhvwyig encounter enofhlmbo51/19/2025 10:45 AM EST Office Visit [facility] [address] [place] [phone] Isac Sood MD [address] [place] [address] ArrivedNO CWM FMComment on above:ArrivedStart: 03-21-6096TigqsjohzDayton Osteopathic Hospitaltart: 09-16-7133Wbbkjyzk to Social ServicesDayton Osteopathic Hospitaltart: 49-62-2815Zdwqtfgv admissionDayton Osteopathic Hospitaltart: 09-23-0514WqlxiptqxDayton Osteopathic Hospitaltart: 11-02-2024 End: 25-01-0555Mkvlmwd encounter hpkklbjos13/07/2025 2:15 PM EST Office Visit [facility] [address] [place] [address] Isac oSod MD [address] [place] [address] [facility] FMStart: 09-30-2024 End: 33-66-0430Gufjuvq encounter pznexffss58/05/2024 1:45 PM EST Office Visit [facility] [address] [place] [address] Isac Sood MD [address] [place] [address] [facility] FMStart: 09-28-2024 End: 03-72-5948KP Guidance for localization of Breast - leftLeft US-guided breast localization and biopsy Imaging Routine Abnormal mammogram of left breast Expected: 09/28/2024, Expires: 11/29/2025NONH [facility] Work Phone: Comment on above:Expected: 09/28/2024, Expires: 11/29/2025Start: 85-96-6236Kidtmnunzl A1c measurementDiabetes: Hemoglobin A1C [facility] CenterStart: 08-30-2024 End: 69-55-2960SLK Breast - left diagnosticLeft diagnostic mammogram with tomosynthesis Imaging Routine Abnormal mammogram of left breast Expected: 08/30/2024, Expires: 10/30/2025NONH [facility] Work Phone: Comment on above:Expected: 08/30/2024, Expires: 10/30/2025Start: 08-30-2024 End: 93-70-8435KV Breast - left limitedLeft breast US limited Imaging Routine Abnormal mammogram of left breast Expected: 08/30/2024, Expires: 10/30/2025[facility] HealthcareComment on above:Expected: 08/30/2024, Expires: 10/30/2025Start: 08-16-2024 End: 82-77-4542Wiyiqfduzg A1c/Hemoglobin.total in BloodHemoglobin A1c Lab Routine Type 2 diabetes mellitus with hyperglycemia, without long-term current use of insulin ([facility]/HCC) Expected: 08/16/2024 (Approximate), Expires: 08/16/2025 [facility] Work Phone: Comment on above:Expected: 08/16/2024 (Approximate), Expires: 08/16/2025Start: 08-16-2024 End: 18-82-7167GK Breast - bilateral ScreeningBilateral screening mammogram Imaging Routine Breast cancer screening by mammogram Expected: 08/16/2024, Expires: 10/16/2025NONH HealthcareComment on above:Expected: 08/16/2024, Expires: 10/16/2025Start: 08-16-2024 End: 76-09-4193Fhywysasixq colorectal cancer DNA and occult blood screening [Presence] in StoolCologuard colon cancer screening Lab Routine Colon cancer screening Expected: 08/16/2024 (Approximate), Expires: 08/16/2025[facility] Healthcare Comment on above:Expected: 08/16/2024 (Approximate), Expires: 08/16/2025Start: 08-16-2024 End: 84-98-6455Iwpjqtm encounter ylibahzye19/21/2024 2:00 PM EDT Office Visit [facility] CW FM [address] [place] [address] Isac Sood MD [address] [place] [address] [facility]CUR[facility] [place] FMComment on above:ArrivedStart: 97-38-8249YPBLC-19 Vaccine ()COVID-19 Vaccine ( season)[facility] HospitalMedical Device Innovations [employer] SystemStart: 72-30-9205Lvavssmnh vaccinationNONH HealthcareStart: 06-02-2024 Hemoglobin A1c measurementDiabetes: Hemoglobin Z3IUTIL HealthcareStart: 71-66-3271Ftnd Risk ScreeningFall Risk ScreeningFirstHealth Moore Regional Hospitaltart: 74-82-4212JaxruzcuqDayton Osteopathic Hospitaltart: 04-89-3287Xscdvdxp to clinical allergistDayton Osteopathic Hospitaltart: 42-89-6694Lixecynq admission [facility] Hospitaltart: 89-76-1389GmqfeftgtDayton Osteopathic Hospitaltart: 04-65-5019Rjknefqa admissionDayton Osteopathic Hospitaltart: 20-99-5933Lntjdiqrufrzik of varicella zoster vaccineZoster (Shingles) Vaccine (1 of 2)[facility] Hospitaltart: 73-99-9060Erkaixsoc for malignant neoplasm of breastMammogramNONH HealthcareStart: 38-75-2373Ztjvknsze for malignant neoplasm of cervixNOMS HealthcareStart: 31-77-3928Eoqecylgb for malignant neoplasm of cervixPap SmearNOMS HealthcareStart: 66-40-9656NTiG,Tdap and Td Vaccines (1 - Tdap)DTaP,Tdap and Td Vaccines (1 - Tdap)[facility] Start: 77-32-2311Sghviohqhklj Vaccine: 65+ Years (1 of 2 - PCV)Pneumococcal Vaccine: 65+ Years (1 of 2 - PCV)[facility] CenterStart: 01-40-0542Mcnyj BMI Follow Up PlanAdult BMI Follow Up PlanFirstHealth Moore Regional Hospitaltart: 1978 Diabetic foot examinationDiabetic Foot ExamFirstHealth Moore Regional Hospitaltart: 46-96-8086Azapnjovtb ScreeningDepression ScreeningFirstHealth Moore Regional Hospitaltart: 99-55-9011Dhdcrbl ScreeningTobacco ScreeningFirstHealth Moore Regional Hospitaltart: 24-19-4668Jmtttbir screeningDiabetes: Retinopathy ScreeningNOMS HealthcareStart: 15-00-5502Dnhcdiqvdknd Vaccine: 65+ Years (1 of 2 - PCV)Pneumococcal Vaccine: 65+ Years (1 of 2 - PCV)[facility] CenterStart: 66-12-4183Hwsyatvx screening Diabetic Ophthalmology ExamFirstHealth Moore Regional Hospitaltart: 1959Medicare Annual Wellness (AWV)Medicare Annual Wellness (AWV)[facility] HealthcareStart: 04-49-9247Lpszycbup for malignant neoplasm of colonNOMS HealthcareStart: 62-02-9114Wwpounucf for malignant neoplasm of lungLung Cancer Screening Shared Decision MakingMOUNTAIN VIEW HOSPITAL HealthcarePatient EducationFairfield Medical Center Ctr Work Phone: Patient referralFairfield Medical Center Ctr Work Phone: Immunizations Immunization DateImmunizationNotesCare RjtxwtsqOllfeffw04-02-0423OAZCO-73 Vaccine Pfizer - Documentation Purposes OnlyGlabida [facility] Other [facility]04-16-2021COVID-19 Vaccine Pfizer - Documentation Purposes OnlyGlAshtabula County Medical Center Other [facility] HospitalNEGATED: Highlighted row has not occurred!41-12-1308Sio Shot - Documentation Purposes OnlyGlabida [facility] Other [place] [employer] Other Payers DatePayer CategoryPayerPolicy [id number] 2025Medicare HMOANTHEM MEDICARE Member Subscriber Plan / Payer (Effective 2024-Present) Name: Marizol Lucero Relation to Subscriber: Self Name: Marizol Lucero SubscriberID: [id number] Payer ID: [id number] (NAIC) Group ID: [id number] Type: Not on file Address: [facility] [id number] [place] [id number] 2025Medicare [id number] 2024Medicare (Managed Care) [id number] [id number] 2024[place] [address] [id number]dhk Health InsuranceCARESOAMERICAN HOSPITAL ASSOCIATIONE [id number]-flu19-49-8921 [id number]6[id number] 2..1.924840.3.57[id number] 2..1.115855.3.579.[id number] 2..1.140778.3.579.2.563[id number] 2.0.1.431586.3.57[id number] 2..1.721467.3.579.2.237324-33-0960Oyxkseh1228754 2.16.840.1.569792.3.579.[id number] 2.16.840.1.236102.3.579.2.149128-67-6405Jkvbdtp2551812 2.16.840.1.337805.3.579.2.1954[id number] 2.16.840.1.929050.3.579.2.00[id number] 2.16.840.1.746798.3.579.[id number] 2.16.840.1.600889.3.579.2.728952-83-8721Mpqnmfe07878314 2..840.1.587497.3.579.2.783363-29-7297Qtlyiwv36851669 2.16.840.1.124426.3.579.2.8852Oxosmgj88162037 2.16.840.1.754102.3.579.2.531 [id number] 2..840.1.479810.3.579.2.531 Social History DateTypeDetailFacilityStart: 02-11-2023 End: 22-43-3740Otterqs smoking status NHISNever smoked tobacco (finding) [facility] CenterStart: 38-14-0452Xki Assigned At [facility] Centertart: 09-30-2023 End: 64-10-8318Rqirump smoking status NHISEx-smoker (finding)[facility] CenterStart: 02-20-2024 End: 59-38-7346Fio Assigned At [facility] [employer] Other Start: 07-08-1978 End: 15-32-1479Cgrhsjh of tobacco useCurrent smokerNOMS HealthcareStart: 07-08-1978 End: 36-82-2109Wznlixk of tobacco useCigarette SmokerNOMS HealthcareStart: 11-14-2023 End: 82-98-0592Ndxeqpodbm smoked current (pack per day) - Vknixaxm8GUYC HealthcareStart: 07-09-2022 End: 91-62-6604Ieofgzs use and exposureSmokeless tobacco non-userNOMS Healthcare Start: 02-20-2024 End: 69-78-8540Butmcyudy beverage intakeLifetime non-drinker (finding)[facility] HealthcareStart: 04-50-7901Din assigned at birthNot on fileNOMS HealthcareHow often do you need to have someone help you when you read instructions, pamphlets, or other written material from your doctor or pharmacy [SILS]Never N[facility] HealthcareWithin the last year, have you been afraid of your partner or ex-partner?NoNOMS HealthcareAre you now , , , , never or living with a partner?DivorcedNOMS HealthcareHow often to you have a drink containing alcohol?NeverNOMS HealthcareDo you feel stress - tense, restless, nervous, or anxious, or unable to sleep at night because yourmind is troubled all the time - these days [OSQ]Rather muchNOMS Healthcare(I/We) worried whether (my/our) food would run out before (I/we) got money to buy more.Never trueNOMS HealthcareAt any time in the past 12 months, were you homeless or living in fci [including now]?YesNOMS HealthcareStart: 66-79-9776Kywijdhcb beverage intakeEx-drinker (finding)[facility] SystemStart: 04-23-2020 Alcohol CommentOCCASSIONALMarietta Memorial Hospital SystemStart: 06-01-2015 End: 36-59-1289XlxXtonnu (finding)[facility] SystemStart: 08-25-2025 Tobacco smoking status NHISSmokes tobacco daily (finding)[facility] Medical Equipment Procedure CodeEquipment CodeEquipment Original TextEquipment IdentifierDates Inject 1 each under the skin if neededStart: 99-79-2988Qgt Needle, Diabetic 31 gauge x 03/11 needleStart: 08-23-2025 Goals DatePatient GoalDesired Activity/StatePersonal health goalComment on above: Evaluation of progress towards goal: breathing much better since admission Functional Status DjbcOunffkbnjpXtigsxOyianwct02-04-8675Fwwzevtbus statusPatient at Baseline [facility] Work Phone: [phone]wg statusPatient at Baseline [facility] Work Phone: [phone]smxuplb statusDisability Status Patient Not at BaselineAcmc Healthcare System Work Phone: [phone]) [phone]Nndschsmct statusPatient at Baseline [facility] Work Phone: Mental Status KeqkQnmsdensklUdkflnVfnwmzlg64-16-5883Zoihhvitt functionCognitive Status Patient at BaselineAcmc Healthcare System Work Phone: [phone]ltdald functionCognitive Status Patient at BaselineAcmc Healthcare System Work Phone: 1([phone]) [phone]Izrgalata functionCognitive Status Patient at BaselineAcmc Healthcare System Work Phone: Clinical Notes 02-11-2023 to 05-19-2025 Note Date & MkzxEdjtEpioopko81-94-1856 History of Present illness Narrative* Isac Sood MD - 05/19/2025 9:41 AM EDTAssociated Problem(s): Type 2 diabetes mellitus with hyperglycemia, without long-term current use of insulin (HCC) Reports BS elevated and due for A1C. Stop ozempic and try mounjaro. * Isac Sood MD - 05/19/2025 9:41 AM EDTAssociated Problem(s): Schizoaffective disorder (HCC) Symptoms slightly better but still present and increase abilify. * Isac Sood MD - 05/19/2025 9:41 AM EDTAssociated Problem(s): GEORGIE (generalized anxiety disorder) Symptoms slightly better but still present and increase abilify. Use xanax PRN. * Isac Sood MD - 05/19/2025 9:40 AM EDTAssociated Problem(s): Former smoker Quit smoking in 2020 but prior 1 PPD for 30 years. Discussed screening options and interested in LDCT chest. Order faxed to hospital to schedule. * Isac Sood MD - 05/19/2025 9:40 AM EDTAssociated Problem(s): Essential hypertension, benign BP slightly elevated but previously controlled and monitor PRN. Discussed DASH diet. * Isac Sood MD - 05/19/2025 9:40 AM EDTAssociated Problem(s): Edema of both legs Mild swelling and use lasix PRN. Elevate legs PRN. * Isac Sood MD - 05/19/2025 9:40 AM EDTAssociated Problem(s): Class 2 severe obesity due to excess calories with serious comorbidity and body mass index (BMI) of 37.0 to 37.9 in adult ([facility]) Weight loss indicated. * Isac Sood MD - 05/19/2025 9:00 AM EDT Images from the original note were not included. Subjective Patient ID: Marizol Lucero is a 65 y.o. female who presents for Follow-up (2 m/) and Shoulder Pain (Left shoulder). Follow up DM, HTN, schizoaffective disorder, anxiety, and edema. Reports BS recently elevated around 150-200. Tries to eat well and stick to ADA diet. Denies signs of elevated BS such as polyuria, polyphagia or polydipsia. Checking BP PRN and typically controlled. BP normal today. Taking medicationdaily and tolerating without side effects. Mood slightly better with abilify. Still depression symptoms and often down, sad, and no motivation. Not want to be around others. Denies hallucinations. Anxiety stable. Not as stressed out or overwhelmed. Not as nervous or worry as much. Not as leavitt or irritable. Using xanax PRN and helps. Edema controlled with medication. Mild swelling at end of day and if on feet a lot. Edema improved in am and with elevation. Shoulder Pain Review of Systems Respiratory: Negative for cough, shortness of breath and wheezing. Cardiovascular: Negative for chest pain and palpitations. Gastrointestinal: Negative for abdominal pain, diarrhea, nausea and vomiting. Genitourinary: Negative for dysuria. Objective Physical Exam Constitutional: General: She is [...] Items Addressed This Visit Essential hypertension, benign BP slightly elevated but previously controlled and monitor PRN. Discussed DASH diet. Relevant Orders Basic metabolic panel GEORGIE (generalized anxiety disorder) Symptoms slightly better but still present and increase abilify. Use xanax PRN. Class 2 severe obesity due to excess calories with serious comorbidity and body mass index (BMI) of37.0 to 37.9 in adult ([facility]) Weight loss indicated. Relevant Orders TSH W/REFLEX TO FT4 Edema of both legs Mild swelling and use lasix PRN. Elevate legs PRN. Encounter for long-term current use of medication Relevant Orders CBC and differential Hepatic function panel Type 2 diabetes mellitus with hyperglycemia, without long-term current use of insulin ([facility]) - Primary Reports BS elevated and due for A1C. Stop ozempic and try mounjaro. Relevant Medications Tirzepatide (Mounjaro) 5 MG/0.5ML solution auto-injector Other Relevant Orders Microalbumin / creatinine, urine ratio Lipid panel Hemoglobin A1c Schizoaffective disorder ([facility]) Symptoms slightly better but still present and increase abilify. Relevant Medications ARIPiprazole (Abilify) 10 MG tablet Former smoker Quit smoking in 2020 but prior 1 PPD for 30 years. Discussed screening options and interested in LDCT chest. Order faxed to hospital to schedule. Relevant Orders CT lung screening low dose documented in this encounterSaint [facility] [id number] History of Present illness Narrative* Isac Sood MD - 03/14/2025 11:11 AM EDTAssociated Problem(s): Type 2 diabetes mellitus with hyperglycemia, without long-term current use of insulin ([facility]) Reports BS controlled and monitor PRN. Stick to ADA diet and limit carbs. * Isac Sood MD - 03/14/2025 11:11 AM EDTAssociated Problem(s): Schizoaffective disorder ([facility]) Side effects from zyprexa and stopped. C/o worsening depression and add abilify. * Isac Sood MD - 03/14/2025 11:11 AM EDTAssociated Problem(s): GEORGIE (generalized anxiety disorder) ([facility]/HCC) Side effects from zyprexa and stopped. C/o worsening depression and add abilify. Use xanax PRN. * Isac Sood MD - 03/14/2025 11:11 AM EDTAssociated Problem(s): Essential hypertension, benign ([facility]/HCC) BP controlled and monitor PRN. Discussed DASH diet. * Isac Sood MD - 03/14/2025 11:10 AM EDTAssociated Problem(s): Edema of both legs Mild swelling and use lasix PRN. Elevate legs PRN. * Isac Sood MD - 03/14/2025 11:10 AM EDTAssociated Problem(s): Class 2 severe obesity due to excess calories with serious comorbidity and body mass index (BMI) of 36.0 to 36.9 in adult ([facility]/HCC) Weight loss indicated. * Isac Sood MD - 03/14/2025 10:30 AM EDT Images from the original note were not included. Subjective Patient ID: Marizol Lucero is a 64 y.o. female who presents for Follow-up (3m). Follow up DM, HTN, schizoaffective disorder, anxiety, and edema. Reports BS well controlled around 85-100. Tries to eat well and stick to ADA diet. Denies signs of elevated BS such as polyuria, polyphagia or polydipsia. Checking BP PRN and typically controlled. BP normal today. Taking medication daily and tolerating without side effects. Mood worse. Stopped zyprexa due to side effects and reportsmade her drool. Side effects gone but mood worse. Down, sad, and no motivation. Not want to be around others. Feels very depressed. Denies hallucinations. Anxiety stable. Not as stressed out or overwhelmed. Not as nervous or worry as much. Not as leavitt or irritable. Using xanax PRN and helps. Edemacontrolled with medication. Mild swelling at end of day and if on feet a lot. Edema improved in am and with elevation. Review of Systems Respiratory: Negative for cough, shortness of breath and wheezing. Cardiovascular: Negative for chest pain and palpitations. Gastrointestinal: Negative for abdominal pain, diarrhea, nausea and vomiting. Genitourinary: Negative for dysuria. Objective Physical Exam Constitutional: General: She is [...] This Visit Essential hypertension, benign (CMS/HCC) BP controlled and monitor PRN. Discussed DASH diet. GEORGIE (generalized anxiety disorder) (CMS/HCC) Side effects from zyprexa and stopped. C/o worsening depression and add abilify. Use xanax PRN. Class 2 severe obesity due to excess calories with serious comorbidity and body mass index (BMI) of36.0 to 36.9 in adult (CMS/HCC) Weight loss indicated. Edema of both legs Mild swelling and use lasix PRN. Elevate legs PRN. Type 2 diabetes mellitus with hyperglycemia, without long-term current use of insulin ([facility]) - Primary Reports BS controlled and monitor PRN. Stick to ADA diet and limit carbs. Schizoaffective disorder ([facility]) Side effects from zyprexa and stopped. C/o worsening depression and add abilify. Relevant Medications ARIPiprazole (Abilify) 5 MG tablet documented in this encounterSaint John's [facility] [id number] Telephone encounter Note* Telephone Encounter - Isac Sood MD - 12/24/2024 12:55 PM EST NOMS [id number] Miscellaneous Notes* Telephone Encounter - Isac Sood MD - 12/24/2024 12:55 PM EST documented in this encounterSaint John's [facility] [id number] History of Present illness Narrative* Isac Sood MD - 12/15/2024 11:15 AM ESTAssociated Problem(s): Rheumatoid arthritis ([facility]) Follow with specialists. * Isac Sood MD - 12/15/2024 11:14 AM ESTAssociated Problem(s): Class 2 severe obesity due to excess calories with serious comorbidity and body mass index (BMI) of 36.0 to 36.9 in adult ([facility]) Weight loss indicated. * Isac Sood MD - 12/15/2024 11:13 AM ESTAssociated Problem(s): Type 2 diabetes mellitus with diabetic microalbuminuria, without long-term current use of insulin ([facility]) Reports BS controlled and due for labs. Stick to ADA diet and limit carbs. * Isac Sood MD - 12/15/2024 11:13 AM ESTAssociated Problem(s): Schizoaffective disorder (CMS/HCC) Symptoms controlled with medication and continue. Continue counseling * Isac Sood MD - 12/15/2024 11:12 AM ESTAssociated Problem(s): GEORGIE (generalized anxiety disorder) (CMS/HCC) Symptoms controlled with medication and continue. Use xanax PRN. * Isac Sood MD - 12/15/2024 11:12 AM ESTAssociated Problem(s): Essential hypertension, benign (CMS/HCC) BP controlled and monitor PRN. Discussed DASH diet. * Isac Sood MD - 12/15/2024 10:45 AM EST Images from the original note were not included. Subjective Patient ID: Marizol Lucero is a 64 y.o. female who presents for Follow-up ([facility] f/up). Hospital follow up from 11/28-12/03 for schizoaffective disorder and psychosis. To ER 11/26 because was not taking medication. Daughter noticed altered mental status and patient with history of psychosis.EMS reported patient growling at them. Held in ER until bed available and seen by psychiatry. Resumed zyprexa and lexapro and increased dose. Patient improved and home. Started counseling. Overall doing well and no psychosis. Not down or sad. Reports BS controlled and 80-110. Tries to stick to ADA diet and limit carbs. Checking BP PRN and typically controlled. BP normal today. Taking medication daily and tolerating without side effects. Review of Systems Respiratory: Negative for cough, shortness of breath and wheezing. Cardiovascular: Negative for chest pain and palpitations. Gastrointestinal: Negative for abdominal pain, diarrhea, nausea and vomiting. Genitourinary: Negative for dysuria. Objective Physical Exam Constitutional: General: She is [...] This Visit Essential hypertension, benign (CMS/HCC) BP controlled and monitor PRN. Discussed DASH diet. GEORGIE (generalized anxiety disorder) (CMS/HCC) Symptoms controlled with medication and continue. Use xanax PRN. Type 2 diabetes mellitus with diabetic microalbuminuria, without long-term current use of insulin (CMS/HCC) Reports BS controlled and due for labs. Stick to ADA diet and limit carbs. Relevant Orders Hemoglobin A1c Schizoaffective disorder (CMS/HCC) - Primary Symptoms controlled with medication and continue. 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 Lucero is a 64 year old female presented due to concern for disorganized behavior. Upon assessment, patient is not very talkative. She shrugs her shoulders when asked why she is herein the hospital. She does report that yesterday and does admit that she has not been taking her medications. She does not know for how long she has not been taking them. She shakes her head to any suicidal thoughtsor homicidal thoughts. She shakes her head to any hallucinations. According tofamily patient has not been taking care of herself and has been exhibiting some mood lability and hissing like it. Patient known to me from prior hospitalization during which she has had some noncompliance issues and psychoticsymptoms.] Past psych history: Psychosis Past hospitalizations: History of prior hospitalizations Past suicide attempts: Denies Family psych history: Unknown Previous medications: Risperdal, Invega, Lexapro, Effexor Alcohol and drug use: Denied any significant issues Living: With family Employment: Unemployed Patient was treated with Lexapro and Zyprexa. She tolerated the medication without any problems anddid not report any side effects. The doses of the medications were increased during her hospitalization. She started to show improvement of her depression and hallucinations. Her sleep and appetite im proved during her hospitalization. She did not exhibit any behavior concerning for suicidality. Shedid not have any conflict with peers or staff. She was not really allowed to leave her room due to positive COVID test. Objectively she seemed to improve gradually as time went on. On the day of discharge, she reported that her depression was improved. She denied any hallucinations or suicidal thoughts. She was comfortable with the discharge plan and following up with outpatient services to continue management of her symptoms. Time spent discussing smoking cessation with patient: 3 to 10 minutes Condition Condition at Discharge: Stable Status at Discharge Cognitive/behavioral status at discharge: Mental Status Exam: Appearance: grossly normal Mental Status: mental status grossly normal Mood: Euthymic mood Affect: Normal affect Speech and Movement: speech normal, movement normal Attitude: cooperative Thought Process: normal Thought Content: Denied hallucinations, no homicidality and no suicidality Insight: Good Judgment: Good Functional status at discharge: independent ambulation Overall status at discharge: patient is back to baseline Time Spent with Patient Time spent providing/coordinating discharge services (# min): 30 Discharge Plan Discharge Plan Patient Disposition: Home Activity: No Activity Restriction Diet: Regular Additional Instructions: Important Contact Information You can call [facility] at [phone] any timeday or night if you have emergent questions or question regarding discharge instructions. If at anytime you are feeling an increase inyour psychiatric symptoms, call your physician or behavioral healthcare provider. If any time you have thoughts of harming yourself or others contact one of the following: Call (available 19/05) Crisis Text Line (available 19/05) text 4HOPE to [phone] [facility] Hope Line (available 8 a.m. Midnight) call [phone] ([phone]) Regular Diet No Activity Restrictions Instructions: Schizoaffective disorder - Discharge instructions, [facility] [place] Instructions, Know your Meds Prescriptions: New nicotine (polacrilex) 2 mg Gum 2 mg buccal Q2H PRN (Reason: Nicotine Cravings) Qty: 20 0RF olanzapine 10 mg Tablet 10 mg PO DAILY@1900 Qty: 30 0RF escitalopram oxalate 10 mg Tablet 10 mg PO QHS 30 Days Qty: 30 0RF Continued Ozempic 2 mg/dose (8 mg/3 mL) pen injector 2 mg SUBCUT .weekly Patient Comments: INJECT 1 DOSE SUBCUTANEOUSLY ONCE A WEEK insulin glargine [Lantus Solostar U-100 Insulin] 100 unit/mL (3 mL) Insulin Pen 20 unit subcut DAILY Qty: 15 0RF metformin 500 mg tablet extended release 24 hr 1,000 mg PO BID Discontinued escitalopram oxalate 5 mg Tablet 5 mg PO QHS 15 Days Qty: 15 2RF olanzapine 2.5 mg tablet 2.5 mg PO HS Follow Up: [facility] [Outside] - 12/06/24 (12/06- case folder will call between 8a and 5p to follow up 12/13- Financial intake at 11:30am and DA with Carissa Serrano at 12pm 12/17- Nurse and Faith Tello NP at 12:40pm ) Isac Sood MD [Primary Care Provider] - (Call with any medical concerns.) Exam Physical Exam Vital Signs: Temp Pulse Resp BP Pulse Ox O2 Del Method 97.8 F 81 18 130/77 97 Room Air 12/03/24 07:30 12/03/24 07:30 12/03/24 07:30 12/03/24 07:30 12/03/24 07:30 12/03/24 07:30 Diagnostic Studies Completed and Pending Studies Labs on day of discharge: 12/03/24 06:25: POC Glucose 78, POC Glucose Comment Glu2: cleaned meter Documented By: Avinash Quezada MD 12/03/24 1016 Signed By: 12/03/24 1149 [facility]02-06-2025 Progress note Author Avinash Quezada [facility] HospitalNote Date/TimeFebruary 2024 11:50am [place] [address] Psychiatry Progress Note Signed Patient: Marizol Lucero MR#: [id number] : 1960 Acct:[id number] Age/Sex: 64 / F Adm Date: 5 Loc: Room: [address] [place] [address] Type : ADM IN Attending Dr: Theo Lott MD Copies to: ~ Date of Service: 12/02/2024 Subjective Subjective Narrative: Ms. Lucero stated that she feels like her symptoms are a bit better. She reported that at night shestill has some racing thoughts and difficulty fallingasleep. She does report having some improvement from the Zyprexa and we talked about increasing the dose and moving it earlier in the day. Mental Status Exam: Appearance: grossly normal Mental Status: mental status grossly normal Mood: Improving mood Affect: Improving affect Speech and Movement: speech normal, movement normal Attitude: cooperative Thought Process: normal Thought Content: Denied hallucinations, no homicidality, no suicidality Insight: fair Judgment: fair Exam Physical Exam Vital Signs: Temp Pulse Resp BP Pulse Ox O2 Del Method 97.7 F 84 16 130/81 96 Room Air 12/02/24 07:30 12/02/24 07:30 12/02/24 07:30 12/02/24 07:30 12/02/24 07:30 12/01/24 23:30 Assessment/Plan Assessment/Plan (1) Schizoaffective disorder: Plan Doing better at this time. Plan for discharge tomorrow or Friday Continue Lexapro 10mg daily and Increase Zyprexa 10 mg in the evening Continue to monitor mental status Encourage group participation and medication compliance Risk benefits alternatives explained Documented By: Avinash Quezada MD 12/02/24 1149 Signed By: <Electronically signed by Avinash Quezada MD> 12/02/24 1150 [facility] Work Phone: 1(703) 818-460002-06-2025 [place] [address] Psychiatry Progress Note Signed Patient: Marizol Lucero MR#: [id number] : 1960 Acct:[id number] Age/Sex: 64 / F Adm Date: 5 Loc: Room: [address] [place] [address] Type : ADM IN Attending Dr: Theo Lott MD Copies to: ~ Date of Service: 12/02/2024 Subjective Subjective Narrative: Ms. Lucero stated that she feels like her symptoms are a bit better. She reported that at night shestill has some racing thoughts and difficulty fallingasleep. She does report having some improvement from the Zyprexa and we talked about increasing the dose and moving it earlier in the day. Mental Status Exam: Appearance: grossly normal Mental Status: mental status grossly normal Mood: Improving mood Affect: Improving affect Speech and Movement: speech normal, movement normal Attitude: cooperative Thought Process: normal Thought Content: Denied hallucinations, no homicidality, no suicidality Insight: fair Judgment: fair Exam Physical Exam Vital Signs: Temp Pulse Resp BP Pulse Ox O2 Del Method 97.7 F 84 16 130/81 96 Room Air 12/02/24 07:30 12/02/24 07:30 12/02/24 07:30 12/02/24 07:30 12/02/24 07:30 12/01/24 23:30 Assessment/Plan Assessment/Plan (1) Schizoaffective disorder: Plan Doing better at this time. Plan for discharge tomorrow or Friday Continue Lexapro 10mg daily and Increase Zyprexa 10 mg in the evening Continue to monitor mental status Encourage group participation and medication compliance Risk benefits alternatives explained Documented By: Avinash Quezada MD 12/02/24 1149 Signed By: 12/02/24 1150 [facility]02-05-2025 Progress note Author Avinash Quezada [facility] HospitalNote Date/TimeFebruary 2024 1:47pm [place] [address] Psychiatry Progress Note Signed Patient: Marizol Lucero MR#: [id number] : 1960 Acct:[id number] Age/Sex: 64 / F Adm Date: 5 Loc: Room: [address] [place] [address] Type : ADM IN Attending Dr: Theo Lott MD Copies to: ~ Date of Service: 12/01/2024 Subjective Subjective Narrative: Ms. Lucero reported that she still feels depressed. She denies any side effectswith the current medication changes. She reported that she does not have any suicidal thoughts at this time. She denied any current hallucinations. She reported that she did not sleep too well last night. Appetite has been normal. Mental Status Exam: Appearance: grossly normal Mental Status: mental status grossly normal Mood: dysthymic mood Affect: constricted affect Speech and Movement: speech normal, movement normal Attitude: cooperative Thought Process: normal Thought Content: Denied hallucinations, no homicidality, no suicidality Insight: Impaired Judgment: Impaired Exam Physical Exam Vital Signs: Temp Pulse Resp BP Pulse Ox O2 Del Method 98.2 F 62 18 156/73 H 96 Room Air 12/01/24 07:30 12/01/24 07:30 12/01/24 07:30 12/01/24 07:30 12/01/24 07:30 12/01/24 07:30 Assessment/Plan Assessment/Plan (1) Schizoaffective disorder: Plan Patient did continue to report some depression did tolerate increased dose of Lexapro Continue Lexapro 10mg daily and continue Zyprexa 5 mg at bedtime Continue to monitor mental status Encourage group participation and medication compliance Risk benefits alternatives explained Documented By: Avinash Quezada MD 12/01/24 1346 Signed By: <Electronically signed by Avinash Quezada MD> 12/01/241346 [facility] Work Phone: 1(599) 938-306902-05-[address] [address] Psychiatry Progress Note Signed Patient: Marizol uLcero MR#: [id number] : 1960 Acct:[id number] Age/Sex: 64 / F Adm Date: 5 Loc: Room: [address] [place] [address] Type : ADM IN Attending Dr: Theo Lott MD Copies to: ~ Date of Service: 12/01/2024 Subjective Subjective Narrative: Ms. Lucero reported that she still feels depressed. She denies any side effectswith the current medication changes. She reported that she does not have any suicidal thoughts at this time. She denied any current hallucinations. She reported that she did not sleep too well last night. Appetite has been normal. Mental Status Exam: Appearance: grossly normal Mental Status: mental status grossly normal Mood: dysthymic mood Affect: constricted affect Speech and Movement: speech normal, movement normal Attitude: cooperative Thought Process: normal Thought Content: Denied hallucinations, no homicidality, no suicidality Insight: Impaired Judgment: Impaired Exam Physical Exam Vital Signs: Temp Pulse Resp BP Pulse Ox O2 Del Method 98.2 F 62 18 156/73 H 96 Room Air 12/01/24 07:30 12/01/24 07:30 12/01/24 07:30 12/01/24 07:30 12/01/24 07:30 12/01/24 07:30 Assessment/Plan Assessment/Plan (1) Schizoaffective disorder: Plan Patient did continue to report some depression did tolerate increased dose of Lexapro Continue Lexapro 10mg daily and continue Zyprexa 5 mg at bedtime Continue to monitor mental status Encourage group participation and medication compliance Risk benefits alternatives explained Documented By: Avinash Quezada MD 12/01/241345 Signed By: 12/01/241346 [facility]02-04-2025 Progress note Author Avinash Quezada [facility] HospitalNote Date/TimeFebruary 2024 2:43pm [address] [address] Psychiatry Progress Note Signed Patient: Marizol Lucero MR#: [id number] : 1960 Acct:[id number] Age/Sex: 64 / F Adm Date: 5 Loc: 1S Room: [address] [place] [address] Type : ADM IN Attending Dr: Theo Lott MD Copies to: ~ Date of Service: 11/30/2024 Subjective Subjective Narrative: Ms. Lucero reported that she feels depressed today. She reported that she does not have any specific stressor at this time. She reported that he slept okay and appetite is been up and down. Mental Status Exam: Appearance: grossly normal Mental Status: mental status grossly normal Mood: dysthymic mood Affect: constricted affect Speech and Movement: speech normal, movement normal Attitude: cooperative Thought Process: normal Thought Content: Denied hallucinations, no homicidality, no suicidality Insight: Impaired Judgment: Impaired Exam Physical Exam Vital Signs: Temp Pulse Resp BP Pulse Ox O2 Del Method 98.3 F 69 16 124/68 98 Room Air 11/30/24 07:30 11/30/24 07:30 11/29/24 19:40 11/30/24 07:30 11/30/24 07:30 11/30/24 07:30 Assessment/Plan Assessment/Plan (1) Schizoaffective disorder: Plan Patient reported that she has been feeling depressed Increase Lexapro 10mg daily and continue Zyprexa 5 mg at bedtime Continue to monitor mental status Encourage group participation and medication compliance Risk benefits alternatives explained Documented By: Avinash Quezada MD 11/30/241441 Signed By: <Electronically signed by Avinash Quezada MD> 11/30/24 144 [facility] Work Phone: 1(589) 979-216502-04-2025 [place] [address] Psychiatry Progress Note Signed Patient: Marizol Lucero MR#: [id number] : 1960 Acct:[id number] Age/Sex: 64 / F Adm Date: 5 Loc: 1S Room: [address] [place] [address] Type : ADM IN Attending Dr: Theo Lott MD Copies to: ~ Date of Service: 11/30/2024 Subjective Subjective Narrative: Ms. Lucero reported that she feels depressed today. She reported that she does not have any specific stressor at this time. She reported that he slept okay and appetite is been up and down. Mental Status Exam: Appearance: grossly normal Mental Status: mental status grossly normal Mood: dysthymic mood Affect: constricted affect Speech and Movement: speech normal, movement normal Attitude: cooperative Thought Process: normal Thought Content: Denied hallucinations, no homicidality, no suicidality Insight: Impaired Judgment: Impaired Exam Physical Exam Vital Signs: Temp Pulse Resp BP Pulse Ox O2 Del Method 98.3 F 69 16 124/68 98 Room Air 11/30/24 07:30 11/30/24 07:30 11/29/24 19:40 11/30/24 07:30 11/30/24 07:30 11/30/24 07:30 Assessment/Plan Assessment/Plan (1) Schizoaffective disorder: Plan Patient reported that she has been feeling depressed Increase Lexapro 10mg daily and continue Zyprexa 5 mg at bedtime Continue to monitor mental status Encourage group participation and medication compliance Risk benefits alternatives explained Documented By: Avinash Quezada MD 11/30/241441 Signed By: 11/30/24 [facility]3 [facility]02-03-2025 History and physical note Author Avinash Queazda [facility] HospitalNote Date/TimeFebruary 2024 2:38pm [place] [address] Psychiatry H&P Signed Patient: Marizol Lucero MR#: [id number] : 1960 Acct:[id number] Age/Sex: 64 / F Adm Date: 5 Loc: Room: [address] [place] [address] Type: ADM IN Attending Dr: Theo Lott MD Copies to: MD Avinash Logan MD Marc Naderer, MD~ Date of Service: 11/29/2024 HPI History of Present Illness History of present illness: Ms. Lucero is a 64 year old female presented due to concern for disorganized behavior. Upon assessment, patient is not very talkative. She shrugs her shoulders when asked why she is herein the hospital. She does report that yesterday and does admit that she has not been taking her medications. She does not know for how long she has not been taking them. She shakes her head to any suicidal thoughtsor homicidal thoughts. She shakes her head to any hallucinations. According tofamily patient has not been taking care of herself and has been exhibiting some mood lability and hissing like it. Patient known to me from prior hospitalization during which she has had some noncompliance issues and psychoticsymptoms.] Past psych history: Psychosis Past hospitalizations: History of prior hospitalizations Past suicide attempts: Denies Family psych history: Unknown Previous medications: Risperdal, Invega, Lexapro, Effexor Alcohol and drug use: Denied any significant issues Living: With family Employment: Unemployed Review of symptoms: Constitutional: Denies chills and Denies fever(s) Eyes: Denies change in vision ENT: Denies abnormal hearing Cardiovascular: Denies chest pain Respiratory: Denies chest congestion and Denies cough Gastrointestinal: Denies change in bowel habits Genitourinary: Denies dysuria Musculoskeletal: Denies atrophy and Denies myalgias Integumentary/Breasts: Denies dry skin Neurologic: Denies abnormal gait and Denies abnormal movements Psychiatric: Reports depression and suicidal ideation Physical exam: Const: [...] status grossly normal Mood: dysthymic mood Affect: constricted affect Speech and Movement: speech normal, movement normal Attitude: cooperative Thought Process: normal Thought Content: Denied hallucinations, no homicidality, no suicidality Insight: Impaired Judgment: Impaired [facility] Medical History Poor historian COPD (chronic obstructive pulmonary disease) Diabetes Surgical History H/O cardiac radiofrequency ablation Family History Other Poor historian Social History Smoking Status: Never smoker Substance Use Type: None Meds Medications and Allergies Allergies No Known Allergies Allergy (Verified 02/10/23 21:59) Home Medications semaglutide 2 mg/dose (8 mg/3 mL) subcutaneous pen injector (Ozempic) 2 mg subcut .weekly 09/30/23 [History Confirmed 11/28/24] escitalopram oxalate 5 mg tablet 5 mg PO QHS 15 days #15 tabs 10/02/23 [Rx Confirmed 11/28/24] insulin glargine 100 unit/mL (3 mL) subcutaneous pen (Lantus Solostar U-100 Insulin) 20 unit (0.2 mL) subcut DAILY #15 mL 10/02/23 [Rx Confirmed 11/28/24] metformin 500 mg tablet,extended release 24 hr 1,000 mg PO BID 11/28/24 [History Confirmed 11/28/24] olanzapine 2.5 mg tablet 2.5 mg PO HS 11/28/24 [History Confirmed 11/28/24] Exam Physical Exam Vital Signs: Temp Pulse Resp BP Pulse Ox O2 Del Method 98.4 F 82 16 118/72 94 L Room Air 11/29/24 07:30 11/29/24 07:30 11/29/24 07:30 11/29/24 07:30 11/29/24 07:30 11/29/24 07:30 Assessment/Plan (1) Schizoaffective disorder: Plan Patient presenting due to concern for suicidality and inability to care for self Patient has not been compliant with medications for unknown amount of time Lexapro 5 mg daily and Zyprexa 5 mg at bedtime Continue to monitor mental status Encourage group participation and medication compliance Risk benefits alternatives explained Documented By: Avinash Quezada MD 11/29/24 143 Signed By: <Electronically signed by Avinash Quezada MD> 11/29/24 1432 [facility] Work Phone: 1(938) 360-924002-03-2025 [place] [address] Psychiatry H&P Signed Patient: Marizol Lucero MR#: [id number] : 1960 Acct:[id number] Age/Sex: 64 / F Adm Date: 5 Loc: Room: [address] [place] [address] Type: ADM IN Attending Dr: Theo Lott MD Copies to: MD Avinash Logan MD Marc Naderer, MD~ Date of Service: 11/29/2024 HPI History of Present Illness History of present illness: Ms. Lucero is a 64 year old female presented due to concern for disorganized behavior. Upon assessment, patient is not very talkative. She shrugs her shoulders when asked why she is herein the hospital. She does report that yesterday and does admit that she has not been taking her medications. She does not know for how long she has not been taking them. She shakes her head to any suicidal thoughtsor homicidal thoughts. She shakes her head to any hallucinations. According tofamily patient has not been taking care of herself and has been exhibiting some mood lability and hissing like it. Patient known to me from prior hospitalization during which she has had some noncompliance issues and psychoticsymptoms.] Past psych history: Psychosis Past hospitalizations: History of prior hospitalizations Past suicide attempts: Denies Family psych history: Unknown Previous medications: Risperdal, Invega, Lexapro, Effexor Alcohol and drug use: Denied any significant issues Living: With family Employment: Unemployed Review of symptoms: Constitutional: Denies chills and Denies fever(s) Eyes: Denies change in vision ENT: Denies abnormal hearing Cardiovascular: Denies chest pain Respiratory: Denies chest congestion and Denies cough Gastrointestinal: Denies change in bowel habits Genitourinary: Denies dysuria Musculoskeletal: Denies atrophy and Denies myalgias Integumentary/Breasts: Denies dry skin Neurologic: Denies abnormal gait and Denies abnormal movements Psychiatric: Reports depression and suicidal ideation Physical exam: Const: [...] status grossly normal Mood: dysthymic mood Affect: constricted affect Speech and Movement: speech normal, movement normal Attitude: cooperative Thought Process: normal Thought Content: Denied hallucinations, no homicidality, no suicidality Insight: Impaired Judgment: Impaired [facility] Medical History Poor historian COPD (chronic obstructive pulmonary disease) Diabetes Surgical History H/O cardiac radiofrequency ablation Family History Other Poor historian Social History Smoking Status: Never smoker Substance Use Type: None Meds Medications and Allergies Allergies No Known Allergies Allergy (Verified 02/10/23 21:59) Home Medications semaglutide 2 mg/dose (8 mg/3 mL) subcutaneous pen injector (Ozempic) 2 mg subcut .weekly 09/30/23 [History Confirmed 11/28/24] escitalopram oxalate 5 mg tablet 5 mg PO QHS 15 days #15 tabs 10/02/23 [Rx Confirmed 11/28/24] insulin glargine 100 unit/mL (3 mL) subcutaneous pen (Lantus Solostar U-100 Insulin) 20 unit (0.2 mL) subcut DAILY #15 mL 10/02/23 [Rx Confirmed 11/28/24] metformin 500 mg tablet,extended release 24 hr 1,000 mg PO BID 11/28/24 [History Confirmed 11/28/24] olanzapine 2.5 mg tablet 2.5 mg PO HS 11/28/24 [History Confirmed 11/28/24] Exam Physical Exam Vital Signs: Temp Pulse Resp BP Pulse Ox O2 Del Method 98.4 F 82 16 118/72 94 L Room Air 11/29/24 07:30 11/29/24 07:30 11/29/24 07:30 11/29/24 07:30 11/29/24 07:30 11/29/24 07:30 Assessment/Plan (1) Schizoaffective disorder: Plan Patient presenting due to concern for suicidality and inability to care for self Patient has not been compliant with medications for unknown amount of time Lexapro 5 mg daily and Zyprexa 5 mg at bedtime Continue to monitor mental status Encourage group participation and medication compliance Risk benefits alternatives explained Documented By: Avinash Quezada MD 11/29/24 143 Signed By: 11/29/24 1438 [facility]02-02-2025 Evaluation note* Diagnosis Onset Date Resolution Status Admit Date Schizoaffective disorder acuteFebruary 2024 12:15pm [facility] Work Phone: 1(804) 970-911202-02-2025 Discharge summary Author Avinash Quezada [facility]Note Date/TimeFebruary 2024 11:49am [address] [address] Discharge Summary Signed Patient: Marizol Lucero MR#: [id number] : 1960 Acct:[id number] Age/Sex: 64 / F Adm Date: 5 Loc: 1S Room: [address] [place] [address]: Theo Lott MD Copies to: MD Avinash Logan MD Marc Naderer, MD~ Providers Date of Discharge: 12/03/24 Discharging Provider: Avinash Quezada Primary Care Provider: Isac Sood Consults: 11/28/24 13:23 Consult to Case Management Routine Comment: CM 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 Lucero is a 64 year old female presented due to concern for disorganized behavior. Upon assessment, patient is not very talkative. She shrugs her shoulders when asked why she is herein the hospital. She does report that yesterday and does admit that she has not been taking her medications. She does not know for how long she has not been taking them. She shakes her head to any suicidal thoughtsor homicidal thoughts. She shakes her head to any hallucinations. According tofamily patient has not been taking care of herself and has been exhibiting some mood lability and hissing like it. Patient known to me from prior hospitalization during which she has had some noncompliance issues and psychoticsymptoms.] Past psych history: Psychosis Past hospitalizations: History of prior hospitalizations Past suicide attempts: Denies Family psych history: Unknown Previous medications: Risperdal, Invega, Lexapro, Effexor Alcohol and drug use: Denied any significant issues Living: With family Employment: Unemployed Patient was treated with Lexapro and Zyprexa. She tolerated the medication without any problems anddid not report any side effects. The doses of the medications were increased during her hospitalization. She started to show improvement of her depression and hallucinations. Her sleep and appetite im proved during her hospitalization. She did not exhibit any behavior concerning for suicidality. Shedid not have any conflict with peers or staff. She was not really allowed to leave her room due to positive COVID test. Objectively she seemed to improve gradually as time went on. On the day of discharge, she reported that her depression was improved. She denied any hallucinations or suicidal thoughts. She was comfortable with the discharge plan and following up with outpatient services to continue management of her symptoms. Time spent discussing smoking cessation with patient: 3 to 10 minutes Condition Condition at Discharge: Stable Status at Discharge Cognitive/behavioral status at discharge: Mental Status Exam: Appearance: grossly normal Mental Status: mental status grossly normal Mood: Euthymic mood Affect: Normal affect Speech and Movement: speech normal, movement normal Attitude: cooperative Thought Process: normal Thought Content: Denied hallucinations, no homicidality and no suicidality Insight: Good Judgment: Good Functional status at discharge: independent ambulation Overall status at discharge: patient is back to baseline Time Spent with Patient Time spent providing/coordinating discharge services (# min): 30 Discharge Plan Discharge Plan Patient Disposition: Home Activity: No Activity Restriction Diet: Regular Additional Instructions: Important Contact Information You can call [facility] at [phone] any timeday or night if you have emergent questions or question regarding discharge instructions. If at anytime you are feeling an increase inyour psychiatric symptoms, call your physician or behavioral healthcare provider. If any time you have thoughts of harming yourself or others contact one of the following: Call 8-8 (available 19/05) Crisis Text Line (available 19/05) text 4HOPE to [phone] [facility] Hope Line (available 8 a.m. Midnight) call [phone] ([phone]) Regular Diet No Activity Restrictions Instructions: Schizoaffective disorder - Discharge instructions, [facility] [place] Instructions, Know your Meds Prescriptions: New nicotine (polacrilex) 2 mg Gum 2 mg buccal Q2H PRN (Reason: Nicotine Cravings) Qty: 20 0RF olanzapine 10 mg Tablet 10 mg PO DAILY@1900 Qty: 30 0RF escitalopram oxalate 10 mg Tablet 10 mg PO QHS 30 Days Qty: 30 0RF Continued Ozempic 2 mg/dose (8 mg/3 mL) pen injector 2 mg SUBCUT .weekly Patient Comments: INJECT 1 DOSE SUBCUTANEOUSLY ONCE A WEEK insulin glargine [Lantus Solostar U-100 Insulin] 100 unit/mL (3 mL) Insulin Pen 20 unit subcut DAILY Qty: 15 0RF metformin 500 mg tablet extended release 24 hr 1,000 mg PO BID Discontinued escitalopram oxalate 5 mg Tablet 5 mg PO QHS 15 Days Qty: 15 2RF olanzapine 2.5 mg tablet 2.5 mg PO HS Follow Up: [facility] - [facility] [Outside] - 12/06/24 (12/06- case folder will call between 8a and 5p to follow up 12/13- Financial intake at 11:30am and DA with Carissa Serrano at 12pm 12/17- Nurse and Faith Tello NP at 12:40pm ) Isac Sood MD [Primary Care Provider] - (Call with any medical concerns.) Exam Physical Exam Vital Signs: Temp Pulse Resp BP Pulse Ox O2 Del Method 97.8 F 81 18 130/77 97 Room Air 12/03/24 07:30 12/03/24 07:30 12/03/24 07:30 12/03/24 07:30 12/03/24 07:30 12/03/24 07:30 Diagnostic Studies Completed and Pending Studies Labs on day of discharge: 12/03/24 06:25: POC Glucose 78, POC Glucose Comment Glu2: cleaned meter Documented By: Avinash Quezada MD 12/03/24 1016 Signed By: <Electronically signed by Avinash Quezada MD> 12/03/24 [facility] Work Phone: 1(567) 149-480901-13-2025 Miscellaneous Notes* Telephone Encounter - Chika Palomino RN - 11/08/2024 1:44 PM EST Call placed to patient to check status following recent breast biopsy. Patient reports no problems.She was encouraged to contact the [facility] Center if she develops any new problems at biopsy site. Voices understanding. documented in this encounterCommunity [facility] HospitalNeedle01-13-2025 Telephone encounter Note* Telephone Encounter - Chika Palomino RN - 11/08/2024 1:44 PM EST Call placed to patient to check status following recent breast biopsy. Patient reports no problems.She was encouraged to contact the Breast Center if she develops any new problems at biopsy site. Voices understanding. [facility]01-09-2025 History of Present illness Narrative* Angi Louis MA - 11/04/2024 10:44 AM EST Cardiology Manager contacted pt for possible CCM enrollment. Pt agrees to enroll. Social Drivers update for pt. She is living with her daughter until she is able to get a place of her own. Pt has been homeless in the past twelve months, she was staying at a fci in [place]. Shesaid she is thinking about going to stay at the one in [place] as there is more assistance available there ti help place her in housing. But right now her car is broke down so she isn't able to. Cardiology Manager informed pt to call [employer] as they have a program available to help with car repairs and to see ifshe would qualify. She was appreciative of that as she wasn't aware that was available. She is shceduled for a breast biopsy tmro in [place]. Her las Mammogram came back abnormal. Pt askedabout the biopsy process as she is understandably nervous about th procedure tmro. Education and reassurance given to pt and she was appreciative of that. She did ask for a refill of her Xanax. Request sent to PCP. She does have issues with sleep. She recently ran out of her Olanzapine so I will send in a requestto Dr Sood for a refill for her. [...] and sign off please?TIA documented in this encounterSaint John's Breech Regional Medical [id number] History of Present illness Narrative* Isac Sood MD - 08/16/2024 3:35 PM EDTAssociated Problem(s): Rheumatoid arthritis (CMS/HCC) Follow with specialists. * Isac Sood MD - 08/16/2024 3:34 PM EDTAssociated Problem(s): Type 2 diabetes mellitus with hyperglycemia, without long-term current use of insulin (CMS/HCC) BS elevated and need to resume lantus and metformin. Continue ozempic. Check A1C. Stick to ADA dietand limit carbs. * Isac Sood MD - 08/16/2024 3:34 PM EDTAssociated Problem(s): Primary insomnia Sleeping well with medication and continue. * Isac Sood MD - 08/16/2024 3:34 PM EDTAssociated Problem(s): Mild recurrent major depression (HCC) (CMS/HCC) Symptoms controlled with medication and continue. * Isac Sood MD - 08/16/2024 3:34 PM EDTAssociated Problem(s): GEORGIE (generalized anxiety disorder) (CMS/HCC) Symptoms controlled with medication and continue. Use xanax PRN. * Isac Sood MD - 08/16/2024 3:33 PM EDTAssociated Problem(s): Essential hypertension, benign (CMS/HCC) BP normal and monitor PRN. Discussed DASH diet. * Isac Sood MD - 08/16/2024 3:33 PM EDTAssociated Problem(s): Edema of both legs Mild swelling and use lasix PRN. Elevate legs PRN. * Isac Sood MD - 08/16/2024 3:33 PM EDTAssociated Problem(s): Class 2 severe obesity due to excess calories with serious comorbidity and body mass index (BMI) of 35.0 to 35.9 in adult ([facility]) Patient overweight and difficult time [...] month. OARRS reviewed. Continue medications as prescribed. * Isac Sood MD - 08/16/2024 2:00 PM EDT Images from the original note were not [...] on medication but took in the past. E wes controlled with medication. Mild swelling at end of day and if on feet a lot. Edema improved in am and with elevation. Mood stable with medication and no longer following with psychiatry. Not asdown or sad and feels happier. Able to interact better with others. Anxiety stable. Not as stressedout or overwhelmed. Not as nervous or worry as much. Not as leavitt or irritable. Out of xanax but hel ped. Sleeping well with medication. Able to fall [...] serious comorbidity and body mass index (BMI) of35.0 to 35.9 in adult (CMS/HCC) Patient overweight and difficult time losing weight. [...] hyperglycemia, without long-term current use of insulin ([facility]/HCC) - Primary BS elevated and need to resume lantus and metformin. Continue ozempic. Check A1C. Stick to ADA dietand limit carbs. Relevant Medications metFORMIN (Glucophage) 500 MG tablet insulin glargine (Lantus SoloStar) 100 UNIT/ML pen Other Relevant Orders Hemoglobin A1c Other Visit Diagnoses Breast cancer screening by mammogram Relevant Orders Bilateral screening mammogram Colon cancer screening Relevant Orders Cologuard colon cancer screening documented in this encounterSaint John's Breech Regional Medical [id number] Evaluation note* Encounter Date Diagnosis Assessment Notes Treatment Notes Treatment Clinical Notes Sep, Type 2 diabetes mellitus (ICD-10 - E11.9) Recent sugars well controlled on current dose of metformin and lantus, patient did not bring meds with her today but is recommended to bring at next visit Sep,Insomnia (ICD-10 - G47.00)Discussed can continue trazodone and can trial seroquel at bedtime. Sep,Schizoaffective disorder (ICD-10 - F25.9)Referral to psychiatry locally. She denies any self harming thoughts or active hallucinations at this point. She is very focused on fear of bed bugs in her apartment buidling affecting her comfort and sleep at this point. We will f/u in 6 weeks for [place] [facility] Other 12-07-2023 Hospital Discharge instructions Additional Instructions Important Contact Information You can call [facility] at [phone] any time day or night if you have emergent questions or question regarding discharge instructions. If at any time you are feeling an increase in your psychiatric symptoms, call your physician or behavioral healthcare provider. If any time you have thoughts of harming yourself or others contact one of the following: Call -8-8 (available 19/05) Crisis Text Line (available 19/05) text 4HOPE to [phone] [facility] Hope Line (available 8 a.m. Midnight) call [phone] ([phone]) [facility] Work Phone: 1(638) 804-195812-06-2023 Progress note Author Theo shaw [facility] October 01, 2023 12:04pmNote Date/TimeDece2022 12:04pm[place] [address] Psychiatry Progress Note Signed Patient: Marizol Lucero MR#: [id number] : 1960 Acct:[id number] Age/Sex: 63 / F Adm Date: 3 Loc: Room: [address] [place] [address] Type : ADM IN Attending Dr: Avinash [...] the encounter. I reviewed the history and performedthe montes de oca elements of the assessment. [...] unspecified Status: Acute Plan Presenting due to nondenominational preoccupation, delusions and paranoid thoughts Continue Invega [...] explained Documented By: Theo Lott MD 3 0825 Signed By: <Electronically signed by Theo Lott MD> 10/01/23 1204 [facility] Work Phone: 1(627) 587-820012-06-2023 Consult note Author Dusty Hsu [facility] October 01, 2023 8:25amNote Date/TimeDece2022 1:57pmGr[place] [address] Hospitalist Consult Note Signed Patient: Marizol Lucero MR#: [id number] : 1960 Acct:[id number] Age/Sex: 63 / F Adm Date: 3 Loc: 1S Room: [address] [place] [address] Type: ADM IN Attending Dr: Avinash Quezada [...] the inpatient psychiatric unit here at [facility] for further management and care. Ted collins has now been consulted for management of [...] Denies chest pain or palpitations. No cough, dyspnea,or pain with inspiration. No abdominal pain or indigestion, constipation or diarrhea, nausea or vomiting. No dysuria or retention. No headache or dizziness. No fevers or chills. Review of Systems Review of Systems All other systems reviewed & are negative unless noted below or in HPI [facility] Medical History (Updated 09/30/23 @ 21:39 by [...] pen (Lantus Solostar U-100 Insulin) 40 unit [id number] 09/30/23 [History Confirmed 09/30/23] semaglutide 2 mg/dose [...] Alkaline Phosphatase 79, Total Protein 6.7, Albumin 3.8,Globulin 2.9, Albumin/Globulin Ratio 1.3 09/30/23 10:19: Corrected WBC 8.6, Uncorrected WBC Count 8.6, RBC 4.53, Hgb 12.7, Hct 38.4, MCV 84.8, MCH 28.0, MCHC 33.0, RDW 14.3, Plt Count 136 L, MPV 10.0, Neut % (Auto) 52.3, Lymph % (Auto) 34.6, [place] % (Auto) 9.6, Eos % (Auto) 3.0, Baso % (Auto) 0.5, Nucleat RBC Rel Count 0.2, Neut # (Auto) 4.5, Lymph # (Auto) 3.0, [place] # (Auto) 0.8, Eos # (Auto) 0.3, [...] signed by Dusty Hsu MD> 10/01/23 0825 [facility] Work Phone: 1(474) 128-116912-05-2023 Progress note Author Theo shaw [facility] September 30, 2023 6:57amNote Date/TimeDece2022 6:56[place] [address] Psychiatry Progress Note Signed Patient: Marizol Lucero MR#: [id number] : 1960 Acct:[id number] Age/Sex: 63 / F Adm Date: 3 Loc: Room: [address] [place] [address] Type : ADM IN Attending Dr: Avinash [...] unspecified Status: Acute Plan Presenting due to nondenominational preoccupation, delusions and paranoid thoughts Continue Invega to 3 mg PO BID Supplement with Vitamin D due to low vitamin D Hospitalist consult for bilateral lower limb heaviness and warm feeling Continue to monitor mental status Encourage group participation and medication compliance Risk benefits alternatives explained Documented By: Theo Lott MD 3 0654 Signed By: <Electronically signed by Theo Lott MD> 09/30/23 0657 [facility] Work Phone: 1(348) 423-101012-04-2023 Progress note Author Theo shaw [facility] September 29, 2023 8:40amNote Date/TimeDece2022 8:20am[place] [address] Psychiatry Progress Note Signed Patient: Marizol Lucero MR#: [id number] : 1960 Acct:[id number] Age/Sex: 63 / F Adm Date: 3 Loc: Room: [address] [place] [address] Type : ADM IN Attending Dr: Avinash Quezada MD Copies to: ~ Date of Service: 09/29/2023 Subjective Subjective Narrative: Patient states she is doing better since yesterday. She continues to have auditory and visual hallucinations, but these are improving. She denies suicidal or homicidal ideation. Patient was personally seen by me on the day of the encounter. I reviewed the history and performedthe [place] elements of the assessment. [...] bed. She is also anxious and preoccupied withher niece who is into quaker and put a spell on the patient. She denied any side effects with current medication. Mental Status Exam: Appearance: grossly normal Mental Status: mental status grossly normal Mood: dysthymic mood Affect: dysphoric affect Speech and Movement: speech and movement normal and speech clear Attitude: cooperative Thought Process: normal Thought Content: Reported auditory and visual hallucinations, paranoid thoughts,no homicidality, nosuicidality Insight: fair Judgment: fair Exam Physical Exam Vital Signs: Temp Pulse Resp BP Pulse Ox O2 Del Method 97.4 F L 85 16 114/73 98 Room Air 09/29/23 07:58 09/29/23 07:58 09/29/23 07:58 09/29/23 07:58 09/29/23 07:58 09/29/23 07:58 Assessment/Plan Assessment/Plan (1) Schizoaffective disorder: Code(s): F25.9 - Schizoaffective disorder, unspecified Status: Acute Plan Presenting due to nondenominational preoccupation, delusions and paranoid thoughts Increase Invega to 3 mg PO BID Supplement with Vitamin D due to low vitamin D Continue to monitor mental status Encourage group participation and medication compliance Risk benefits alternatives explained Documented By: Camilo Pinto MD, RES 09/29/23815 Signed By: <Electronically signed by MD PARAS Pinto> 09/29/23819 <Electronically signed by Theo Lott MD> 09/29/23839 [facility] Work Phone: 1([phone]) 351-665912-03-2023 History and physical note Author Avinash Quezada [facility] September 28, 2023 10:54amNote Date/TimeDece2022 10:54[place] [address] Psychiatry H&P Signed Patient: Marizol Lucero MR#: [id number] : 1960 Acct:[id number] Age/Sex: 63 / F Adm Date: 3 Loc: Room: [address] [place] [address] Type: ADM IN Attending Dr: Avinash Quezada MD Copies to: MD Isac Duarte MD~ Date of Service: 09/28/2023 HPI History of Present Illness History of present illness: Ms. Lucero is a 63 year old female who presented due to concern for nondenominational preoccupation. She also had some paranoid thoughts. Upon assessment, patient reported that she stopped taking her medications over the summer. She reported that the doctors told her that she did not need it anymore and she did not like how it made herfeel. She stated that it made her drool. She reported that her grandson and things havebeen worsening. She stated that she has been fasting and praying. She has been laying in bed nakedwith the air conditioner. She reported that her niece gave her a funny look. She reported that shefelt that also triggered her. Shecould not spend [...] auditory and visual hallucinations, paranoid thoughts,no homicidality, nosuicidality Insight: fair Judgment: fair [facility] Medical History (Updated 09/28/23 @ 10:53 by [...] unspecified Status: Acute Plan Presenting due to nondenominational preoccupation, delusions and paranoid thoughts Will start Invega 3 mg at bedtime Continue to monitor mental status Encourage group participation and medication compliance Risk benefits alternatives explained Documented By: Avinash Quezada MD 09/28/23 1049 Signed By: <Electronically signed by Avinash Quezada MD> 09/28/23 1054 [facility] Work Phone: 1(625) 413-465004-22-2023 Discharge summary Author Avinash Quezada [facility] February 15, 2023 11:39amNote Date/TimeApril 2022 11:[address] [address] Discharge Summary Signed Patient: Marizol Lucero MR#: [id number] : 1960 Acct:[id number] Age/Sex: 62 / F Adm Date: 3 Loc: 1S Room: 1V3376-[address]: Avinash Quezada MD Copies to: [...] praying and doing the work of the [employer].? Thought process was slightly disorganized and she was tangential and made statements that are difficult to follow.? She reported that the person that brought her to the hospital was the devil. ? She stated that that person was talking to staff and also contributed her to coming into the hospital.? She made statements about the police judge telling her that she could press charges on her niece as she had attempted to do so in the past but stopped. Past psych history: Reported prior treatment for depression at services in [place] Past hospitalizations: Denies Past suicide attempts: Denies [...] about medications and follow-up. Both are in agreeme nt that patient would stay with daughter for [...] hallucinations but reported some visual hallucinations of shadows,no homicidality and no suicidality Insight: Good Judgment: [...] MOUTH THREE TIMES DAILY NEEDED Follow Up: [facility] - [facility] [Outside] ( claim manager: (Insert date/time here) Therapy:? (insert date/time here) Intake: (Insert date/time here) Please bring a copy of your photo ID, insurance card, and proof of household income.? Psychiatry: (Insert date/time here) Group: (Insert date/time here ) ) [facility] Hotline [Outside] Isac Sood MD [Primary Care Provider] - (Please call for any medical needs.) Documented By: Avinash Quezada MD 02/15/231136 Signed By: <Electronically signed by Avinash Quezada MD> 02/15/23 [facility] Work Phone: 1(953) 845-675104-21-2023 Progress note Author Avinash Quezada [facility] February 14, 2023 10:32amNote Date/TimeApr2022 10:[place] [id number] Psychiatry Progress Note Signed Patient: Marizol Lucero MR#: [id number] : 1960 Acct:[id number] Age/Sex: 62 / F Adm Date: 3 Loc: Room: 1K0108-4 Type : ADM IN Attending Dr: Avinash [...] hallucinations, no homicidality, no suicidality. Delusional and paranoidthoughts are improving Insight: Improving Judgment: Improving Exam [...] explained Documented By: Avinash Quezada MD 02/14/23 103 Signed By: <Electronically signed by Avinash Quezada MD> 02/14/23 1032 [facility] Work Phone: 1(124) 516-651204-20-2023 Progress note Author Avinash Quezada [facility] February 13, 2023 11:47amNote Date/TimeApril 2022 11:47[place] [id number] Psychiatry Progress Note Signed Patient: Marizol Lucero MR#: [id number] : 1960 Acct:[id number] Age/Sex: 62 / F Adm Date: 3 Loc: Room: [address] [place] [address] Type : ADM IN Attending Dr: Avinash Quezada MD Copies to: ~ Date of Service: 02/13/2023 Subjective Subjective Narrative: Ms. Lucero reported that she is feeling better. She reported that she still experiencing some hallucinations. She reported that she slept better overnight and did not report any side effects like shedid yesterday. She does not reportany other paranoid [...] mg twice a day as needed, continue [id number] mg daily Continue to monitor mental status Encourage group participation and medication compliance Risk benefits alternatives explained Documented By: Avinash Quezada MD 02/13/23 114 Signed By: <Electronically signed by Avinash Quezada MD> 02/13/23 1147 [facility] Work Phone: 1(580) 496-901904-19-2023 Progress note Author Avinash Quezada [facility] February 12, 2023 11:24amNote Date/TimeApril 2022 11:23[place] [address] Psychiatry Progress Note Signed Patient: Marizol Lucero MR#: [id number] : 1960 Acct:[id number] Age/Sex: 62 / F Adm Date: 3 Loc: Room: [address] [place] [address] Type : ADM IN Attending Dr: Avinash [...] mg twice a day as needed, continue [id number] mg daily Continue to monitor mental status Encourage group participation and medication compliance Risk benefits alternatives explained Documented By: Avinash Quezada MD 02/12/23 112 Signed By: <Electronically signed by Avinash Quezada MD> 02/12/23 1124 [facility] Work Phone: 1(132) 194-431604-18-2023 History and physical note Author Avinash Quezada [facility] February 11, 2023 1:03pmNote Date/TimeApril 2022 1:[place] [id number] Psychiatry H&P Signed Patient: Marizol Lucero MR#: [id number] : 1960 Acct:[id number] Age/Sex: 62 / F Adm Date: 3 Loc: Room: [address] [place] [address] Type: ADM IN Attending Dr: Avinash Quezada MD Copies to: MD Isac Duarte MD~ Date of Service: 02/11/2023 HPI History of Present Illness History of present illness: Ms. Lucero is a 62 year old female who presented due to concern for hallucinations. According to outside hospital she has been thinking about her family breaking into her house and talking to herselfin the [place]ar[place]. Upon assessment, patient reported that [...] the hospital. She made statements about the police judge telling her that she could press charges on her niece as she had attempted to do so in the past but stopped. Past psych history: Reported prior treatment for depression at services in [place] Past hospitalizations: Denies Past suicide attempts: Denies [...] pen (Lantus Solostar U-100 Insulin) 50 unit subcutHS 02/10/23 [History Confirmed 02/10/23] metformin 500 mg [...] mg twice a day as needed, continue [id number] mg daily Continue to monitor mental status Encourage group participation and medication compliance Risk benefits alternatives explained Documented By: Avinash Quezada MD 02/11/23 1257 Signed By: <Electronically signed by Avinash Quezada MD> 02/11/23 1303 [facility] Work Phone: Evaluation note* Diagnosis Onset Date Resolution Status Unspecified psychosis acute [facility] Work Phone: Evaluation note* Diagnosis Onset Date Resolution Status Bilateral lower extremity edema acuteDiabetesacuteSchizoaffective disorderacuteVitamin D deficiencyacute [facility] Work Phone: Evaluation noteNo [facility] [employer] Other Evaluation note* Diagnosis Moderate recurrent major depression (CMS/HCC)- Primary Major depressive disorder, recurrent episode, moderate [place] (generalized anxiety disorder) ([facility]/HCC) Generalized anxiety disorder Type 2 diabetes mellitus with hyperglycemia, with long-term current use of insulin ([facility])- Primary Essential hypertension, benign ([facility]/HCC) Essential hypertension, benign Edema of both legs Edema Moderate recurrent major depression ([facility]/HCC) Major depressive disorder, recurrent episode, moderate [place] (generalized anxiety disorder) ([facility]/HCC) Generalized anxiety disorder Primary insomnia Persistent disorder of initiating or maintaining sleep Chronic bilateral low back pain with left-sided sciatica- Primary Bilateral hip pain Pain in joint, pelvic region and thigh Acute non-recurrent pansinusitis Type 2 diabetes mellitus with hyperglycemia, with long-term current use of insulin ([facility])- Primary Essential hypertension, benign ([facility]/HCC) Essential hypertension, benign Edema of both legs Edema Mild recurrent major depression (HCC) ([facility]/HCC) Major depressive disorder, recurrent episode, mild [place] (generalized anxiety disorder) ([facility]/HCC) Generalized anxiety disorder Primary insomnia Persistent disorder of initiating or maintaining sleep Seasonal allergic rhinitis due to pollen Encounter for long-term current use of medication Obesity (BMI 30-39.9) Vitamin D deficiency Type 2 diabetes mellitus with hyperglycemia, without long-term current use of insulin ([facility])- Primary Essential hypertension, benign ([facility]/HCC) Essential hypertension, benign Mild recurrent major depression (HCC) ([facility]/HCC) Major depressive disorder, recurrent episode, mild [place] (generalized anxiety disorder) ([facility]/HCC) Generalized anxiety disorder Primary insomnia Persistent disorder of initiating or maintaining sleep Breast cancer screening by mammogram Colon cancer screening Special screening for malignant neoplasms, colon Class 2 severe obesity due to excess calories with serious comorbidity and body mass index (BMI) of35.0 to 35.9 in adult (CMS/HCC) Edema of both legs Edema Rheumatoid arthritis, involving unspecified site, unspecified whether rheumatoid factor present (CMS/HCC) [facility] [...] recurrent episode, mild [place] (generalized anxiety disorder) ([facility]/HCC) Generalized anxiety disorder Primary insomnia Persistent disorder of initiating or maintaining sleep Breast cancer screening by mammogram Colon cancer screening Special screening for malignant neoplasms, colon Class 2 severe obesity due to excess calories with serious comorbidity and body mass index (BMI) of35.0 to 35.9 in adult (CMS/HCC) Edema of both legs Edema Rheumatoid arthritis, involving unspecified site, unspecified whether rheumatoid factor present (CMS/HCC) Abnormal mammogram of left breast- Primary documented [...] recurrent episode, mild [place] (generalized anxiety disorder) ([facility]/HCC) Generalized anxiety disorder Primary insomnia Persistent disorder of initiating or maintaining sleep Breast cancer screening by mammogram Colon cancer screening Special screening for malignant neoplasms, colon Class 2 severe obesity due to excess calories with serious comorbidity and body mass index (BMI) of35.0 to 35.9 in adult (CMS/HCC) Edema of both legs Edema Rheumatoid arthritis, involving unspecified site, unspecified whether rheumatoid factor present ([facility]/HCC) Abnormal mammogram of left breast- Primary [facility]* Diagnosis Moderate recurrent major depression (CMS/HCC)- Primary Major depressive disorder, recurrent episode, moderate [place] (generalized anxiety disorder) (CMS/HCC) Generalized anxiety disorder Type 2 diabetes mellitus with hyperglycemia, with long-term current use of insulin ([facility]/HCC)- Primary Essential hypertension, benign (CMS/HCC) Essential hypertension, benign Edema of both legs Edema Moderate recurrent major depression (CMS/HCC) Major depressive disorder, recurrent episode, moderate [place] (generalized anxiety disorder) ([facility]/HCC) Generalized anxiety disorder Primary insomnia Persistent disorder [...] recurrent episode, mild [place] (generalized anxiety disorder) ([facility]/HCC) Generalized anxiety disorder Primary insomnia Persistent disorder of initiating or maintaining sleep Seasonal allergic rhinitis due to pollen Encounter for long-term current use of medication Obesity (BMI 30-39.9) Vitamin D deficiency Type 2 diabetes mellitus with hyperglycemia, without long-term current use of insulin ([facility]/HCC)- Primary Essential hypertension, benign (CMS/HCC) Essential hypertension, benign Mild recurrent major depression (HCC) ([facility]/HCC) Major depressive disorder, recurrent episode, mild [place] (generalized anxiety disorder) ([facility]/HCC) Generalized anxiety disorder Primary insomnia Persistent disorder of initiating or maintaining sleep Breast cancer screening by mammogram Colon cancer screening Special screening for malignant neoplasms, colon Class 2 severe obesity due to excess calories with serious comorbidity and body mass index (BMI) of35.0 to 35.9 in adult ([facility]/HCC) Edema of both legs Edema Rheumatoid arthritis, involving unspecified site, unspecified whether rheumatoid factor present ([facility]) Type 2 diabetes mellitus with hyperglycemia, without long-term current use of insulin ([facility]) Type 2 diabetes mellitus with hyperglycemia, with long-term current use of insulin ([facility]/HCC) [facility]* Diagnosis Moderate recurrent major depression (CMS/HCC)- Primary Major depressive disorder, recurrent episode, moderate [place] (generalized anxiety disorder) ([facility]/HCC) Generalized anxiety disorder Type 2 diabetes mellitus with hyperglycemia, with long-term current use of insulin ([facility]/HCC)- Primary Essential hypertension, benign (CMS/HCC) Essential hypertension, [...] hyperglycemia, with long-term current use of insulin ([facility])- Primary Essential hypertension, benign ([facility]/HCC) Essential hypertension, benign Edema of both legs Edema Mild recurrent major depression (HCC) ([facility]/HCC) Major depressive disorder, recurrent episode, mild [place] (generalized anxiety disorder) ([facility]/HCC) Generalized anxiety disorder Primary insomnia Persistent disorder of initiating or maintaining sleep Seasonal allergic rhinitis due to pollen Encounter for long-term current use of medication Obesity (BMI 30-39.9) Vitamin D deficiency Type 2 diabetes mellitus with hyperglycemia, without long-term current use of insulin ([facility])- Primary Essential hypertension, benign (CMS/HCC) Essential hypertension, benign Mild recurrent major depression (HCC) ([facility]/HCC) Major depressive disorder, recurrent episode, mild [place] (generalized anxiety disorder) ([facility]) Generalized anxiety disorder Primary insomnia Persistent disorder of initiating or maintaining sleep Breast cancer screening by mammogram Colon cancer screening Special screening for malignant neoplasms, colon Class 2 severe obesity due to excess calories with serious comorbidity and body mass index (BMI) of35.0 to 35.9 in adult ([facility]) Edema of both legs Edema Rheumatoid arthritis, involving unspecified site, unspecified whether rheumatoid factor present ([facility]) Type 2 diabetes mellitus with diabetic microalbuminuria, without long-term current use of insulin ([facility])- Primary Essential hypertension, benign ([facility]) Essential hypertension, benign [place] (generalized anxiety disorder) ([facility]) Generalized anxiety disorder Mild recurrent major depression (HCC) ([facility]) Major depressive disorder, recurrent episode, mild [facility] Diagnosis Moderate recurrent major depression (CMS/HCC)- Primary Major depressive disorder, recurrent episode, moderate [place] (generalized anxiety disorder) ([facility]) Generalized anxiety disorder Type 2 diabetes mellitus with hyperglycemia, with long-term current use of insulin ([facility])- Primary Essential hypertension, benign ([facility]/HCC) Essential hypertension, benign Edema of both legs Edema Moderate recurrent major depression (CMS/HCC) Major depressive disorder, recurrent episode, moderate [place] (generalized anxiety disorder) ([facility]) Generalized anxiety disorder Primary insomnia Persistent disorder of initiating or maintaining sleep Chronic bilateral low back pain with left-sided sciatica- Primary Bilateral hip pain Pain in joint, pelvic region and thigh Acute non-recurrent pansinusitis Type 2 diabetes mellitus with hyperglycemia, with long-term current use of insulin ([facility])- Primary Essential hypertension, benign ([facility]) Essential hypertension, benign Edema of both legs Edema Mild recurrent major depression (HCC) ([facility]) Major depressive disorder, recurrent episode, mild [place] (generalized anxiety disorder) ([facility]) Generalized anxiety disorder Primary insomnia Persistent disorder of initiating or maintaining sleep Seasonal allergic rhinitis due to pollen Encounter for long-term current use of medication Obesity (BMI 30-39.9) Vitamin D deficiency Type 2 diabetes mellitus with hyperglycemia, without long-term current use of insulin ([facility])- Primary Essential hypertension, benign ([facility]/HCC) Essential hypertension, benign Mild recurrent major depression (HCC) ([facility]) Major depressive disorder, recurrent episode, mild GE[place]IE (generalized anxiety disorder) ([facility]) Generalized anxiety disorder Primary insomnia Persistent disorder of initiating or maintaining sleep Breast cancer screening by mammogram Colon cancer screening Special screening for malignant neoplasms, colon Class 2 severe obesity due to excess calories with serious comorbidity and body mass index (BMI) of35.0 to 35.9 in adult ([facility]) Edema of both legs Edema Rheumatoid arthritis, involving unspecified site, unspecified whether rheumatoid factor present ([facility]) Schizoaffective disorder, depressive type ([facility])- Primary Schizoaffective disorder, unspecified condition Type 2 diabetes mellitus with diabetic microalbuminuria, without long-term current use of insulin ([facility]) Essential hypertension, benign ([facility]) Essential hypertension, benign GE[place]IE (generalized anxiety disorder) ([facility]) Generalized anxiety disorder Class 2 severe obesity due to excess calories with serious comorbidity and body mass index (BMI) of36.0 to 36.9 in adult ([facility]) Rheumatoid arthritis, involving unspecified site, unspecified whether rheumatoid factor present ([facility]) documented in this encounter [facility]* Diagnosis Moderate recurrent major depression ([facility]/HCC)- Primary Major depressive disorder, recurrent episode, moderate GE[place]IE (generalized anxiety disorder) ([facility]) Generalized anxiety disorder Type 2 diabetes mellitus with hyperglycemia, with long-term current use of insulin ([facility])- Primary Essential hypertension, benign ([facility]) Essential hypertension, benign Edema of both legs Edema Moderate recurrent major depression ([facility]) Major depressive disorder, recurrent episode, moderate [place]IE (generalized anxiety disorder) ([facility]) Generalized anxiety disorder Primary insomnia Persistent disorder of initiating or maintaining sleep Chronic bilateral low back pain with left-sided sciatica- Primary Bilateral hip pain Pain in joint, pelvic region and thigh Acute non-recurrent pansinusitis Type 2 diabetes mellitus with hyperglycemia, with long-term current use of insulin ([facility]/HCC)- Primary Essential hypertension, benign (CMS/HCC) Essential hypertension, benign Edema of both legs Edema Mild recurrent major depression (HCC) ([facility]/HCC) Major depressive disorder, recurrent episode, mild [place]IE (generalized anxiety disorder) ([facility]/HCC) Generalized anxiety disorder Primary insomnia Persistent disorder of initiating or maintaining sleep Seasonal allergic rhinitis due to pollen Encounter for long-term current use of medication Obesity (BMI 30-39.9) Vitamin D deficiency Type 2 diabetes mellitus with hyperglycemia, without long-term current use of insulin ([facility]/HCC)- Primary Essential hypertension, benign ([facility]/HCC) Essential hypertension, benign Mild recurrent major depression (HCC) ([facility]/HCC) Major depressive disorder, recurrent episode, mild [place]IE (generalized anxiety disorder) ([facility]/HCC) Generalized anxiety disorder Primary insomnia Persistent disorder of initiating or maintaining sleep Breast cancer screening by mammogram Colon cancer screening Special screening for malignant neoplasms, colon Class 2 severe obesity due to excess calories with serious comorbidity and body mass index (BMI) of35.0 to 35.9 in adult ([facility]) Edema of both legs Edema Rheumatoid arthritis, involving unspecified site, unspecified whether rheumatoid factor present ([facility]) Schizoaffective disorder, depressive type ([facility])- Primary Schizoaffective disorder, unspecified condition Type 2 diabetes mellitus with diabetic microalbuminuria, without long-term current use of insulin ([facility]) Essential hypertension, benign ([facility]) Essential hypertension, benign [place]IE (generalized anxiety disorder) ([facility]) Generalized anxiety disorder Class 2 severe obesity due to excess calories with serious comorbidity and body mass index (BMI) of36.0 to 36.9 in adult ([facility]) Rheumatoid arthritis, involving unspecified site, unspecified whether rheumatoid factor present ([facility]/HCC) GE[place]IE (generalized anxiety disorder) ([facility]) Generalized anxiety disorder Edema of both legs Edema documented in this encounter [facility]* Diagnosis Moderate recurrent major depression (CMS/HCC)- Primary Major depressive disorder, recurrent episode, moderate [place]IE (generalized anxiety disorder) ([facility]/HCC) Generalized anxiety disorder Type 2 diabetes mellitus with hyperglycemia, with long-term current use of insulin ([facility]/HCC)- Primary Essential hypertension, benign (CMS/HCC) Essential hypertension, benign Edema of both legs Edema Moderate recurrent major depression (CMS/HCC) Major depressive disorder, recurrent episode, moderate [place]IE (generalized anxiety disorder) ([facility]/HCC) Generalized anxiety disorder Primary insomnia Persistent disorder of initiating or maintaining sleep Chronic bilateral low back pain with left-sided sciatica- Primary Bilateral hip pain Pain in joint, pelvic region and thigh Acute non-recurrent pansinusitis Type 2 diabetes mellitus with hyperglycemia, with long-term current use of insulin ([facility])- Primary Essential hypertension, benign (CMS/HCC) Essential hypertension, benign Edema of both legs Edema Mild recurrent major depression (HCC) ([facility]/HCC) Major depressive disorder, recurrent episode, mild [place] (generalized anxiety disorder) ([facility]/HCC) Generalized anxiety disorder Primary insomnia Persistent disorder of initiating or maintaining sleep Seasonal allergic rhinitis due to pollen Encounter for long-term current use of medication Obesity (BMI 30-39.9) Vitamin D deficiency Type 2 diabetes mellitus with hyperglycemia, without long-term current use of insulin ([facility])- Primary Essential hypertension, benign ([facility]/HCC) Essential hypertension, benign Mild recurrent major depression (HCC) ([facility]) Major depressive disorder, recurrent episode, mild [place] (generalized anxiety disorder) ([facility]) Generalized anxiety disorder Primary insomnia Persistent disorder of initiating or maintaining sleep Breast cancer screening by mammogram Colon cancer screening Special screening for malignant neoplasms, colon Class 2 severe obesity due to excess calories with serious comorbidity and body mass index (BMI) of35.0 to 35.9 in adult ([facility]) Edema of both legs Edema Rheumatoid arthritis, involving unspecified site, unspecified whether rheumatoid factor present ([facility]) Schizoaffective disorder, depressive type ([facility])- Primary Schizoaffective disorder, unspecified condition Type 2 diabetes mellitus with diabetic microalbuminuria, without long-term current use of insulin ([facility]) Essential hypertension, benign ([facility]) Essential hypertension, benign [place] (generalized anxiety disorder) ([facility]) Generalized anxiety disorder Class 2 severe obesity due to excess calories with serious comorbidity and body mass index (BMI) of36.0 to 36.9 in adult ([facility]) Rheumatoid arthritis, involving unspecified site, unspecified whether rheumatoid factor present ([facility]) GE[place]IE (generalized anxiety disorder) ([facility]) Generalized anxiety disorder documented in this encounter [facility]* Diagnosis Moderate recurrent major depression (CMS/HCC)- Primary Major depressive disorder, recurrent episode, moderate [place] (generalized anxiety disorder) ([facility]/HCC) Generalized anxiety disorder Type 2 diabetes mellitus with hyperglycemia, with long-term current use of insulin ([facility])- Primary Essential hypertension, benign (CMS/HCC) Essential hypertension, benign Edema of both legs Edema Moderate recurrent major depression (CMS/HCC) Major depressive disorder, recurrent episode, moderate [place]IE (generalized anxiety disorder) ([facility]/HCC) Generalized anxiety disorder Primary insomnia Persistent disorder of initiating or maintaining sleep Chronic bilateral low back pain with left-sided sciatica- Primary Bilateral hip pain Pain in joint, pelvic region and thigh Acute non-recurrent pansinusitis Type 2 diabetes mellitus with hyperglycemia, with long-term current use of insulin ([facility])- Primary Essential hypertension, benign (CMS/HCC) Essential hypertension, benign Edema of both legs Edema Mild recurrent major depression (HCC) ([facility]/HCC) Major depressive disorder, recurrent episode, mild [place] (generalized anxiety disorder) ([facility]/HCC) Generalized anxiety disorder Primary insomnia Persistent disorder of initiating or maintaining sleep Seasonal allergic rhinitis due to pollen Encounter for long-term current use of medication Obesity (BMI 30-39.9) Vitamin D deficiency Type 2 diabetes mellitus with hyperglycemia, without long-term current use of insulin ([facility])- Primary Essential hypertension, benign ([facility]/HCC) Essential hypertension, benign Mild recurrent major depression (HCC) ([facility]/HCC) Major depressive disorder, recurrent episode, mild [place]IE (generalized anxiety disorder) ([facility]) Generalized anxiety disorder Primary insomnia Persistent disorder of initiating or maintaining sleep Breast cancer screening by mammogram Colon cancer screening Special screening for malignant neoplasms, colon Class 2 severe obesity due to excess calories with serious comorbidity and body mass index (BMI) of35.0 to 35.9 in adult ([facility]) Edema of both legs Edema Rheumatoid arthritis, involving unspecified site, unspecified whether rheumatoid factor present ([facility]) Schizoaffective disorder, depressive type ([facility])- Primary Schizoaffective disorder, unspecified condition Type 2 diabetes mellitus with diabetic microalbuminuria, without long-term current use of insulin ([facility]) Essential hypertension, benign ([facility]/HCC) Essential hypertension, benign [place]IE (generalized anxiety disorder) ([facility]) Generalized anxiety disorder Class 2 severe obesity due to excess calories with serious comorbidity and body mass index (BMI) of36.0 to 36.9 in adult ([facility]) Rheumatoid arthritis, involving unspecified site, unspecified whether rheumatoid factor present ([facility]) Type 2 diabetes mellitus with hyperglycemia, without long-term current use of insulin ([facility])- Primary Essential hypertension, benign ([facility]) Essential hypertension, benign Schizoaffective disorder, depressive type ([facility]) Schizoaffective disorder, unspecified condition [place]IE (generalized anxiety disorder) ([facility]) Generalized anxiety disorder Edema of both legs Edema Class 2 severe obesity due to excess calories with serious comorbidity and body mass index (BMI) of36.0 to 36.9 in adult ([facility]) documented in this encounter [facility]* Diagnosis Moderate recurrent major depression ([facility])- Primary Major depressive disorder, recurrent episode, moderate [place]IE (generalized anxiety disorder) ([facility]) Generalized anxiety disorder Type 2 diabetes mellitus with hyperglycemia, with long-term current use of insulin ([facility])- Primary Essential hypertension, benign ([facility]) Essential hypertension, benign Edema of both legs Edema Moderate recurrent major depression ([facility]) Major depressive disorder, recurrent episode, moderate [place] (generalized anxiety disorder) ([facility]) Generalized anxiety disorder Primary insomnia Persistent disorder of initiating or maintaining sleep Chronic bilateral low back pain with left-sided sciatica- Primary Bilateral hip pain Pain in joint, pelvic region and thigh Acute non-recurrent pansinusitis Type 2 diabetes mellitus with hyperglycemia, with long-term current use of insulin ([facility])- Primary Essential hypertension, benign ([facility]) Essential hypertension, benign Edema of both legs Edema Mild recurrent major depression (HCC) ([facility]) Major depressive disorder, recurrent episode, mild [place] (generalized anxiety disorder) ([facility]) Generalized anxiety disorder Primary insomnia Persistent disorder of initiating or maintaining sleep Seasonal allergic rhinitis due to pollen Encounter for long-term current use of medication Obesity (BMI 30-39.9) Vitamin D deficiency Type 2 diabetes mellitus with hyperglycemia, without long-term current use of insulin ([facility])- Primary Essential hypertension, benign ([facility]) Essential hypertension, benign Mild recurrent major depression (HCC) ([facility]) Major depressive disorder, recurrent episode, mild [place] (generalized anxiety disorder) ([facility]) Generalized anxiety disorder Primary insomnia Persistent disorder of initiating or maintaining sleep Breast cancer screening by mammogram Colon cancer screening Special screening for malignant neoplasms, colon Class 2 severe obesity due to excess calories with serious comorbidity and body mass index (BMI) of35.0 to 35.9 in adult ([facility]) Edema of both legs Edema Rheumatoid arthritis, involving unspecified site, unspecified whether rheumatoid factor present ([facility]) Schizoaffective disorder, depressive type ([facility])- Primary Schizoaffective disorder, unspecified condition Type 2 diabetes mellitus with diabetic microalbuminuria, without long-term current use of insulin ([facility]) Essential hypertension, benign ([facility]) Essential hypertension, benign [place] (generalized anxiety disorder) ([facility]) Generalized anxiety disorder Class 2 severe obesity due to excess calories with serious comorbidity and body mass index (BMI) of36.0 to 36.9 in adult ([facility]) Rheumatoid arthritis, involving unspecified site, unspecified whether rheumatoid factor present ([facility]) Type 2 diabetes mellitus with hyperglycemia, without long-term current use of insulin ([facility])- Primary Essential hypertension, benign ([facility]) Essential hypertension, benign Schizoaffective disorder, depressive type ([facility]) Schizoaffective disorder, unspecified condition [place] (generalized anxiety disorder) ([facility]) Generalized anxiety disorder Edema of both legs Edema Class 2 severe obesity due to excess calories with serious comorbidity and body mass index (BMI) of36.0 to 36.9 in adult ([facility]) [place] (generalized anxiety disorder) ([facility]) Generalized anxiety disorder documented in this encounter [facility]* Diagnosis Moderate recurrent major depression (HCC)- Primary Major depressive disorder, recurrent episode, moderate [place] (generalized anxiety disorder) Generalized anxiety disorder Type 2 diabetes mellitus with hyperglycemia, with long-term current use of insulin ([facility])- Primary Essential hypertension, benign Essential hypertension, benign Edema of both legs Edema Moderate recurrent major depression (HCC) Major depressive disorder, recurrent episode, moderate [place] (generalized anxiety disorder) Generalized anxiety disorder Primary insomnia Persistent disorder of initiating or maintaining sleep Chronic bilateral low back pain with left-sided sciatica- Primary Bilateral hip pain Pain in joint, pelvic region and thigh Acute non-recurrent pansinusitis Type 2 diabetes mellitus with hyperglycemia, with long-term current use of insulin ([facility])- Primary Essential hypertension, benign Essential hypertension, benign Edema of both legs Edema Mild recurrent major depression Major depressive disorder, recurrent episode, mild [place] (generalized anxiety disorder) Generalized anxiety disorder Primary insomnia Persistent disorder of initiating or maintaining sleep Seasonal allergic rhinitis due to pollen Encounter for long-term current use of medication Obesity (BMI 30-39.9) Vitamin D deficiency Type 2 diabetes mellitus with hyperglycemia, without long-term current use of insulin ([facility])- Primary Essential hypertension, benign Essential hypertension, benign Mild recurrent major depression Major depressive disorder, recurrent episode, mild [place] (generalized anxiety disorder) Generalized anxiety disorder Primary insomnia Persistent disorder of initiating or maintaining sleep Breast cancer screening by mammogram Colon cancer screening Special screening for malignant neoplasms, colon Class 2 severe obesity due to excess calories with serious comorbidity and body mass index (BMI) of35.0 to 35.9 in adult ([facility] [place]) Edema of both legs Edema Rheumatoid arthritis, involving unspecified site, unspecified whether rheumatoid factor present ([facility]) Schizoaffective disorder, depressive type ([facility])- Primary Schizoaffective disorder, unspecified condition Type 2 diabetes mellitus with diabetic microalbuminuria, without long-term current use of insulin ([facility]) Essential hypertension, benign Essential hypertension, benign [place] (generalized anxiety disorder) Generalized anxiety disorder Class 2 severe obesity due to excess calories with serious comorbidity and body mass index (BMI) of36.0 to 36.9 in adult ([facility] [place]) Rheumatoid arthritis, involving unspecified site, unspecified whether rheumatoid factor present ([facility]) Type 2 diabetes mellitus with hyperglycemia, without long-term current use of insulin ([facility])- Primary Essential hypertension, benign Essential hypertension, benign Schizoaffective disorder, depressive type ([facility]) Schizoaffective disorder, unspecified condition [place] (generalized anxiety disorder) Generalized anxiety disorder Edema of both legs Edema Class 2 severe obesity due to excess calories with serious comorbidity and body mass index (BMI) of36.0 to 36.9 in adult ([facility] [place]) Type 2 diabetes mellitus with hyperglycemia, without long-term current use of insulin ([facility])- Primary Essential hypertension, benign Essential hypertension, benign Schizoaffective disorder, depressive type ([facility]) Schizoaffective disorder, unspecified condition [place] (generalized anxiety disorder) Generalized anxiety disorder Edema of both legs Edema Class 2 severe obesity due to excess calories with serious comorbidity and body mass index (BMI) of37.0 to 37.9 in adult ([facility] [place]) Encounter for long-term current use of medication Former smoker Personal history of tobacco use, presenting hazards to health documented in this encounter [facility]* Diagnosis Moderate recurrent major depression (HCC)- Primary Major depressive disorder, recurrent episode, moderate [place] (generalized anxiety disorder) Generalized anxiety disorder Type 2 diabetes mellitus with hyperglycemia, with long-term current use of insulin ([facility])- Primary Essential hypertension, benign Essential hypertension, benign Edema of both legs Edema Moderate recurrent major depression (HCC) Major depressive disorder, recurrent episode, moderate GEORGIE (generalized anxiety disorder) Generalized anxiety disorder Primary insomnia Persistent disorder of initiating or maintaining sleep Chronic bilateral low back pain with left-sided sciatica- Primary Bilateral hip pain Pain in joint, pelvic region and thigh Acute non-recurrent pansinusitis Type 2 diabetes mellitus with hyperglycemia, with long-term current use of insulin ([facility])- Primary Essential hypertension, benign Essential hypertension, benign Edema of both legs Edema Mild recurrent major depression Major depressive disorder, recurrent episode, mild GEORGIE (generalized anxiety disorder) Generalized anxiety disorder Primary insomnia Persistent disorder of initiating or maintaining sleep Seasonal allergic rhinitis due to pollen Encounter for long-term current use of medication Obesity (BMI 30-39.9) Vitamin D deficiency Type 2 diabetes mellitus with hyperglycemia, without long-term current use of insulin ([facility])- Primary Essential hypertension, benign Essential hypertension, benign Mild recurrent major depression Major depressive disorder, recurrent episode, mild GEORGIE (generalized anxiety disorder) Generalized anxiety disorder Primary insomnia Persistent disorder of initiating or maintaining sleep Breast cancer screening by mammogram Colon cancer screening Special screening for malignant neoplasms, colon Class 2 severe obesity due to excess calories with serious comorbidity and body mass index (BMI) of35.0 to 35.9 in adult ([facility]) Edema of both legs Edema Rheumatoid arthritis, involving unspecified site, unspecified whether rheumatoid factor present ([facility]) Schizoaffective disorder, depressive type ([facility])- Primary Schizoaffective disorder, unspecified condition Type 2 diabetes mellitus with diabetic microalbuminuria, without long-term current use of insulin ([facility]) Essential hypertension, benign Essential hypertension, benign GEORGIE (generalized anxiety disorder) Generalized anxiety disorder Class 2 severe obesity due to excess calories with serious comorbidity and body mass index (BMI) of36.0 to 36.9 in adult ([facility]) Rheumatoid arthritis, involving unspecified site, unspecified whether rheumatoid factor present ([facility]) Type 2 diabetes mellitus with hyperglycemia, without long-term current use of insulin ([facility])- Primary Essential hypertension, benign Essential hypertension, benign Schizoaffective disorder, depressive type ([facility]) Schizoaffective disorder, unspecified condition GEORGIE (generalized anxiety disorder) Generalized anxiety disorder Edema of both legs Edema Class 2 severe obesity due to excess calories with serious comorbidity and body mass index (BMI) of36.0 to 36.9 in adult ([facility]) Type 2 diabetes mellitus with hyperglycemia, without long-term current use of insulin ([facility])- Primary Essential hypertension, benign Essential hypertension, benign Schizoaffective disorder, depressive type ([facility]) Schizoaffective disorder, unspecified condition GEORGIE (generalized anxiety disorder) Generalized anxiety disorder Edema of both legs Edema Class 2 severe obesity due to excess calories with serious comorbidity and body mass index (BMI) of37.0 to 37.9 in adult ([facility]) Encounter for long-term current use of medication Former smoker Personal history of tobacco use, presenting hazards to health Type 2 diabetes mellitus with hyperglycemia, without long-term current use of insulin ([facility]) documented in this encounter [facility]* Diagnosis Onset Date Resolution Status Admit Date Bilateral lower extremity edema acuteOctober 2024 8:43amEssential hypertension, benignacuteOctober 2024 8:43amGAD (generalized anxiety disorder)acuteOctober 2024 8:43am Schizoaffective disorderacuteOctober 2024 8:43amType 2 diabetes mellitus with hyperglycemia, without long-term current useacuteOctober 2024 8:43am [facility] Work Phone: History general Narrative - Reported* Type Description Date Medical History type 2 diabetes Medical HistoryanxietyMedical HistorydepressionMedical Historyschizophrenia Surgical Historytubal ligationSurgical HistorycholecystectomySurgical History appendectomyHospitalization Historysee aboveHospitalization History[facility] Discharge instructions Additional Instructions right 5th toe- clean feet with theraworx protect, apply silvasorb gel, then bandaid cut in half *use antifungal on toes to prevent future openings between and under toes- ex:Tinactin antifungal spray, Lotrimin Antifungal spray, Equate antifungal powder spray Regular Diet No Activity [facility]ionsA[facility] Work Phone: InstructionsNot on filedocumented in this encounter [facility] for [facility] (narrative)No reason for referral information availableSelect [facility] Work [facility]: Summary Purpose Family History Relationship Condition Age at Onset Recorded Date/T sonali Not Specified Poor historian Unknown Relationship Condition Age at Onset Recorded Date/T sonali Not Specified Poor historian Unknown brotherHistory of strokeUnknownDiabetes mellitusUnknownHypertensionUnknownfather DeceasedUnknownmotherDeceasedUnknownsisterDiabetes mellitusUnknownHeart disease Unknown Advance Directives Advance Directive Response Recorded Date/ Time Advance Directives No February 10, 023 9:23pm Advance Directive Response Recorded Date/ Time Advance Directives No February 10 023 8:23pm Date ActivatedDate InactivatedComments04/24/2021 8:51 AM04/26/2021 3:59 PM Chief Complaint and Reason for Visit Chief Complaint Acute Psychosis Reason for Visit Unspecified psychosi s Chief Complaint Unspecified psychosi s Reason for Visit Bilateral lower extr emity edema Diabetes Schizoaffective disorder Vitamin D deficiency Chief Complaint Admit Date November 28, 2024 1 2:00pm Schizoaffective- Crumpler Slip November 28, 2024 12:15pm Schizoaffective- [place]rumpler Slip November 30, 2024 2:42pm Reason for Visit Admit Date Schizoaffective disorder November 28 12:15pm Chief Complaint Admit Date Established Patient August 25, 2025 8 :43am Reason for Visit Admit Date Bilateral lower extremity edema August 25, 2025 8:43am Essential hypertension, benign July 292024 8:43am GEORGIE (generalized anxiety disorder) Octob 2024 8:43am Schizoaffective disorder August 25 8:43am Type 2 diabetes mellitus wit h hyperglycemia, without long-term current use August 25, 2025 8:43am Reason for Referral Reason schizoaffective diso rder, anxiety, depression Diagnosis 1 Schizoaffective diso rder (F25.9) Referral Organization [facility] Referring Provider First Name Kayla Referring Provider Last Name Roopa Referring Provider Specialty Family [facility] Referred Organization [facility] Ref[place] Address [address] [place], [place],[address] Referred Provider Specialty Psychiatry Referral Priority Routine Additional Source Comments INFORMATION SOURCE (unrecogn ized section and content) DATE CREATED AUTHOR 02/11/[address] [facility] DATE CREATED AUTHOR AUTHOR'S ORGANIZ ATION 11/10/2024 [facility] DATE CREATED AUTHOR AUTHOR'S ORGANIZ ATION 05/20/2025 [facility] DATE CREATED AUTHOR AUTHOR'S ORGANIZ ATION 06/01/2025 [facility] DATE CREATED AUTHOR AUTHOR'S ORGANIZ ATION 06/25/2025 [facility] Care Teams (unrecognized sec tion and content) Team Status: Active Member Role Status Dates Isac Sood MD Primary Care Provider Active Team Status: Active Member Role Status Dates Isac Sood MD Primary Care Provider Active S tart: November 28, 2024 Zach Logan ProviderActiveStart: November 28, 2024 Team Status: Inactive Member Role Status Dates Isac Sood MD Primary Care Provider Active S tart: November 28, 2024 End: December 03Jordon Herring Provider, Attending ProviderActiveStart: November 28, 2024 End: December 03, 2024 Team Status: Active Member Role Status Dates Isac Sood MD Primary Care Provider Active S tart: November 30, 2024 Jordon Logan Provider, Other ProviderActiveStart: November 30, 2024 Avinash Quezada MDAttending ProviderActiveStart: November 30, 2024 Team Status: Inactive Member Role Status Dates Isac Sood MD Primary Care Provider Active Jordon Duarte Provider, Attending ProviderActive Team Status: Inactive Member Role Status Dates Isac Sood MD Primary Care Provider Active Jordon Duarte Provider, Attending ProviderActiveTsering Walsh RN Other ProviderActiveBhavya Mccray RNOther ProviderActiveCarlota Patel RN Other ProviderActiveMiclaura Zheng RNOther ProviderActiveRenee Rosado RNOther ProviderActiveMoivana Crane RNOther ProviderActiveLisa Pedro Pablo Graves , AGRICULTURAL SYSTEMS SPECIALIST Other ProviderActiveRonjaymie Silva DOOther ProviderActiveMuskylie Phelps MD Other ProviderActiveGuero Beckett , DOOther ProviderActiveJay Duran MDOther ProviderActiveJacqueline Benson MDOther ProviderActiveLyjeff Li , APRNOther ProviderActiveBlaire Brown MDOther ProviderActiveBaallen Robins MDOther ProviderActiveDusty Hsu MDOther ProviderActiveDina Rodriguez MDOther ProviderActiveMichael Gavino , DOOther ProviderActiveFirdaniela Bill MDOther ProviderActiveEarajit Guzman MDOther ProviderActiveAmy Rylee Petersen , PUMP MECHANIC-COther ProviderActiveFrjama Ruth MDOther Provider ActiveNaerimma Rosa MDOther ProviderActiveBaljit Varela MDOther ProviderActive BoyKaplan MDOther ProviderActiveMarmoo Curiel , DOOther ProviderActiveNeal R Zofia , DOOther ProviderActiveAnthony M Miniaci , DOOther ProviderActiveLinda Obika , APRNOther ProviderActiveAlex Lynch , DOOther ProviderActiveObaydah Pedro Pablo Casillas MDOther ProviderActivePaula Bob Noguera , APRNOther ProviderActiveAlicia Clarissa Buenrostro , APRNOther ProviderActiveAlaa MD AlberOther ProviderActiveDamalu Baer MDOther ProviderActiveJoni Krishnamurthy , DOOther ProviderActive Alfreda Andrew Christianson , APRNOther ProviderActiveYabrett Dietz , DOOther Provider ActiveQuita Beltran RNOther ProviderActiveTeam MemberRelationshipSpecialtyStart DateEnd Date Isac Sood MD [address] [place] [address] [facility] - [facility] Isac Sood MD [address] [place] [address] PCP - [facility]06/27/24Team MemberRelationshipSpecialtyStart DateEnd Date Isac Sood MD [address] [place] [address] PCP - GeneralFamily Medicine11/25/23 Isac Sood MD [address] [place] [address] PCP - [facility]06/27/24Team MemberRelationshipSpecialtyStart DateEnd Date Isac Sood MD [address] [place] [address] PCP - Generalmily Medicine11/25/23 Isac Sood MD [address] [place] [address] PCP - [facility]06/27/24Team MemberRelationshipSpecialtyStart DateEnd Date Isac Sood MD [address] [place] [address] PCP - Generalmily Medicine11/25/23 Isac Sood MD [address] [place] [address] PCP - [facility]06/27/2412Team MemberRelationshipSpecialtyStart DateEnd Date Isac Sood MD [address] [place] [address] PCP - Generalmily Medicine11/25/23 Isac Sood MD [address] [place] [address] PCP - [facility]06/27/2412Team MemberRelationshipSpecialtyStart DateEnd Date Isac Sood MD [address] [place] [address] PCP - GeneralFamily Medicine11/25/23 [facility]10/26/24Team MemberRelationshipSpecialtyStart DateEnd Date Isac Sood MD PCP - GeneralFamily Psapvfms34/24/22Team MemberRelationshipSpecialtyStart Date End Date Isac Sood MD [address] [place] [address] PCP - GeneralFamily Medicine11/25/23 [facility]10/26/24Team MemberRelationshipSpecialtyStart DateEnd Date Isac Sood MD [address] [place] [address] PCP - GeneralFamily Medicine11/25/23 Angi Louis [facility]10/26/24Team MemberRelationshipSpecialtyStart DateEnd Date Isac Sood MD [address] [place] [address] PCP - GeneralFamily Medicine11/25/23 Angi Louis MA [facility]10/26/24Team MemberRelationshipSpecialtyStart DateEnd Date Isac Sood MD [address] [place] [address] PCP - GeneralFamily Medicine11/25/23 Angi Louis MA [facility]10/26/24Team MemberRelationshipSpecialtyStart DateEnd Date Isac Sood MD [address] [place] [address] PCP - GeneralFamily Medicine11/25/23 Angi Louis MA Family Ehdqimjy59/31/24Team MemberRelationshipSpecialtyStart DateEnd Date Isac Sood MD [address] [place] [address] PCP - GeneralFamily Medicine11/25/23 Angi Louis MA [facility]10/26/24Team MemberRelationshipSpecialtyStart DateEnd Date Isac Sood MD [address] [place] [address] PCP - GeneralFamily Medicine11/25/23 Angi Louis MA [facility]10/26/24Team MemberRelationshipSpecialtyStart DateEnd Date Isac Sood MD [address] [place] [address] PCP - GeneralFamily Medicine11/25/23 [facility]10/26/24Team MemberRelationshipSpecialtyStart DateEnd Date Isac Sood MD [address] [place] [address] PCP - GeneralFamily Medicine11/25/23 Angi Louis [place] [address] [place] [address] Family Csagaebb88/31/24Team MemberRelationshipSpecialtyStart DateEnd Date Isac Sood MD [address] [place] [address] [facility] - [facility]/23 Angi Louis [place] [address] [place] [address] [facility]10/26/24Team MemberRelationshipSpecialtyStart DateEnd Date Isac Sood MD [address] [place] [address] PCP - [facility]11/25/23 Angi Louis [place] [address] [place] [address] [facility]10/26/24Team MemberRelationshipSpecialtyStart DateEnd Date Isac Sood MD [address] [place] [address] PCP - [facility]11/25/23 Isac Sood MD [address] [place] [address] PCP - [place] [facility]04/26/25 Team Status: Active Member Role/Relationship Status Dates Isac Sood MD Primary Care Provider Active Team Status: Inactive Member Role/Relationship Status Dates Isac Sood MD Primary Care Provider Active S tart: August 25, 2025 End: August 25, 2025[facility]clarissa Sood MDAttending ProviderActiveStart: August 25, 2025 End: August 25, 2025 REASON FOR VISIT (unrecogniz ed section and content) ReasonCommentsFollow-up6 mArthritisReasonOnset DateCommentsMed Obzamo9710/18/2024 ReasonCommentsFollow-upFr f/upReasonOnset DateCommentsMed Rohzbe0012/24/2024 ReasonOnset DateCommentsMed Qpvcrp4602/22/2025ReasonCommentsFollow-hf0dIjzileYeskk DateCommentsMed Lxeemy2203/31/2025ReasonCommentsFollow-up2 mShoulder PainLeft shoulderReasonCommentsMed Refill Goals (unrecognized section and content) Goals may be documented in a n alternate section FOR RECORDS PERTAINING TO PATIENTS WHO ARE [...] BE BASED ON THE PRIMARY CLINICAL RECORDS. [employer] provides no warranty or guarantee of the accuracy or completeness of information in this document.
[2025-09-26] MEDS: POTASSIUM BICARBONATE/CIT 25 MEQ TABLET EFF 50 MEQ PO (09:45)
== END 2025-09-26 09:47 | disposition home or self-care (01) ==
PROVIDERS: Emergency Provider Emergency Medicine; PCP Family Medicine
DX: S09.90XA Unspecified injury of head, initial encounter (principal); S70.02XA Contusion of left hip, initial encounter; S80.02XA Contusion of left knee, initial encounter; E87.6 Hypokalemia; Z87.891 Personal history of nicotine dependence; W01.0XXA Fall on same level from slipping, tripping and stumbling without subsequent striking against object, initial encounter; Y92.003 Bedroom of unspecified non-institutional (private) residence as the place of occurrence of the external cause
CPT/HCPCS: 36415; 70450; 72125; 73502; 73562; 76376; 80053; 84484; 85025; 93005; 99285